=== PATIENT | female | born 1965 | race Caucasian/White ===

== ENCOUNTER → 2023-11-02 10:03 | Outpatient (REF) | payer MEDICARE, OTHER, SELFPAY ==
[2023-11-02 12:04] LABS: Urine Albumin Negative (Neg - Trace); Urine Bilirubin Negative (Negative); Urine Character Clear (Clear); Urine Color Straw; Urine Glucose Negative (Negative); Urine Ketone Negative (Negative); Urine Leukocyte Negative (Negative); Urine Nitrite Negative (Negative); Urine Occult Blood Negative (Negative); Urine Urobilinogen Negative (Neg - 1+)
[2023-11-02 12:30] LABS: Erythrocyte Sed Rate 24 mm/hour (0-20)
[2023-11-02 12:33] LABS: ALT (SGPT) 21 U/L (0-35); AST (SGOT) 29 U/L (14-36); Albumin 4.7 g/dl (3.5-5.0); Alkaline Phosphatase 120 U/L (38-126); Blood Urea Nitrogen 11 mg/dl (7-17); Calcium 9.9 mg/dl (8.4-10.2); Carbon Dioxide 30 mmol/L (22-30); Chloride 103 mmol/L (98-107); Glucose 92 mg/dl (70-99); HDL Cholesterol 85 mg/dl; LDL Cholesterol, Calculated 114 mg/dl; Potassium 4.1 mmol/L (3.5-5.1); Sodium 139 mmol/L (135-145); Total Bilirubin 0.5 mg/dl (0.2-1.3); Total Cholesterol 220 mg/dl (50-199); Total Protein 7.9 g/dl (6.3-8.2); Triglyceride 108 mg/dl (10-149); Very Low Density Lipoprotein 21 mg/dl (0-30); eGFR > 60.00
[2023-11-02 12:53] LABS: Vitamin D, 25-OH*** 48.8 ng/mL (30-80)
[2023-11-02 13:07] LABS: TSH 1.48 uIU/ml (0.47-4.68)
[2023-11-02 19:20] LABS: Protein/creatinine Ratio 0.2; Urine Protein 10 mg/dl
[2023-11-06 13:06] LABS: Albumin 4.38 g/dL (3.75-5.01); Alpha 1 Globulin 0.34 g/dL (0.19-0.46); Alpha 2 Globulin 0.86 g/dL (0.48-1.05); SPEP IFE Reflex Not Done; Total Protein-Electrophoresis 7.6 g/dL (6.3-8.2)
[2023-11-07 22:30] LABS: Cryoglobulin NEG 72Hour (NEG 72Hour)
[2023-11-08 16:46] LABS: Rheumatoid Agglutinin Less Than 10 IU (<10 IU)
== END ==
LOC: REG 10:03
PROVIDERS: ATTENDING PHYSICIAN Internal Medicine Rheumatology; FAMILY PHYSICIAN Family Medicine
DX: E78.5 Hyperlipidemia, unspecified (principal); R73.03 Prediabetes; M35.00 Sjogren syndrome, unspecified; M85.80 Other specified disorders of bone density and structure, unspecified site
CPT/HCPCS: 36415; 80053; 80061; 81003; 82306; 82570; 82595; 84155; 84156; 84165; 84443; 85652; 86140; 86160; 86430

== ENCOUNTER 2023-11-22 19:24 | Emergency (ER) | payer MEDICARE, OTHER, SELFPAY ==
[2023-11-22 19:30] VITALS: BP 160/95
--- NOTE | 2023-11-22 22:28 | ED.GENMED ---
Addendum entered and electronically signed by Jimmy Escobar PA-C 11/25/23 07:52:
UCx positive for lactobacillus. Likely contaminant particularly as clinical presentation c/w MSK etiology
Original Note:
History of Present Illness
<LEANDRO Suh - Last Filed: 11/22/23 23:06>
General
Chief Complaint: Abdominal Symptoms
Source: patient
Exam Limitations: none
Time Seen by Provider: 11/22/23 22:27
Nursing documentation reviewed up to this point in time: agreed with
Travel History
Have you had any contact with someone who has COVID-19?: No
Do you have any symptoms of coronavirus? Fever > 100 degrees, chills, cough, shortness of breath, sore throat, loss of taste or smell, muscle aches, or headache?: No
History of Present Illness
History of Present Illness:
57 y/o F with history of interstitial cystitis, gastroparesis, and diverticulitis presents to ED c/o abdominal pain. Patient reports she had a 'forceful sneeze' about 1 week ago and has been feeling sore since. She reports that she thinks the sneeze
'ripped everything inside me and caused an explosion'. She states the soreness has been constant and is worse with movement. She states it has been limiting her activity and she has been laying/resting all day. Patient reports the pain is
generalized throughout her abdomen. Patient took motrin 2 days ago without relief. Patient denies nausea, vomiting, diarrhea, dysuria, incontinence, fever or chills.
Past History
<LEANDRO Suh - Last Filed: 11/22/23 23:06>
Past History
ED Past Medical History: Asthma, Hypercholesterolemia, Other (Seasonal allergies, PNA, Gastroparesis, Endometrious, IBS, Sjogrens, Palpitations, Sleep apnea, Buldging disc, Arthritis, Chronic fatigue, Migraines, Sleep apnea, Diverticulitis) and
Other (Interstitial cystitis, Rosacea, )
ED Past Surgical History: Appendectomy, Gynecological (Hysterectomy) and Other (Adhesions)
Social History
Tobacco: Non-smoker
Alcohol: None
Drug: None
Personal:
Living: with family
Employment: Employed
Family History
Family History: Other (Noncontributory)
Review of Systems
<LEANDRO Suh - Last Filed: 11/22/23 23:06>
Review of Systems
Allergies reviewed?: Yes
All Other Systems: ROS reviewed and negative except as documented in HPI and ROS
Constitutional: Reports no symptoms
EENT: Reports no symptoms
Respiratory: Reports no symptoms
Cardiac: Reports no symptoms
ABD/GI: Reports abdominal pain
: Reports no symptoms
Musculoskeletal: Reports no symptoms
Skin: Reports no symptoms
Neurological: Reports no symptoms
Endocrine: Reports no symptoms
Hematologic/Lymphatic: Reports no symptoms
Psychiatric: Reports no symptoms
Phy Exam
<LEANDRO Suh - Last Filed: 11/22/23 23:06>
General Physical Exam
General Presentation: well appearing and mild distress
General age: appears stated age
General Skin: warm and dry
General Habitus: normal
General Mental: alert
General Hydration: appears well hydrated
Cardiovascular Exam
Cardiovascular Exam: regular rate/rhythm, no edema, no gallop, no murmur and normal peripheral pulses
Pulmonary Exam
Pulmonary Exam: lungs clear, no respiratory distress, no rales, no crackles and no rhonchi
Neurological Exam
Neurological Exam: alert and oriented x3
Musculoskeletal Exam
Musculoskeletal Exam: full ROM
Skin Exam
Skin Exam: normal color, warm/dry and no rash
Psychiatric Exam
Psychiatric Exam: normal mood/affect
Course
<LEANDRO Suh - Last Filed: 11/22/23 23:06>
Orders/Labs/Results
Orders:
Orders
11/22/23 23:04
Ketorolac [Toradol] 30 mg IM NOW STA
11/22/23 23:20
Complete Blood Count/With Diff Urgent
Comprehensive Metabolic Panel Urgent
Lipase Urgent
Urinalysis Reflex To Culture Urgent
Date Specimen was Collected: 11/22/23
Time Specimen was Collected: 23:10
Urine Microscopic Reflex Cult Urgent
11/22/23 23:34
Ibuprofen [Motrin] 600 mg .ROUTE .STK-MED ONE
11/23/23 00:06
Ibuprofen [Motrin] 600 mg PO NOW STA
11/23/23 00:21
Ketorolac [Toradol] 10 mg PO NOW STA
11/23/23 00:43
Ketorolac [Toradol] 10 mg PO NOW STA
Abnormal Lab Results
11/22/23
23:20
Plt Count 415 H 10^3/uL
(130-400)
BUN 18 H mg/dl
(7-17)
Leukocyte Esterase Rfl Trace A
(Negative)
11/22/23 23:20
11/22/23 23:20
Vital Signs
Initial and Last Documented VS:
Initial Vital Signs
Temp Pulse Resp BP Pulse Ox
98.3 F 95 20 160/95 98
11/22/23 19:30 11/22/23 19:30 11/22/23 19:30 11/22/23 19:30 11/22/23 19:30
Last Documented Vital Signs
Temp Pulse Resp BP Pulse Ox
98.3 F 69 16 141/87 99
11/22/23 19:30 11/22/23 23:27 11/22/23 23:27 11/22/23 23:27 11/22/23 23:27
<Silvana Mckay, - Last Filed: 11/23/23 00:55>
Orders/Labs/Results
Orders:
Orders
11/22/23 23:04
Ketorolac [Toradol] 30 mg IM NOW STA
11/22/23 23:20
Complete Blood Count/With Diff Urgent
Comprehensive Metabolic Panel Urgent
Lipase Urgent
Urinalysis Reflex To Culture Urgent
Date Specimen was Collected: 11/22/23
Time Specimen was Collected: 23:10
Urine Microscopic Reflex Cult Urgent
11/22/23 23:34
Ibuprofen [Motrin] 600 mg .ROUTE .STK-MED ONE
11/23/23 00:06
Ibuprofen [Motrin] 600 mg PO NOW STA
11/23/23 00:21
Ketorolac [Toradol] 10 mg PO NOW STA
11/23/23 00:43
Ketorolac [Toradol] 10 mg PO NOW STA
Abnormal Lab Results
11/22/23
23:20
Plt Count 415 H 10^3/uL
(130-400)
BUN 18 H mg/dl
(7-17)
Leukocyte Esterase Rfl Trace A
(Negative)
11/22/23 23:20
11/22/23 23:20
Vital Signs
Initial and Last Documented VS:
Initial Vital Signs
Temp Pulse Resp BP Pulse Ox
98.3 F 95 20 160/95 98
11/22/23 19:30 11/22/23 19:30 11/22/23 19:30 11/22/23 19:30 11/22/23 19:30
Last Documented Vital Signs
Temp Pulse Resp BP Pulse Ox
98.3 F 69 16 141/87 99
11/22/23 19:30 11/22/23 23:27 11/22/23 23:27 11/22/23 23:27 11/22/23 23:27
<LEANDRO Suh - Last Filed: 11/22/23 23:06>
MDM/Problems Addressed
Differential Diagnosis Includes:
Muscle strain
Viral GI
Diverticulitis
<Silvana Mckay DO - Last Filed: 11/23/23 00:55>
*Pulse Oximetry
Patient hypoxic: no
*Critical Care Note
Total Time (30-74mins, 75-104mins- exclusive of procedures): Not Applicable
ED Attending Note
<LEANDRO Suh - Last Filed: 11/22/23 23:06>
-
Portions of this chart may have been created with voice recognition software.� Occasional wrong word or��sound alike� substitutions may have occurred due to the inherent limitations of voice recognition software.
<Silvana Mckay DO - Last Filed: 11/23/23 00:55>
ED Attending Note
Patient seen and examined by attending physician: Yes
I performed the substantive portion of visit, reviewed & personally made and approve the management plan that is documented in note by myself or SAMANTHA.: Yes
I performed a history and physical exam of patient and discussed management with resident, I reviewed resident's note and agree with documented findings and plan of care.: Yes
ED Attending Note:
This is a 57-year-old woman who has history of interstitial cystitis, gastroparesis, irritable bowel syndrome, diverticulosis/diverticulitis who complains of generalized upper abdominal pain that began promptly after a forceful sneeze approximately
1 week ago. Patient felt like she tore something in her abdomen and she has had persistent primarily mid to upper abdominal pain that is worse with movement, worse with palpation. She has not felt any lumps or abdominal wall defects. She does
admit to intermittent nausea but has had no vomiting. No diarrhea or constipation, no fever nor chills. She denies dysuria nor urgency nor hematuria but does note intermittent mild vulvar irritation/itchiness that has been ongoing. Overall the
symptoms are not consistent with prior UTIs. She denies back pain or flank pain. No chest pain or coughing or shortness of breath. She has had no dizziness nor lightheadedness. She did take ibuprofen once, 1 day ago.
GENERAL: 57-year-old woman appears somewhat older than stated age, awake and alert, easily communicative and appears in no acute distress. Mildly elevated blood pressure initially, has improved to 140/80 upon recheck. Afebrile. Without
tachycardia.
EYE: anicteric. Conjunctiva are dark pink.
NECK: Supple, nontender, no meningismus, no significant adenopathy.
ENT: oral mucosa is moist. No rhinorrhea.
CARDIAC: Regular rate and rhythm. no murmur.
LUNGS: Clear breath sounds bilaterally, no acute respiratory distress, no wheezes/rales/rhonchi
ABDOMEN: Rotund, soft, nondistended, mild generalized mid to upper abdominal discomfort with deep palpation only, no rebound no guarding, no palpable masses nor abdominal wall defect. no r/g, no cvat. normoactive BS.
NEUROLOGICAL: Alert and oriented x3, no focal neuro deficits. Gait is steady.
SKIN: Warm and dry, normal color, skin intact. No rash.
MUSCULOSKELETAL: No C/C/E. peripheral pulses are full and equal b/l. No palpable tenderness.
PSYCH: Mildly anxious. Easily communicative.
History and exam most consistent with acute abdominal wall muscle strain. History concerning for possible abdominal wall hernia formation but no hernia defect appreciated on exam.
Patient history of abdominal pain after a forceful sneeze is not consistent with acute internal organ injury especially as incident occurred over 1 week ago and overall is nontoxic in appearance, vital signs within normal limits, appears euvolemic
and exam is overall benign.
Other consideration is upper abdominal pain not related to sneeze such as gastritis, pancreatitis, cholecystitis. Less likely UTI. Nothing in history nor exam to suspect small bowel obstruction.
Recommend we check laboratory studies, urinalysis and will trial a dose of ibuprofen.
Will consider imaging depending on lab results. If laboratory studies within normal limits, history and exam most consistent with abdominal wall muscle strain and therefore no indication for radiologic studies.
11/23/2023 0052 AM
Patient initially agreeable to IM Toradol but then declined requesting oral liquid medication.
She was then agreeable to the liquid Motrin but then declined and requested oral Toradol tablet.
Oral Toradol 10 mg provided; she now elects to take this at home.
Overall continues to appear comfortable, has been drinking water, eating crackers without exacerbation of pain. Up and about, gait is steady.
Labs are reassuring, within normal limits. Preliminary urinalysis is unremarkable.
As above, history and exam most consistent with abdominal wall muscle strain. There is no evidence of abdominal wall hernia formation.
Recommend supportive measures, continuing NSAIDs versus Tylenol as needed for pain. She can apply local heat such as a heating pad or local heat patches versus local lidocaine patches.
Avoid heavy lifting, bending.
Follow-up with PCP for recheck.
Discharge Plan
Departure
Patient Disposition: Home (Routine Discharge)
Date of Disposition: 11/23/23
Time of Disposition: 00:51
Patient with high blood pressure during this ER visit?: No
Condition: Good
Discharge Problem:
Strain of abdominal muscle
Instructions: Abdominal Muscle Strain (DC)
Prescriptions:
No Action
polyethylene glycol 3350 17 GRAMS powder in packet
17 grams PO DAILY
estradiol 1 APPLIC cream
1 applic S TU
Patient Comments:
03/04/23-Patient takes at bedtime Tues and Fri
Rx Instructions:
only estrace, brand name
levalbuterol tartrate 1 PUFF HFA aerosol inhaler
1 puff inhalation R Q4HPRN PRN (Reason: sob)
acetaminophen [Children's Acetaminophen] 160 MG/5 ML suspension
640 mg PO Q6HPRN PRN (Reason: pain, fever) Qty: 1 0RF
ipratropium bromide 21 mcg (0.03 %) [place],Non-Aerosol
2 spray INTRANASAL BID
cholecalciferol (vitamin D3) 12.5 mcg/5 mL (500 unit/5 mL) Liquid
12.5 mcg PO TH
ketotifen fumarate [Zaditor] 0.025 % (0.035 %) Drops
1 drp BOTH EYES BID
desloratadine [Clarinex] 5 mg Tablet,Disintegrating
5 mg PO DAILY
prednisone 20 mg tablet
20 mg PO DAILY 4 Days Qty: 4 0RF
azithromycin [Zithromax] 250 mg tablet
250 mg PO DAILY Qty: 4 0RF
levofloxacin 250 mg/10 mL solution
750 mg PO DAILY 10 Days Qty: 300 0RF
Rx Instructions:
Please substitute for 250 mg tablets if needed
Referrals:
NONE,* [Family Provider] - Call in 1-3 days for appt
Interventions
Interventions:
*Risk Screen - Suicide Last Done: 11/22/23 19:30
*General Assessment Last Done: 11/22/23 19:30
*Neglect/Abuse Screening Last Done: 11/22/23 23:03
ED- Fall Risk Assessment Last Done: 11/22/23 23:03
*ED COVID-19 Vaccine History Last Done: 11/22/23 23:03
GD-Cdhmsl-Goqzeeinyu Assessment Last Done: 11/22/23 23:03
[2023-11-22 23:08] VITALS: BMI 26.2
[2023-11-22 23:27] VITALS: BP 141/87
[2023-11-22 23:37] LABS: % Eosinophils 2.3 % (0-6); % Immature Granulocytes 0.3 % (0-0.5); % Lymphocytes 37.6 % (20.5-51.1); % Monocytes 8.7 % (1.7-9.3); % Neutrophils 50.1 % (42.2-75.2); Absolute Basophils 0.1 10^3/uL (0-0.2); Absolute Eosinophils 0.2 10^3/uL (0-0.7); Absolute Lymphocytes 2.7 10^3/uL (1.2-3.4); Absolute Monocytes 0.6 10^3/uL (0.1-0.6); Absolute Neutrophils 3.6 10^3/uL (1.4-6.5); Hematocrit 38.9 % (37.0-47.0); Hemoglobin 13.4 g/dL (12.0-16.0); Mean Corp Hgb Conc. 34.4 g/dL (33.0-37.0); Mean Corpuscular Volume 87.2 fL (81.0-99.0); Mean Platelet Volume 9.4 fL (7.4-10.4); Nucleated Red Blood Cells % 0 %; Platelet Count 415 10^3/uL (130-400); Red Blood Cell Count 4.46 10^6/uL (4.20-5.40); White Blood Cell Count 7.3 10^3/uL (4.8-10.8)
[2023-11-22 23:51] LABS: ALT (SGPT) 20 U/L (0-35); AST (SGOT) 28 U/L (14-36); Albumin 4.5 g/dl (3.5-5.0); Alkaline Phosphatase 119 U/L (38-126); Blood Urea Nitrogen 18 mg/dl (7-17); Calcium 9.5 mg/dl (8.4-10.2); Carbon Dioxide 29 mmol/L (22-30); Chloride 101 mmol/L (98-107); Estimated Creatinine Clearance 92 ml/min; Glucose 94 mg/dl (70-99); Lipase 168 U/L (23-300); Potassium 3.9 mmol/L (3.5-5.1); Sodium 137 mmol/L (135-145); Total Bilirubin 0.4 mg/dl (0.2-1.3); Total Protein 7.8 g/dl (6.3-8.2); eGFR > 60.00
[2023-11-23 00:44] LABS: Urine Albumin Negative (Neg - Trace); Urine Bilirubin Negative (Negative); Urine Character Clear (Clear); Urine Color Yellow; Urine Glucose Negative (Negative); Urine Ketone Negative (Negative); Urine Leukocyte Trace (Negative); Urine Nitrite Negative (Negative); Urine Occult Blood Negative (Negative); Urine Specific Gravity 1.015 (<1.030); Urine Urobilinogen Negative (Neg - 1+)
[2023-11-23] MEDS: TORADOL 10 MG PO (00:50)
[2023-11-23 01:05] LABS: Urine Bacteria Few (Negative); Urine Red Blood Cell 0-2 /HPF (0-2); Urine Squamous Cell >30 /LPF (Few)
== END 2023-11-23 00:55 | disposition home or self-care (01) ==
LOC: EMR 19:24
PROVIDERS: EMERGENCY PHYSICIAN Emergency Medicine
DX: S39.011A Strain of muscle, fascia and tendon of abdomen, initial encounter (principal); X58.XXXA Exposure to other specified factors, initial encounter; R03.0 Elevated blood-pressure reading, without diagnosis of hypertension
CPT/HCPCS: 99283; 80053; 81003; 81015; 83690; 85025; 87086

== ENCOUNTER 2023-11-30 12:12 | Emergency (ER) | payer MEDICARE, OTHER, SELFPAY ==
[2023-11-30 12:16] VITALS: BP 148/93
--- NOTE | 2023-11-30 12:45 | ED.GENMED ---
History of Present Illness
General
Chief Complaint: Abdominal Pain
Source: patient
Exam Limitations: none
Time Seen by Provider: 11/30/23 12:41
Nursing documentation reviewed up to this point in time: agreed with
Travel History
Have you had any contact with someone who has COVID-19?: No
Do you have any symptoms of coronavirus? Fever > 100 degrees, chills, cough, shortness of breath, sore throat, loss of taste or smell, muscle aches, or headache?: No
Past History
Past History
ED Past Medical History: Asthma, Hypercholesterolemia, Other (Seasonal allergies, PNA, Gastroparesis, Endometrious, IBS, Sjogrens, Palpitations, Sleep apnea, Buldging disc, Arthritis, Chronic fatigue, Migraines, Sleep apnea, Diverticulitis) and
Other (Interstitial cystitis, Rosacea, )
ED Past Surgical History: Appendectomy, Gynecological (Hysterectomy) and Other (Adhesions)
Social History
Tobacco: Non-smoker
Alcohol: None
Drug: None
Personal:
Living: with family
Employment: Employed
Family History
Family History: Other (Noncontributory)
Course
Orders/Labs/Results
Orders:
Orders
11/30/23 13:43
Complete Blood Count/With Diff Urgent
Comprehensive Metabolic Panel Urgent
Lipase Urgent
11/30/23 13:54
CT Abd/pel (oral only)-[facility] Only Urgent
Comment:
Reason For Exam: abd pain, pt refuses iv contrast
Iohexol [Omnipaque] See Protocol PO NOW STA
Vital Signs
Initial and Last Documented VS:
Initial Vital Signs
Temp Pulse Resp BP Pulse Ox
97.6 F 66 22 148/93 96
11/30/23 12:16 11/30/23 12:16 11/30/23 12:16 11/30/23 12:16 11/30/23 12:16
Last Documented Vital Signs
Temp Pulse Resp BP Pulse Ox
97.6 F 66 22 148/93 96
11/30/23 12:16 11/30/23 12:16 11/30/23 12:16 11/30/23 12:16 11/30/23 12:16
ED Attending Note
-
Portions of this chart may have been created with voice recognition software.� Occasional wrong word or��sound alike� substitutions may have occurred due to the inherent limitations of voice recognition software.
Discharge Plan
Departure
Prescriptions:
No Action
polyethylene glycol 3350 17 GRAMS powder in packet
17 grams PO DAILY
estradiol 1 APPLIC cream
1 applic S TUFR
Patient Comments:
03/04/23-Patient takes at bedtime Tues and Fri
Rx Instructions:
only estrace, brand name
levalbuterol tartrate 1 PUFF HFA aerosol inhaler
1 puff inhalation R Q4HPRN PRN (Reason: sob)
acetaminophen [Children's Acetaminophen] 160 MG/5 ML suspension
640 mg PO Q6HPRN PRN (Reason: pain, fever) Qty: 1 0RF
ipratropium bromide 21 mcg (0.03 %) [place],Non-Aerosol
2 spray INTRANASAL BID
cholecalciferol (vitamin D3) 12.5 mcg/5 mL (500 unit/5 mL) Liquid
12.5 mcg PO TH
ketotifen fumarate [Zaditor] 0.025 % (0.035 %) Drops
1 drp BOTH EYES BID
desloratadine [Clarinex] 5 mg Tablet,Disintegrating
5 mg PO DAILY
prednisone 20 mg tablet
20 mg PO DAILY 4 Days Qty: 4 0RF
azithromycin [Zithromax] 250 mg tablet
250 mg PO DAILY Qty: 4 0RF
levofloxacin 250 mg/10 mL solution
750 mg PO DAILY 10 Days Qty: 300 0RF
Rx Instructions:
Please substitute for 250 mg tablets if needed
Referrals:
NONE,* [Family Provider] -
Interventions
Interventions:
*Risk Screen - Suicide Last Done: 11/30/23 12:50
*General Assessment Last Done: 11/30/23 12:50
*Neglect/Abuse Screening Last Done: 11/30/23 12:50
ED- Fall Risk Assessment Last Done: 11/30/23 12:50
EN-Ltgiau-Uyurrrspei Assessment Last Done: 11/30/23 12:50
[2023-11-30 12:50] VITALS: BMI 27.3
[2023-11-30] MEDS: OMNIPAQUE 50 ML PO (14:01)
--- NOTE | 2023-11-30 14:29 | ED.GENMED ---
History of Present Illness
<Giovanni Varghese DO - Last Filed: 11/30/23 14:35>
General
Chief Complaint: Abdominal Pain
Source: patient
Time Seen by Provider: 11/30/23 12:41
Travel History
Have you had any contact with someone who has COVID-19?: No
Do you have any symptoms of coronavirus? Fever > 100 degrees, chills, cough, shortness of breath, sore throat, loss of taste or smell, muscle aches, or headache?: No
History of Present Illness
History of Present Illness:
57-year-old female presents to the emergency room complaining of diffuse abdominal pain. Patient began having pain 2 weeks ago after a energetic sneeze. Since that time she has been concerned that she 'tore something in my abdomen'. She was
evaluated here in the emergency room on November 22 at which point she was diagnosed with a abdominal wall strain. Patient states she is continue to have discomfort at is convinced that there is something seriously wrong. In addition the patient
states she spoke to her 'specialist' who told her to come back to the emergency room for imaging. Patient has decreased appetite but is not vomiting.
Past History
<DO Margoth Hargrove Filed: 11/30/23 14:35>
Past History
ED Past Medical History: Asthma, Hypercholesterolemia, Other (Seasonal allergies, PNA, Gastroparesis, Endometrious, IBS, Sjogrens, Palpitations, Sleep apnea, Buldging disc, Arthritis, Chronic fatigue, Migraines, Sleep apnea, Diverticulitis) and
Other (Interstitial cystitis, Rosacea, )
ED Past Surgical History: Appendectomy, Gynecological (Hysterectomy) and Other (Adhesions)
Social History
Tobacco: Non-smoker
Alcohol: None
Drug: None
Personal:
Living: with family
Employment: Employed
Family History
Family History: Other (Noncontributory)
Phy Exam
<Giovanni Varghese DO - Last Filed: 11/30/23 14:35>
Physical Exam
Physical Exam:
General: Awake, Alert, Oriented X3. No acute distress.
Vitals: unremarkable
Head: Atraumatic
Eyes: Pupils equal, EOMI
Throat: Airway intact, no exudates
Neck: Trachea midline
Lungs: Clear and equal b/l
Heart: Regular rate, no murmurs
Abd: Soft, no abdominal wall defects or masses palpated, patient indicates she has pain with palpation diffusely but there is no rebound or guarding, No pulsatile mass
Neuro: Nonfocal
Skin: Warm, dry, no rash
Extremities: pulses equal b/l, no edema
Course
<Giovanni Varghese, DO - Last Filed: 11/30/23 14:35>
Orders/Labs/Results
Orders:
Orders
11/30/23 13:54
CT Abd/pel (oral only)-[facility] Only Urgent
Comment:
Reason For Exam: abd pain, pt refuses iv contrast
Iohexol [Omnipaque] See Protocol PO NOW STA
11/30/23 13:43
11/30/23 13:43
Vital Signs
Initial and Last Documented VS:
Initial Vital Signs
Temp Pulse Resp BP Pulse Ox
97.6 F 66 22 148/93 96
11/30/23 12:16 11/30/23 12:16 11/30/23 12:16 11/30/23 12:16 11/30/23 12:16
Last Documented Vital Signs
Temp Pulse Resp BP Pulse Ox
97.6 F 72 18 137/85 97
11/30/23 12:16 11/30/23 17:13 11/30/23 17:13 11/30/23 17:13 11/30/23 17:13
<Himanshu Russell, DO - Last Filed: 11/30/23 18:02>
Orders/Labs/Results
Orders:
Orders
11/30/23 13:54
CT Abd/pel (oral only)-[facility] Only Urgent
Comment:
Reason For Exam: abd pain, pt refuses iv contrast
Iohexol [Omnipaque] See Protocol PO NOW STA
11/30/23 13:43
11/30/23 13:43
Vital Signs
Initial and Last Documented VS:
Initial Vital Signs
Temp Pulse Resp BP Pulse Ox
97.6 F 66 22 148/93 96
11/30/23 12:16 11/30/23 12:16 11/30/23 12:16 11/30/23 12:16 11/30/23 12:16
Last Documented Vital Signs
Temp Pulse Resp BP Pulse Ox
97.6 F 72 18 137/85 97
11/30/23 12:16 11/30/23 17:13 11/30/23 17:13 11/30/23 17:13 11/30/23 17:13
<Giovanni Varghese DO - Last Filed: 11/30/23 14:35>
MDM/Problems Addressed
MDM/Problems Addressed:
Patient presents with this diffuse abdominal pain. Initially labs and a CT with IV and p.o. contrast ordered. Patient refusing blood work. Patient refusing IV contrast. She states that she had an adverse reaction. When asked she describes the
adverse reaction as flushing throughout her body which I explained is a very common experience for patients receiving IV contrast. She did not ever have tongue swelling. However the patient is not comfortable receiving IV contrast so we will
obtain the CT with simply oral contrast. I explained to the patient that this could limit the diagnostic accuracy of the CT
<Himanshu Russell DO - Last Filed: 11/30/23 18:02>
MDM/Problems Addressed
Chronic conditions affecting care: Other (Sjogren's)
<Himanshu Russell DO - Last Filed: 11/30/23 18:02>
*Radiology
Radiology exam reviewed: radiology read reviewed (ct a/p nad)
*Pulse Oximetry
Patient hypoxic: no
*EKG
Interpreted by ED Provider?: NA
*Disaster Recovery Specialist Interpretation
Rate: Disaster Recovery Specialist- N/A
*Critical Care Note
Total Time (30-74mins, 75-104mins- exclusive of procedures): Not Applicable
<Himanshu Russell, DO - Last Filed: 11/30/23 18:02>
Patient Management
Social determinants of health affecting care: Living situation and Strong social support
Escalation/DeEscalation of care consider admission/obs:
admit not indicated
<Himanshu Russell, DO - Last Filed: 11/30/23 18:02>
Update Note
Update Note:
Discussed results of CT with patient, she will take Colace and magnesium citrate as needed. Patient does not appear in any distress, ambulates without difficulty. Stable for discharge.
ED Attending Note
<Giovanni Varghese, DO - Last Filed: 11/30/23 14:35>
-
Portions of this chart may have been created with voice recognition software.� Occasional wrong word or��sound alike� substitutions may have occurred due to the inherent limitations of voice recognition software.
Discharge Plan
Departure
Patient Disposition: Home (Routine Discharge)
Date of Disposition: 11/30/23
Time of Disposition: 17:52
Patient with high blood pressure during this ER visit?: Yes
Condition: Good
Discharge Problem:
Abdominal pain, Constipation
Instructions: Constipation, Adult (DC), Abdominal Pain, BLOOD PRESSURE
Prescriptions:
New
docusate sodium 50 mg/5 mL liquid
100 mg PO DAILY Qty: 200 0RF
magnesium citrate Solution
90 ml PO ONCE PRN (Reason: Constipation) Qty: 296 0RF
No Action
polyethylene glycol 3350 17 GRAMS powder in packet
17 grams PO DAILY
estradiol 1 APPLIC cream
1 applic S TUFR
Patient Comments:
03/04/23-Patient takes at bedtime Tues and Fri
Rx Instructions:
only estrace, brand name
levalbuterol tartrate 1 PUFF HFA aerosol inhaler
1 puff inhalation R Q4HPRN PRN (Reason: sob)
acetaminophen [Children's Acetaminophen] 160 MG/5 ML suspension
640 mg PO Q6HPRN PRN (Reason: pain, fever) Qty: 1 0RF
ipratropium bromide 21 mcg (0.03 %) [place],Non-Aerosol
2 spray INTRANASAL BID
cholecalciferol (vitamin D3) 12.5 mcg/5 mL (500 unit/5 mL) Liquid
12.5 mcg PO TH
ketotifen fumarate [Zaditor] 0.025 % (0.035 %) Drops
1 drp BOTH EYES BID
desloratadine [Clarinex] 5 mg Tablet,Disintegrating
5 mg PO DAILY
prednisone 20 mg tablet
20 mg PO DAILY 4 Days Qty: 4 0RF
azithromycin [Zithromax] 250 mg tablet
250 mg PO DAILY Qty: 4 0RF
levofloxacin 250 mg/10 mL solution
750 mg PO DAILY 10 Days Qty: 300 0RF
Rx Instructions:
Please substitute for 250 mg tablets if needed
Referrals:
NONE,* [Family Provider] -
Activity Restrictions/Additional Instructions:
Follow up with primary care. Return for any concerns.
Interventions
Interventions:
*Risk Screen - Suicide Last Done: 11/30/23 12:50
*General Assessment Last Done: 11/30/23 12:50
*Neglect/Abuse Screening Last Done: 11/30/23 12:50
ED- Fall Risk Assessment Last Done: 11/30/23 12:50
*ED COVID-19 Vaccine History Last Done: 11/30/23 17:33
HD-Hrhgeq-Exxeiyykac Assessment Last Done: 11/30/23 12:50
[2023-11-30 17:13] VITALS: BP 137/85
== END 2023-11-30 18:11 | disposition home or self-care (01) ==
LOC: EMR 12:12
PROVIDERS: EMERGENCY PHYSICIAN Emergency Medicine
DX: R10.84 Generalized abdominal pain (principal); K59.00 Constipation, unspecified; J45.909 Unspecified asthma, uncomplicated; E78.00 Pure hypercholesterolemia, unspecified; K31.84 Gastroparesis; G47.30 Sleep apnea, unspecified; K58.9 Irritable bowel syndrome, unspecified; M19.90 Unspecified osteoarthritis, unspecified site; M35.00 Sjogren syndrome, unspecified; Z90.49 Acquired absence of other specified parts of digestive tract; Z90.710 Acquired absence of both cervix and uterus
CPT/HCPCS: 99284; 74176

== ENCOUNTER → 2023-12-11 10:19 | Outpatient (REF) | payer MEDICARE, OTHER, SELFPAY ==
[2023-12-11 11:27] LABS: Urine Albumin Negative (Neg - Trace); Urine Bilirubin Negative (Negative); Urine Character Clear (Clear); Urine Color Yellow; Urine Glucose Negative (Negative); Urine Ketone Negative (Negative); Urine Leukocyte Negative (Negative); Urine Nitrite Negative (Negative); Urine Occult Blood Negative (Negative); Urine Specific Gravity 1.005 (<1.030); Urine Urobilinogen Negative (Neg - 1+)
== END ==
LOC: REG 10:19
PROVIDERS: ATTENDING PHYSICIAN Family Medicine
DX: R35.0 Frequency of micturition (principal)
CPT/HCPCS: 81003

== ENCOUNTER → 2024-01-13 12:33 | Outpatient (REF) | payer MEDICARE, OTHER, SELFPAY ==
[2024-01-13 15:00] LABS: Urine Albumin Negative (Neg - Trace); Urine Bilirubin Negative (Negative); Urine Character Clear (Clear); Urine Color Straw; Urine Glucose Negative (Negative); Urine Ketone Negative (Negative); Urine Leukocyte Negative (Negative); Urine Nitrite Negative (Negative); Urine Occult Blood Negative (Negative); Urine Specific Gravity 1.005 (<1.030); Urine Urobilinogen Negative (Neg - 1+)
[2024-01-13 15:33] LABS: Protein/creatinine Ratio 1.1; Urine Protein 12 mg/dl
[2024-01-14 09:30] LABS: Glycohemoglobin (HgbA1c) 5.8 % (4.0-5.6)
== END ==
LOC: REG 12:33
PROVIDERS: FAMILY PHYSICIAN Family Medicine
DX: R53.83 Other fatigue (principal); R73.03 Prediabetes; R80.9 Proteinuria, unspecified; M35.00 Sjogren syndrome, unspecified
CPT/HCPCS: 36415; 81003; 82570; 83036; 84156

== ENCOUNTER → 2024-01-25 14:28 | Outpatient (REF) | payer MEDICARE, OTHER, SELFPAY | LOC: RAD 14:28 | PROVIDERS: ATTENDING PHYSICIAN Family Medicine | DX: E04.1 Nontoxic single thyroid nodule (principal) | CPT/HCPCS: 76536 ==

== ENCOUNTER → 2024-02-08 09:48 | Outpatient (REF) | payer MEDICARE, OTHER, SELFPAY | LOC: RST 09:48 | PROVIDERS: ATTENDING PHYSICIAN Family Medicine | DX: R13.10 Dysphagia, unspecified (principal) | CPT/HCPCS: 74230; 92611 ==

== ENCOUNTER → 2024-02-26 11:14 | Outpatient (REF) | payer MEDICARE, OTHER, SELFPAY ==
[2024-02-26 12:24] LABS: % Basophils 0.8 % (0-2); % Eosinophils 1.7 % (0-6); % Immature Granulocytes 0.3 % (0-0.5); % Lymphocytes 19.5 % (20.5-51.1); % Monocytes 9.6 % (1.7-9.3); % Neutrophils 68.1 % (42.2-75.2); Absolute Basophils 0.1 10^3/uL (0-0.2); Absolute Eosinophils 0.1 10^3/uL (0-0.7); Absolute Lymphocytes 1.3 10^3/uL (1.2-3.4); Absolute Monocytes 0.6 10^3/uL (0.1-0.6); Absolute Neutrophils 4.5 10^3/uL (1.4-6.5); Hematocrit 37.8 % (37.0-47.0); Hemoglobin 12.5 g/dL (12.0-16.0); Mean Corp Hgb Conc. 33.1 g/dL (33.0-37.0); Mean Corpuscular Hgb 29.6 pg (27.0-31.0); Mean Corpuscular Volume 89.6 fL (81.0-99.0); Mean Platelet Volume 9.7 fL (7.4-10.4); Nucleated Red Blood Cells % 0 %; Platelet Count 340 10^3/uL (130-400); Red Blood Cell Count 4.22 10^6/uL (4.20-5.40); White Blood Cell Count 6.7 10^3/uL (4.8-10.8)
[2024-02-26 12:29] LABS: ALT (SGPT) 16 U/L (0-35); AST (SGOT) 22 U/L (14-36); Albumin 4.4 g/dl (3.5-5.0); Alkaline Phosphatase 90 U/L (38-126); Blood Urea Nitrogen 14 mg/dl (7-17); Carbon Dioxide 30 mmol/L (22-30); Chloride 103 mmol/L (98-107); Direct Bilirubin 0.2 mg/dl (0.0-0.4); Glucose 90 mg/dl (70-99); Potassium 4.3 mmol/L (3.5-5.1); Sodium 140 mmol/L (135-145); Total Bilirubin 0.3 mg/dl (0.2-1.3); Total Protein 7.1 g/dl (6.3-8.2); eGFR > 60.00
== END ==
LOC: REG 11:14
PROVIDERS: FAMILY PHYSICIAN Family Medicine; OTHER PHYSICIAN Internal Medicine Gastroenterology
DX: K76.0 Fatty (change of) liver, not elsewhere classified (principal); R80.9 Proteinuria, unspecified; M35.00 Sjogren syndrome, unspecified; R73.03 Prediabetes
CPT/HCPCS: 36415; 80053; 82248; 85025

== ENCOUNTER → 2024-03-15 14:08 | Outpatient (REF) | payer MEDICARE, OTHER, SELFPAY | LOC: HWRAD 14:08 | PROVIDERS: ATTENDING PHYSICIAN Family Medicine | DX: R10.9 Unspecified abdominal pain (principal) | CPT/HCPCS: 74176 ==

== ENCOUNTER → 2024-03-21 15:58 | Outpatient (REF) | payer MEDICARE, OTHER, SELFPAY | LOC: WDC 15:58 | PROVIDERS: ATTENDING PHYSICIAN Obstetrics & Gynecology; FAMILY PHYSICIAN Family Medicine | DX: Z12.31 Encounter for screening mammogram for malignant neoplasm of breast (principal) | CPT/HCPCS: 77063; 77067 ==

== ENCOUNTER 2024-03-24 15:15 | Observation (INO) | payer MEDICARE, OTHER, SELFPAY ==
[2024-03-24 11:56] VITALS: BP 131/90; BMI 27.7
--- NOTE | 2024-03-24 12:14 | EDRN ---
pt refused labs
[2024-03-24 13:28] VITALS: BP 134/65
[2024-03-24] MEDS: NSS 1000 IV (13:34)
[2024-03-24] MEDS: UNASYN IV ×2 (13:46→20:36)
[2024-03-24 13:48] LABS: Urine Albumin Negative (Neg - Trace); Urine Bilirubin Negative (Negative); Urine Character Clear (Clear); Urine Color Yellow; Urine Glucose Negative (Negative); Urine Ketone Negative (Negative); Urine Leukocyte Negative (Negative); Urine Nitrite Negative (Negative); Urine Occult Blood Negative (Negative); Urine Urobilinogen Negative (Neg - 1+)
[2024-03-24 13:49] LABS: % Basophils 0.6 % (0-2); % Eosinophils 1.4 % (0-6); % Immature Granulocytes 0.3 % (0-0.5); % Lymphocytes 25.7 % (20.5-51.1); % Monocytes 8.2 % (1.7-9.3); % Neutrophils 63.8 % (42.2-75.2); Absolute Eosinophils 0.1 10^3/uL (0-0.7); Absolute Lymphocytes 1.7 10^3/uL (1.2-3.4); Absolute Monocytes 0.5 10^3/uL (0.1-0.6); Absolute Neutrophils 4.1 10^3/uL (1.4-6.5); Hematocrit 37.7 % (37.0-47.0); Hemoglobin 13.3 g/dL (12.0-16.0); Mean Corp Hgb Conc. 35.3 g/dL (33.0-37.0); Mean Corpuscular Hgb 29.6 pg (27.0-31.0); Mean Platelet Volume 9.4 fL (7.4-10.4); Nucleated Red Blood Cells % 0 %; Platelet Count 350 10^3/uL (130-400); Red Blood Cell Count 4.49 10^6/uL (4.20-5.40); Red Cell Dist. Width 12.8 % (11.5-14.5); White Blood Cell Count 6.5 10^3/uL (4.8-10.8)
[2024-03-24 14:00] VITALS: BP 116/82
[2024-03-24 14:06] LABS: Blood Urea Nitrogen 12 mg/dl (7-17); Calcium 9.9 mg/dl (8.4-10.2); Carbon Dioxide 25 mmol/L (22-30); Chloride 104 mmol/L (98-107); Estimated Creatinine Clearance 99 ml/min; Glucose 88 mg/dl (70-99); Lipase 118 U/L (23-300); Sodium 138 mmol/L (135-145); eGFR > 60.00
--- NOTE | 2024-03-24 14:08 | ED.GENMED ---
History of Present Illness
General
Chief Complaint: Abdominal Pain
Source: patient and family
Time Seen by Provider: 03/24/24 12:36
History of Present Illness
History of Present Illness:
58-year-old female with history of gastritis, gastroparesis, diverticulosis who presents with persistent abdominal pain. She was diagnosed with diverticulitis about 9 days ago. Patient took 4 to 5 days of Augmentin but could not tolerate it. She
had difficulty swallowing it and difficulty with upper abdominal pain. Patient then took a day off and took a day of Levaquin. She states she has been unable to hold down and take the pills. She spoke with her doctor and was seen by her PCP. She
was sent by her GI doctor and PCP for IV antibiotics. Patient also states she has a history of gastroparesis and has been constipated. No melena or hematochezia. No fevers. She has had loss of appetite.
Past History
Past History
ED Past Medical History: Asthma, Hypercholesterolemia, Other (Seasonal allergies, PNA, Gastroparesis, Endometrious, IBS, Sjogrens, Palpitations, Sleep apnea, Buldging disc, Arthritis, Chronic fatigue, Migraines, Sleep apnea, Diverticulitis) and
Other (Interstitial cystitis, Rosacea, )
ED Past Surgical History: Appendectomy, Gynecological (Hysterectomy) and Other (Adhesions)
Social History
Tobacco: Non-smoker
Alcohol: None
Drug: None
Personal:
Living: with family
Employment: Employed
Family History
Family History: Other (Noncontributory)
Phy Exam
Physical Exam
Physical Exam:
CONSTITUTIONAL Patient alert and oriented to person, place and time. Well-appearing. Vital signs reviewed.
HEAD atraumatic, normocephalic.
EYES eyelids normal to inspection, Pupils equally round and reactive to light, Extraocular muscles intact, Conjunctiva normal, Sclera normal.
NECK normal range of motion, Trachea midline, no jugular venous distention.
RESPIRATORY CHEST No respiratory distress noted, Chest expansion equal, Bilateral breath sounds clear.
CARDIOVASCULAR regular rate and rhythm, Heart sounds normal.
ABDOMEN no distention, bowel sounds normal, moderate left lower quadrant tenderness, mild suprapubic tenderness, mild mid abdominal tenderness
BACK normal inspection, no obvious deformities
UPPER EXTREMITY range of motion normal, Motor strength normal, no cyanosis, no edema.
LOWER EXTREMITY range of motion normal, Motor strength normal, no cyanosis, no edema.
NEURO Speech normal, No focal motor deficits, Soraya coma scale 15, Memory normal, Cranial Nerves intact to screening exam.
SKIN skin warm, dry, and normal in color.
PSYCHIATRIC patient oriented to person place and time, Normal affect.
Course
Orders/Labs/Results
Orders:
Orders
03/24/24 13:16
0.9% Sodium Chloride 1000 ml [Nss] 1,000 ml IV BOLUS
03/24/24 13:30
Ampicillin/Sulbactam 3 G [Unasyn] 3 gm 0.9% Sodium Chloride 100 ml [Nss] 100 ml IV NOW
03/24/24 13:33
Basic Metabolic Panel Urgent
Complete Blood Count/With Diff Urgent
Lipase Urgent
Urinalysis Reflex To Culture Urgent
Date Specimen was Collected: 03/24/24
Time Specimen was Collected: 13:18
03/24/24 13:33
03/24/24 13:33
Vital Signs
Initial and Last Documented VS:
Initial Vital Signs
Temp Pulse Resp BP Pulse Ox
98.4 F 74 16 131/90 100
03/24/24 11:56 03/24/24 11:56 03/24/24 11:56 03/24/24 11:56 03/24/24 11:56
Last Documented Vital Signs
Temp Pulse Resp BP Pulse Ox
98.4 F 81 18 134/65 99
03/24/24 11:56 03/24/24 13:30 03/24/24 13:30 03/24/24 13:28 03/24/24 13:30
MDM/Problems Addressed
MDM/Problems Addressed:
Sjogren's disease, chronic gastritis, constipation, acute diverticulitis
*Pulse Oximetry
Patient hypoxic: no
*Critical Care Note
Total Time (30-74mins, 75-104mins- exclusive of procedures): Not Applicable
Data Reviewed
Review of Other/Old Records Reveals: Radiology Studies (CT report from March 15 reviewed)
Source: patient and family
Prescriptions/Medications Considered But Not Given:
Consider Levaquin but I do feel that Unasyn IV is reasonable.
Further Testing Considered But Not Given:
Consider repeat CT but at this point she does appear stable. Will defer repeat imaging to GI or inpatient physician
Patient Management
Discussion with other providers: Hospitalist
Escalation/DeEscalation of care consider admission/obs:
58-year-old female who states that her symptoms have been persistent and progressive and unable to finish full course of oral antibiotics. Sent for admission. IV Unasyn. Admit
ED Attending Note
-
Portions of this chart may have been created with voice recognition software.� Occasional wrong word or��sound alike� substitutions may have occurred due to the inherent limitations of voice recognition software.
Discharge Plan
Departure
Patient Disposition: Admit
Date of Disposition: 03/24/24
Time of Disposition: 14:08
Admit to: Med/Surg
Presentation/result/management discussed w/ accepting MD/DO: Hospitalist
Discharge Problem:
Diverticulitis, outpatient antibiotic failure
Prescriptions:
No Action
estradiol 1 APPLIC cream
1 applic vaginal TUTH@1900
Rx Instructions:
brand name only
ipratropium bromide 21 mcg (0.03 %) Webb,Non-Aerosol
2 spray INTRANASAL DAILY
ketotifen fumarate [Zaditor] 0.025 % (0.035 %) Drops
1 drp BOTH EYES BID
polyethylene glycol 3350 [Miralax] 17 gram Powder In Packet
17 g PO DAILYPRN PRN (Reason: CONSTIPATION)
famotidine [Pepcid] 20 mg Tablet
20 mg PO BID
levofloxacin 750 mg Tablet
750 mg PO DAILY
ondansetron 4 mg tablet,disintegrating
4 mg PO TIDPRN PRN (Reason: NAUSEA)
ergocalciferol (vitamin D2) 200 mcg/mL (8,000 unit/mL) Drops
200 mcg PO TH
ezetimibe [Zetia] 10 mg Tablet
5 mg PO Q48H
Refresh Optive 0.5-0.9 % Drops
1 drp BOTH EYES BID
cetirizine [Zyrtec] 1 mg/mL Solution
5 mg PO HS
Dulera 100-5 mcg/actuation Hfa Aerosol Inhaler
2 puff INHALATION R BID
Referrals:
Erinn Serrano DO [Family Provider] -
Interventions
Interventions:
*Risk Screen - Suicide Last Done: 03/24/24 11:56
*Neglect/Abuse Screening Last Done: 03/24/24 11:56
JW-Cwcyze-Ynnotayyxq Assessment Last Done: 03/24/24 13:45
Discharge Date and Time
Print Language: FINNISH
--- NOTE | 2024-03-24 14:16 | HPS.HSE ---
Family Physician
-
Family Physician: Erinn Serrano DO
Chief Complaint
-
Abdominal cramping associate with nausea
History of Present Illness
58-year-old with past medical history for asthma, hyperlipidemia, gastroparesis, endometriosis, IBS, estrogen, sleep apnea, arthritis, migraines, diverticulitis, interstitial cystitis presented to us with abdominal cramps associate with nausea, poor
appetite for past few weeks. She was diagnosed with acute diverticulitis on the of this month. she was started on amoxicillin and Levaquin. Patient was not able to tolerate oral antibiotics. She took amoxicillin for 4 days and Levaquin only
1 day. Patient stated, the antibiotics caused burning in her stomach. Patient complaining of constipation. She had a small tiny BM yesterday. Her abdomen is distended than usual. Patient denied any fever, chills, chest pain, short of breath.
She complained of headache from poor oral intake patient denied any. Dysuria and hematuria.
Patient received Unasyn in ER. Admitting for further management.
Medical History
Past Medical History
Past Medical History: Reports Other
Additional Past Medical History:
Asthma
Gastroparesis
thyroid nodule
Hiatal hernia
Fibromyalgia
Fatty liver disease
Venous insufficiency
Obstructive sleep apnea
Hyperlipidemia
Sigmoid diverticulitis
Chronic pain syndrome
Chronic fatigue syndrome
IBS with constipation
Osteopenia
Past Surgical History: Reports Other
Additional Past Surgical History:
Total abdominal hysterectomy
Appendectomy
Social History
Tobacco: Non-smoker
Alcohol: None
Drug: None
Family History
Family History: Not pertinent
Allergies / Home Medications
Allergies reflects when Allergies were last updated in [facility].
Home Medications with original date entered in [facility]
Allergy/Medication List:
Allergies
Allergy/AdvReac Type Severity Reaction Status Date / Time
cefadroxil [From Duricef] Allergy Hives Verified 03/24/24 12:00
cefuroxime [From Ceftin] Allergy Hives Verified 03/24/24 12:00
epinephrine Allergy heart races Verified 03/24/24 12:00
hydromorphone HCl Allergy Unknown Verified 03/24/24 12:00
[From Dilaudid]
Iodinated Contrast Media Allergy FLUSHING, Verified 03/24/24 12:00
PALPITATIONS
latex Allergy Hives Verified 03/24/24 12:00
Home Medications
estradiol 0.01% (0.1 mg/gram) vaginal cream 1 applic vaginal TUTH@1900 Hormonal Agent 06/19/17
ipratropium bromide 21 mcg (0.03 %) nasal spray 2 spray intranasal DAILY Congestion 06/22/22
ketotifen fumarate 0.025 % (0.035 %) eye drops (Zaditor) 1 drp BOTH EYES BID Eye Condition 03/04/23
carboxymethylcellulose 0.5 %-glycerin 0.9 % eye drops (Refresh Optive) 1 drp BOTH EYES BID 03/24/24
cetirizine 1 mg/mL oral solution 5 mg PO HS 03/24/24
ergocalciferol (vitamin D2) 200 mcg/mL (8,000 unit/mL) oral drops 200 mcg PO TH 03/24/24
ezetimibe 10 mg tablet (Zetia) 5 mg PO Q48H 03/24/24
famotidine 20 mg tablet (Pepcid) 20 mg PO BID 03/24/24
levofloxacin 750 mg tablet 750 mg PO DAILY 03/24/24
mometasone-formoterol HFA 100 mcg-5 mcg/actuation aerosol inhaler (Dulera) 2 puff inhalation R BID 03/24/24
ondansetron 4 mg disintegrating tablet 4 mg PO TIDPRN PRN NAUSEA 03/24/24
polyethylene glycol 3350 17 gram oral powder packet (Miralax) 17 g PO DAILYPRN PRN CONSTIPATION 03/24/24
Review of Systems
-
Constitutional: Reports Weight Loss
EENT: Reports No Symptoms
Respiratory: Reports No Symptoms
Cardiac: Reports No Symptoms
Abdomen/GI: Reports Abdominal Pain, Nausea, Vomiting and Constipated
: Reports No Symptoms
Musculoskeletal: Reports No Symptoms
Skin: Reports No Symptoms
Neurological: Reports Headache
Endocrine: Reports No Symptoms
Hematologic/Lymphatic: Reports No Symptoms
Psych: Reports No Symptoms
Physical Exam
Vital Signs
Vital Signs
Temp Pulse Resp BP Pulse Ox
98.4 F 81 18 134/65 99
03/24/24 11:56 03/24/24 13:30 03/24/24 13:30 03/24/24 13:28 03/24/24 13:30
Physical Exam
General: Well Developed, Well Nourished and No Apparent Distress
HEENT: NormoCephalic, Moist mucous membranes and Atraumatic
Respiratory: Clear
Cardiac: S1/S2 and Regular Rhythm; No Murmur or Rub
GI: Soft, Normal Bowel Sounds, Tender and Distended; No Organomegaly
Rectal: Deferred by Provider
Musculoskeletal: No Clubbing, No Cyanosis and No Edema
Skin: No Rash
Neuro: AO x 3 and Nonfocal/grossly intact
Psych: Calm
Laboratory Results
-
03/24/24 13:33
03/24/24 13:33
Laboratory Results
Total Bilirubin Cancelled 03/24/24 13:33
AST Cancelled 03/24/24 13:33
ALT Cancelled 03/24/24 13:33
Alkaline Phosphatase Cancelled 03/24/24 13:33
Lipase 118 U/L (23-300) 03/24/24 13:33
Data Reviewed
-
Lab Data: Labs Reviewed by me
Impression/Plan
-
# Acute diverticulitis
-Failed outpatient therapy
-IV Unasyn continued
-Tylenol as needed for pain and fever
-CT abdomen pelvis with findings suggestive of mild sigmoid diverticulitis. No extraluminal air, and no associated abscess formation.Small hiatal hernia without evidence of incarceration.
#constipation
-fleet enema now and as needed for constipation
-senna and Colace
# Hyperlipidemia
-Zetia continued
# GERD
-PPI continued
# CODE STATUS
-Full code
# DVT prophylaxis
-Lovenox subcu
[2024-03-24 15:00] VITALS: BP 129/85; BP 146/83
--- NOTE | 2024-03-24 15:10 | W.PN.UPDATE ---
Update Note
Progress Note Update
Patient seen and examined and discussed with GENERAL SUPERVISOR Genaro, and I agree with her note.
Gen-AAOx3, NAD
HEENT-NC, AT, anicteric, clear oral mm
Neck-supple
CV-reg, no M, +S1/S2
Lungs-clear B/L
Abd-soft, nondistended, mild diffuse tenderness without guarding or rebound
Ext-no edema
Musculoskeletal-no cyanosis, clubbing
Skin-warm and dry
Neuro-grossly non-focal
Psych-calm, cooperative
Abdominal discomfort -symptoms mostly due to constipation. Unclear contribution from diverticulitis. Start bowel regimen including enema, MiraLAX, Colace, Senokot. Admit to MedSurg.
She only uses MiraLAX at home. Has underlying IBS.
Mild sigmoid diverticulitis -noted on CT scan from March 15. Patient claims she did not finish course of antibiotics due to ongoing nausea at home. No signs or symptoms of sepsis. IV antibiotics initiated. She was referred to the ER today by her
primary care doctor and outpatient wax machine operator (Dr. Medina) for IV antibiotic therapy.
Mild intermittent asthma -stable.
GERD
Hyperlipidemia
Sjogren's syndrome
Full code
[2024-03-24] MEDS: FLEET MINERAL OIL ENEMA 133 ML RECTAL (17:01)
[2024-03-24] MEDS: PEPCID 20 MG PO (20:34)
[2024-03-24] MEDS: NON-FORMULARY ITEM INH ×2 (20:34→20:50)
[2024-03-24] MEDS: REFRESH CELLUVISC GEL 1 DROPS BOTH EYES (20:35)
[2024-03-24] MEDS: ZADITOR 1 DROP BOTH EYES (20:35)
[2024-03-24] MEDS: COLACE LIQUID 100 MG TUBE (21:48)
[2024-03-24] MEDS: ZYRTEC 5 MG PO (21:49)
[2024-03-24 22:55] VITALS: BP 132/88
[2024-03-25] MEDS: UNASYN IV ×4 (02:31→20:13)
[2024-03-25 07:00] VITALS: BP 137/96
[2024-03-25 07:03] LABS: Hemoglobin 12.2 g/dL (12.0-16.0); Mean Corp Hgb Conc. 34.9 g/dL (33.0-37.0); Mean Corpuscular Volume 86.2 fL (81.0-99.0); Mean Platelet Volume 9.7 fL (7.4-10.4); Platelet Count 300 10^3/uL (130-400); Red Blood Cell Count 4.06 10^6/uL (4.20-5.40); Red Cell Dist. Width 12.9 % (11.5-14.5); White Blood Cell Count 5.1 10^3/uL (4.8-10.8)
[2024-03-25 07:17] LABS: Blood Urea Nitrogen 8 mg/dl (7-17); Calcium 9.4 mg/dl (8.4-10.2); Carbon Dioxide 30 mmol/L (22-30); Chloride 104 mmol/L (98-107); Estimated Creatinine Clearance 99 ml/min; Glucose 84 mg/dl (70-99); Sodium 141 mmol/L (135-145); eGFR > 60.00
[2024-03-25] MEDS: PEPCID 20 MG PO ×2 (07:33→20:13)
[2024-03-25] MEDS: COLACE LIQUID 100 MG TUBE (07:33)
[2024-03-25] MEDS: REFRESH CELLUVISC GEL 1 DROPS BOTH EYES ×2 (07:33→20:13)
[2024-03-25] MEDS: NON-FORMULARY ITEM 1 UNIT INH (08:18)
[2024-03-25] MEDS: ZADITOR BOTH EYES (08:59)
--- NOTE | 2024-03-25 12:04 | W.PN.HOSP.TC ---
Today's Communication/Plan
-
bowel regimen
advance diet
Assessment / Plan
Assessment / Plan
Gen-AAOx3, NAD
HEENT-NC, AT, anicteric, clear oral mm
Neck-supple
CV-reg, no M, +S1/S2
Lungs-clear B/L
Abd-soft, NT, ND
Ext-no edema
Musculoskeletal-no cyanosis, clubbing
Skin-warm and dry
Neuro-grossly non-focal
Psych-calm, cooperative
Abdominal discomfort -symptoms mostly due to constipation. Unclear contribution from diverticulitis. Continue bowel regimen including enema, MiraLAX, Colace, Senokot.
She only uses MiraLAX at home. Has underlying IBS.
Mild sigmoid diverticulitis -noted on CT scan from March 15. Patient claims she did not finish course of antibiotics due to ongoing nausea at home. No signs or symptoms of sepsis. IV antibiotics initiated. She was referred to the ER by her
primary care doctor and outpatient editor producer (Dr. Medina) for IV antibiotic therapy. Can resume oral antibiotics when her stomach settles down and discharge.
Mild intermittent asthma -stable.
GERD
Hyperlipidemia
Sjogren's syndrome
Full code
Anticipated Discharge: Within 24 hours
Subjective/Interval History
-
Date of Service: March 25, 2024
Patient seen/examined. Had BM this am. Nausea better.
Objective Data
-
Labs:
Laboratory Results
03/25/24
06:08
WBC 5.1
Hgb 12.2
Hct 35.0 L
Plt Count 300
Sodium 141
Potassium 4.0
Chloride 104
Carbon Dioxide 30
BUN 8
Creatinine 0.6
Glucose 84
Calcium 9.4
Vital Signs:
Vital Signs
Temp Pulse Resp BP Pulse Ox
98.0 F 78 16 137/96 98
03/25/24 07:00 03/25/24 08:21 03/25/24 08:21 03/25/24 07:00 03/25/24 08:21
I&O
03/24/24 03/25/24 03/26/24
06:59 06:59 06:59
Intake Total 680 / 680
Balance 680 / 680
Review of Systems
-
History Source: Patient
All other systems: Reviewed and negative
[2024-03-25] MEDS: MIRALAX 17 GRAMS PO ×2 (12:26→20:13)
[2024-03-25] MEDS: COLACE LIQUID 100 MG PO (12:26)
[2024-03-25] MEDS: FLEET MINERAL OIL ENEMA 133 ML RECTAL (14:15)
[2024-03-25 15:00] VITALS: BP 145/99
[2024-03-25] MEDS: NON-FORMULARY ITEM INH (20:13)
[2024-03-25] MEDS: COLACE LIQUID PO (20:14)
[2024-03-25] MEDS: ZYRTEC 5 MG PO (20:27)
[2024-03-25] MEDS: ZADITOR 1 DROP BOTH EYES (20:27)
--- NOTE | 2024-03-25 21:35 | VATNOTE ---
VAT paged to assess patient's left MAB area from an old IV site which appears red. Patient reports pain at old site. Site is red, warm and slightly swollen. The redness measures approximately 4cm by 2 cm. Upon entering room patient was using an ice
pack for pain relief. This VAT RN suggested she try warm to see if that provides more relief. Warm compress given to patient. Primary RN notified. Son at bedside. Will continue to monitor.
--- NOTE | 2024-03-25 23:29 | PTCARENOTE ---
patient c/o pain to left forearm from previous iv removed on daysft and to right forearm new iv. iv team notified and came up to place new iv to right AC. recommended hot or cold compress to sites as needed depending on which felt better. patient
now refusing 2300 blood pressures on b/l arms and did not like it when they bp cuff was placed on lower ext. patient states she will be refusing a.m. labs as well. PALLAVI Mayers notified and poc ongoing
--- NOTE | 2024-03-26 00:20 | PTCARENOTE ---
Vitals were not completed on patient because patient refused.
[2024-03-26] MEDS: UNASYN IV ×3 (01:39→15:11)
--- NOTE | 2024-03-26 07:44 | PTCARENOTE ---
patient refused am VS.
[2024-03-26] MEDS: NON-FORMULARY ITEM 1 UNIT INH (07:56)
[2024-03-26] MEDS: COLACE LIQUID PO (08:58)
[2024-03-26] MEDS: REFRESH CELLUVISC GEL 1 DROPS BOTH EYES (08:58)
[2024-03-26] MEDS: MIRALAX 17 GRAMS PO (08:58)
[2024-03-26] MEDS: PEPCID 20 MG PO (08:58)
[2024-03-26] MEDS: ZADITOR 1 DROP BOTH EYES (08:59)
--- NOTE | 2024-03-26 11:21 | PTCARENOTE ---
patient refused colace p.o, and senna p.o. Patient states the medicine pimentel her throat. Patient requests enema instead, and wants it done at 1500.
--- NOTE | 2024-03-26 12:09 | W.PN.HOSP.TC ---
Addendum entered and electronically signed by Rio Le DO 03/26/24 14:56:
Patient now agreeable to go home later today.
I do not believe she needs any more antibiotics on discharge. Has had adequate course of antibiotics both in the hospital and before hospitalization. Her case of diverticulitis was very mild.
If she has any concerns regarding her diverticulitis I recommend she touch base with her facing cutting machine operator tomorrow.
I believe her main issues are more related to constipation than diverticulitis. Suspect she has IBS. Follow-up as outpatient. Continue bowel regimen.
Original Note:
Today's Communication/Plan
-
continue
Assessment / Plan
Assessment / Plan
Gen-AAOx3, NAD
HEENT-NC, AT, anicteric, clear oral mm
Neck-supple
CV-reg, no M, +S1/S2
Lungs-clear B/L
Abd-soft, NT, ND
Ext-no edema
Musculoskeletal-no cyanosis, clubbing
Skin-warm and dry
Neuro-grossly non-focal
Psych-calm, cooperative
Abdominal discomfort -symptoms mostly due to constipation. Unclear contribution from diverticulitis. Continue bowel regimen including enema, MiraLAX, Colace, Senokot.
She only uses MiraLAX at home. Has underlying IBS.
Mild sigmoid diverticulitis -noted on CT scan from March 15. Patient claims she did not finish course of antibiotics due to ongoing nausea at home, burning in her chest with swallowing liquid Augmentin. No signs or symptoms of sepsis. IV
antibiotics initiated. She was referred to the ER by her primary care doctor and outpatient facing cutting machine operator (Dr. Medina) for IV antibiotic therapy. Can resume oral antibiotics and discharge today but patient refusing and wants one more day of IV.
Mild intermittent asthma -stable.
GERD
Hyperlipidemia
Sjogren's syndrome
Full code
Anticipated Discharge: Within 24 hours
Subjective/Interval History
-
Date of Service: March 26, 2024
Patient seen/examined, complaining of constipation but at the same time refusing colace, senna. Demanding nursing to give her an enema.
Objective Data
-
Vital Signs:
Vital Signs
Temp Pulse Resp BP Pulse Ox
97.5 F 91 16 145/99 99
03/25/24 23:00 03/26/24 07:58 03/26/24 07:58 03/25/24 15:00 03/26/24 07:58
I&O
03/25/24 03/26/24 03/27/24
06:59 06:59 06:59
Intake Total 680 / 680 1829
Balance 680 / 680 1829
Review of Systems
-
History Source: Patient
All other systems: Reviewed and negative
--- NOTE | 2024-03-26 14:25 | CM ---
Reviewed patient chart, met with patient and her son who was at bedside to obtain information for CM assessment. Patient requested that CM close door and not come too close due to fear of germs. Offer was made to wear mask and she replied by stating
that would make her more comfortable. Put on face mask. Reentered room. Patient stated that she did not want to participate in CM assessment. She inquired as to what CM does and full explanation was provided that the department exists to help put
plans in place for the most successful outcome at discharge, whether that would be facilitating a transfer to a different facility, implementing services in the home if indicated or setting up DME or medications. She was advised that CM works
alongside the medical staff and overseen/receive indications regarding what is needed from them.
Patient inquired as to what questions are asked. Patient was advised that CM Dept would like to know their living environment to ascertain who is there to assist with ADLs or chores, transportation, and medical care/assistance if needed. Patient
inquired as to whether she could receive a copy of the questions that are asked. Patient was advised that there is nothing tangible the questions are verbally relayed by the CM to identify any potential hurdles/challenges that they may face upon
discharge or have been facing that have brought them in.
Patient admitted to needing assistance with ADLs but confirmed that there are people in her life at home that can provide assistance for whatever is needed. As this was the case, CM advised that unless there is something indicated from the medical
staff, will ask no further questions.
Patient was provided with OBS letter. She signed letter and requested a copy. She requested CM's full name which was provided and she asked for the number to the department. Patient requested that name and dept as well as number was included with
the copy of the Observation letter.
Patient asked for the CM note that will be documented after it's written. Advised patient that the proper protocol would be to go through medical records, and provided her with the form. Advised her that she can obtain her chart through medical
records once she is discharged. She expressed understanding.
Patient requested that CM write down all the questions that are asked for CM assessment. Patient was asked if she would feel more comfortable if questions were written and she could write back. She stated no. Patient was reminded that all CM
questions were reviewed for her verbally upon her inquisition into 'what are the questions that are asked' Patient's son stated that a written list of commonly asked questions by CM not necessary.
Patient was advised that she will have a different CM tomorrow, however encouraged to call office number if she needs anything as she has access to CM services throughout her admission. Patient asked if a CM would come in tomorrow and she was
advised that unless she specifically asks, or if there are needs prior to discharge, a CM may not enter her room.
Plan: Case management will continue to follow and assist with discharge planning. If there are any needs as relayed to CM by medical staff, will revisit patient to determine if she is agreeable to collaborating with dept. Patient was advised not to
hesitate to ask if she changes her mind and exchange ended pleasantly.
--- NOTE | 2024-03-26 14:56 | W.DS.TRANS ---
DC Summary - Fitness Management Director
-
Discharge Instructions:
Discharge Diagnosis/Procedures Constipation, mild diverticulitis
Diet Other diet
Additional Diets Soft diet
Activity As tolerated
Driving Restrictions As prior to admission
Bathing Restrictions None
Instructions:
Stand-Alone Forms:
Changes to Home Medications: No
Discharge Medications:
DC Medications w/original date entered in [facility]
estradiol 0.01% (0.1 mg/gram) vaginal cream 1 g vaginal TUTH@1900 Hormonal Agent 06/19/17
ipratropium bromide 21 mcg (0.03 %) nasal spray 2 spray intranasal DAILY Congestion 06/22/22
ketotifen fumarate 0.025 % (0.035 %) eye drops (Zaditor) 1 drp BOTH EYES BID Eye Condition 03/04/23
carboxymethylcellulose 0.5 %-glycerin 0.9 % eye drops (Refresh Optive) 1 drp BOTH EYES BID DRY EYES 03/24/24
cetirizine 1 mg/mL oral solution 5 mg PO HS Allergies 03/24/24
ergocalciferol (vitamin D2) 200 mcg/mL (8,000 unit/mL) oral drops 40,000 unit PO TH Supplement 03/24/24
ezetimibe 10 mg tablet (Zetia) 5 mg PO Q48H High Cholesterol 03/24/24
famotidine 20 mg tablet (Pepcid) 20 mg PO BID Gastrointestinal Issue 03/24/24
mometasone-formoterol HFA 100 mcg-5 mcg/actuation aerosol inhaler (Dulera) 2 puff inhalation R BID Lung/Breathing Issues 03/24/24
ondansetron 4 mg disintegrating tablet 4 mg PO TIDPRN PRN NAUSEA 03/24/24
polyethylene glycol 3350 17 gram oral powder packet (Miralax) 17 g PO DAILYPRN PRN CONSTIPATION 03/24/24
bisacodyl 10 mg rectal suppository 10 mg OH [id number] PRN constipation #0 ea 03/26/24
docusate sodium 50 mg/5 mL oral liquid 100 mg (10 mL) PO BID #0 mL 03/26/24
mineral oil (Fleet Mineral Oil enema) 133 ml OH DAILYPRN PRN constipation #0 mL 03/26/24
sennosides 8.8 mg/5 mL oral syrup 8.8 mg (5 mL) PO BID #0 mL 03/26/24
Home Medication Changes
Pending Results: No
[2024-03-26 15:00] VITALS: BP 124/91
[2024-03-26] MEDS: TYLENOL ORAL SOLUTION 650 MG PO (15:11)
[2024-03-26] MEDS: FLEET MINERAL OIL ENEMA 133 ML RECTAL (17:42)
== END 2024-03-26 18:20 | disposition home or self-care (01) ==
LOC: 3 WEST ACU 15:15
PROVIDERS: Registered Nurse; Student in an Organized Health Care Education/Training Program; ADMITTING PHYSICIAN Hospitalist; EMERGENCY PHYSICIAN Emergency Medicine; FAMILY PHYSICIAN Family Medicine
DX: K59.00 Constipation, unspecified (principal); K57.32 Diverticulitis of large intestine without perforation or abscess without bleeding; R10.9 Unspecified abdominal pain; K31.84 Gastroparesis; R10.10 Upper abdominal pain, unspecified; R13.10 Dysphagia, unspecified; M35.00 Sjogren syndrome, unspecified; E78.00 Pure hypercholesterolemia, unspecified; M19.90 Unspecified osteoarthritis, unspecified site; G43.909 Migraine, unspecified, not intractable, without status migrainosus; K29.50 Unspecified chronic gastritis without bleeding; R30.0 Dysuria; E04.1 Nontoxic single thyroid nodule; G93.32 Myalgic encephalomyelitis/chronic fatigue syndrome; K44.9 Diaphragmatic hernia without obstruction or gangrene; M85.80 Other specified disorders of bone density and structure, unspecified site; G89.4 Chronic pain syndrome; J45.20 Mild intermittent asthma, uncomplicated; M79.7 Fibromyalgia; K21.9 Gastro-esophageal reflux disease without esophagitis; K76.0 Fatty (change of) liver, not elsewhere classified; G47.33 Obstructive sleep apnea (adult) (pediatric); I87.2 Venous insufficiency (chronic) (peripheral); E78.5 Hyperlipidemia, unspecified; Z87.19 Personal history of other diseases of the digestive system; Z87.01 Personal history of pneumonia (recurrent); Z88.5 Allergy status to narcotic agent; Z88.8 Allergy status to other drugs, medicaments and biological substances; Z88.1 Allergy status to other antibiotic agents; Z91.041 Radiographic dye allergy status; Z91.040 Latex allergy status; Z79.51 Long term (current) use of inhaled steroids
CPT/HCPCS: 80048; 81003; 83690; 85025; 85027; 94640; 96365; 99284; G0378

== ENCOUNTER → 2024-03-28 14:21 | Outpatient (REF) | payer MEDICARE, OTHER, SELFPAY | LOC: RAD 14:21 | PROVIDERS: ATTENDING PHYSICIAN Family Medicine | DX: M79.605 Pain in left leg (principal) | CPT/HCPCS: 93922; 93925; 93971 ==

== ENCOUNTER → 2024-04-06 15:52 | Outpatient (REF) | payer MEDICARE, OTHER, SELFPAY | LOC: HWRAD 15:52 | PROVIDERS: ATTENDING PHYSICIAN Internal Medicine Gastroenterology | DX: K57.92 Diverticulitis of intestine, part unspecified, without perforation or abscess without bleeding (principal); R10.30 Lower abdominal pain, unspecified | CPT/HCPCS: 74176 ==

== ENCOUNTER 2024-04-17 16:36 | Emergency (ER) | payer MEDICARE, OTHER, SELFPAY ==
[2024-04-17 16:38] VITALS: BP 134/95
--- NOTE | 2024-04-17 17:10 | ED.GENMED ---
History of Present Illness
<Missy Gallardo ANIMAL CARE TAKER - Last Filed: 04/18/24 14:35>
General
Chief Complaint: Abdominal Pain
Source: patient
Exam Limitations: none
Time Seen by Provider: 04/17/24 17:09
Nursing documentation reviewed up to this point in time: agreed with
History of Present Illness
History of Present Illness:
58-year-old female with history of back pain, sleep apnea with CPAP, HLD, diverticulitis, dysphagia, gastroparesis, endometriosis, interstitial cystitis, Sjogren's, hysterectomy, appendectomy, and abdominal adhesion removal, Admitted 03/24-03/26 for
Mild diverticulitis and constipation. Presents with RLQ 'stabbing' pains that started two nights ago. Denies n/v/d/c. Denies fever/chills. Denies CP, SOB
Past History
<Missy Gallardo, ANIMAL CARE TAKER - Last Filed: 04/18/24 14:35>
Past History
ED Past Medical History: Asthma, Hypercholesterolemia, Other (Seasonal allergies, PNA, Gastroparesis, Endometrious, IBS, Sjogrens, Palpitations, Sleep apnea, Buldging disc, Arthritis, Chronic fatigue, Migraines, Sleep apnea, Diverticulitis) and
Other (Interstitial cystitis, Rosacea, )
ED Past Surgical History: Appendectomy, Gynecological (Hysterectomy) and Other (Adhesions)
Social History
Tobacco: Non-smoker
Alcohol: None
Drug: None
Personal:
Living: with family
Employment: Employed
Family History
Family History: Other (Noncontributory)
Review of Systems
<Missy Gallardo ANIMAL CARE TAKER - Last Filed: 04/18/24 14:35>
Review of Systems
Allergies reviewed?: Yes
All Other Systems: ROS reviewed and negative except as documented in HPI and ROS
Constitutional: Denies fever or chills
Respiratory: Denies trouble breathing
Cardiac: Denies chest pain
ABD/GI: Reports abdominal pain; Denies nausea, vomiting, diarrhea, constipated (States she had a normal bowel movement this morning), bloody stools or black stools
: Denies dysuria or difficulty voiding
Musculoskeletal: Reports no symptoms
Skin: Reports no symptoms
Neurological: Reports no symptoms
Phy Exam
<Missy Gallardo, ANIMAL CARE TAKER - Last Filed: 04/18/24 14:35>
Physical Exam
Physical Exam:
GENERAL: No acute distress. A&Ox3.
CONSTITUTIONAL: Afebrile.
EYES: Clear, conjunctivae normal
ENMT: moist mucus membranes, Pharynx nl
RESPIRATORY: Regular respirations, nonlabored, lungs clear.
CARDIOVASCULAR: Regular rate and rhythm, no murmurs, no rubs.
GI: Soft, tender right lower quadrant, nontender, hyperactive BS. No palpable masses
MUSCULOSKELETAL: Moves with ease. Well perfused.
SKIN: Warm, dry, pink
PSYCH: Anxious mood and affect. Well kept, interactive and appropriate
NEUROLOGIC: Awake, alert and oriented. No focal neurological deficits
Course
<Missy Gallardo, ANIMAL CARE TAKER - Last Filed: 04/18/24 14:35>
Orders/Labs/Results
Orders:
Orders
04/17/24 17:21
0.9% Sodium Chloride 1000 ml [Nss] 1,000 ml IV BOLUS
Iohexol [Omnipaque] See Protocol PO NOW STA
04/17/24 17:22
CT Abd/pel (oral only)-DH Only Urgent
Comment:
Reason For Exam: RLQ abd pain
Ketorolac [Toradol] 15 mg IV NOW STA
04/17/24 17:41
Complete Blood Count/With Diff Urgent
Comprehensive Metabolic Panel Urgent
Lipase Urgent
04/17/24 19:07
Urinalysis Reflex To Culture Urgent
Date Specimen was Collected: 04/17/24
Time Specimen was Collected: 19:01
Urine Microscopic Reflex Cult Urgent
04/17/24 21:15
Morphine Sulfate 1 mg IV NOW STA
Abnormal Lab Results
04/17/24 04/17/24
17:41 19:07
Glucose 101 H mg/dl
(70-99)
Leukocyte Esterase Rfl Trace A
(Negative)
Urine Bacteria (Reflex) Few A
(Negative)
04/17/24 17:41
04/17/24 17:41
Vital Signs
Initial and Last Documented VS:
Initial Vital Signs
Temp Resp BP
98.6 F 18 134/95
04/17/24 16:38 04/17/24 16:38 04/17/24 16:38
Last Documented Vital Signs
Temp Pulse Resp BP Pulse Ox
98.6 F 64 15 149/79 98
04/17/24 16:38 04/17/24 19:45 04/17/24 19:45 04/17/24 21:21 04/17/24 21:30
<Idalmis Cummings DO - Last Filed: 04/17/24 22:07>
Orders/Labs/Results
Orders:
Orders
04/17/24 17:21
0.9% Sodium Chloride 1000 ml [Nss] 1,000 ml IV BOLUS
Iohexol [Omnipaque] See Protocol PO NOW STA
04/17/24 17:22
CT Abd/pel (oral only)-DH Only Urgent
Comment:
Reason For Exam: RLQ abd pain
Ketorolac [Toradol] 15 mg IV NOW STA
04/17/24 17:41
Complete Blood Count/With Diff Urgent
Comprehensive Metabolic Panel Urgent
Lipase Urgent
04/17/24 19:07
Urinalysis Reflex To Culture Urgent
Date Specimen was Collected: 04/17/24
Time Specimen was Collected: 19:01
Urine Microscopic Reflex Cult Urgent
04/17/24 21:15
Morphine Sulfate 1 mg IV NOW STA
Abnormal Lab Results
04/17/24 04/17/24
17:41 19:07
Glucose 101 H mg/dl
(70-99)
Leukocyte Esterase Rfl Trace A
(Negative)
Urine Bacteria (Reflex) Few A
(Negative)
04/17/24 17:41
04/17/24 17:41
Vital Signs
Initial and Last Documented VS:
Initial Vital Signs
Temp Resp BP
98.6 F 18 134/95
04/17/24 16:38 04/17/24 16:38 04/17/24 16:38
Last Documented Vital Signs
Temp Pulse Resp BP Pulse Ox
98.6 F 64 15 149/79 98
04/17/24 16:38 04/17/24 19:45 04/17/24 19:45 04/17/24 21:21 04/17/24 21:30
<Missy Gallardo NP - Last Filed: 04/18/24 14:35>
MDM/Problems Addressed
Differential Diagnosis Includes:
Constipation, diverticulitis, colitis, endometriosis
MDM/Problems Addressed:
58-year-old female with history of back pain, sleep apnea with CPAP, HLD, diverticulitis, dysphagia, gastroparesis, endometriosis, interstitial cystitis, Sjogren's, hysterectomy, appendectomy, and abdominal adhesion removal, Admitted 03/24-03/26 for
Mild diverticulitis and constipation. Presents with RLQ 'stabbing' pains that started two nights ago. Denies n/v/d/c. Denies fever/chills. Denies CP, SOB
Pt and son state 'they discharged me/her too soon' and 'they didn't give me any antibiotics at discharge.'
According to last visit: 'She was started on systemic antibiotics at the patient's request,
although clinically there was no clear indication for antibiotic
therapy. She was monitored in the hospital. Bowel regimen was
prescribed and her bowels did move. She was deemed stable for
discharge on 03/26/2024. Antibiotics were discontinued on
discharge.'
CBC normal
CMP normal
Lipase normal
UA negative
CAT scan abdomen pelvis with p.o. only contrast as patient refused IV contrast: IMPRESSION:
No CT evidence for an acute inflammatory process within the limitations of the lack of intravenous contrast.
Results discussed with patient and son at bedside
She continues to rub her right lower quadrant saying she cannot believe there is nothing wrong. Initially I offered her stronger pain medication but she refused, now she is willing to take a 'very small' dose of morphine.
She insists something is wrong, 'maybe it's my endometriosis' she states she is followed for this by someone [place]out of state because no one here knows how to deal with it.'
Morphine 1 mg IV ordered
Pt states no relief with Morphine
Case discussed with Dr. Cummings who will examine patient
9:45 p.m.
Pt ambulating to BR and back with normal gait.
Pt workup here neg for any acute finding. May be her endometriosis. No infectious signs. She is comfortable going home to follow up with GI.
<Missy Gallardo ANIMAL CARE TAKER - Last Filed: 04/18/24 14:35>
*Critical Care Note
Total Time (30-74mins, 75-104mins- exclusive of procedures): Not Applicable
ED Attending Note
<Missy Gallardo, ANIMAL CARE TAKER - Last Filed: 04/18/24 14:35>
-
Portions of this chart may have been created with voice recognition software.� Occasional wrong word or��sound alike� substitutions may have occurred due to the inherent limitations of voice recognition software.
<Idalmis Cummings DO - Last Filed: 04/17/24 22:07>
ED Attending Note
Patient seen and examined by attending physician: Yes
I performed the substantive portion of visit, reviewed & personally made and approve the management plan that is documented in note by myself or SAMANTHA.: Yes
I performed a history and physical exam of patient and discussed management with resident, I reviewed resident's note and agree with documented findings and plan of care.: Yes
ED Attending Note:
Patient seen and evaluated at bedside. 58-year-old female seen for right-sided abdominal pain for the past 3 days. Patient reports longstanding history of endometriosis and adhesions. Patient reports nausea without vomiting. She was recently
admitted to the hospital from 03/24 to 03/26 for mild diverticulitis. Patient additionally notes history of appendectomy in the past. Vital signs within normal limits.
On my examination, patient is nontoxic. Abdomen is soft and nondistended with generalized tenderness to the right side of the abdomen, without rebound or guarding. Patient seen and evaluated by SAMANTHA. Patient had laboratory analysis, unremarkable
without leukocytosis, normal electrolyte panel. Patient also had CT abdomen and pelvis with oral contrast. Patient is allergic to IV contrast. CT without acute pathology. Patient continued to express pain. Suspected secondary to possible
endometriosis. Without concern for any severe pathology at this time given unremarkable studies and hemodynamic stability. Feel stable for discharge with continued outpatient follow-up and workup. Return precautions discussed.
Discharge Plan
Departure
Patient Disposition: Home (Routine Discharge)
Date of Disposition: 04/17/24
Time of Disposition: 21:55
Patient with high blood pressure during this ER visit?: No
Condition: Fair
Discharge Problem:
Abdominal pain
Instructions: Abdominal Pain
Prescriptions:
New
acetaminophen-codeine 120-12 mg/5 mL solution
15 ml PO Q8H PRN (Reason: Pain) Qty: 473 0RF
No Action
estradiol 1 APPLIC cream
1 g vaginal TUTH@1900
Rx Instructions:
brand name only/1 gram on applicator
ipratropium bromide 21 mcg (0.03 %) [place],Non-Aerosol
2 spray INTRANASAL DAILY
ketotifen fumarate [Zaditor] 0.025 % (0.035 %) Drops
1 drp BOTH EYES BID
polyethylene glycol 3350 [Miralax] 17 gram Powder In Packet
17 g PO DAILYPRN PRN (Reason: CONSTIPATION)
famotidine [Pepcid] 20 mg Tablet
20 mg PO BID
ondansetron 4 mg tablet,disintegrating
4 mg PO TIDPRN PRN (Reason: NAUSEA)
ergocalciferol (vitamin D2) 200 mcg/mL (8,000 unit/mL) Drops
40,000 unit PO TH
ezetimibe [Zetia] 10 mg Tablet
5 mg PO Q48H
Refresh Optive 0.5-0.9 % Drops
1 drp BOTH EYES BID
cetirizine 1 mg/mL Solution
5 mg PO HS
Dulera 100-5 mcg/actuation Hfa Aerosol Inhaler
2 puff INHALATION R BID
docusate sodium 50 mg/5 mL Liquid
100 mg PO BID Qty: 0 0RF
sennosides 8.8 mg/5 mL Syrup
8.8 mg PO BID Qty: 0 0RF
mineral oil [Fleet Mineral Oil] Enema
133 ml RI DAILYPRN PRN (Reason: constipation) Qty: 0 0RF
bisacodyl 10 mg Suppository
10 mg RI [id number] PRN (Reason: constipation) Qty: 0 0RF
Referrals:
Edy Perrin MD [Active] - Next open appointment
He Funes MD [Active] - As needed
UNKNOWN - PT DOES,NOT KNOW [Family Provider] -
Stand Alone Forms: Return to Work
Activity Restrictions/Additional Instructions:
As we discussed, I see nothing worrisome in your workup here today.
Take copies of your CT and lab reports with you to your doctor's office. See your doctor in 3-4 days if the pain medication isn't helping.
You may call the GI doctor and make next available appointment
I have also provided you with the name of a General Surgeon to use if needed.
I sent a prescription to your pharmacy for Tylenol w Codeine to use as needed for pain.
Interventions
Interventions:
*Risk Screen - Suicide Last Done: 04/17/24 16:38
*General Assessment Last Done: 04/17/24 16:38
*Neglect/Abuse Screening Last Done: 04/17/24 16:38
ED- Fall Risk Assessment Last Done: 04/17/24 18:16
*ED COVID-19 Vaccine History Last Done: 04/17/24 16:38
*Nursing Disposition Last Done: 04/17/24 22:30
QT-Gsbshv-Lboakmjrzm Assessment Last Done: 04/17/24 18:16
Discharge Date and Time
Discharge Date/Time: 04/17/24 22:31
Print Language: FRISIAN
[2024-04-17] MEDS: TORADOL 15 MG IV (17:33)
[2024-04-17] MEDS: NSS 1000 IV (17:33)
[2024-04-17] MEDS: OMNIPAQUE 50 ML PO (17:33)
[2024-04-17 17:47] LABS: % Basophils 0.5 % (0-2); % Eosinophils 1.5 % (0-6); % Immature Granulocytes 0.1 % (0-0.5); % Lymphocytes 21.2 % (20.5-51.1); % Monocytes 8.3 % (1.7-9.3); % Neutrophils 68.4 % (42.2-75.2); Absolute Eosinophils 0.1 10^3/uL (0-0.7); Absolute Lymphocytes 1.6 10^3/uL (1.2-3.4); Absolute Monocytes 0.6 10^3/uL (0.1-0.6); Absolute Neutrophils 5.2 10^3/uL (1.4-6.5); Hematocrit 39.4 % (37.0-47.0); Hemoglobin 13.7 g/dL (12.0-16.0); Mean Corp Hgb Conc. 34.8 g/dL (33.0-37.0); Mean Corpuscular Hgb 30.4 pg (27.0-31.0); Mean Corpuscular Volume 87.4 fL (81.0-99.0); Mean Platelet Volume 9.7 fL (7.4-10.4); Nucleated Red Blood Cells % 0 %; Platelet Count 360 10^3/uL (130-400); Red Blood Cell Count 4.51 10^6/uL (4.20-5.40); White Blood Cell Count 7.6 10^3/uL (4.8-10.8)
[2024-04-17 18:03] LABS: ALT (SGPT) 16 U/L (0-35); AST (SGOT) 25 U/L (14-36); Albumin 4.8 g/dl (3.5-5.0); Alkaline Phosphatase 116 U/L (38-126); Blood Urea Nitrogen 16 mg/dl (7-17); Calcium 10.1 mg/dl (8.4-10.2); Carbon Dioxide 27 mmol/L (22-30); Chloride 103 mmol/L (98-107); Glucose 101 mg/dl (70-99); Lipase 169 U/L (23-300); Sodium 139 mmol/L (135-145); Total Bilirubin 0.4 mg/dl (0.2-1.3); Total Protein 7.6 g/dl (6.3-8.2); eGFR > 60.00
[2024-04-17 18:33] VITALS: BP 137/80
[2024-04-17 19:17] LABS: Urine Albumin Negative (Neg - Trace); Urine Bilirubin Negative (Negative); Urine Character Clear (Clear); Urine Color Yellow; Urine Glucose Negative (Negative); Urine Ketone Negative (Negative); Urine Leukocyte Trace (Negative); Urine Nitrite Negative (Negative); Urine Occult Blood Negative (Negative); Urine Urobilinogen Negative (Neg - 1+)
[2024-04-17 19:24] LABS: Urine Bacteria Few (Negative); Urine Red Blood Cell 0-2 /HPF (0-2); Urine White Cell 0-2 /HPF (0-5)
[2024-04-17] MEDS: MORPHINE SULFATE 1 MG IV (21:18)
[2024-04-17 21:21] VITALS: BP 149/79
== END 2024-04-17 22:31 | disposition home or self-care (01) ==
LOC: EMR 16:36
PROVIDERS: Registered Nurse; EMERGENCY PHYSICIAN Student in an Organized Health Care Education/Training Program
DX: R10.31 Right lower quadrant pain (principal); J45.909 Unspecified asthma, uncomplicated; E78.00 Pure hypercholesterolemia, unspecified; K31.84 Gastroparesis; K58.9 Irritable bowel syndrome, unspecified; M35.00 Sjogren syndrome, unspecified; G47.30 Sleep apnea, unspecified; Z90.49 Acquired absence of other specified parts of digestive tract; Z90.710 Acquired absence of both cervix and uterus
CPT/HCPCS: 99284; 96374; 96375; 96361; 74176; 80053; 81003; 81015; 83690; 85025

== ENCOUNTER → 2024-05-11 10:09 | Outpatient (REF) | payer MEDICARE, OTHER, SELFPAY | LOC: RAD 10:09 | PROVIDERS: FAMILY PHYSICIAN Family Medicine | DX: R13.14 Dysphagia, pharyngoesophageal phase (principal) | CPT/HCPCS: 74221 ==

== ENCOUNTER → 2024-05-16 16:10 | Outpatient (REF) | payer MEDICARE, OTHER, SELFPAY | LOC: RAD 16:10 | PROVIDERS: ATTENDING PHYSICIAN Physician Assistant | DX: M54.50 Low back pain, unspecified (principal) | CPT/HCPCS: 72110 ==

== ENCOUNTER 2024-05-30 11:20 | Inpatient (IN) | payer MEDICARE, OTHER, SELFPAY ==
[2024-05-28 20:52] VITALS: BMI 26.3
[2024-05-28 21:00] VITALS: BP 135/80
--- NOTE | 2024-05-28 23:01 | ED.GENMED ---
History of Present Illness
General
Chief Complaint: Abdominal Pain
Source: patient and family
Time Seen by Provider: 05/28/24 22:36
History of Present Illness
History of Present Illness:
This patient is a 58-year-old female presents emergency department with reported abdominal pain that is been gradual in onset and progressive for the last 3 weeks associated with constipation. She states she has not had a bowel movement in 3 weeks.
She spoke to her GI doctor and was advised to continue her twice daily MiraLAX but add magnesium citrate. She took a half bottle followed by water yesterday and states she is just having 'wet farts'. She had an x-ray on May 16 that showed that
she was 'backed up'. She notes nausea without vomiting and feels bloated. She denies fever, chills, chest pain, dyspnea. She did still eat today although less than usual. She describes a discomfort in her lower abdomen described as 'sore' also
described as 'crampy', that comes and goes without specific provoking or relieving factors.
Past History
Past History
ED Past Medical History: Asthma, Hypercholesterolemia, Other (Seasonal allergies, PNA, Gastroparesis, Endometrious, IBS, Sjogrens, Palpitations, Sleep apnea, Buldging disc, Arthritis, Chronic fatigue, Migraines, Sleep apnea, Diverticulitis) and
Other (Interstitial cystitis, Rosacea, )
ED Past Surgical History: Appendectomy, Gynecological (Hysterectomy) and Other (Adhesions)
Social History
Tobacco: Non-smoker
Alcohol: None
Drug: None
Personal:
Living: with family
Employment: Employed
Family History
Family History: Other (Noncontributory)
Phy Exam
Physical Exam
Physical Exam:
GENERAL: Alert , in no apparent distress
EYE: pupils equal and reactive
NECK: Supple, no significant adenopathy.
ENT: o/p clr, mmm.
CARDIAC: Regular rate and rhythm .
LUNGS: Clear breath sounds bilaterally, no acute respiratory distress, no wheezes/rales/rhonchi
ABDOMEN: Soft, nonspecific diffuse distractible tenderness, no r/g, no cvat, hyperactive bowel sounds
NEUROLOGICAL: Alert and oriented, no focal neuro deficits
SKIN: Warm and dry, skin intact.
MUSCULOSKELETAL: No edema, well perfused.
PSYCH: Normal and appropriate interaction.
RECTAL: no stool in vault
Course
Orders/Labs/Results
Orders:
Orders
05/28/24 23:00
Dicyclomine [Bentyl] 20 mg PO NOW STA
Ondansetron HCl [Zofran] 4 mg PO NOW STA
CR Obstruct Series W/pa Chest Urgent
Comment:
Reason For Exam: constipation
05/28/24 23:04
Ondansetron Injectable [Zofran] 4 mg .ROUTE .[facility]
05/28/24 23:07
Urinalysis Reflex To Culture Urgent
Date Specimen was Collected: 05/28/24
Time Specimen was Collected: 23:04
05/28/24 23:18
Ondansetron Injectable [Zofran] 4 mg IV NOW STA
05/28/24 23:20
CT Abd/pel Without Iv Or Oral Urgent
Comment:
Reason For Exam: pain, constipation, anorexia, n
05/29/24 01:10
Complete Blood Count/No Diff Urgent
Comprehensive Metabolic Panel Urgent
05/29/24 01:11
Flagyl 500 mg IVPB NOW MetroNIDAZOLE 500 MG/100 ML [Flagyl 500 mg] 100 ml IV NOW
Levaquin 500 mg IVPB NOW LevoFLOXacin 500 MG/100 ML [Levaquin] 500 mg in 100 ml IV NOW
Vital Signs
Initial and Last Documented VS:
Initial Vital Signs
Temp Pulse Resp BP Pulse Ox
98.1 F 78 18 135/80 96
05/28/24 21:00 05/28/24 21:00 05/28/24 21:00 05/28/24 21:00 05/28/24 21:00
Last Documented Vital Signs
Temp Pulse Resp BP Pulse Ox
98.1 F 75 20 128/64 96
05/28/24 21:00 05/29/24 00:00 05/29/24 00:00 05/29/24 00:00 05/29/24 00:00
*Critical Care Note
Total Time (30-74mins, 75-104mins- exclusive of procedures): Not Applicable
Update Note
Update Note:
Patient presents to the Emergency Department with constipation and abdominal
Number and Complexity of Problems Addressed at the Encounter
� Chronic conditions affecting care:
� Acute Exacerbation and/or Progression of Chronic Illness:
� Differential Diagnosis includes: But not limited to constipation, ileus, bowel obstruction, etc.
Amount and/or Complexity of Data to be Reviewed and Analyzed
� I performed an independent evaluation of and my interpretation is:
EKG:
CT: Abdominal x-ray to me appears to show slightly today dilated stomach/upper duodenum without air-fluid levels or free air. CAT scan read by vision 'uncomplicated diverticulitis involving mid sigmoid colon in the left lower
quadrant with mild. Diverticular stranding and focal colonic wall thickening no evidence of an intra-abdominal abscess or free air appendix not clearly visualized mild atherosclerosis hysterectomy
Xrays:
Laboratory Studies: Pending at time of this report, urinalysis normal
Other:
� Review of other/old records reveals: Patient was admitted for presumed diverticulitis in March
� Clinical information was obtained by an independent historian: Son and daughter at bedside
� Prescriptions/Medications Considered but not given:
� Further testing considered but not performed:
Risk of Complications and/or Morbidity or Mortality of Patient Management
� Social determinants of health affecting care:
� Discussion with other providers (PCP, Hospitalists, Consultants, etc):
� Escalation of care including admission/observation vs risk of discharge considered: While patient is concerned is constipation and that her symptoms are related to stool, her rectal vault is empty and there is not a large stool
burden noted on CAT scan. Suspect symptoms are related to diverticulitis which is noted on CT. Will treat accordingly with IV antibiotics. Pain management discussed with patient, she wants to avoid narcotics given side effects including
constipation potentially. She got some relief with Bentyl. She is not a candidate for Toradol given her history of gastritis
ED Attending Note
-
Portions of this chart may have been created with voice recognition software.� Occasional wrong word or��sound alike� substitutions may have occurred due to the inherent limitations of voice recognition software.
Discharge Plan
Departure
Patient Disposition: Admit
Date of Disposition: 05/29/24
Time of Disposition: 01:14
Admit to: Med/Surg
Presentation/result/management discussed w/ accepting MD/DO: Hospitalist
Condition: Fair
Discharge Problem:
Diverticulitis
Prescriptions:
No Action
estradiol 1 APPLIC cream
1 g vaginal TUTH@1900
Rx Instructions:
brand name only/1 gram on applicator
ipratropium bromide 21 mcg (0.03 %) [place],Non-Aerosol
2 spray INTRANASAL DAILY
ketotifen fumarate [Zaditor] 0.025 % (0.035 %) Drops
1 drp BOTH EYES BID
polyethylene glycol 3350 [Miralax] 17 gram Powder In Packet
17 g PO DAILYPRN PRN (Reason: CONSTIPATION)
famotidine [Pepcid] 20 mg Tablet
20 mg PO BID
ondansetron 4 mg tablet,disintegrating
4 mg PO TIDPRN PRN (Reason: NAUSEA)
ergocalciferol (vitamin D2) 200 mcg/mL (8,000 unit/mL) Drops
40,000 unit PO TH
ezetimibe [Zetia] 10 mg Tablet
5 mg PO Q48H
Refresh Optive 0.5-0.9 % Drops
1 drp BOTH EYES BID
cetirizine 1 mg/mL Solution
5 mg PO HS
Dulera 100-5 mcg/actuation Hfa Aerosol Inhaler
2 puff INHALATION R BID
docusate sodium 50 mg/5 mL Liquid
100 mg PO BID Qty: 0 0RF
sennosides 8.8 mg/5 mL Syrup
8.8 mg PO BID Qty: 0 0RF
mineral oil [Fleet Mineral Oil] Enema
133 ml [place] DAILYPRN PRN (Reason: constipation) Qty: 0 0RF
bisacodyl 10 mg Suppository
10 mg UT [id number] PRN (Reason: constipation) Qty: 0 0RF
acetaminophen-codeine 120-12 mg/5 mL solution
15 ml PO Q8H PRN (Reason: Pain) Qty: 473 0RF
Referrals:
Erinn Serrano DO [Family Provider] -
Interventions
Interventions:
*Risk Screen - Suicide Last Done: 05/28/24 21:00
*General Assessment Last Done: 05/28/24 21:00
*Neglect/Abuse Screening Last Done: 05/28/24 21:00
ED- Fall Risk Assessment Last Done: 05/28/24 23:13
UV-Sthbdy-Ftfqgaqajp Assessment Last Done: 05/28/24 23:13
Discharge Date and Time
Print Language: NEPALI
[2024-05-28 23:14] LABS: Urine Albumin Negative (Neg - Trace); Urine Bilirubin Negative (Negative); Urine Character Clear (Clear); Urine Color Straw; Urine Glucose Negative (Negative); Urine Ketone Negative (Negative); Urine Leukocyte Negative (Negative); Urine Nitrite Negative (Negative); Urine Occult Blood Negative (Negative); Urine Urobilinogen Negative (Neg - 1+); Urine pH 6.5 (5.0-9.0)
[2024-05-28] MEDS: BENTYL 20 MG PO (23:17)
[2024-05-28] MEDS: ZOFRAN 4 MG IV (23:19)
[2024-05-28 23:31] VITALS: BP 128/64
[2024-05-29] VITALS: BP 128/64
[2024-05-29] MEDS: FLAGYL 500 MG 100 IV ×4 (01:25→23:03)
[2024-05-29] MEDS: LEVAQUIN 100 IV (01:26)
[2024-05-29 01:44] LABS: Hematocrit 36.9 % (37.0-47.0); Hemoglobin 12.8 g/dL (12.0-16.0); Mean Corp Hgb Conc. 34.7 g/dL (33.0-37.0); Mean Corpuscular Hgb 29.6 pg (27.0-31.0); Mean Corpuscular Volume 85.2 fL (81.0-99.0); Mean Platelet Volume 9.8 fL (7.4-10.4); Platelet Count 340 10^3/uL (130-400); Red Blood Cell Count 4.33 10^6/uL (4.20-5.40); White Blood Cell Count 9.7 10^3/uL (4.8-10.8)
[2024-05-29 01:58] LABS: ALT (SGPT) 17 U/L (0-35); AST (SGOT) 29 U/L (14-36); Albumin 4.5 g/dl (3.5-5.0); Alkaline Phosphatase 99 U/L (38-126); Blood Urea Nitrogen 17 mg/dl (7-17); Calcium 9.8 mg/dl (8.4-10.2); Carbon Dioxide 29 mmol/L (22-30); Chloride 103 mmol/L (98-107); Estimated Creatinine Clearance 91 ml/min; Glucose 100 mg/dl (70-99); Potassium 4.3 mmol/L (3.5-5.1); Sodium 144 mmol/L (135-145); Total Bilirubin 0.5 mg/dl (0.2-1.3); Total Protein 7.3 g/dl (6.3-8.2); eGFR > 60.00
[2024-05-29 02:00] VITALS: BP 109/79
--- NOTE | 2024-05-29 02:24 | HPS.HSE ---
Family Physician
-
Family Physician: Erinn Serrano DO
Chief Complaint
-
Constipation and abdominal pain
History of Present Illness
This is a 58-year-old female who has a past medical history of recurrent diverticulitis, underlying irritable bowel syndrome, Sjogren's presenting to the emergent department with abdominal pain nausea and constipation.
Patient has a history of frequent constipation likely secondary to IBS. She states she is felt constipated for at least 3 weeks with very minimal bowel movements. She reports that more recently she has abdominal pain in the bilateral lower
quadrant radiating across the lower quadrant. Is associate with mild nausea. There is no radiation of the pain to the back or groin. She denies any urinary symptoms. She denies vomiting. Last p.o. intake was around 4:30 PM prior to coming to
the emergency department. She tolerated only small amount of fluid but did not vomit. Patient denies having any fevers or chills.
She reported that symptoms are consistent prior diverticulitis. She was not able to tolerate p.o. in the (Augmentin) in the past due to burning sensation in throat and chest. He generally avoids taking oral medications due to her dry mouth. She
follows with GI who instructed her to come to the emergency department when she has symptoms of a diverticulitis for IV antibiotics.
In the emergency department the patient was afebrile, blood pressure was 120/64 oxygen saturation was 98% with a pulse of 75. There was no leukocytosis and a CBC is otherwise normal. Chemistries were also unremarkable. She had a CT of the abdomen
pelvis which showed an uncomplicated diverticulitis in the mid sigmoid colon. The CT scan did not mention any significant stool burden. Abdominal x-ray also did not show any significant stool burden or abnormal gas bowel pattern.
Medical History
Past Medical History
Past Medical History: Reports Other (diverticulitis)
Additional Past Medical History:
Sjogrens
Constipation
Past Surgical History: Reports None
Social History
Tobacco: Non-smoker
Alcohol: None
Drug: None
Personal: Single
Living: With Family
Family History
Family History: Not pertinent
Allergies / Home Medications
Allergies reflects when Allergies were last updated in [facility].
Home Medications with original date entered in [facility]
Allergy/Medication List:
Allergies
Allergy/AdvReac Type Severity Reaction Status Date / Time
cefadroxil [From Duricef] Allergy Hives Verified 05/28/24 21:00
cefuroxime [From Ceftin] Allergy Hives Verified 05/28/24 21:00
epinephrine Allergy heart races Verified 05/28/24 21:00
hydromorphone HCl Allergy Unknown Verified 05/28/24 21:00
[From Dilaudid]
Iodinated Contrast Media Allergy FLUSHING, Verified 05/28/24 21:00
PALPITATIONS
latex Allergy Hives Verified 05/28/24 21:00
Home Medications
ipratropium bromide 21 mcg (0.03 %) nasal spray 2 spray intranasal DAILY Congestion 06/22/22
ketotifen fumarate 0.025 % (0.035 %) eye drops (Zaditor) 1 drp BOTH EYES BID Eye Condition 03/04/23
carboxymethylcellulose 0.5 %-glycerin 0.9 % eye drops (Refresh Optive) 1 drp BOTH EYES BID DRY EYES 03/24/24
ergocalciferol (vitamin D2) 200 mcg/mL (8,000 unit/mL) oral drops 40,000 unit PO TH Supplement 03/24/24
famotidine 20 mg tablet (Pepcid) 20 mg PO BID Gastrointestinal Issue 03/24/24
mometasone-formoterol HFA 100 mcg-5 mcg/actuation aerosol inhaler (Dulera) 2 puff inhalation R BID Lung/Breathing Issues 03/24/24
polyethylene glycol 3350 17 gram oral powder packet (Miralax) 17 g PO DAILYPRN PRN CONSTIPATION 03/24/24
mineral oil (Fleet Mineral Oil enema) 133 ml NV DAILYPRN PRN constipation #0 mL 03/26/24
Review of Systems
-
History Source: Patient
Constitutional: Reports No Symptoms
EENT: Reports No Symptoms
Respiratory: Reports No Symptoms
Cardiac: Reports No Symptoms
Abdomen/GI: Reports Abdominal Pain, Nausea and Constipated
: Reports No Symptoms
Musculoskeletal: Reports No Symptoms
Skin: Reports No Symptoms
Neurological: Reports No Symptoms
Endocrine: Reports No Symptoms
Hematologic/Lymphatic: Reports No Symptoms
Psych: Reports No Symptoms
Physical Exam
Vital Signs
Vital Signs
Temp Pulse Resp BP Pulse Ox
98.1 F 67 18 109/79 99
05/28/24 21:00 05/29/24 02:00 05/29/24 02:00 05/29/24 02:00 05/29/24 02:00
Physical Exam
General: Well Developed, Well Nourished and No Apparent Distress
HEENT: NormoCephalic, Anicteric, Moist mucous membranes and Atraumatic
Respiratory: Clear
Cardiac: S1/S2 and Regular Rhythm
Breast: Deferred by me
GI: Soft, Non Distended, Normal Bowel Sounds and Tender
Rectal: Deferred by Provider
Genito-urinary: Deferred by me
Musculoskeletal: No Clubbing, No Cyanosis and No Edema
Skin: Warm
Neuro: AO x 3
Hematologic/Lymphatic: No Lymphadenopathy
Psych: Calm
Laboratory Results
-
05/29/24 01:37
05/29/24 01:37
Laboratory Results
Total Bilirubin 0.5 mg/dl (0.2-1.3) 05/29/24 01:37
AST 29 U/L (14-36) 05/29/24 01:37
ALT 17 U/L (0-35) 05/29/24 01:37
Alkaline Phosphatase 99 U/L (38-126) 05/29/24 01:37
Data Reviewed
-
Diagnostic Radiology: Image Personally Visualized and interpreted
CT Scan: Report Reviewed by me
Lab Data: Labs Reviewed by me
Old Records: Reviewed
Impression/Plan
-
IMPRESSION:
PLAN:
1. Acute Sigmoid Diverticulitis - Patient with uncomplicated sigmoid diverticulitis. She does tolerate oral abx per her GI doctor so comes to ED when symptomatic for IV abx. CT scan c/w diverticulitis. She is non-toxic appearing.
- admit to medsurg - observation
- continue iv levaquin and metronidazole
- npo and iv fluids, advance diet as tolerated
- pain control and antiemetics
2. Constipation - Patient reports several weeks of constipation. Trial of laxatives at home without improvement. Recently tried mag citrate but did not finish due to abdominal pain. History is c/w her IBS. Unclear whether she is more symptomatic
from the constipation vs diverticulitis. No significant stool burden on imaging.
- bowel rest for now
- start bowel regimen when tolerating po
- consider lineclotide
DVT PPX - lovenox sq
Code Status - Full Code
[2024-05-29 03:46] VITALS: BP 150/90
[2024-05-29 03:47] VITALS: BMI 25.3
[2024-05-29] MEDS: LR 1000 IV ×2 (04:43→17:00)
[2024-05-29 07:00] VITALS: BP 153/88
--- NOTE | 2024-05-29 08:21 | W.PN.HOSP.TC ---
Today's Communication/Plan
-
cont Abx for now
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
Assessment / Plan
Assessment / Plan
58yo F with PMHx of CTD, presumably Sjogren, IBS, dysphagia followed by [facility] and FAMILY SERVICE COUNSELOR with recent VSE and recommendation to start excersizes for improvement of swallowing function, gastritis, recurrent diverticulitis came with 3 weeks of
constipation and 1 day of lower abdominal pain, admitted with diverticulitis for IV Abx as patient complained about inability to tolerate pills or liqud antibiotics, describing the 'bubbly' feeling in her mouth and stomach irritation even with
crushed pills.
Presence of multiple non-specific symptoms and the reported level of dysphagia that clinically is not observed on exam can potentially be 2/2 concomitant conversion d/o
A/P:
#Uncomplicated diverticulitis
Flagyl/Levaquin
Advance diet as tolerated
Due to inability to tolerate oral Abx - might need to have home infusion setup
No constipation on imaging
#Dysphagia, chronic
Normal barium swallow on 02/17/24
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
#IBS
#Sicca symptoms
#COPD/Asthma without exacerbation
#Sjogren
#Chronic gastritis
cont home meds
DVT ppx Enoxaparin
FUll code
I have spent at least 58min reviewing chart, test results and providing direct patient care
Anticipated Discharge: 24 - 48 hours
Subjective/Interval History
-
Date of Service: May 29, 2024
Objective Data
-
Labs:
Laboratory Results
05/29/24
01:37
WBC 9.7
Hgb 12.8
Hct 36.9 L
Plt Count 340
Sodium 144
Potassium 4.3
Chloride 103
Carbon Dioxide 29
BUN 17
Creatinine 0.6
Glucose 100 H
Calcium 9.8
Total Bilirubin 0.5
AST 29
ALT 17
Alkaline Phosphatase 99
Vital Signs:
Vital Signs
Temp Pulse Resp BP Pulse Ox
98.2 F 73 16 153/88 99
05/29/24 07:00 05/29/24 07:00 05/29/24 07:00 05/29/24 07:00 05/29/24 07:00
Review of Systems
-
History Source: Patient
All other systems: Reviewed and negative
Physical Exam
-
General: No Apparent Distress
HEENT: Normocephalic
Respiratory: Clear to Auscultation
Cardiac: Regular Rhythm
GI: Soft, Nontender, Nondistended and Normal Bowel Sounds
Genito-urinary: No Costovertebral Tender
Musculoskeletal: No Clubbing, No Cyanosis and No Edema
Neuro: Awake, Alert, Oriented and AO x 3
Psych: Calm
[2024-05-29] MEDS: REFRESH CELLUVISC GEL 1 DROPS BOTH EYES (08:28)
[2024-05-29] MEDS: ZADITOR 1 DROP BOTH EYES (08:28)
--- NOTE | 2024-05-29 10:24 | PTOTSP ---
ST Dysphagia Evaluation
Known Mild/WFL oral dysphagia; s/p VSE 01/2024
Pt received awake/alert sitting upright on edge of bed. Frequently distracted by IV but redirectable to task. Self reported longstanding issues with swallowing and now inability to swallow chewable solids. He had VSE and esophagram at on 01/2024
recommendations for regular solids (moist/softer selections) and thin liquids. No aspiration observed during that exam. Esophagus with trace gastroesophageal reflux but otherwise unremarkable. She reports eating mostly purees at home 'mashed
potatoes' and cereals but feels those food items cause 'sticking' d/t her dry mouth. She has tried multiple mouthwashes however she does not feel they are helpful.
Self fed trials of thin liquids by cup sip. Limited PO trials d/t current clear liquid diet. She took small/controlled sips from cup swallow appears prompt. No change in vocal quality and no overt s/sx of aspiration observed.
Recommendations
1. When cleared for solid intake by physician would start puree/thin liquids
2. Aspiration and KELLIE/reflux precautions
3. Small bites, slow rate, multiple swallows
4. Consider nutrition consult
5. PTA follow up 1-2x; monitor diet tolerance, education/strategies as indicated
[2024-05-29] MEDS: NON-FORMULARY ITEM 1 UNIT NASAL (10:25)
[2024-05-29] MEDS: NON-FORMULARY ITEM 1 UNIT PO ×2 (10:25→20:38)
[2024-05-29 10:44] VITALS: BMI 25.3
[2024-05-29] MEDS: NON-FORMULARY ITEM INH ×2 (11:17→19:24)
[2024-05-29] MEDS: ZOFRAN 4 MG IV (11:26)
[2024-05-29] MEDS: TORADOL IV (11:26)
[2024-05-29] MEDS: BENTYL 20 MG PO ×2 (11:53→20:22)
[2024-05-29 15:05] VITALS: BP 137/78
--- NOTE | 2024-05-29 16:18 | CM ---
Reviewed the chart notes and spoke with the patient at the bedside. The patient is being admitted under observational status. [facility] letter provided and explained. The patient had no questions with regards to the letter.
The patient refused to answer CM questions for initial assessment. Patient would state after each question 'no comment'. Initial assessment answered to best of know from chart review. CM continues to be available to patient/family and is
monitoring medical plan for needs at discharge.
Plan: Discharge plans will depend on the patient's progress.
[2024-05-29] MEDS: TORADOL 15 MG IV (16:59)
--- NOTE | 2024-05-29 18:02 | PTCARENOTE ---
patient complaining of various symptoms this shift. This am reported 'feelings of bubbling/burning in stomach, dry mouth, stomach irritation when pills are even crushed due to c/o dysphagia. do s/s of difficulty swallowing. medicated with PRN dose
of Zofran for c/o nausea with some relief. agreeable to trying PRN Toradol for pain, becomes very anxious easily and needs frequent explanation of plan of care. will continue to monitor.
[2024-05-29] MEDS: LOVENOX SC (19:26)
[2024-05-29] MEDS: ZADITOR BOTH EYES (20:18)
[2024-05-29] MEDS: REFRESH CELLUVISC GEL BOTH EYES (20:18)
[2024-05-29] MEDS: ZYRTEC 5 MG PO (21:43)
[2024-05-29 23:35] VITALS: BP 119/66
[2024-05-30] MEDS: LEVAQUIN 150 IV (00:14)
[2024-05-30] MEDS: TORADOL 15 MG IV ×2 (05:30→22:57)
[2024-05-30] MEDS: ZOFRAN 4 MG IV (05:31)
[2024-05-30 05:41] LABS: % Basophils 0.9 % (0-2); % Immature Granulocytes 0.2 % (0-0.5); % Lymphocytes 28.4 % (20.5-51.1); % Monocytes 12.7 % (1.7-9.3); % Neutrophils 54.8 % (42.2-75.2); Absolute Eosinophils 0.1 10^3/uL (0-0.7); Absolute Lymphocytes 1.3 10^3/uL (1.2-3.4); Absolute Monocytes 0.6 10^3/uL (0.1-0.6); Absolute Neutrophils 2.5 10^3/uL (1.4-6.5); Hematocrit 33.4 % (37.0-47.0); Hemoglobin 11.7 g/dL (12.0-16.0); Mean Corpuscular Volume 88.4 fL (81.0-99.0); Mean Platelet Volume 10.1 fL (7.4-10.4); Nucleated Red Blood Cells % 0 %; Platelet Count 250 10^3/uL (130-400); Red Blood Cell Count 3.78 10^6/uL (4.20-5.40); Red Cell Dist. Width 12.8 % (11.5-14.5); White Blood Cell Count 4.6 10^3/uL (4.8-10.8)
[2024-05-30 06:01] LABS: ALT (SGPT) 13 U/L (0-35); AST (SGOT) 21 U/L (14-36); Albumin 3.7 g/dl (3.5-5.0); Alkaline Phosphatase 79 U/L (38-126); Blood Urea Nitrogen 9 mg/dl (7-17); Calcium 9.6 mg/dl (8.4-10.2); Carbon Dioxide 28 mmol/L (22-30); Chloride 105 mmol/L (98-107); Estimated Creatinine Clearance 78 ml/min; Glucose 89 mg/dl (70-99); Potassium 4.3 mmol/L (3.5-5.1); Sodium 141 mmol/L (135-145); Total Bilirubin 0.5 mg/dl (0.2-1.3); Total Protein 6.1 g/dl (6.3-8.2); eGFR > 60.00
[2024-05-30] MEDS: ROXICODONE ORAL SOLUTION 5 MG PO (06:49)
[2024-05-30 07:30] VITALS: BP 123/74
[2024-05-30] MEDS: NON-FORMULARY ITEM INH ×2 (07:44→20:09)
[2024-05-30] MEDS: LR 1000 IV ×2 (08:55→09:00)
[2024-05-30] MEDS: FLAGYL 500 MG 100 IV ×3 (08:56→23:01)
[2024-05-30] MEDS: REFRESH CELLUVISC GEL 1 DROPS BOTH EYES ×2 (08:57→20:48)
[2024-05-30] MEDS: ZADITOR 1 DROP BOTH EYES (09:01)
[2024-05-30] MEDS: NON-FORMULARY ITEM 1 UNIT PO ×2 (09:01→20:59)
[2024-05-30] MEDS: NON-FORMULARY ITEM 1 UNIT NASAL (09:03)
--- NOTE | 2024-05-30 10:00 | PTCARENOTE ---
Patient very anxious. 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 Soaker Hides in to see patient. Patient is upset and asking to eat food. Patient states, 'I need to eat food. it has been days.'
--- NOTE | 2024-05-30 10:19 | CM ---
Reviewed patient chart, patient per medical charting is independent and has been independently ambulating around her room and in the halls.
Plan: Case management will continue to follow and assist with discharge planning. home when stable.
[2024-05-30] MEDS: OFIRMEV 100 IV (10:33)
--- NOTE | 2024-05-30 10:48 | W.PN.HOSP.TC ---
Today's Communication/Plan
-
no improvement in pain yet -cont CLD for 24h more
cont Abx
Assessment / Plan
Assessment / Plan
58yo F with PMHx of CTD, presumably Sjogren, IBS, dysphagia followed by [facility] and METAL FINISHER with recent VSE and recommendation to start excersizes for improvement of swallowing function, gastritis, recurrent diverticulitis came with 3 weeks of
constipation and 1 day of lower abdominal pain, admitted with diverticulitis for IV Abx as patient complained about inability to tolerate pills or liqud antibiotics, describing the 'bubbly' feeling in her mouth and stomach irritation even with
crushed pills.
Presence of multiple non-specific symptoms and the reported level of dysphagia that clinically is not observed on exam can potentially be 2/2 concomitant conversion d/o
A/P:
#Uncomplicated diverticulitis
Flagyl/Levaquin
Advance diet as tolerated
Due to inability to tolerate oral Abx - might need to have home infusion setup
No constipation on imaging
#Dysphagia, chronic
Normal barium swallow on 02/17/24
METAL FINISHER
#IBS
#Sicca symptoms
#COPD/Asthma without exacerbation
#Sjogren
#Chronic gastritis
cont home meds
DVT ppx Enoxaparin
FUll code
I have spent at least 38min reviewing chart, test results and providing direct patient care
Anticipated Discharge: > 48 hours
Subjective/Interval History
-
Date of Service: May 30, 2024
Objective Data
-
Labs:
Laboratory Results
05/30/24
05:14
WBC 4.6 L
Hgb 11.7 L
Hct 33.4 L
Plt Count 250 D
Sodium 141
Potassium 4.3
Chloride 105
Carbon Dioxide 28
BUN 9
Creatinine 0.7
Glucose 89
Calcium 9.6
Total Bilirubin 0.5
AST 21
ALT 13
Alkaline Phosphatase 79
Vital Signs:
Vital Signs
Temp Pulse Resp BP Pulse Ox
97.9 F 57 16 123/74 98
05/30/24 07:30 05/30/24 07:30 05/30/24 07:30 05/30/24 07:30 05/30/24 07:30
I&O
05/29/24 05/30/24 05/31/24
06:59 06:59 06:59
Intake Total 2730 / 2730
Balance 2730 / 2730
Review of Systems
-
History Source: Patient
All other systems: Reviewed and negative
Physical Exam
-
General: No Apparent Distress
Respiratory: Clear to Auscultation
Cardiac: Regular Rhythm
GI: Soft, Nondistended and Tender
Psych: Anxious
--- NOTE | 2024-05-30 12:00 | PTCARENOTE ---
Patient c/o diffuse abdominal pain. Patient is unable to give it a rating. When asked patient on a 1-10 level, patient gives a detailed description of where and what the pain feels lie, but cannot rate it. Ofirmev given for abdominal pain with some
relief.
--- NOTE | 2024-05-30 14:08 | PTCARENOTE ---
Patient states, 'I am scared, I have not had anything to eat.' RN asked patient is she ordered a clear meal tray. Patient did not, because she is afraid if she eats it w make her nauseous. RN encourage patient to order a tray.
[2024-05-30] MEDS: LOVENOX SC (15:59)
[2024-05-30 16:05] VITALS: BP 126/83
--- NOTE | 2024-05-30 16:13 | PTCARENOTE ---
Patient c/o nausea and is refusing Zofran because it does not work for her. Patient is requesting IVF, because she does not think she is drinking enough. Patient also c/o of abdominal bloating stating, 'My stomach is so swollen. It is so much worse
than this morning.' RN assessed abdomen and no change noted from this am.
--- NOTE | 2024-05-30 16:24 | PTCARENOTE ---
Physician made aware of nausea and decreased PO intake. Orders obtained for IVF and Reglan. Patient made aware of plan.
[2024-05-30] MEDS: REGLAN 10 MG IV (16:30)
[2024-05-30] MEDS: BENTYL 20 MG PO (20:58)
[2024-05-30] MEDS: ZADITOR BOTH EYES (21:26)
[2024-05-30 23:09] VITALS: BP 131/72
[2024-05-31] MEDS: LEVAQUIN 150 IV (00:13)
[2024-05-31] MEDS: REGLAN 10 MG IV ×2 (02:09→09:08)
[2024-05-31] MEDS: FLUSH (NSS) 2 FLUSH IV (02:10)
[2024-05-31] MEDS: LR 1000 IV ×2 (05:53→20:46)
[2024-05-31 06:49] LABS: % Basophils 0.7 % (0-2); % Eosinophils 2.3 % (0-6); % Immature Granulocytes 0.5 % (0-0.5); % Lymphocytes 22.9 % (20.5-51.1); % Monocytes 9.9 % (1.7-9.3); % Neutrophils 63.7 % (42.2-75.2); Absolute Eosinophils 0.1 10^3/uL (0-0.7); Absolute Monocytes 0.4 10^3/uL (0.1-0.6); Absolute Neutrophils 2.8 10^3/uL (1.4-6.5); Hematocrit 33.6 % (37.0-47.0); Hemoglobin 11.5 g/dL (12.0-16.0); Mean Corp Hgb Conc. 34.2 g/dL (33.0-37.0); Mean Corpuscular Hgb 29.6 pg (27.0-31.0); Mean Corpuscular Volume 86.4 fL (81.0-99.0); Mean Platelet Volume 10.4 fL (7.4-10.4); Nucleated Red Blood Cells % 0 %; Platelet Count 273 10^3/uL (130-400); Red Blood Cell Count 3.89 10^6/uL (4.20-5.40); Red Cell Dist. Width 12.7 % (11.5-14.5); White Blood Cell Count 4.4 10^3/uL (4.8-10.8)
[2024-05-31 07:00] VITALS: BP 133/89
[2024-05-31 07:17] LABS: ALT (SGPT) 14 U/L (0-35); AST (SGOT) 25 U/L (14-36); Albumin 3.9 g/dl (3.5-5.0); Alkaline Phosphatase 78 U/L (38-126); Blood Urea Nitrogen 9 mg/dl (7-17); Calcium 9.5 mg/dl (8.4-10.2); Carbon Dioxide 25 mmol/L (22-30); Chloride 108 mmol/L (98-107); Estimated Creatinine Clearance 78 ml/min; Glucose 85 mg/dl (70-99); Potassium 4.1 mmol/L (3.5-5.1); Sodium 142 mmol/L (135-145); Total Bilirubin 0.5 mg/dl (0.2-1.3); Total Protein 6.3 g/dl (6.3-8.2); eGFR > 60.00
[2024-05-31] MEDS: FLAGYL 500 MG 100 IV ×3 (08:36→23:03)
[2024-05-31] MEDS: REFRESH CELLUVISC GEL 1 DROPS BOTH EYES (08:36)
[2024-05-31] MEDS: NON-FORMULARY ITEM 1 UNIT NASAL (08:38)
[2024-05-31] MEDS: NON-FORMULARY ITEM 1 UNIT PO ×2 (08:40→20:46)
[2024-05-31] MEDS: ZADITOR 1 DROP BOTH EYES (08:41)
[2024-05-31] MEDS: NON-FORMULARY ITEM 1 UNIT INH (08:43)
[2024-05-31] MEDS: BENTYL 20 MG PO (09:07)
--- NOTE | 2024-05-31 11:23 | W.PN.HOSP.TC ---
Today's Communication/Plan
-
cont Abx
CT abd/pelvis
GI consult
switch to Morphine
cont CLD
Assessment / Plan
Assessment / Plan
58yo F with PMHx of CTD, presumably Sjogren, IBS, dysphagia followed by [facility] and CASTING CHIPPER with recent VSE and recommendation to start excersizes for improvement of swallowing function, gastritis, recurrent diverticulitis came with 3 weeks of
constipation and 1 day of lower abdominal pain, admitted with diverticulitis for IV Abx as patient complained about inability to tolerate pills or liqud antibiotics, describing the 'bubbly' feeling in her mouth and stomach irritation even with
crushed pills.
Presence of multiple non-specific symptoms and the reported level of dysphagia that clinically is not observed on exam can potentially be 2/2 concomitant conversion d/o
A/P:
#Uncomplicated diverticulitis
Flagyl/Levaquin
Advance diet as tolerated
Due to inability to tolerate oral Abx - might need to have home infusion setup
No constipation on imaging.
DUe to no improvement with pain - repeating CT with IV and oral contrast after steroids prep on 05/31/24
GI consult
Reglan
#Dysphagia, chronic
Normal barium swallow on 02/17/24
CASTING CHIPPER
#IBS
#Sicca symptoms
#COPD/Asthma without exacerbation
#Sjogren
#Chronic gastritis
cont home meds
DVT ppx Enoxaparin
FUll code
I have spent at least 58min reviewing chart, test results and providing direct patient care
Anticipated Discharge: > 48 hours
Subjective/Interval History
-
Date of Service: May 31, 2024
Objective Data
-
Labs:
Laboratory Results
05/31/24
06:09
WBC 4.4 L
Hgb 11.5 L
Hct 33.6 L
Plt Count 273
Sodium 142
Potassium 4.1
Chloride 108 H
Carbon Dioxide 25
BUN 9
Creatinine 0.7
Glucose 85
Calcium 9.5
Total Bilirubin 0.5
AST 25
ALT 14
Alkaline Phosphatase 78
Vital Signs:
Vital Signs
Temp Pulse Resp BP Pulse Ox
97.9 F 58 18 133/89 98
05/31/24 07:00 05/31/24 08:44 05/31/24 08:44 05/31/24 07:00 05/31/24 08:44
I&O
05/30/24 05/31/24 06/01/24
06:59 06:59 06:59
Intake Total 2730 / 2730 2210 / 2210
Balance 2730 / 2730 2210 / 2210
Review of Systems
-
History Source: Patient
All other systems: Reviewed and negative
Abdomen/GI: Reports Abdominal Pain and Nausea
Physical Exam
-
General: Appears in Distress
Respiratory: Clear to Auscultation
Cardiac: Regular Rhythm
GI: Soft, Nondistended and Tender
Musculoskeletal: No Clubbing, No Cyanosis and No Edema
Neuro: Awake, Alert, Oriented and AO x 3
Psych: Anxious
--- NOTE | 2024-05-31 11:38 | CON.GI ---
Addendum entered and electronically signed by Gurdeep Muhammad DO 05/31/24 18:05:
I saw and examined the patient.
The SENIOR PRINCIPAL SOFTWARE ENGINEER's note was reviewed and I agree with the note.
Comment: This is a 58 y.o female with an extensive past medical history as detailed below including IBS-C, Sjogren's and recurrent diverticulitis who presented to the ED with worsening bilateral lower abdominal pain, nausea and constipation. She
reports her symptoms stated about three weeks ago with worsening constipation and abdominal cramping. Admits long standing constipation along with IBS despite multiple regimens (including Linzess, Motgerity, Amitiza, senna, dulcolax, etc). Reports
passing flatus with small loose stools without any appreciable formed bowel movement. Her pain continued to progress particularly in the LLQ and throughout her abdomen. Her primary GI physician (Dr. Medina) recommended starting Miralax BiD along with
Mag Citrate. She was also started on antibiotics as well given concern for possible recurrent diverticulitis where she was prescribed Levaquin and Flagyl but without any relief. No fevers, chills, or other constitutional symptoms. However, does note
an approximate 30 lb unintentional weight loss as well over the past 6 months. Given her worsening abdominal pain and overall symptoms, she was advised to come to the ED for further evaluation by her primary Seed Packer. Of note, her last
colonoscopy was back on 12/2022 and only revealed scattered diverticulosis and reported tortuosity in her sigmoid colon (per patient report - unable to view OSH records) and an EGD 05/2023 which was notable for gastritis. She has also had prior
episodes of diverticulitis in the past which she notes a total of 5 since this year and 3 to 4 last year. She also was previously evaluated by [facility] here at with Dr. Wilson for her recurrent diverticulitis but opted to decline surgery at that time.
In the ED, patient was afebrile and HD-stable when she was admitted on 05/28. Labs without any leukocytosis and otherwise normal. CT Abd/pelvis revealed acute, uncomplicated sigmoid diverticulitis without any intramural collection or abscess. She was
continued on IV antibiotics but given her unresolving pain GI has been consulted. Etiology of patient's pain is likely multifactorial due to her severe constipation and which she clearly describes constipation with overflow diarrhea, acute
diverticulitis, and suspect some underlying visceral hypersensitivity given her history of IBS. She may have a diverticular stricture versus severe narrowing in her sigmoid colon which may also be contributing due to her recurrent diverticulitis.
Her exam was reassuring this afternoon and repeat CT Abd/pelvis order by the primary team further demonstrated interval improvement related to her sigmoid diverticulitis. She does have evidence of moderate amount of stool burden upon my read and
suspect this is largely contributing rather than the acute diverticulitis. However, still reasonable to discuss with surgery as she seems interested in pursuing surgical options given her recurrent diverticulitis.
Recommendations:
- Okay for CLD, defer advancing for now until stool cleared out
- Start Miralax BiD, will add Mag Citrate to start tomorrow for mini bowel purge as patient preferred to wait for repeat CT scan
- Recommend starting enemas from below to help clean out from below. Will start this evening
- Agree with continuing IV antibiotics, defer from broadening to IV Zosyn at this time
- Will attempt to obtain records from her prior colonoscopy by Dr. Medina which will helpful and important to document her most recent luminal evaluation
- Recommend CRS surgical consult given her recurrent diverticulitis
- Will ultimately need outpatient follow-up with her primary GI to consider a repeat colonoscopy if indicated
- Rest as outlined below
GI team will continue to follow while inpatient. Please call with any questions or concerns.
Addendum entered and electronically signed by CONCETTA Graham 05/31/24 13:56:
Pt also for repeat CT per Dr. Gonzalez
Addendum entered and electronically signed by CONCETTA Graham 05/31/24 13:51:
requested records from Dr. Medina of last EGD/colon in 2022
Original Note:
Consultation
-
Date/Time Consultation Requested: 05/31/24 1030
Date/Time Consultation Performed: 05/31/24 1130
Requesting Provider: Rajiv Gonzalez MD
Performing Provider: CONCETTA Hernandez
Reason for Consultation: diverticultis with continued abdominal pain
Medical History
Chief Complaint / HPI
Chief Complaint: abdominal pain
History of Present Illness:
Pt is a 58yo with hx multiple med problems Sjogren, asthma, hypercholesterolemia, seasonal allergies, PNA, gastroparesis, Endometriosis with multiple prior laproscopies in past, IBS, Palpitations, Sleep apnea, DDD, Arthritis, Chronic fatigue,
Migraines, Sleep apnea, Diverticulitis, constipation cystis, rosacea, prior appe and hysterectomy with onset of abdominal pain. On admission noted with stable CBC and chemistry but CT with acute sigmoid diverticulitis with small amount of fluid.
Pt has been on Levaquin and Flagyl since admission but not improving and asked to evaluate. In reviewing with patient she has multiple GI complaints and admits to 3-4 bouts of diverticulitis per year. She follows prior to admission with Dr. Medina
from GI and also had evaluation with Dr. Wilson in 2022 for recurrent diverticulitis and declined surgical intervention. She had hx dysphagia due to Sjogrens and hx yonny over the summer with several course of nystatin and Mycelex touches. She has
limitation of diet consistent with add ketchup to make foods moist. She had recent esophagram with trace GERD otherwise normal in April and recall prior manometry with low pressure years ago. She is currently following with Dr. Villagomez through
[facility]. She has chronic GERD on Famotidine and nausea/vomiting with hx gastroparesis. Currently no chronic gastroparesis meds and can try to manage with diet and ensure supplement use. She also complaints of lower abdominal pain with noted
diverticulitis on admission. She has been on antibiotics with no improvement. She also admits to constipation for about 3 weeks with no improvement with Miralax BID and mag citrate use prior to admission. She admits to some loose stools but no
formed stool and passing no stools since admission. She is concerned for 20 +lb wt loss in last 3 months. No blood or black in stools.
She reports hx EGD may 2023 with gastritis and colonoscopy 12/2022 with diverticulosis. She also had recent cipro course for UTI.
Past Medical History
Past Medical History: Asthma, Hypercholesterolemia and Other (Seasonal allergies, PNA, Gastroparesis, Endometrious, IBS, Sjogrens, Palpitations, Sleep apnea, Buldging disc, Arthritis, Chronic fatigue, Migraines, Sleep apnea, Diverticulitis,
cystitis, rosacea, )
Past Surgical History: Appendectomy, Gynecological (hysterectomy) and Other (multiple lap for endometriosis, lap for MIRNA 2009)
Social History
Tobacco: Non-Smoker
Alcohol: None
Drug: None
Personal: Single
Living: With Family
Family History
Family History: Reviewed & Not Pertinent
Allergies / Home Medications
Allergy/AdvReac Type Severity Reaction Status Date / Time
cefadroxil [From Duricef] Allergy Hives Verified 05/28/24 21:00
cefuroxime [From Ceftin] Allergy Hives Verified 05/28/24 21:00
epinephrine Allergy heart races Verified 05/28/24 21:00
Iodinated Contrast Media Allergy FLUSHING, Verified 05/28/24 21:00
PALPITATIONS
latex Allergy Hives Verified 05/28/24 21:00
�Medication �Instructions �Recorded
ipratropium bromide 21 mcg (0.03 2 spray intranasal DAILY Congestion 06/22/22
%) nasal spray
ketotifen fumarate 0.025 % (0.035 1 drp BOTH EYES BID Eye Condition 03/04/23
%) eye drops (Zaditor)
carboxymethylcellulose 0.5 1 drp BOTH EYES BID DRY EYES 03/24/24
%-glycerin 0.9 % eye drops
(Refresh Optive)
ergocalciferol (vitamin D2) 200 40,000 unit PO TH Supplement 03/24/24
mcg/mL (8,000 unit/mL) oral drops
famotidine 20 mg tablet (Pepcid) 20 mg PO BID Gastrointestinal Issue 03/24/24
mometasone-formoterol HFA 100 2 puff inhalation R BID 03/24/24
mcg-5 mcg/actuation aerosol Lung/Breathing Issues
inhaler (Dulera)
polyethylene glycol 3350 17 gram 17 g PO DAILYPRN PRN CONSTIPATION 03/24/24
oral powder packet (Miralax)
mineral oil (Fleet Mineral Oil 133 ml DE DAILYPRN PRN 03/26/24
enema) constipation #0 mL
fluticasone propionate 50 1 spray intranasal DAILY Allergies 05/31/24
mcg/actuation nasal
spray,suspension
Review of Systems
-
History Source: Patient
Constitutional: Reports Weight Loss (20 lbs last 3 months )
EENT: Reports Other (dry mouth, dysphagia with difficulty swallowing with chronic dysphagia )
Respiratory: Reports No Symptoms
Cardiac: Reports No Symptoms
Abdomen/GI: Reports Abdominal Pain, Nausea, Constipated and Anorexia
: Reports Other (recent UTI with cipro course )
Musculoskeletal: Reports No Symptoms
Skin: Reports No Symptoms
Neurological: Reports Dizzy and Weakness
Endocrine: Reports No Symptoms
Hematologic/Lymphatic: Reports No Symptoms
Vital Signs
Temp Pulse Resp BP Pulse Ox
97.9 F 58 18 133/89 98
05/31/24 07:00 05/31/24 08:44 05/31/24 08:44 05/31/24 07:00 05/31/24 08:44
Physical Exam
Exam
General: Well Developed, Well Nourished and No Apparent Distress
HEENT: Normocephalic and Anicteric
Respiratory: Clear
Cardiac: Regular Rhythm
GI: Soft, Non Distended and Tender (diffuse lower abdomen with some worsening pain LLQ )
Musculoskeletal: No Clubbing and No Cyanosis
Skin: Warm and Dry
Neuro: Awake, Alert and AO x 3
Psych: Calm
Results
WBC 4.4 10^3/uL (4.8-10.8) L 05/31/24 06:09
Hgb 11.5 g/dL (12.0-16.0) L 05/31/24 06:09
Hct 33.6 % (37.0-47.0) L 05/31/24 06:09
MCV 86.4 fL (81.0-99.0) 05/31/24 06:09
Plt Count 273 10^3/uL (130-400) 05/31/24 06:09
Absolute Neuts (auto) 2.8 10^3/uL (1.4-6.5) 05/31/24 06:09
Sodium 142 mmol/L (135-145) 05/31/24 06:09
Potassium 4.1 mmol/L (3.5-5.1) 05/31/24 06:09
Chloride 108 mmol/L (98-107) H 05/31/24 06:09
Carbon Dioxide 25 mmol/L (22-30) 05/31/24 06:09
BUN 9 mg/dl (7-17) 05/31/24 06:09
Creatinine 0.7 mg/dL (0.6-1.0) 05/31/24 06:09
Calcium 9.5 mg/dl (8.4-10.2) 05/31/24 06:09
Total Bilirubin 0.5 mg/dl (0.2-1.3) 05/31/24 06:09
AST 25 U/L (14-36) 05/31/24 06:09
ALT 14 U/L (0-35) 05/31/24 06:09
Alkaline Phosphatase 78 U/L (38-126) 05/31/24 06:09
Diagnostic Image Results:
05/11/24 RF Esophagus-Double Contrast
Markedly limited exam. Trace gastroesophageal reflux. Otherwise unremarkable exam.
05/28/24 CT Abd/pel Without Iv Or Oral
1. Findings consistent with acute sigmoid diverticulitis.
2. Small amount of adjacent pelvic free fluid, without drainable abscess appreciated.
05/28/24 obstruction series
1. No radiographic evidence for bowel obstruction or pneumoperitoneum.
2. Mild hepatomegaly.
04/07/24 CT A/p without IV contrast
1. Moderate colonic diverticulosis. Inflammatory change seen on prior CT has resolved.
2. No evidence of intestinal obstruction, bowel inflammatory process, nephrolithiasis, hydronephrosis, cholecystitis, or abscess formation.
04/17/24 CT Abd/pel (oral only)-DH Only
No CT evidence for an acute inflammatory process within the limitations of the lack of intravenous contrast.
02/2024 CT without IV contrast
1. Findings suggestive of mild sigmoid diverticulitis. No extraluminal air, and no associated abscess formation.
2. Small hiatal hernia without evidence of incarceration.
11/2023 CT a/p oral only
1. Large colonic stool burden, which can be seen with constipation.
2. Colonic diverticulosis.
3. No acute inflammatory process in the abdomen or pelvis within the limitations of the lack of intravenous contrast.
Prior GI Procedures:
last per patient EGD may [address] medina and colonoscopy december 2022 with diverticulosis
EGD: 2017 EGD [facility] - Small hiatal hernia.
- Z-line irregular, 38 cm from the incisors. Biopsied.
- A few gastric polyps. Biopsied.
- Normal mucosa was found in the entire stomach.
- Normal mucosa was found in the entire examined
duodenum. Biopsied.
bx neg
EGD:2013 [facility] - Hiatus hernia.
- A few gastric polyps. Biopsied.
- Normal examined duodenum. Biopsied.
- Oral Thrush
Colonoscopy: 2017- [facility]- internal hemorrhoids, diverticulosis in sigmoid and ascending colon, no specimen collected
colonoscopy 2013- [facility] - One 3 mm polyp in the cecum. Resected and retrieved.
- One 5 mm polyp in the descending colon. Resected and
retrieved.
- Diverticulosis in the descending colon.
- Internal hemorrhoids.
bx HP and adenomatous polyps
Assessment / Plan
-
Pt is a 58yo with hx multiple med problems including Sjogren, asthma, hypercholesterolemia, gastroparesis, Endometriosis with multiple prior laparoscopies in past, IBS, Palpitations, Sleep apnea, DDD, Arthritis, Chronic fatigue, Migraines, Sleep
apnea, Diverticulitis, constipation cystis, rosacea, prior appe and hysterectomy with onset of abdominal pain. On admission noted with stable CBC and chemistry but CT with acute sigmoid diverticulitis with small amount of fluid. She continued with
pain despite abx therapy after admission with with multiple bouts of diverticulitis in past. She had recent thrush and UTI with treatment, wt loss of 20 + lbs in 3 months and multiple other underlying GI issues with dysphagia with hx Sjogrens
follows at [facility], gastroparesis managed with diet, GERD,constipation with ongoing symptoms. follow with Dr. Medina and prior surgical eval with Dr. Wilson for recurrent diverticulitis.
-recurrent diverticulitis
-wt loss
-constipation
-dysphagia -follow at [place]
-gastroparesis
-chronic GERD
-recent UTI with abx
-recent thrush
-endometriosis with multiple ex lap, hysterectomy and MIRNA and prior appe
-IBS
other med problems:
-Sjogren
-asthma
-hypercholesterolemia
-palpitations
-sleep apnea
-DDD
-chronic fatigue
-fibromyalgia
-hx cystitis
PLAN:
etiology of ongoing pain related to diverticulitis vs underlying diverticular narrowing with multiple bouts of diverticulitis with ongoing constipation vs other
will review imaging with
will consult colorectal for reassessment as pt was considering surgery with multiple bouts of diverticulitis and now with recurrence and wt loss over last few months
can also consider eventual repeat CT with ? rectal contrast vs ID eval for change of antibiotics if not improving
cont clear diet
will add Miralax BID with continued constipation
cont famotidine with hx chronic GERD
pt will need follow up with Dr. Medina from GI to consider repeat colonoscopy and Dr. Barajas for ongoing dysphagia issues after discharge
-
-
Thank you for consultation and allowing me to participate in the patient's care. Please call the plastic injection mold maker GI physician during the after hours with any questions or concerns.
[2024-05-31] MEDS: MORPHINE SULFATE 1 MG IV ×2 (11:40→20:37)
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
[2024-05-31] MEDS: OMNIPAQUE 50 ML PO (13:32)
[2024-05-31] MEDS: REGLAN 5 MG IV (14:58)
[2024-05-31] MEDS: SOLU-CORTEF 200 MG IV (14:59)
[2024-05-31 15:00] VITALS: BP 114/80
[2024-05-31] MEDS: LOVENOX SC (18:25)
[2024-05-31] MEDS: NON-FORMULARY ITEM INH (19:22)
[2024-05-31] MEDS: REFRESH CELLUVISC GEL BOTH EYES (20:43)
[2024-05-31] MEDS: ZADITOR BOTH EYES (20:43)
[2024-05-31] MEDS: MIRALAX PO (20:43)
[2024-05-31 23:00] VITALS: BP 128/76
[2024-06-01] MEDS: LEVAQUIN 150 IV (00:19)
[2024-06-01] MEDS: TYLENOL ORAL SOLUTION 650 MG PO (05:50)
[2024-06-01 07:15] VITALS: BP 144/82
[2024-06-01] MEDS: NON-FORMULARY ITEM 1 UNIT INH (08:49)
--- NOTE | 2024-06-01 09:13 | W.PN.HOSP.TC ---
Today's Communication/Plan
-
Stop IVF
upgrade diet as full liquid is tolerated
cont Abx
ID consult
Assessment / Plan
Assessment / Plan
58yo F with PMHx of CTD, presumably Sjogren, IBS, dysphagia followed by [facility] and [facility] with recent VSE and recommendation to start excersizes for improvement of swallowing function, gastritis, recurrent diverticulitis came with 3 weeks of
constipation and 1 day of lower abdominal pain, admitted with diverticulitis for IV Abx as patient complained about inability to tolerate pills or liqud antibiotics, describing the 'bubbly' feeling in her mouth and stomach irritation even with
crushed pills.
Presence of multiple non-specific symptoms and the reported level of dysphagia that clinically is not observed on exam can potentially be 2/2 concomitant conversion d/o
A/P:
#Uncomplicated diverticulitis
Flagyl/Levaquin
Advance diet as tolerated
Due to inability to tolerate oral Abx - might need to have home infusion setup
No constipation on imaging.
DUe to no improvement with pain - repeating CT with IV and oral contrast after steroids prep on 05/31/24 - showed improvement of non-complicated diverticulitis
ID consult for Abx duration and selection. Patient declining ability for home infusion
GI consult: laxatives
Reglan
#Dysphagia, chronic
Normal barium swallow on 02/17/24
[facility]
#IBS
#Sicca symptoms
#COPD/Asthma without exacerbation
#Sjogren
#Chronic gastritis
cont home meds
DVT ppx Enoxaparin
FUll code
I have spent at least 58min reviewing chart, test results and providing direct patient care
Anticipated Discharge: > 48 hours
Subjective/Interval History
-
Date of Service: June 01, 2024
Objective Data
-
Vital Signs:
Vital Signs
Temp Pulse Resp BP Pulse Ox
97.9 F 60 18 144/82 98
06/01/24 07:15 06/01/24 08:51 06/01/24 08:51 06/01/24 07:15 06/01/24 08:51
I&O
05/31/24 06/01/24 06/02/24
06:59 06:59 06:59
Intake Total 2210 / 2210 1140 / 1140 120 / 120
Balance 2210 / 2210 1140 / 1140 120 / 120
Review of Systems
-
History Source: Patient
All other systems: Reviewed and negative
Physical Exam
-
General: No Apparent Distress
HEENT: Normocephalic and Atraumatic
GI: Soft, Nontender and Nondistended
[2024-06-01] MEDS: FLAGYL 500 MG 100 IV ×2 (09:22→16:22)
[2024-06-01] MEDS: NON-FORMULARY ITEM 1 UNIT NASAL (09:22)
--- NOTE | 2024-06-01 09:22 | W.PN.GI.CBS2 ---
Today's Communication / Plan
-
Repeat CT Abd/pelvis improving sigmoid diverticulitis, starting aggressive bowel regimen for her IBS-C with overflow diarrhea. Rest as outlined below.
Assessment / Plan
-
#Acute, Uncomplicated Diverticulitis- IMPROVING
#Recurrent Diverticulitis
#IBS-C w/ #Severe Constipation w/ Overflow Diarrhea
#Hx of Sjogrens
#Hx of Gastroparesis #Hx of Esophageal Dysphagia
#Hx of Multiple Abdominal Surgeries
Ms Cannon is a 58yo female with hx multiple med problems including Sjogren, asthma, hypercholesterolemia, gastroparesis, Endometriosis with multiple prior laparoscopies in past, IBS, Palpitations, Sleep apnea, DDD, Arthritis, Chronic fatigue,
Migraines, Sleep apnea, Diverticulitis, constipation cystis, rosacea, prior appe and hysterectomy with onset of abdominal pain. On admission noted with stable CBC and chemistry but CT with acute sigmoid diverticulitis with small amount of fluid.
She continued with pain despite abx therapy after admission with with multiple bouts of diverticulitis in past. She had recent thrush and UTI with treatment, wt loss of 20 + lbs in 3 months and multiple other underlying GI issues with dysphagia
with hx Sjogrens follows at [place], gastroparesis managed with diet, GERD,constipation with ongoing symptoms. follow with Dr. Medina and prior surgical eval with Dr. Wilson for recurrent diverticulitis.
Impression: Etiology of patient's pain is likely multifactorial due to her severe constipation and which she clearly describes constipation with overflow diarrhea, acute diverticulitis, and suspect some underlying visceral hypersensitivity given her
history of IBS. She may have a diverticular stricture versus severe narrowing in her sigmoid colon which may also be contributing due to her recurrent diverticulitis, although she states her recent colonoscopy on 2022 was normal except for some
tortuosity. Repeat CT Abd/pelvis on 05/31 demonstrated interval improvement related to her sigmoid diverticulitis. She does have evidence of moderate amount of stool burden upon my read and suspect this is largely contributing rather than the acute
diverticulitis. However, still reasonable to discuss with surgery as she seems interested in pursuing surgical options given her recurrent diverticulitis.
Repeat CT Abd/pelvis w IV contrast 05/31: Marked interval improvement in inflammatory wall thickening and soft tissue stranding related to sigmoid diverticulitis. Mild residual thickening, minor soft tissue stranding, and trace free pelvic fluid. No
evidence perforation. No free air. No focal collection or abscess
Recommendations:
- Continue CLD as patient was anxious about advancing diet. Prefer to continue CLD until stool cleared out
- Miralax BiD and anika add-on Mag Citrate for mini bowel purge
- Start mineral enemas to help clean out stool distally. Refused duclolax suppositories. Start enemas once in AM and in evening
- Agree with IV antibiotics, ID has been consulted for further assistance and management
- Requested OSH colonoscopy records (Dr. Medina) to document her most recent luminal evaluation back in 2022
- May use simethicone PRN for gas/bloating
- Continue aggressive IV anti-emetics PRN but suspect upper GI symptoms are largely being driven by her constipation
- Avoidance of all opioids as this will only worsen her GI dysmotility
- CRS surgery has further been consulted given her recurrent diverticulitis
- Rest of care per primary team
Discussed with primary team this AM. GI team will continue to follow while inpatient. Please reach out with any concerns or questions.
Total Time Spent with Patient (in minutes): 20
Subjective
Subjective
Date of Service: June 01, 2024
- Repeat CT Abd/pelvis w IV contrast 05/31: Marked interval improvement in inflammatory wall thickening and soft tissue stranding related to sigmoid diverticulitis. Mild residual thickening, minor soft tissue stranding, and trace free pelvic fluid. No
evidence perforation. No free air. No focal collection or abscess
- Otherwise, no acute events overnight
Feeling better, although still hasn't had a bowel movement since her admission. Passing flatus, but slightly more nauseous without vomiting. No fevers, chills or other constitutional symptoms.
Objective
Data Reviewed
Laboratory Data:
Laboratory Results
05/31/24 06:09
05/31/24 06:09
Laboratory Results
Total Bilirubin 0.5 mg/dl (0.2-1.3) 05/31/24 06:09
AST 25 U/L (14-36) 05/31/24 06:09
ALT 14 U/L (0-35) 05/31/24 06:09
Alkaline Phosphatase 78 U/L (38-126) 05/31/24 06:09
Vital Signs and I&O:
Vital Signs
Temp Pulse Resp BP Pulse Ox
97.9 F 60 18 144/82 98
06/01/24 07:15 06/01/24 08:51 06/01/24 08:51 06/01/24 07:15 06/01/24 08:51
I&O
05/31/24 06/01/24 06/02/24
06:59 06:59 06:59
Intake Total 2210 / 2210 1140 / 1140 120 / 120
Balance 2210 / 2210 1140 / 1140 120 / 120
Physical Exam
Physical Exam
HEENT: Anicteric and Moist mucous membranes
Cardiology: Normal Sinus Rhythm
Pulmonary: Other (Normal work of breathing on room air)
GI: Soft, Distended and Non Tender
Extremities: No Edema
Neuro: Non Focal
[2024-06-01] MEDS: MIRALAX PO ×2 (09:23→19:15)
[2024-06-01] MEDS: REFRESH CELLUVISC GEL 1 DROPS BOTH EYES ×2 (09:23→20:58)
[2024-06-01] MEDS: NON-FORMULARY ITEM 1 UNIT PO (09:24)
[2024-06-01] MEDS: ZADITOR 1 DROP BOTH EYES (09:25)
[2024-06-01] MEDS: CITROMA 300 ML PO (09:31)
--- NOTE | 2024-06-01 10:14 | CON.CRS ---
Consultation
-
Date/Time Consultation Requested: 05/31/2024, 13:50
Date/Time Consultation Performed: 06/01/2024, 08:45
Requesting Provider: Colleen Sebastian
Performing Provider: Giovanni Downs MD
Reason for Consultation: diverticulitis
Medical History
-
Chief Complaint: abomdinal pain
History of Present Illness:
58-year-old female presents to the [facility] emergency [place] on 05/28/2024 complaining of abdominal pain and nausea. The patient has a significant history of diverticulitis, more specifically she has had 3 attacks in 2021 and 4 or 5 attacks this past
year. She saw Dr. Wilson in 2021 for management of her diverticulitis and she was offered a robotic sigmoidectomy but had declined. Prior to this admission she was in the ER on 04/18/2024 and diagnosed with diverticulitis and given Augmentin at
home. She was unable to swallow the pills and has been spearing seeing chronic nausea and intermittent pain. She states the nausea has been so bad she has not eaten in the past 5 days and she has not had any bowel's. She was put on full liquid
diet yesterday which made her more nauseous. She states she has lost over 20 pounds over the past 3 months. She states she takes 'all kinds of stuff' at home for nausea but nothing to help.
Currently she is still nauseous and has lower abdominal pain. She has been on IV antibiotics. Her WBC is 4.[address] of the abdomen and pelvis on 05/28/2024 showed acute sigmoid diverticulitis with a small amount of adjacent pelvic free fluid
without drainable abscess appreciated. She does not want a repeat CT yesterday which showed marked interval movement inflammatory wall thickening and soft tissue stranding related to sigmoid diverticulitis. No free air no collection or abscesses.
We have been consulted for further surgical opinion.
Past Medical History
Past Medical History: Other (Sjogrens, constipation, chronic nausea, endometriosis)
Past Surgical History: Gynecological (hysterectomy)
Social History
Tobacco: Non-Smoker
Alcohol: None
Family History
Family History: Reviewed & Not Pertinent
Allergies / Home Medications
Allergy/AdvReac Type Severity Reaction Status Date / Time
cefadroxil [From Duricef] Allergy Hives Verified 05/28/24 21:00
cefuroxime [From Ceftin] Allergy Hives Verified 05/28/24 21:00
epinephrine Allergy heart races Verified 05/28/24 21:00
Iodinated Contrast Media Allergy FLUSHING, Verified 05/28/24 21:00
PALPITATIONS
latex Allergy Hives Verified 05/28/24 21:00
�Medication �Instructions �Recorded �Confirmed �Type
ipratropium bromide 21 mcg (0.03 2 spray intranasal DAILY Congestion 06/22/22 05/29/24 History
%) nasal spray
ketotifen fumarate 0.025 % (0.035 1 drp BOTH EYES BID Eye Condition 03/04/23 05/29/24 History
%) eye drops (Zaditor)
carboxymethylcellulose 0.5 1 drp BOTH EYES BID DRY EYES 03/24/24 05/29/24 History
%-glycerin 0.9 % eye drops
(Refresh Optive)
ergocalciferol (vitamin D2) 200 40,000 unit PO TH Supplement 03/24/24 05/29/24 History
mcg/mL (8,000 unit/mL) oral drops
famotidine 20 mg tablet (Pepcid) 20 mg PO BID Gastrointestinal Issue 03/24/24 05/29/24 History
mometasone-formoterol HFA 100 2 puff inhalation R BID 03/24/24 05/29/24 History
mcg-5 mcg/actuation aerosol Lung/Breathing Issues
inhaler (Dulera)
polyethylene glycol 3350 17 gram 17 g PO DAILYPRN PRN CONSTIPATION 03/24/24 05/29/24 History
oral powder packet (Miralax)
mineral oil (Fleet Mineral Oil 133 ml IA DAILYPRN PRN 03/26/24 05/29/24 Rx
enema) constipation #0 mL
fluticasone propionate 50 1 spray intranasal DAILY Allergies 05/31/24 05/31/24 History
mcg/actuation nasal
spray,suspension
Review of Systems
-
History Source: Patient
All other systems: Negative unless noted
Abdomen/GI: Abdominal Pain, Nausea and Constipated
A 10 point review of systems was completed, and was negative except as per HPI.
Physical Exam
Vital Signs
Temp 97.9 F 06/01/24 07:15
Pulse 60 06/01/24 08:51
Resp Rate 18 06/01/24 08:51
Blood pressure 144/82 06/01/24 07:15
SaO2 98 06/01/24 08:51
Body Mass Index (BMI) 25.3
Lab Results / Allergies
05/31/24 06:09
05/31/24 06:09
WBC 4.4 10^3/uL (4.8-10.8) L 05/31/24 06:09
Hgb 11.5 g/dL (12.0-16.0) L 05/31/24 06:09
Hct 33.6 % (37.0-47.0) L 05/31/24 06:09
Plt Count 273 10^3/uL (130-400) 05/31/24 06:09
Abs Immat Gran (auto) 0.0 10^3/uL (0-0.05) 05/31/24 06:09
Neutrophils % 63.7 % (42.2-75.2) 05/31/24 06:09
Allergy/AdvReac Type Severity Reaction Status Date / Time
cefadroxil [From Duricef] Allergy Hives Verified 05/28/24 21:00
cefuroxime [From Ceftin] Allergy Hives Verified 05/28/24 21:00
epinephrine Allergy heart races Verified 05/28/24 21:00
Iodinated Contrast Media Allergy FLUSHING, Verified 05/28/24 21:00
PALPITATIONS
latex Allergy Hives Verified 05/28/24 21:00
Physical Exam
General: Well Developed, Well Nourished and No Apparent Distress
GI: Soft and Tender (lower quadrants, mild)
Skin: Warm and Dry
Neuro: AO x 3
Psych: Calm
Data Reviewed
-
CT Scan: Image Personally Visualized and interpreted, Report Reviewed by me and Discussed with Patient
Labs: Labs Reviewed by me, Discussed with Physician and Discussed with Patient
Old Records: Reviewed
Assessment / Plan
-
Assessment: 58-year-old female with a past medical history of multiple attacks of diverticulitis presents to the [place] ER on 9 complaining of abdominal pain and nausea, found to have acute sigmoid diverticulitis with no abscess on CT.
Plan:
Discussed in length with patient regarding getting her through this admission with IV antibiotics and avoiding OR. Discussed possibility of undergoing elective surgery as an outpatient. Patient states she is adamant about not having a robotic
surgery, as she believes it will interfere with her endometriosis diagnosis. She would prefer to have it done 'traditional' way. There is no role for surgery right now and further discussions can be had with Dr. Wilson as an outpatient in the
office regarding her surgical options. For now agree with IV antibiotics. Continue diet advancement as patient tolerates. GI currently following.
[2024-06-01] MEDS: FLEET MINERAL OIL ENEMA 133 ML RECTAL ×2 (10:51→21:01)
--- NOTE | 2024-06-01 11:40 | W.PN.UPDATE ---
Update Note
Progress Note Update
patient seen chart reviewed. discussed with dr knight. the patient was admittedly feeling somewhat better today. she reiterated her concerns re constipation, dysphagia etc but seemed calmer. .she also was worried that the hospital is a milieu
where she could get infected w respiratory illness (this as a patient across the [place]ie was coughing loudly). she worries about possible surgery for diverticuli....she needs a lot of support but again she seemed better able to focus and consider
options today.
--- NOTE | 2024-06-01 12:21 | PTCARENOTE ---
" Patient reports nausea is worse today, weakness and migraine. She is refusing both analgesia and Reglan and reports nothing helps her. She hasn't had any BM's yet. She is still drinking magnesium citrate. She refused Miralax this am and Dr. Ureña"Jb was made aware while on floor. She says maybe if she eats she will feel better. Requested that patient is possibly tried on full liquids if she can't have solids to Dr. Muhammad, will continue to monitor."
[2024-06-01] MEDS: LR IV (14:35)
--- NOTE | 2024-06-01 14:42 | PTOTSP ---
Dysphagia Therapy
Barriers to dysphagia therapy follow up at this time included patient refusal due to food preferences and limitation of her medical diet restrictions (full liquid diet). Will sign off at this time. Please reconsult if/when patient cleared for
advanced solids. Continue outpatient follow up (pt reported scheduled at [place] for dysphagia tx) as appropriate. Continue established plan of care.
'Recommendations
1. When cleared for solid intake by physician would start puree/thin liquids
2. Aspiration and KELLIE/reflux precautions
3. Small bites, slow rate, multiple swallows'
--- NOTE | 2024-06-01 15:12 | CON.ID ---
Consultation
-
Date/Time Consultation Requested: 06/01/2024 0911
Date/Time Consultation Performed: 06/01/2020 form 1448
Requesting Provider: Dr. Gonzalez
Performing Provider: Dr. Sullivan
Reason for Consultation: Diverticulitis
Chief Complaint / Past History
History of Present Illness
Saida Storey is a 58-year-old female being evaluated at the request of Dr. Gonzalez regarding diverticulitis. History is obtained from chart review, along with patient interview.
The patient has an underlying history of diverticulitis and had 3-4 episodes last year, and this year thus far has had 4-5 bouts of diverticulitis. She additionally suffers from chronic constipation and presented to the emergency room on 05/28
secondary to increasing abdominal pain. Here she was found to have acute sigmoid diverticulitis (uncomplicated) on CT imaging, and she was placed on intravenous Levaquin and metronidazole.
Since admission, she has had improvement in her diverticulitis, and Infectious Diseases is asked to comment upon possible oral regimens upon discharge.
At this point in time she notes that she has difficulty with pill antibiotics. She was on Augmentin prior, but found the pill to be too large. She also has been dealing with ongoing nausea, and intermittent vomiting. She currently has a fevers or
chills. She does note that she is always cold, though. She denies any chest pain. She notes ongoing nausea, and reports only taking small sips of liquid. She has continued abdominal discomfort, mostly in the left lower quadrant with radiation
across her lower abdomen. She also admits to some lower extremity edema.
Past History
Additional Past Medical History:
Diverticulitis
Sjogren syndrome
Chronic constipation
Chronic nausea
Endometriosis
Gastroparesis
IBS
Chronic fatigue
Interstitial cystitis
Rosacea
Additional Past Surgical History:
Hysterectomy
Allergy History:
cefadroxil [From Duricef] Allergy (Verified 05/28/24 21:00)
Hives
cefuroxime [From Ceftin] Allergy (Verified 05/28/24 21:00)
Hives
Iodinated Contrast Media Allergy (Verified 05/28/24 21:00)
FLUSHING, PALPITATIONS
latex Allergy (Verified 05/28/24 21:00)
Hives
Medications Reviewed: Yes
Current Antibiotics:
Levaquin
Metronidazole
Social History
Tobacco: Non-Smoker
Alcohol: None
Drug: None
Personal:
Living: With Family
Employment: Employed
Family History
Family History: Not Pertinent
Review of Systems
Vital Signs
Temp Pulse Resp BP Pulse Ox
97.9 F 60 18 144/82 98
06/01/24 07:15 06/01/24 08:51 06/01/24 08:51 06/01/24 07:15 06/01/24 08:51
Physical Exam
Physical Exam
Constitutional: No Acute Distress, Comfortable and Non-toxic
Eyes: No Conjunctival Hemorrhage and Sclera Anicteric
Oral: No Thrush and No Ulcers
Cardiovascular: S1/S2; Negative S3/S4
Pulmonary: Clear; Negative Wheezes, Rales or Rhonchi
Gastrointestinal: Soft, Tender (mild), Distended (mild), Normal Bowel Sounds, No Rebound and No Guarding
Extremities: Edema; Negative Cyanosis or Erythema
Neurological: Awake and Alert
Lab / Diagnostic Study Results
05/31/24 06:09
05/31/24 06:09
Abs Immat Gran (auto) 0.0 10^3/uL (0-0.05) 05/31/24 06:09
Absolute Neuts (auto) 2.8 10^3/uL (1.4-6.5) 05/31/24 06:09
Absolute Lymphs (auto) 1.0 10^3/uL (1.2-3.4) L 05/31/24 06:09
Absolute Monos (auto) 0.4 10^3/uL (0.1-0.6) 05/31/24 06:09
Absolute Basos (auto) 0.0 10^3/uL (0-0.2) 05/31/24 06:09
Immature Gran % 0.5 % (0-0.5) 05/31/24 06:09
Neutrophils % 63.7 % (42.2-75.2) 05/31/24 06:09
Lymphocytes % 22.9 % (20.5-51.1) 05/31/24 06:09
Monocytes % 9.9 % (1.7-9.3) H 05/31/24 06:09
Eosinophils % 2.3 % (0-6) 05/31/24 06:09
Basophils % 0.7 % (0-2) 05/31/24 06:09
Microbiology Results
Imaging:
05/31/2024 CT abdomen/pelvis with contrast: Marked interval improvement in inflammatory wall thickening and soft tissue stranding related to sigmoid diverticulitis. There is mild residual thickening, minor soft tissue stranding and trace free pelvic
fluid. No evidence of perforation. No free air. No focal collections or abscess. Please see full dictation for additional detail.
Assessment / Plan
Diverticulitis
Chronic nausea
- patient reports difficulty with recent abx
Gastroparesis
Chronic constipation
Sjogren syndrome
Endometriosis
IBS
Chronic fatigue
Interstitial cystitis
Rosacea
Recommendations:
At present, patient is tolerating levofloxacin and metronidazole, although metronidazole may have some contribution to her overall nausea.
Moving forward, limited options are available. Patient reports that she would not want to be sent home on oral antibiotics secondary to her underlying gastroparesis and chronic nausea.
Alternatively, at the time of discharge, she could be transition to once daily IV ertapenem, and receive antibiotics in the Outpatient Infusion Department, but she has significant reservations about having a PICC line in place.
She also reports that she does not want to be in the hospital very long.
Overall, she should continue with a 10 to 14-day course of antibiotics. Will attempt further discussions regarding antibiotic therapy after she has thought about the options.
[2024-06-01 15:18] VITALS: BP 151/88
--- NOTE | 2024-06-01 15:24 | PTCARENOTE ---
patient only drank small amount of magnesium citrate, refusing to attempt to drink more. Will make Dr. Muhammad aware, will continue to monitor.
[2024-06-01] MEDS: LOVENOX SC (17:19)
[2024-06-01] MEDS: ZADITOR BOTH EYES (20:23)
[2024-06-01] MEDS: NON-FORMULARY ITEM PO (20:29)
[2024-06-01 22:56] VITALS: BP 148/94
[2024-06-01] MEDS: MORPHINE SULFATE 1 MG IV (23:08)
[2024-06-02] MEDS: FLAGYL 500 MG 100 IV ×3 (00:38→15:57)
[2024-06-02] MEDS: LEVAQUIN 150 IV (01:41)
[2024-06-02 03:59] VITALS: BP 144/63
--- NOTE | 2024-06-02 04:39 | PTCARENOTE ---
Pt is AAOX3. She has been c/o about everything with her tx in the hospital. She is anxious and easily agitated about her condition, and that nothing is done properly. Pt was informed about the tx plan, but has been refusing miralax and other meds.
Pt was convinced by RN in taking the enema which resulted to a small BM. She cant tolerate being in full liquid diet. At times she feels nauseous and c/o abd pain. Pt want to be tested for COVID as she is afraid of getting sick. She has been c/o
soar and dry throat and was offered lozenge, but refused. RN has been providing her w/ assistance, but nothing satisfies her. Will continue w/ tx plan.
--- NOTE | 2024-06-02 07:54 | W.PN.GI.CBS2 ---
Today's Communication / Plan
-
Declines bowel purge despite counseling, recommend continuing home Miralax TiD with meals and nightly. Nausea multifactorial but largely due to severe constipation/increased stool buren. May advance diet to gastroparetic, low-fiber, low-residue
diet. Needs close follow-up with her primary Playground Equipment Erector, Dr. Medina. Inpatient GI team signing off. Please see additional recommendations as detailed below.
Assessment / Plan
-
#Acute, Uncomplicated Diverticulitis- IMPROVING
#Recurrent Diverticulitis
#IBS-C w/ #Severe Constipation w/ Overflow Diarrhea
#Hx of Sjogrens
#Hx of Gastroparesis #Hx of Esophageal Dysphagia
#Hx of Multiple Abdominal Surgeries
Ms Cannon is a 58yo female with hx multiple med problems including Sjogren, asthma, hypercholesterolemia, gastroparesis, Endometriosis with multiple prior laparoscopies in past, IBS, Palpitations, Sleep apnea, DDD, Arthritis, Chronic fatigue,
Migraines, Sleep apnea, Diverticulitis, constipation cystis, rosacea, prior appe and hysterectomy with onset of abdominal pain. On admission noted with stable CBC and chemistry but CT with acute sigmoid diverticulitis with small amount of fluid.
She continued with pain despite abx therapy after admission with with multiple bouts of diverticulitis in past. She had recent thrush and UTI with treatment, wt loss of 20 + lbs in 3 months and multiple other underlying GI issues with dysphagia
with hx Sjogrens follows at [facility], gastroparesis managed with diet, GERD,constipation with ongoing symptoms. follow with Dr. Medina and prior surgical eval with Dr. Wilson for recurrent diverticulitis.
Impression: Etiology of patient's pain is likely multifactorial due to her severe constipation and which she clearly describes constipation with overflow diarrhea, acute diverticulitis, and suspect some underlying visceral hypersensitivity given her
history of IBS and underlying anxiety. She may have a diverticular stricture versus severe narrowing in her sigmoid colon which may also be contributing due to her recurrent diverticulitis, although she states her recent colonoscopy on 2022 was
normal except for some tortuosity. Repeat CT Abd/pelvis on 05/31 demonstrated interval improvement related to her sigmoid diverticulitis. She does have evidence of moderate amount of stool burden upon my read and suspect this is largely contributing
rather than the acute diverticulitis. However, still reasonable to discuss with surgery as she seems interested in pursuing surgical options given her recurrent diverticulitis.
Repeat CT Abd/pelvis w IV contrast 05/31: Marked interval improvement in inflammatory wall thickening and soft tissue stranding related to sigmoid diverticulitis. Mild residual thickening, minor soft tissue stranding, and trace free pelvic fluid. No
evidence perforation. No free air. No focal collection or abscess
Recommendations:
- May advance diet as tolerated per patient preference, recommend small, frequent bite-sized meals along with a low-fiber, low-residue diet
- Refused Mag Citrate, declines bowel purge (repeat Mag Citrate, Miralax, or Golyltely) despite counseling
- Continue home Miralax at least TiD (one capful) with meals and nightly
- Declines further suppositories and enemas
- Agree with IV antibiotics, defer to ID for management. Suspect Metronidazole is contributing to her nausea as well
- Requested OSH colonoscopy records (Dr. Medina) to document her most recent luminal evaluation back in 2022
- May use simethicone PRN for gas/bloating
- Continue aggressive IV anti-emetics PRN but suspect upper GI symptoms are largely being driven by her severe constipation and increased stool burden
- Avoidance of all opioids as this will only worsen her GI dysmotility
- Encourage frequent ambulation, OOB, working with PT/OT to promote bowel function
- Psych following, appreciate recommendations
- CRS surgery has further been consulted given her recurrent diverticulitis. Recommend outpatient f/u
- Defer timing of repeat Colonoscopy to her primary Playground Equipment Erector, Dr. Medina
- Rest of care per primary team
Discussed with primary internal medicine team and nursing staff this AM. GI team will sign-off. Please call back with any other questions or concerns.
Subjective
Subjective
Date of Service: June 02, 2024
- No acute events overnight
Very anxious this morning, concerned that nothing is helping. Refused magnesium citrate yesterday afternoon. Not interested in pursuing bowel purge despite extensive discussion this AM. Family brought in her own Miralax.Passing hard pieces of small
stool, no significant BM. Passing flatus, still mild distension but no abdominal pain. No fevers or chills.
Objective
Data Reviewed
Laboratory Data:
Laboratory Results
05/31/24 06:09
05/31/24 06:09
Laboratory Results
Total Bilirubin 0.5 mg/dl (0.2-1.3) 05/31/24 06:09
AST 25 U/L (14-36) 05/31/24 06:09
ALT 14 U/L (0-35) 05/31/24 06:09
Alkaline Phosphatase 78 U/L (38-126) 05/31/24 06:09
Vital Signs and I&O:
Vital Signs
Temp Pulse Resp BP Pulse Ox
97.6 F 86 18 144/63 95
06/01/24 22:56 06/01/24 22:56 06/01/24 22:56 06/02/24 03:59 06/01/24 22:56
I&O
06/01/24 06/02/24 06/03/24
06:59 06:59 06:59
Intake Total 1140 / 1140 1889
Balance 1140 / 1140 1889
Physical Exam
Physical Exam
HEENT: Moist mucous membranes
Cardiology: Normal Sinus Rhythm
Pulmonary: Clear
GI: Soft, Distended (Mild distension) and Non Tender
Extremities: Edema
Neuro: Non Focal
[2024-06-02] MEDS: MIRALAX 17 GRAMS PO ×2 (08:08→15:56)
[2024-06-02] MEDS: FLEET MINERAL OIL ENEMA 133 ML RECTAL (08:08)
[2024-06-02] MEDS: NON-FORMULARY ITEM 1 UNIT NASAL (08:10)
[2024-06-02] MEDS: NON-FORMULARY ITEM 1 UNIT PO (08:10)
[2024-06-02] MEDS: REFRESH CELLUVISC GEL 1 DROPS BOTH EYES (08:11)
[2024-06-02] MEDS: REGLAN 5 MG IV ×2 (08:12→21:50)
[2024-06-02] MEDS: NON-FORMULARY ITEM 1 UNIT INH (08:23)
[2024-06-02] MEDS: ZADITOR 1 DROP BOTH EYES (08:27)
--- NOTE | 2024-06-02 11:38 | VATNOTE ---
Patient states IV is painful and states she is afraid of phlebitis. No s/s of phlebitis or infiltrate. Discussed with patient about placing midline due to posibility of tank terminal gauger IV Antibiotics, to which patient stated, 'I don't want no PICC or
MidLine.' Information relayed to CECILIA Barber.
--- NOTE | 2024-06-02 13:49 | W.PN.HOSP.TC ---
Today's Communication/Plan
-
US LE
Midline
cont Abx
Had detailed conversation about thew need in adherence to the therapy as patient was declining Lovenox and earlier declining midline
Assessment / Plan
Assessment / Plan
58yo F with PMHx of CTD, presumably Sjogren, IBS, dysphagia followed by [facility] MANAGEMENT RECRUITER with recent VSE and recommendation to start excersizes for improvement of swallowing function, gastritis, recurrent diverticulitis came with 3 weeks of
constipation and 1 day of lower abdominal pain, admitted with diverticulitis for IV Abx as patient complained about inability to tolerate pills or liqud antibiotics, describing the 'bubbly' feeling in her mouth and stomach irritation even with
crushed pills.
Presence of multiple non-specific symptoms and the reported level of dysphagia that clinically is not observed on exam can potentially be 2/2 concomitant conversion d/o
A/P:
#Uncomplicated diverticulitis
Flagyl/Levaquin x10 days as per ID
Advance diet as tolerated
Due to inability to tolerate oral Abx - might need to have home infusion setup
No constipation on imaging.
DUe to no improvement with pain - repeating CT with IV and oral contrast after steroids prep on 05/31/24 - showed improvement of non-complicated diverticulitis
ID consult for Abx duration and selection. Patient declining ability for home infusion
GI consult: laxatives
Reglan
#Dysphagia, chronic
Normal barium swallow on 02/17/24
MANAGEMENT RECRUITER
#RLE swelling
patient was declining DVT ppx
US LE to r/o DVT
#IBS
#Sicca symptoms
#COPD/Asthma without exacerbation
#Sjogren
#Chronic gastritis
cont home meds
DVT ppx Enoxaparin
FUll code
I have spent at least 58min reviewing chart, test results and providing direct patient care
Anticipated Discharge: > 48 hours
Subjective/Interval History
-
Date of Service: June 02, 2024
Objective Data
-
Vital Signs:
Vital Signs
Temp Pulse Resp BP Pulse Ox
97.6 F 64 18 144/63 98
06/01/24 22:56 06/02/24 08:24 06/02/24 08:24 06/02/24 03:59 06/02/24 08:24
I&O
06/01/24 06/02/24 06/03/24
06:59 06:59 06:59
Intake Total 1140 / 1140 1889 / 0
Balance 1140 / 1140 1889 / 189
Review of Systems
-
History Source: Patient
All other systems: Reviewed and negative
Physical Exam
-
General: No Apparent Distress
HEENT: Normocephalic
Respiratory: Clear to Auscultation
Cardiac: Regular Rhythm
GI: Soft, Nontender and Nondistended
Musculoskeletal: No Clubbing, No Cyanosis and No Edema
Skin: Warm
Neuro: Awake, Alert, Oriented and AO x 3
Psych: Calm
--- NOTE | 2024-06-02 14:47 | CM ---
Reviewed chart, patient still functioning at baseline level physically, still requiring acute care.
Plan: Case management will continue to follow and assist with discharge planning. Home when stable.
--- NOTE | 2024-06-02 15:11 | W.PN.UPDATE ---
Update Note
Progress Note Update
patient seen chart reviewed. spoke with nursing. both children at bedside. patient is extremely anxious about everything. she is worried about her legs swelling (will be having ultrasound), her constipation (bowel prep ongoing), catching covid
from sick patients at (reassured her no covid patients in the vicinity etc etc. she was literally pacing around the room shaking up and down. i suggested xanax prn. she said she is not a 'crazy' reassured her that xanax is not an antipsychotic
and answered ? about side effects risk vs benefits. her children were urging her to try it and see if it would relieve some of her anxiety or at least take the edge off. xanax ordered. will continue to try and offer her support.
[2024-06-02 15:25] VITALS: BP 155/93
[2024-06-02] MEDS: LOVENOX 40 MG SC (18:26)
[2024-06-02 20:31] LABS: COVID-19 Antigen Negative (Negative)
[2024-06-02] MEDS: REFRESH CELLUVISC GEL BOTH EYES (21:47)
[2024-06-02] MEDS: FLEET MINERAL OIL ENEMA RECTAL (21:47)
[2024-06-02] MEDS: ZADITOR BOTH EYES (21:48)
[2024-06-02] MEDS: NON-FORMULARY ITEM PO (21:50)
[2024-06-02] MEDS: MIRALAX PO (22:02)
--- NOTE | 2024-06-02 22:35 | PTCARENOTE ---
Pt appears very anxious. Children as well. Pt asked for covid test, but wanted to walk hallways and talk about plan of care openly even after being asked to return to room until covid results received, which were negative shortly after. Pt asked to
go back to room until results came back, which were negative. Pt asked for enema, not stocked, pharmacy brought up later. Pt refused enema, stating it was too late. She was tired and didn't feel good. She 'can't eat, cant poop, is tired' tried to
encourage pt to have enema to help stomach issues. Pty still refused. Pt refused all meds and prn Xanax, except reglan. Pt states that she doesn't feel right. Asked for flu test, chest xray because she thinks she's' getting pneumonia in here', and
another throat culture for thrush because she had a positive one on 05/23 that she never completed medication for. pt states she feels 'horrible' feverish, dry cough. temp was 98.8, lungs clear pt was not actively coughing. Checked pts throat, mouth
was pink, not inflamed, no white patches could be seen. Pt asked what medication she was taking for thrush and if she would take it if I asked FLEXOGRAPHIC PRINTING PRESS OPERATOR about ordering it, and she said she would not take it. Son informed us that pt daughter left room and
went to ED to be seen for upset stomach and general malaise and that he felt mildly unwell too. All state that this started approximately 6pm this evening for all of them. INSIDE PLANT SUPERVISOR aware. Directed to monitor for sign of flu/fever, but no testing at this
time, will order thrush medication if pt changes her mind about taking medication.Pt made aware of plan, pt appeared to be resting comfortably in bed at the time, but still c/o 'feeling terrible' states she does not want medication for thrush but
still wants the culture, and flu test and xray. Made pt aware of plan to closely monitor and test when symptoms warrant testing. Will continue to monitor and follow plan of care.
[2024-06-02 23:15] VITALS: BP 149/90
[2024-06-03] MEDS: FLAGYL 500 MG 100 IV ×4 (00:22→23:25)
[2024-06-03] MEDS: LEVAQUIN 150 IV (01:29)
[2024-06-03 03:00] VITALS: BP 142/85
[2024-06-03 05:22] LABS: % Basophils 0.5 % (0-2); % Eosinophils 0.8 % (0-6); % Immature Granulocytes 0.3 % (0-0.5); % Lymphocytes 7.7 % (20.5-51.1); % Monocytes 10.6 % (1.7-9.3); % Neutrophils 80.1 % (42.2-75.2); Absolute Eosinophils 0.1 10^3/uL (0-0.7); Absolute Lymphocytes 0.5 10^3/uL (1.2-3.4); Absolute Monocytes 0.7 10^3/uL (0.1-0.6); Absolute Neutrophils 5.2 10^3/uL (1.4-6.5); Hematocrit 34.4 % (37.0-47.0); Mean Corp Hgb Conc. 34.9 g/dL (33.0-37.0); Mean Corpuscular Hgb 30.2 pg (27.0-31.0); Mean Corpuscular Volume 86.6 fL (81.0-99.0); Mean Platelet Volume 9.9 fL (7.4-10.4); Nucleated Red Blood Cells % 0 %; Platelet Count 272 10^3/uL (130-400); Red Blood Cell Count 3.97 10^6/uL (4.20-5.40); Red Cell Dist. Width 12.7 % (11.5-14.5); White Blood Cell Count 6.5 10^3/uL (4.8-10.8)
[2024-06-03 05:46] LABS: ALT (SGPT) 25 U/L (0-35); AST (SGOT) 38 U/L (14-36); Alkaline Phosphatase 80 U/L (38-126); Blood Urea Nitrogen 8 mg/dl (7-17); Calcium 9.3 mg/dl (8.4-10.2); Carbon Dioxide 26 mmol/L (22-30); Chloride 101 mmol/L (98-107); Estimated Creatinine Clearance 91 ml/min; Glucose 101 mg/dl (70-99); Potassium 3.5 mmol/L (3.5-5.1); Sodium 141 mmol/L (135-145); Total Bilirubin 0.4 mg/dl (0.2-1.3); Total Protein 6.4 g/dl (6.3-8.2); eGFR > 60.00
[2024-06-03] MEDS: NON-FORMULARY ITEM 1 UNIT INH (07:35)
[2024-06-03 07:55] VITALS: BP 132/93
[2024-06-03] MEDS: FLEET MINERAL OIL ENEMA 133 ML RECTAL ×2 (09:13→20:44)
[2024-06-03] MEDS: MIRALAX 17 GRAMS PO (09:13)
[2024-06-03] MEDS: NON-FORMULARY ITEM 1 UNIT NASAL (09:13)
[2024-06-03] MEDS: REFRESH CELLUVISC GEL 1 DROPS BOTH EYES (09:14)
[2024-06-03] MEDS: NON-FORMULARY ITEM PO ×2 (09:14→21:18)
[2024-06-03] MEDS: ZADITOR 1 DROP BOTH EYES (09:14)
[2024-06-03] MEDS: REGLAN 10 MG IV (09:16)
[2024-06-03] MEDS: VITAMIN C PO (09:17)
--- NOTE | 2024-06-03 09:39 | W.PN.HOSP.TC ---
Today's Communication/Plan
-
Robitussin, nasal saline, chest XR, check Strep throat
CM for Ertapenem in the infusion center
IVF since patient still has poor intake
Enema (last evening patient declined due to late hours as per RN)
Assessment / Plan
Assessment / Plan
58yo F with PMHx of CTD, presumably Sjogren, IBS, dysphagia followed by [facility] BUSINESS SERVICES SALES AGENT with recent VSE and recommendation to start excersizes for improvement of swallowing function, gastritis, recurrent diverticulitis came with 3 weeks of
constipation and 1 day of lower abdominal pain, admitted with diverticulitis for IV Abx as patient complained about inability to tolerate pills or liqud antibiotics, describing the 'bubbly' feeling in her mouth and stomach irritation even with
crushed pills.
Presence of multiple non-specific symptoms and the reported level of dysphagia that clinically is not observed on exam
A/P:
#Uncomplicated diverticulitis
Flagyl/Levaquin x10 days as per ID
Advance diet as tolerated
Due to inability to tolerate oral Abx - might need to have home infusion setup
No constipation on imaging.
DUe to no improvement with pain - repeating CT with IV and oral contrast after steroids prep on 05/31/24 - showed improvement of non-complicated diverticulitis
ID consult for Abx duration and selection - 10-14 days, can be Ertapenem in infusion center, CM contacted for procedure to arrange. Patient declining home infusion
GI consult: laxatives
Reglan
#Constipation
Enema and laxatives as per GI
#Acute Upper respiratory inection
COVID-19 and Influenza neg
Symptomatic mgmt
#Dysphagia, chronic
Normal barium swallow on 02/17/24
BUSINESS SERVICES SALES AGENT
#RLE swelling
patient was declining DVT ppx -emphasized import
US LE neg for DVT
#Anxiety d/o with adjustment d/o
Psych consult: Xanax
#IBS
#Sicca symptoms
#COPD/Asthma without exacerbation
#Sjogren
#Chronic gastritis
cont home meds
DVT ppx Enoxaparin
FUll code
I have spent at least 58min reviewing chart, test results and providing direct patient care
Anticipated Discharge: > 48 hours
Subjective/Interval History
-
Date of Service: June 03, 2024
Objective Data
-
Labs:
Laboratory Results
06/03/24
05:01
WBC 6.5
Hgb 12.0
Hct 34.4 L
Plt Count 272
Sodium 141
Potassium 3.5
Chloride 101
Carbon Dioxide 26
BUN 8
Creatinine 0.6
Glucose 101 H
Calcium 9.3
Total Bilirubin 0.4
AST 38 H
ALT 25
Alkaline Phosphatase 80
Vital Signs:
Vital Signs
Temp Pulse Resp BP Pulse Ox
98.5 F 103 20 132/93 97
06/03/24 07:55 06/03/24 07:55 06/03/24 07:55 06/03/24 07:55 06/03/24 07:55
I&O
06/02/24 06/03/24 06/04/24
06:59 06:59 06:59
Intake Total 1889 850 / 850
Balance 1889 850 / 850
[2024-06-03 10:33] LABS: NT-proBNP 160 pg/ml
--- NOTE | 2024-06-03 11:23 | CM ---
CM spoke with pt about consideration of daily outpatient Infusions based on her inability to swallow oral Abx.
Pt says she would have her son bring her to [place] for infusions.
DR was updated and dc will need to be set up when Infusion Center opens on Wednesday.
--- NOTE | 2024-06-03 12:02 | W.PN.UPDATE ---
Update Note
Progress Note Update
Patient is still rather anxious but is employing various relaxation techniques to stay calmer. She does not want to take any Xanax concerned about side effects .
Discussed strategies to lessen anxiety.
Will continue F/U
[2024-06-03] MEDS: NSS 500 IV (12:07)
[2024-06-03 13:58] VITALS: BP 144/95; BP 148/91; PULSE 90; O2SAT 95
[2024-06-03 14:00] VITALS: BP 148/91; PULSE 90; O2SAT 95
[2024-06-03 15:00] VITALS: BP 163/98
[2024-06-03] MEDS: MIRALAX PO ×2 (16:50→21:18)
[2024-06-03] MEDS: LOVENOX 40 MG SC (17:55)
[2024-06-03] MEDS: ROBITUSSIN DM 5 ML PO (18:25)
[2024-06-03] MEDS: TYLENOL ORAL SOLUTION 650 MG PO (21:15)
[2024-06-03] MEDS: REFRESH CELLUVISC GEL BOTH EYES (21:17)
[2024-06-03] MEDS: ZADITOR BOTH EYES (21:18)
[2024-06-03 23:45] VITALS: BP 131/77
[2024-06-04] MEDS: LEVAQUIN 150 IV (01:58)
[2024-06-04] MEDS: ROBITUSSIN DM 5 ML PO (03:00)
[2024-06-04] MEDS: NON-FORMULARY ITEM 1 UNIT INH (07:16)
[2024-06-04] MEDS: MIRALAX PO ×3 (08:03→21:56)
[2024-06-04] MEDS: VITAMIN C PO (08:04)
[2024-06-04 08:09] VITALS: BP 132/92
[2024-06-04] MEDS: FLEET MINERAL OIL ENEMA 133 ML RECTAL ×2 (08:44→22:44)
[2024-06-04] MEDS: FLAGYL 500 MG 100 IV ×3 (08:44→23:23)
[2024-06-04] MEDS: REFRESH CELLUVISC GEL 1 DROPS BOTH EYES (08:45)
[2024-06-04] MEDS: NON-FORMULARY ITEM 1 UNIT NASAL (08:46)
[2024-06-04] MEDS: NON-FORMULARY ITEM 1 UNIT PO (08:46)
[2024-06-04] MEDS: ZADITOR 1 DROP BOTH EYES (08:47)
[2024-06-04] MEDS: FLUSH (NSS) 2 FLUSH IV ×2 (08:47→16:22)
[2024-06-04 09:09] VITALS: BP 132/92
--- NOTE | 2024-06-04 11:06 | W.PN.HOSP.TC ---
Today's Communication/Plan
-
Had BM today
CM to work on outpatient Ertapenem
cont symptomatic treatment of acute upper respiratory infection
Assessment / Plan
Assessment / Plan
58yo F with PMHx of CTD, presumably Sjogren, IBS, dysphagia followed by [facility] BINDER TECHNICIAN with recent VSE and recommendation to start excersizes for improvement of swallowing function, gastritis, recurrent diverticulitis came with 3 weeks of
constipation and 1 day of lower abdominal pain, admitted with diverticulitis for IV Abx as patient complained about inability to tolerate pills or liquid oral antibiotics, describing the 'bubbly' feeling in her mouth and stomach irritation even with
crushed pills.
Plan is for outpatient Ertapenem in infusion center to be established by CM
Presence of multiple non-specific symptoms and the reported level of dysphagia that clinically is not observed on exam
A/P:
#Uncomplicated diverticulitis
Flagyl/Levaquin x10 days as per ID
Advance diet as tolerated
Due to inability to tolerate oral Abx - might need to have home infusion setup
No constipation on imaging.
DUe to no improvement with pain - repeating CT with IV and oral contrast after steroids prep on 05/31/24 - showed improvement of non-complicated diverticulitis
ID consult for Abx duration and selection - 10-14 days, can be Ertapenem in infusion center, CM contacted for procedure to arrange. Patient declining home infusion
GI consult: laxatives
Reglan
#Constipation
Enema and laxatives as per GI
#Acute Upper respiratory infection
COVID-19 and Influenza neg
Symptomatic mgmt
Chest XR clear from pneumonia
#Dysphagia, chronic
Normal barium swallow on 02/17/24
BINDER TECHNICIAN
#RLE swelling
patient was declining DVT ppx -emphasized import
US LE neg for DVT
#Anxiety d/o with adjustment d/o
Psych consult: Xanax
#IBS
#Sicca symptoms
#COPD/Asthma without exacerbation
#Sjogren
#Chronic gastritis
cont home meds
DVT ppx Enoxaparin
FUll code
I have spent at least 3 reviewing chart, test results and providing direct patient care
Anticipated Discharge: 24 - 48 hours
Subjective/Interval History
-
Date of Service: June 04, 2024
Objective Data
-
Vital Signs:
Vital Signs
Temp Pulse Resp BP Pulse Ox
98.5 F 101 18 132/92 97
06/04/24 08:09 06/04/24 08:09 06/04/24 08:09 06/04/24 08:09 06/04/24 08:09
I&O
06/03/24 06/04/24 06/05/24
06:59 06:59 06:59
Intake Total 850 / 850 730 / 730
Balance 850 / 850 730 / 730
Review of Systems
-
History Source: Patient
All other systems: Reviewed and negative
EENT: Reports Runny Nose
Respiratory: Reports Cough
Physical Exam
-
General: No Apparent Distress
HEENT: Normocephalic
Respiratory: Clear to Auscultation
Cardiac: Regular Rhythm
GI: Soft, Nontender and Nondistended
Psych: Calm
--- NOTE | 2024-06-04 11:53 | W.PN.UPDATE ---
Update Note
Progress Note Update
Went to see the patient but she did no longer feel she needed psychiatric F/U.
I told her to ask for reconsult if she felt a need for it in the future.
--- NOTE | 2024-06-04 11:55 | PTCARENOTE ---
Pt refused her ordered miralax this morning but wanted her fleet mineral oil enema, she also refused her vitamin C & E after scanning to give her. Pt later told the doctor that vitamin C & E were never offered to her.
--- NOTE | 2024-06-04 11:58 | PTCARENOTE ---
Pt had a loose bowel movement in the bathroom toilet after having the mineral oil enema.
[2024-06-04 16:18] VITALS: BP 163/89
[2024-06-04] MEDS: ANESTHETIC LOZENGE 1 LOZENGE PO (16:19)
[2024-06-04] MEDS: LOVENOX 40 MG SC (18:11)
[2024-06-04 18:49] VITALS: BP 146/95
[2024-06-04] MEDS: REFRESH CELLUVISC GEL BOTH EYES (21:55)
[2024-06-04] MEDS: ZADITOR BOTH EYES (21:55)
[2024-06-04] MEDS: NON-FORMULARY ITEM PO (21:56)
[2024-06-04 23:18] VITALS: BP 135/90
[2024-06-05] MEDS: LEVAQUIN 150 IV (01:19)
[2024-06-05] MEDS: REGLAN 10 MG IV ×2 (03:38→20:44)
[2024-06-05] MEDS: NON-FORMULARY ITEM 1 UNIT INH (07:20)
[2024-06-05 07:43] VITALS: BP 142/82
[2024-06-05] MEDS: FLEET MINERAL OIL ENEMA 133 ML RECTAL (08:59)
[2024-06-05] MEDS: MIRALAX PO ×3 (09:00→20:44)
[2024-06-05] MEDS: FLAGYL 500 MG IV ×2 (09:00→11:07)
[2024-06-05] MEDS: NON-FORMULARY ITEM PO ×2 (09:01→20:44)
[2024-06-05] MEDS: NON-FORMULARY ITEM 1 UNIT NASAL (09:01)
[2024-06-05] MEDS: ZADITOR 1 DROP BOTH EYES (09:02)
[2024-06-05] MEDS: REFRESH CELLUVISC GEL 1 DROPS BOTH EYES ×2 (09:02→20:44)
[2024-06-05] MEDS: VITAMIN C 1000 MG PO (09:02)
--- NOTE | 2024-06-05 09:06 | W.PN.HOSP.TC ---
Today's Communication/Plan
-
outpatient infusion setup of Ertapenem. d/w ID and CM
Assessment / Plan
Assessment / Plan
Assessment:
Uncomplicated acute sigmoid diverticulitis
- diet: low residue
- on bowel regimen
- ID following; currently on Leva/Flagyl. Will consolidate to Ertapenem (Flagyl perhaps contributing to nausea)
- Patient has midline and opts to go to infusion center for completion of Ertapenem, currently day 05/10. She is not agreeable to administering IV abx at home. Cannot tolerate home PO abx.
- CM aware.
Nausea, multifactorial from anxiety, acute diverticulitis, Abx, constipation
- continue bowel regimen
- DC Flagyl
- prn Reglan, assess response. If no improvement, can try Compazine next
Constipation
- Enema and laxatives as per GI
Acute Upper respiratory infection
- COVID/Flu negative. CXR clear. Strep negative. Culture pending
- continue symptomatic management
Dysphagia, chronic
- Normal barium swallow on 02/17/24
- PAINTING TECHNICIAN
RLE swelling
- patient was declining DVT ppx - emphasized importance
- US LE neg for DVT
Anxiety d/o with adjustment d/o
- Psych consult: Xanax
IBS
Sicca symptoms
COPD/Asthma without exacerbation
- on Dulera
Sjogren
Chronic gastritis - cont Pepcid
DVT ppx: Enoxaparin
Code: Full
Anticipated Discharge: 24 - 48 hours
Subjective/Interval History
-
Date of Service: June 05, 2024
reports nausea, dry heaves
also has URI, CXR clear, no SOB, no o2 needs, feels like heart if fluttering in setting of coughing
Objective Data
-
Vital Signs:
Vital Signs
Temp Pulse Resp BP Pulse Ox
97.6 F 100 17 142/82 97
06/05/24 07:43 06/05/24 07:43 06/05/24 07:43 06/05/24 07:43 06/05/24 07:43
I&O
06/04/24 06/05/24 06/06/24
06:59 06:59 06:59
Intake Total 730 / 730 2527 / 2527
Balance 730 / 730 2527 / 2527
Physical Exam
-
General: No Apparent Distress
HEENT: Normocephalic and Atraumatic
Respiratory: Negative Wheezes
Cardiac: Regular Rhythm and S1/S2
GI: Soft
Genito-urinary: No Costovertebral Tender
Musculoskeletal: No Edema
Neuro: AO x 3
Psych: Calm
Data Reviewed
-
Total Time Spent with Patient (in minutes): 41
Labs: Labs Reviewed by me
[2024-06-05 12:14] VITALS: BP 138/90
[2024-06-05] MEDS: INVANZ 60 MG IV (13:30)
--- NOTE | 2024-06-05 13:37 | CM ---
Spoke with attending and ID MD who stated that patient will need IV abx for 14 days. Her preference is to go to outpatient infusion and ER on weekends until she is finished her course.
Plan: Case management will continue to follow and assist with discharge planning. Home with f/i outpatient for ABX.
[2024-06-05 15:31] VITALS: BP 143/86
--- NOTE | 2024-06-05 16:57 | W.PN.ID1 ---
Date of Service
Date of Service: June 05, 2024
Today's Communication
Continue with ertapenem.
Assessment / Plan
Diverticulitis
Chronic nausea
- patient reports difficulty with recent abx
Gastroparesis
Chronic constipation
Sjogren syndrome
Endometriosis
IBS
Chronic fatigue
Interstitial cystitis
Rosacea
Recommendations:
Patient with ongoing nausea secondary to metronidazole.
Patient transitioned to ertapenem and overall improved.
She is now amenable to outpatient infusion to complete her course. Prescription for OID completed and given to case management. Patient to continue with antibiotics through 06/11.
Chief Complaint
-: Other (Diverticulitis)
Subjective / Review of Systems
Review of Systems: No Fever and No Chills
Vital Signs / Physical Exam
Vital Signs
Vital Signs
Temp Pulse Resp BP Pulse Ox
98.0 F 85 17 143/86 99
06/05/24 15:31 06/05/24 15:31 06/05/24 15:31 06/05/24 15:31 06/05/24 15:31
Physical Exam
Constitutional: No Acute Distress, Comfortable and Non-toxic
Cardiovascular: S1/S2; Negative S3/S4
Pulmonary: Non Labored
Gastrointestinal: Soft, Non Tender, Non Distended, No Rebound and No Guarding
Neurological: Awake and Alert
Psychological: Calm
Objective Data
Lab Data
Lab Results
06/03/24 05:01
06/03/24 05:01
Estimated Creat Clear 91 ml/min 06/03/24 05:01
Total Bilirubin 0.4 mg/dl (0.2-1.3) 06/03/24 05:01
AST 38 U/L (14-36) H 06/03/24 05:01
ALT 25 U/L (0-35) 06/03/24 05:01
Alkaline Phosphatase 80 U/L (38-126) 06/03/24 05:01
Most recent labs reviewed.
Micro Results:
06/03/24 09:03 Streptococcus Screen ([facility]) - Final
Throat/Pharynx No Beta Hemolytic Streptococci Isolated
Streptococcus Rapid Screen - Final
Rapid Strep Screen (Group A) Negative
06/03/24 09:03 Influenza Types A & B (REAL) - Final
Nasal Swab Negative for Influenza A & B, NAAT
Negative results must be combined with clinical observations
and patient history.
Nucleic Acid Amplification test (NAAT)performed on the
[employer] platform.
06/02/24 23:56 Influenza Types A & B (REAL) - Final
Nasal Swab Negative for Influenza A & B, NAAT
Negative results must be combined with clinical observations
and patient history.
Nucleic Acid Amplification test (NAAT)performed on the
[employer] platform.
Imaging:
05/31/2024 CT abdomen/pelvis with contrast: Marked interval improvement in inflammatory wall thickening and soft tissue stranding related to sigmoid diverticulitis. There is mild residual thickening, minor soft tissue stranding and trace free pelvic
fluid. No evidence of perforation. No free air. No focal collections or abscess. Please see full dictation for additional detail.
Care Review
Plan reviewed with: Physician (Hospitalist)
[2024-06-05] MEDS: LOVENOX 40 MG SC (17:01)
[2024-06-05] MEDS: FLEET MINERAL OIL ENEMA RECTAL (20:44)
[2024-06-05] MEDS: ZADITOR BOTH EYES (20:46)
[2024-06-05] MEDS: ROBITUSSIN DM 5 ML PO (20:50)
[2024-06-05 23:09] VITALS: BP 146/83
[2024-06-06 07:05] VITALS: BP 128/79
[2024-06-06] MEDS: NON-FORMULARY ITEM 1 UNIT INH (07:48)
[2024-06-06] MEDS: ZADITOR 1 DROP BOTH EYES (09:07)
[2024-06-06] MEDS: NON-FORMULARY ITEM 1 UNIT NASAL (09:07)
[2024-06-06] MEDS: VITAMIN C PO (09:08)
[2024-06-06] MEDS: FLEET MINERAL OIL ENEMA RECTAL (09:08)
[2024-06-06] MEDS: NON-FORMULARY ITEM PO (09:08)
[2024-06-06] MEDS: REFRESH CELLUVISC GEL BOTH EYES (09:08)
[2024-06-06] MEDS: MIRALAX PO ×2 (09:08→16:02)
--- NOTE | 2024-06-06 10:32 | CM ---
Addendum entered by STU Mcrae 06/06/24 15:39:
IMM on chart.
Addendum entered by STU Mcrae 06/06/24 14:56:
Received return call from [facility] (Kirstin) who stated that patient's appointment is 10:30 tomorrow. She stated that she will call patient to discuss the details. RN updated.
Will update patient and review IMM.
Addendum entered by STU Mcrae 06/06/24 12:26:
Received call from [facility] at [facility], who stated that she received referral and she will reach out to patient.
Addendum entered by STU Mcrae 06/06/24 12:05:
Spoke with attending who stated that patient is requesting PT through [facility]. Spoke with [facility] liason, Bobbi, who stated that [facility] does not go to her home address.
Met with patient who stated that she would be agreeable to [facility]. She asked for copies of doctor's orders for OID and order for [facility]. Copies made for her.
Will update RN as soon as call has been received from [facility] that patient can be discharged.
Original Note:
Placed a call to [facility] and spoke with Kirstin who stated that she needs: Order date, end date, reaction sheet, H&P, Labs. Faxed over all necessary documentation. Placed a call to [facility] [id number] and Kirstin confirmed that she has everything that she needs.
She stated that patient's benefits will be checked and meds will be priced and then she will return call regarding when patient can be discharged.
Plan: Case management will continue to follow and assist with discharge planning. Home with f/u at [facility] for ABX.
--- NOTE | 2024-06-06 10:40 | W.PN.HOSP.TC ---
Today's Communication/Plan
-
dc to home IV Abx
Assessment / Plan
Assessment / Plan
Assessment:
Uncomplicated acute sigmoid diverticulitis
- diet: low residue
- on bowel regimen
- ID following; currently on Leva/Flagyl. Will consolidate to Ertapenem (Flagyl contributing to nausea)
- Patient has midline and opts to go to infusion center for completion of Ertapenem, currently day 06/10 (end date 06/11). She is not agreeable to administering IV abx at home. Cannot tolerate home PO abx.
- CM aware and arranging outpatient
Nausea, multifactorial from anxiety, acute diverticulitis, Abx, constipation
- continue bowel regimen
- DC Flagyl
- prn Reglan, assess response. If no improvement, can try Compazine next
Constipation
- Enema and laxatives as per GI
Acute Upper respiratory infection
- COVID/Flu negative. CXR clear. Strep negative. Culture pending
- continue symptomatic management
Dysphagia, chronic
- Normal barium swallow on 02/17/24
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
RLE swelling
- patient was declining DVT ppx - emphasized importance
- US LE neg for DVT
Anxiety d/o with adjustment d/o
- Psych consult: Xanax
IBS
Sicca symptoms
COPD/Asthma without exacerbation
- on Dulera
Sjogren
Chronic gastritis - cont Pepcid
DVT ppx: Enoxaparin
Code: Full
More than 30 minutes spent in discharge including
Final examination of the patient
Summarizing hospital stay
Instructions for continuing care to all relevant caregivers
Preparation of discharge records, prescriptions, and referral forms
Total time spent (in minutes): 42
Anticipated Discharge: Today
Subjective/Interval History
-
Date of Service: June 06, 2024
nausea improving off Flagyl
Objective Data
-
Vital Signs:
Vital Signs
Temp Pulse Resp BP Pulse Ox
97.7 F 90 17 128/79 97
06/06/24 07:05 06/06/24 07:50 06/06/24 07:50 06/06/24 07:05 06/06/24 07:50
I&O
06/05/24 06/06/24 06/07/24
06:59 06:59 06:59
Intake Total 2527 / 2527 480 / 480
Balance 2527 / 2527 480 / 480
Physical Exam
-
General: No Apparent Distress
HEENT: Normocephalic and Atraumatic
Respiratory: Negative Wheezes
Cardiac: Regular Rhythm and S1/S2
GI: Soft
Genito-urinary: No Costovertebral Tender
Musculoskeletal: No Edema
Neuro: AO x 3
Psych: Calm
Data Reviewed
-
Total Time Spent with Patient (in minutes): 42
Labs: Labs Reviewed by me
--- NOTE | 2024-06-06 10:47 | W.DS.TRANS ---
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
-
Discharge Instructions:
Discharge Diagnosis/Procedures acute sigmoid diverticulitis
Diet Low Residue
Activity As tolerated
Other Services [facility]
Instructions:
Stand-Alone Forms:
Changes to Home Medications: No
Discharge Medications:
DC Medications w/original date entered in markedup
ipratropium bromide 21 mcg (0.03 %) nasal spray 2 spray intranasal DAILY Congestion 06/22/22
ketotifen fumarate 0.025 % (0.035 %) eye drops (Zaditor) 1 drp BOTH EYES BID Eye Condition 03/04/23
carboxymethylcellulose 0.5 %-glycerin 0.9 % eye drops (Refresh Optive) 1 drp BOTH EYES BID DRY EYES 03/24/24
ergocalciferol (vitamin D2) 200 mcg/mL (8,000 unit/mL) oral drops 40,000 unit PO TH Supplement 03/24/24
famotidine 20 mg tablet (Pepcid) 20 mg PO BID Gastrointestinal Issue 03/24/24
mometasone-formoterol HFA 100 mcg-5 mcg/actuation aerosol inhaler (Dulera) 2 puff inhalation R BID Lung/Breathing Issues 03/24/24
mineral oil (Fleet Mineral Oil enema) 133 ml [place] DAILYPRN PRN constipation #0 mL 03/26/24
fluticasone propionate 50 mcg/actuation nasal spray,suspension 1 spray intranasal DAILY Allergies 05/31/24
Ertapenem [Invanz] 1,000 mg 120 mls/hr IV Q24H 06/06/24
acetaminophen 325 mg tablet (Tylenol) 650 mg (2 x 325 mg) PO Q6H PRN fever or pain #30 tabs 06/06/24
dicyclomine 20 mg tablet 20 mg PO QIDPRN PRN bowel cramping #20 tabs 06/06/24
metoclopramide HCl 5 mg tablet (Reglan) 5 mg PO Q6HPRN PRN nausea and vomiting #20 tabs 06/06/24
polyethylene glycol 3350 17 gram oral powder packet (Miralax) 17 g PO BID #30 ea 06/06/24
sennosides 8.6 mg-docusate sodium 50 mg tablet 1 tab PO BIDPRN PRN constipation #60 tabs 06/06/24
Home Medication Changes
Pending Results: No
Total time spent discharging patient (in min): 41
[2024-06-06] MEDS: INVANZ 60 MG IV (13:02)
--- NOTE | 2024-06-06 13:42 | W.PN.ID1 ---
Date of Service
Date of Service: June 06, 2024
Today's Communication
Continue current course of meropenem.
Assessment / Plan
Diverticulitis
Chronic nausea
- patient reports difficulty with recent abx
Gastroparesis
Chronic constipation
Sjogren syndrome
Endometriosis
IBS
Chronic fatigue
Interstitial cystitis
Rosacea
Recommendations:
Patient with ongoing nausea secondary to metronidazole.
Patient transitioned to ertapenem and overall improved.
She is now amenable to outpatient infusion to complete her course. Prescription for OID completed and given to case management. Patient to continue with antibiotics through 06/11.
Chief Complaint
-: Other (Diverticulitis)
Subjective / Review of Systems
Tolerating antibiotics. Also tolerating diet.
Review of Systems: No Fever and No Chills
Vital Signs / Physical Exam
Vital Signs
Vital Signs
Temp Pulse Resp BP Pulse Ox
97.7 F 90 17 128/79 97
06/06/24 07:05 06/06/24 07:50 06/06/24 07:50 06/06/24 07:05 06/06/24 07:50
Physical Exam
Constitutional: No Acute Distress, Comfortable and Non-toxic
Eyes: Sclera Anicteric
Pulmonary: Non Labored
Gastrointestinal: Non Distended
Extremities: Edema; Negative Cyanosis or Erythema
Neurological: Awake, Alert and Oriented
Psychological: Calm
Lines: PICC (RUE)
Objective Data
Lab Data
Lab Results
06/03/24 05:01
06/03/24 05:01
Estimated Creat Clear 91 ml/min 06/03/24 05:01
Total Bilirubin 0.4 mg/dl (0.2-1.3) 09/07/24 05:01
AST 38 U/L (14-36) H 06/03/24 05:01
ALT 25 U/L (0-35) 06/03/24 05:01
Alkaline Phosphatase 80 U/L (38-126) 06/03/24 05:01
Most recent labs reviewed.
Micro Results:
06/03/24 09:03 Streptococcus Screen (MADYSON) - Final
Throat/Pharynx No Beta Hemolytic Streptococci Isolated
Streptococcus Rapid Screen - Final
Rapid Strep Screen (Group A) Negative
06/03/24 09:03 Influenza Types A & B (REAL) - Final
Nasal Swab Negative for Influenza A & B, NAAT
Negative results must be combined with clinical observations
and patient history.
Nucleic Acid Amplification test (NAAT)performed on the
[employer] NOW platform.
06/02/24 23:56 Influenza Types A & B (REAL) - Final
Nasal Swab Negative for Influenza A & B, NAAT
Negative results must be combined with clinical observations
and patient history.
Nucleic Acid Amplification test (NAAT)performed on the
[employer] ID NOW platform.
Imaging:
05/31/2024 CT abdomen/pelvis with contrast: Marked interval improvement in inflammatory wall thickening and soft tissue stranding related to sigmoid diverticulitis. There is mild residual thickening, minor soft tissue stranding and trace free pelvic
fluid. No evidence of perforation. No free air. No focal collections or abscess. Please see full dictation for additional detail.
== END 2024-06-06 16:07 | disposition home or self-care (01) | DRG 392 ==
LOC: 3 WEST ACU 11:20
PROVIDERS: Internal Medicine; ADMITTING PHYSICIAN Internal Medicine; ATTENDING PHYSICIAN Internal Medicine; CONSULT PHYSICIAN Internal Medicine Infectious Disease; CONSULT PHYSICIAN Surgery; EMERGENCY PHYSICIAN Emergency Medicine; FAMILY PHYSICIAN Family Medicine; OTHER PHYSICIAN Psychiatry & Neurology Psychiatry; OTHER PHYSICIAN Student in an Organized Health Care Education/Training Program
DX: K57.32 Diverticulitis of large intestine without perforation or abscess without bleeding (principal); E78.00 Pure hypercholesterolemia, unspecified; K21.9 Gastro-esophageal reflux disease without esophagitis; K31.84 Gastroparesis; F43.22 Adjustment disorder with anxiety; N30.10 Interstitial cystitis (chronic) without hematuria; M79.7 Fibromyalgia; L71.9 Rosacea, unspecified; R11.0 Nausea; T37.8X5A Adverse effect of other specified systemic anti-infectives and antiparasitics, initial encounter; J44.89 Other specified chronic obstructive pulmonary disease; K29.50 Unspecified chronic gastritis without bleeding; M35.00 Sjogren syndrome, unspecified; J06.9 Acute upper respiratory infection, unspecified; R13.19 Other dysphagia; K58.2 Mixed irritable bowel syndrome; R60.0 Localized edema; R53.82 Chronic fatigue, unspecified; N80.9 Endometriosis, unspecified; G47.30 Sleep apnea, unspecified; G43.909 Migraine, unspecified, not intractable, without status migrainosus; Z91.041 Radiographic dye allergy status; Z91.040 Latex allergy status; Z11.52 Encounter for screening for COVID-19; Z88.1 Allergy status to other antibiotic agents
CPT/HCPCS: 71046; 74022; 74176; 74177; 80053; 81003; 82306; 83880; 85025; 85027; 87070; 87502; 87811; 87880; 92526; 92610; 93005; 93970; 94640; 96365; 96367; 96375; 97110; 97116; 97162; 97166; 99285; J1335; Q9967

== ENCOUNTER 2024-06-10 09:29 | Emergency (ER) | payer MEDICARE, OTHER, SELFPAY ==
[2024-06-10 09:34] VITALS: BP 122/70
--- NOTE | 2024-06-10 10:20 | ED.GENMED ---
History of Present Illness
General
Chief Complaint: Cold/Flu/URI Symptoms
Source: patient
Exam Limitations: none
Time Seen by Provider: 06/10/24 09:39
Nursing documentation reviewed up to this point in time: agreed with
History of Present Illness
History of Present Illness:
The patient is a 58-year-old female who is currently undergoing treatment for acute uncomplicated diverticulitis. She arrives to the ED with complaints of elevated body temperature of 99.2, 4 days of cough, nasal congestion, fatigue, and concerns
for possibly having COVID. Patient was recently admitted for IV antibiotics for diverticulitis. She is concerned she could have been exposed to COVID. In addition, the patient also complains of upper and lower back pain, especially with any
movement. Patient reports that her back hurt from her ongoing coughing. She reports continuous nausea, which is common for her. She reports constipation which is also common for her. Patient reports she has 1 more day of taking her antibiotic
for the diverticulitis. She reports her abdominal pain is much improved.
Patient took a COVID test at home yesterday. She showed me the results which she had taken a screenshot of on her cell phone. There is a faint pink line
Past History
Past History
ED Past Medical History: Asthma, Hypercholesterolemia, Other (Seasonal allergies, PNA, Gastroparesis, Endometrious, IBS, Sjogrens, Palpitations, Sleep apnea, Buldging disc, Arthritis, Chronic fatigue, Migraines, Sleep apnea, Diverticulitis) and
Other (Interstitial cystitis, Rosacea, )
ED Past Surgical History: Appendectomy, Gynecological (Hysterectomy) and Other (Adhesions)
Social History
Tobacco: Non-smoker
Alcohol: None
Drug: None
Personal:
Living: with family
Employment: Employed
Family History
Family History: Other (Noncontributory)
Review of Systems
Review of Systems
Allergies reviewed?: Yes
All Other Systems: ROS reviewed and negative except as documented in HPI and ROS
Constitutional: Reports fatigue
EENT: Reports runny nose
Respiratory: Reports cough
Cardiac: Reports no symptoms
ABD/GI: Reports nausea and constipated
: Reports no symptoms
Musculoskeletal: Reports muscle stiffness and back pain
Skin: Reports no symptoms
Neurological: Reports no symptoms
Endocrine: Reports no symptoms
Hematologic/Lymphatic: Reports no symptoms
Psychiatric: Reports no symptoms
Phy Exam
Physical Exam
Physical Exam:
Physical Exam
General: Patient is conversational and nontoxic appearing. Patient does have an occasional cough and sounds nasally congested
Neck: supple. no meningeal signs. normal posterior pharynx. No pharyngeal erythema or exudate
Heart: s1/s2 regular rate and rhythm, no murmur. equal radial pulses.
Lungs: no acute respiratory distress. Clear bilaterally. Occasional cough. No tachypnea, speaks in full sentences without difficulty
Abdomen: normal bowel sounds. not tender. no CVAT. No areas of vertebral spine tenderness. Para thoracic and para lower lumbar soft tissue back tenderness, pain reproduced in those areas when patient switches positions
Neuro: alert and orientedx3. no focal neurological deficits
Skin: no rash
Psychiatric: well kept. interactive and cooperative
Extremities: Trace edema bilateral lower extremities. Negative Homans' sign.
Course
Orders/Labs/Results
Orders:
Orders
06/10/24 10:12
CR Chest - 2 Views Urgent
Comment:
Reason For Exam: CP, cough
06/10/24 10:14
Electrocardiogram (*1) Urgent
Reason for Study: Chest Pain
EKG- Treatment ONCE
06/10/24 10:15
Acetaminophen [Tylenol Suspension] 650 mg PO NOW STA
06/10/24 10:27
COVID-19 Antigen Urgent
Source: Nasal Swab
Complete Blood Count/With Diff Urgent
Comprehensive Metabolic Panel Urgent
Lipase Urgent
Troponin I Urgent
Influenza A+B Rapid Molecular Urgent
MADYSON Source: Nasal Swab
Specimen Description:
06/10/24 10:46
Rapid Strep Group A Urgent
MADYSON Source: Throat/Pharynx
Specimen Description:
Date Specimen was Collected: 06/10/24
Time Specimen was Collected: 10:43
Throat Culture, Comprehensive Stat
MADYSON Source: Throat/Pharynx
Specimen Description:
Date Specimen was Collected: 06/10/24
Time Specimen was Collected: 10:44
Abnormal Lab Results
06/10/24
10:27
RBC 3.81 L 10^6/uL
(4.20-5.40)
Hgb 11.5 L g/dL
(12.0-16.0)
Hct 33.7 L %
(37.0-47.0)
Absolute Lymphs (auto) 1.1 L 10^3/uL
(1.2-3.4)
Absolute Monos (auto) 0.8 H 10^3/uL
(0.1-0.6)
Lymphocytes % 16.9 L %
(20.5-51.1)
Monocytes % 12.4 H %
(1.7-9.3)
Carbon Dioxide 31 H mmol/L
(22-30)
06/10/24 10:27
06/10/24 10:27
Vital Signs
Initial and Last Documented VS:
Initial Vital Signs
Temp Pulse Resp BP Pulse Ox
99.2 F 82 16 122/70 98
06/10/24 09:34 06/10/24 09:34 06/10/24 09:34 06/10/24 09:34 06/10/24 09:34
Last Documented Vital Signs
Temp Pulse Resp BP Pulse Ox
99.2 F 82 16 122/70 98
06/10/24 09:34 06/10/24 09:34 06/10/24 09:34 06/10/24 09:34 06/10/24 09:34
MDM/Problems Addressed
Differential Diagnosis Includes:
Acute viral illness, gastritis, pneumonia
MDM/Problems Addressed:
Patient presents with acute cough, fatigue and elevated body temperature
*Radiology
Radiology exam reviewed: preliminary read by ED provider (Chest x-ray reviewed by me. No acute disease) and radiology read reviewed
*Pulse Oximetry
Patient hypoxic: no
*EKG
Interpreted by ED Provider?: Yes
Interpretation: normal
Comparison EKG: no changes
Rate: normal
Rhythm: sinus
[place]: normal axis
Interval: normal interval
QRS Pattern: normal QRS
Ischemia: no ischemia
*Critical Care Note
Total Time (30-74mins, 75-104mins- exclusive of procedures): Not Applicable
Data Reviewed
Review of Other/Old Records Reveals: Discharge Summary (Discharge summary reviewed from 06/06/2024 when patient was admitted for IV antibiotics for acute uncomplicated diverticulitis)
Source: patient
Patient Management
Social determinants of health affecting care: Living situation and Strong social support
Escalation/DeEscalation of care consider admission/obs:
Patient remains afebrile and is breathing comfortably. There is no hypoxia. I explained to the patient it is possible that she does have COVID given that she had a faint positive test result yesterday at home. Patient understands that it is
important to wear a mask, continue to take Tylenol for any pain and fever, rest and drink lots of fluids.
Patient encouraged to continue to take MiraLAX given she has been struggling with constipation. Overall, she reports that her abdominal pain from the diverticulitis is much better therefore, I do not think we need to do any emergent CT of her
abdomen.
ED Attending Note
-
Portions of this chart may have been created with voice recognition software.� Occasional wrong word or��sound alike� substitutions may have occurred due to the inherent limitations of voice recognition software.
Discharge Plan
Departure
Patient Disposition: Home (Routine Discharge)
Date of Disposition: 06/10/24
Time of Disposition: 12:51
Patient with high blood pressure during this ER visit?: No
Condition: Good
Covid-19: Suspected COVID-19
Discharge Problem:
Upper respiratory infection, viral
Instructions: Viral Upper Respiratory Infection, Adult (DC)
Prescriptions:
New
Fe-Roberto 30 mg iron/2 mL syringe
4 ml PO DAILY 30 Days Qty: 120 0RF
No Action
ipratropium bromide 21 mcg (0.03 %) [place],Non-Aerosol
2 spray INTRANASAL DAILY
ketotifen fumarate [Zaditor] 0.025 % (0.035 %) Drops
1 drp BOTH EYES BID
famotidine [Pepcid] 20 mg Tablet
20 mg PO BID
ergocalciferol (vitamin D2) 200 mcg/mL (8,000 unit/mL) Drops
40,000 unit PO TH
Refresh Optive 0.5-0.9 % Drops
1 drp BOTH EYES BID
Dulera 100-5 mcg/actuation Hfa Aerosol Inhaler
2 puff INHALATION R BID
mineral oil [Fleet Mineral Oil] Enema
133 ml [place] DAILYPRN PRN (Reason: constipation) Qty: 0 0RF
fluticasone propionate 50 mcg/actuation spray,suspension
1 spray intranasal DAILY
dicyclomine 20 mg Tablet
20 mg PO QIDPRN PRN (Reason: bowel cramping) Qty: 20 0RF
Ertapenem [Invanz] 1000 MG
0.9% Sodium Chloride [Nss] 50 ML
120 mls/hr IV Q24H
last dose 06/11
Ordered By: Yesenia Oscar MD
Last Taken: Unknown
acetaminophen [Tylenol] 325 mg tablet
650 mg PO Q6H PRN (Reason: fever or pain) Qty: 30 0RF
metoclopramide HCl [Reglan] 5 mg tablet
5 mg PO Q6HPRN PRN (Reason: nausea and vomiting) Qty: 20 0RF
polyethylene glycol 3350 [Miralax] 17 gram Powder In Packet
17 g PO BID Qty: 30 0RF
Referrals:
Erinn Serrano DO [Family Provider] -
Interventions
Interventions:
*Risk Screen - Suicide Last Done: 06/10/24 09:34
*General Assessment Last Done: 06/10/24 10:20
*Neglect/Abuse Screening Last Done: 06/10/24 09:34
ED- Pulmonary Assessment Last Done: 06/10/24 10:15
Discharge Date and Time
Print Language: SLOVENIAN
[2024-06-10 11:06] LABS: % Basophils 0.3 % (0-2); % Eosinophils 1.9 % (0-6); % Immature Granulocytes 0.2 % (0-0.5); % Lymphocytes 16.9 % (20.5-51.1); % Monocytes 12.4 % (1.7-9.3); % Neutrophils 68.3 % (42.2-75.2); Absolute Eosinophils 0.1 10^3/uL (0-0.7); Absolute Lymphocytes 1.1 10^3/uL (1.2-3.4); Absolute Monocytes 0.8 10^3/uL (0.1-0.6); Absolute Neutrophils 4.2 10^3/uL (1.4-6.5); Hematocrit 33.7 % (37.0-47.0); Hemoglobin 11.5 g/dL (12.0-16.0); Mean Corp Hgb Conc. 34.1 g/dL (33.0-37.0); Mean Corpuscular Hgb 30.2 pg (27.0-31.0); Mean Corpuscular Volume 88.5 fL (81.0-99.0); Mean Platelet Volume 9.9 fL (7.4-10.4); Nucleated Red Blood Cells % 0 %; Platelet Count 282 10^3/uL (130-400); Red Blood Cell Count 3.81 10^6/uL (4.20-5.40); Red Cell Dist. Width 12.8 % (11.5-14.5); White Blood Cell Count 6.2 10^3/uL (4.8-10.8)
[2024-06-10 11:08] LABS: ALT (SGPT) 15 U/L (0-35); AST (SGOT) 21 U/L (14-36); Albumin 3.7 g/dl (3.5-5.0); Alkaline Phosphatase 69 U/L (38-126); Blood Urea Nitrogen 8 mg/dl (7-17); Calcium 9.2 mg/dl (8.4-10.2); Carbon Dioxide 31 mmol/L (22-30); Chloride 102 mmol/L (98-107); Glucose 84 mg/dl (70-99); Lipase 112 U/L (23-300); Potassium 3.9 mmol/L (3.5-5.1); Sodium 141 mmol/L (135-145); Total Bilirubin 0.4 mg/dl (0.2-1.3); Total Protein 6.4 g/dl (6.3-8.2); eGFR > 60.00
[2024-06-10 11:11] LABS: COVID-19 Antigen Negative (Negative)
[2024-06-10 11:20] LABS: Troponin I < 0.012 ng/ml
[2024-06-10 13:38] LABS: HDL Cholesterol 52 mg/dl; LDL Cholesterol, Calculated 99 mg/dl; Total Cholesterol 170 mg/dl (50-199); Triglyceride 95 mg/dl (10-149); Very Low Density Lipoprotein 19 mg/dl (0-30)
== END 2024-06-10 13:26 | disposition home or self-care (01) ==
LOC: EMR 09:29
PROVIDERS: EMERGENCY PHYSICIAN Emergency Medicine; FAMILY PHYSICIAN Family Medicine
DX: J06.9 Acute upper respiratory infection, unspecified (principal); Z11.52 Encounter for screening for COVID-19
CPT/HCPCS: 99285; 71046; 80053; 80061; 83690; 84484; 85025; 87070; 87502; 87811; 87880; 93005

== ENCOUNTER 2024-06-11 07:41 | Outpatient (RCR) | payer MEDICARE, OTHER, SELFPAY ==
[2024-06-07 12:07] VITALS: BP 129/70
[2024-06-07] MEDS: INVANZ 60 MG IV (12:16)
[2024-06-08 10:22] VITALS: BP 125/76
[2024-06-08] MEDS: INVANZ 60 MG IV (10:32)
[2024-06-09] MEDS: INVANZ 60 MG IV (10:24)
[2024-06-09 10:37] VITALS: BP 118/60
[2024-06-10 08:50] VITALS: BP 122/70
[2024-06-10] MEDS: INVANZ 60 MG IV (08:50)
[2024-06-11 07:44] VITALS: BP 118/79
[2024-06-11] MEDS: INVANZ 60 MG IV (07:55)
--- NOTE | 2024-06-11 08:49 | VATNOTE ---
Right Midline removed after final dose of ABX. Occlusive sterile occlusive dressing applied.
== END 2024-06-12 10:08 | disposition home or self-care (01) ==
LOC: OID 07:41
PROVIDERS: ATTENDING PHYSICIAN Internal Medicine Infectious Disease; FAMILY PHYSICIAN Family Medicine
DX: K57.32 Diverticulitis of large intestine without perforation or abscess without bleeding (principal)
CPT/HCPCS: 96365; J1335

== ENCOUNTER → 2024-06-22 12:51 | Outpatient (REF) | payer MEDICARE, OTHER, SELFPAY | LOC: RAD 12:51 | PROVIDERS: ATTENDING PHYSICIAN Internal Medicine Rheumatology; FAMILY PHYSICIAN Family Medicine | DX: M35.00 Sjogren syndrome, unspecified (principal); R22.0 Localized swelling, mass and lump, head; R22.1 Localized swelling, mass and lump, neck | CPT/HCPCS: 76536; 76705 ==

== ENCOUNTER → 2024-07-08 11:36 | Outpatient (REF) | payer MEDICARE, OTHER, SELFPAY ==
[2024-07-08 20:51] LABS: Urine Albumin Negative (Neg - Trace); Urine Bilirubin Negative (Negative); Urine Character Clear (Clear); Urine Color Yellow; Urine Glucose Negative (Negative); Urine Ketone Negative (Negative); Urine Leukocyte Negative (Negative); Urine Nitrite Negative (Negative); Urine Occult Blood Negative (Negative); Urine Urobilinogen Negative (Neg - 1+)
== END ==
LOC: REG 11:36
PROVIDERS: ATTENDING PHYSICIAN Family Medicine
DX: Z01.89 Encounter for other specified special examinations (principal); N39.0 Urinary tract infection, site not specified
CPT/HCPCS: 36415; 81003; 87086

== ENCOUNTER → 2024-07-13 09:28 | Outpatient (REF) | payer MEDICARE, OTHER, SELFPAY | LOC: RST 09:28 | PROVIDERS: ATTENDING PHYSICIAN Otolaryngology; FAMILY PHYSICIAN Family Medicine | DX: R13.14 Dysphagia, pharyngoesophageal phase (principal) | CPT/HCPCS: 74230; 92611 ==

== ENCOUNTER → 2024-07-27 09:44 | Outpatient (REF) | payer MEDICARE, OTHER, SELFPAY ==
[2024-07-27 12:37] LABS: Urine Albumin Negative (Neg - Trace); Urine Bilirubin Negative (Negative); Urine Character Clear (Clear); Urine Color Yellow; Urine Glucose Negative (Negative); Urine Ketone Negative (Negative); Urine Leukocyte Negative (Negative); Urine Nitrite Negative (Negative); Urine Occult Blood Negative (Negative); Urine Specific Gravity 1.015 (<1.030); Urine Urobilinogen Negative (Neg - 1+)
== END ==
LOC: HWRAD 09:44
PROVIDERS: ATTENDING PHYSICIAN Family Medicine
DX: R10.9 Unspecified abdominal pain (principal); Z87.19 Personal history of other diseases of the digestive system; K58.1 Irritable bowel syndrome with constipation; K59.09 Other constipation; K31.84 Gastroparesis
CPT/HCPCS: 36415; 74176; 81003; 87086

== ENCOUNTER → 2024-08-03 14:11 | Outpatient (REF) | payer MEDICARE, OTHER, SELFPAY | LOC: RAD 14:11 | PROVIDERS: ATTENDING PHYSICIAN Family Medicine | DX: I87.2 Venous insufficiency (chronic) (peripheral) (principal) | CPT/HCPCS: 93971 ==

== ENCOUNTER → 2024-09-19 11:58 | Outpatient (REF) | payer MEDICARE, OTHER, SELFPAY ==
[2024-09-19 12:51] LABS: Blood Urea Nitrogen 14 mg/dl (7-17); Calcium 9.7 mg/dl (8.4-10.2); Carbon Dioxide 29 mmol/L (22-30); Chloride 99 mmol/L (98-107); Glucose 91 mg/dl (70-99); Potassium 4.1 mmol/L (3.5-5.1); Sodium 138 mmol/L (135-145); eGFR > 60.00
== END ==
LOC: REG 11:58
PROVIDERS: ATTENDING PHYSICIAN Student in an Organized Health Care Education/Training Program
DX: Z01.89 Encounter for other specified special examinations (principal); R10.30 Lower abdominal pain, unspecified
CPT/HCPCS: 36415; 80048

== ENCOUNTER 2024-09-20 17:01 | Inpatient (IN) | payer MEDICARE, OTHER, SELFPAY ==
[2024-09-20] VITALS (9 sets, daily range): BP systolic 110–159; BP diastolic 61–89; BMI 25.1
[2024-09-20 11:52] LABS: % Basophils 0.5 % (0-2); % Eosinophils 0.7 % (0-6); % Immature Granulocytes 0.2 % (0-0.5); % Lymphocytes 13.7 % (20.5-51.1); % Monocytes 7.9 % (1.7-9.3); Absolute Basophils 0.1 10^3/uL (0-0.2); Absolute Eosinophils 0.1 10^3/uL (0-0.7); Absolute Lymphocytes 1.4 10^3/uL (1.2-3.4); Absolute Monocytes 0.8 10^3/uL (0.1-0.6); Absolute Neutrophils 7.7 10^3/uL (1.4-6.5); Hematocrit 39.8 % (37.0-47.0); Mean Corp Hgb Conc. 35.2 g/dL (33.0-37.0); Mean Corpuscular Hgb 30.9 pg (27.0-31.0); Mean Corpuscular Volume 87.9 fL (81.0-99.0); Mean Platelet Volume 9.4 fL (7.4-10.4); Nucleated Red Blood Cells % 0 %; Platelet Count 379 10^3/uL (130-400); Red Blood Cell Count 4.53 10^6/uL (4.20-5.40); Red Cell Dist. Width 12.9 % (11.5-14.5)
[2024-09-20 12:09] LABS: ALT (SGPT) 18 U/L (0-35); AST (SGOT) 24 U/L (14-36); Albumin 4.6 g/dl (3.5-5.0); Alkaline Phosphatase 115 U/L (38-126); Blood Urea Nitrogen 14 mg/dl (7-17); Carbon Dioxide 30 mmol/L (22-30); Chloride 100 mmol/L (98-107); Estimated Creatinine Clearance 87 ml/min; Glucose 96 mg/dl (70-99); Potassium 3.9 mmol/L (3.5-5.1); Sodium 139 mmol/L (135-145); Total Bilirubin 0.5 mg/dl (0.2-1.3); Total Protein 7.6 g/dl (6.3-8.2); eGFR > 60.00
[2024-09-20] MEDS: BENADRYL 50 MG IV (12:42)
[2024-09-20] MEDS: SOLU-CORTEF 200 MG IV (12:42)
[2024-09-20] MEDS: NSS 1000 IV (12:42)
[2024-09-20] MEDS: TORADOL 15 MG IV (12:42)
[2024-09-20 13:03] LABS: Urine Albumin Negative (Neg - Trace); Urine Character Clear (Clear); Urine Color Yellow; Urine Glucose Negative (Negative); Urine Ketone Trace (Negative); Urine Leukocyte Negative (Negative); Urine Nitrite Negative (Negative); Urine Specific Gravity 1.015 (<1.030); Urine Urobilinogen Negative (Neg - 1+)
[2024-09-20 13:04] LABS: Urine Bilirubin Negative (Negative); Urine Occult Blood Negative (Negative)
--- NOTE | 2024-09-20 13:35 | ED.GENMED ---
History of Present Illness
<Andrea Pierce MD - Last Filed: 09/20/24 13:46>
General
Chief Complaint: Abdominal Pain
Source: patient
Exam Limitations: none
Time Seen by Provider: 09/20/24 11:40
Nursing documentation reviewed up to this point in time: agreed with
History of Present Illness
History of Present Illness:
58-year-old female with history as documented presents to the emergency room for evaluation of abdominal pain. Patient reports onset of symptoms 3 days ago and they have been constant and worsening since then. She reports pain across the lower
abdomen. No clear triggering relieving factors noted. Associated with nausea as well as some loose stools. No fever. She says similar to prior episodes of diverticulitis although more intense than in the past. She has a past surgical history of
hysterectomy, appendectomy.
Past History
<Andrea Pierce MD - Last Filed: 09/20/24 13:46>
Past History
ED Past Medical History: Asthma, Hypercholesterolemia, Other (Seasonal allergies, PNA, Gastroparesis, Endometrious, IBS, Sjogrens, Palpitations, Sleep apnea, Buldging disc, Arthritis, Chronic fatigue, Migraines, Sleep apnea, Diverticulitis) and
Other (Interstitial cystitis, Rosacea, )
ED Past Surgical History: Appendectomy, Gynecological (Hysterectomy) and Other (Adhesions)
Social History
Tobacco: Non-smoker
Alcohol: None
Drug: None
Personal:
Living: with family
Employment: Employed
Family History
Family History: Other (Noncontributory)
Review of Systems
<Andrea Pierce MD - Last Filed: 09/20/24 13:46>
Review of Systems
All Other Systems: ROS reviewed and negative except as documented in HPI and ROS
Constitutional: Denies fever
Respiratory: Denies trouble breathing
Cardiac: Denies chest pain
ABD/GI: Reports abdominal pain, nausea and diarrhea; Denies vomiting
: Denies dysuria or flank pain
Musculoskeletal: Denies neck pain or back pain
Neurological: Denies dizzy or headache
Phy Exam
<Andrea Pierce MD - Last Filed: 09/20/24 13:46>
Physical Exam
Physical Exam:
General: Awake, alert, oriented x3; no acute distress
Head: Normocephalic, atraumatic
Eyes: Conjunctiva normal, sclera anicteric
Throat: Airway intact, handling secretions
Neck: Trachea midline, supple without meningismus
Lungs: Clear to auscultation bilaterally, no wheezing, rales, rhonchi
Heart: Regular rate and rhythm, no murmurs, gallops, or rubs
Abd: Soft, non distended, tender to palpation diffusely but maximally in the suprapubic and left lower quadrant
Back: No CVA tenderness
Neuro: No gross deficits
Extremities: Warm and well-perfused
Scores
<Andrea Pierce MD - Last Filed: 09/20/24 13:46>
Heart Failure Risk
Heart Failure Risk Score: Not Applicable
Heart Score for Chest Pain Patients
STEMI patient?: Not applicable
Withdrawal Assessment of Alcohol
Withdrawal Assessment Completed?: Not applicable
Course
<Andrea Pierce MD - Last Filed: 09/20/24 13:46>
Orders/Labs/Results
Orders:
Orders
09/20/24 11:44
CT Abd/pelvis W Iv Cont Urgent
Comment:
Reason For Exam: lower abd pain
09/20/24 11:46
Complete Blood Count/With Diff Urgent
Comprehensive Metabolic Panel Urgent
09/20/24 11:49
Electrocardiogram (*1) Urgent
Reason for Study: Chest Pain
09/20/24 11:50
EKG- Treatment ONCE
09/20/24 12:25
Ketorolac [Toradol] 15 mg IV NOW STA
09/20/24 12:26
0.9% Sodium Chloride 1000 ml [Nss] 1,000 ml IV BOLUS
Diphenhydramine [Benadryl] 50 mg IV NOW STA
Hydrocortisone Sod Succinate [Solu-Cortef] 200 mg IV NOW STA
09/20/24 12:40
Urinalysis Reflex To Culture Urgent
Date Specimen was Collected: 09/20/24
Time Specimen was Collected: 11:45
09/20/24 15:41
LevoFLOXacin [Levaquin] 500 mg PO NOW STA
MetroNIDAZOLE [Flagyl] 500 mg PO NOW STA
09/20/24 16:00
Dicyclomine [Bentyl] 20 mg PO NOW STA
LevoFLOXacin [Levaquin] 500 mg PO NOW STA
MetroNIDAZOLE IVPB 500 mg IVPB NOW MetroNIDAZOLE 500 MG/100 ML [Flagyl 500 mg] 100 ml IV NOW
Abnormal Lab Results
09/20/24 09/20/24
11:46 12:40
Absolute Neuts (auto) 7.7 H 10^3/uL
(1.4-6.5)
Absolute Monos (auto) 0.8 H 10^3/uL
(0.1-0.6)
Neutrophils % 77.0 H %
(42.2-75.2)
Lymphocytes % 13.7 L %
(20.5-51.1)
Urine Ketones Trace A
(Negative)
09/20/24 11:46
09/20/24 11:46
Vital Signs
Initial and Last Documented VS:
Initial Vital Signs
Temp Pulse Resp BP
98.2 F 87 18 110/65
09/20/24 10:29 09/20/24 10:29 09/20/24 10:29 09/20/24 10:29
Last Documented Vital Signs
Temp Pulse Resp BP Pulse Ox
98.2 F 87 18 111/66 97
09/20/24 10:29 09/20/24 10:29 09/20/24 10:29 09/20/24 15:00 09/20/24 15:30
<Tristan Bell, DO - Last Filed: 09/20/24 16:02>
Orders/Labs/Results
Orders:
Orders
09/20/24 11:44
CT Abd/pelvis W Iv Cont Urgent
Comment:
Reason For Exam: lower abd pain
09/20/24 11:46
Complete Blood Count/With Diff Urgent
Comprehensive Metabolic Panel Urgent
09/20/24 11:49
Electrocardiogram (*1) Urgent
Reason for Study: Chest Pain
09/20/24 11:50
EKG- Treatment ONCE
09/20/24 12:25
Ketorolac [Toradol] 15 mg IV NOW STA
09/20/24 12:26
0.9% Sodium Chloride 1000 ml [Nss] 1,000 ml IV BOLUS
Diphenhydramine [Benadryl] 50 mg IV NOW STA
Hydrocortisone Sod Succinate [Solu-Cortef] 200 mg IV NOW STA
09/20/24 12:40
Urinalysis Reflex To Culture Urgent
Date Specimen was Collected: 09/20/24
Time Specimen was Collected: 11:45
09/20/24 15:41
LevoFLOXacin [Levaquin] 500 mg PO NOW STA
MetroNIDAZOLE [Flagyl] 500 mg PO NOW STA
09/20/24 16:00
Dicyclomine [Bentyl] 20 mg PO NOW STA
LevoFLOXacin [Levaquin] 500 mg PO NOW STA
MetroNIDAZOLE IVPB 500 mg IVPB NOW MetroNIDAZOLE 500 MG/100 ML [Flagyl 500 mg] 100 ml IV NOW
Abnormal Lab Results
09/20/24 09/20/24
11:46 12:40
Absolute Neuts (auto) 7.7 H 10^3/uL
(1.4-6.5)
Absolute Monos (auto) 0.8 H 10^3/uL
(0.1-0.6)
Neutrophils % 77.0 H %
(42.2-75.2)
Lymphocytes % 13.7 L %
(20.5-51.1)
Urine Ketones Trace A
(Negative)
09/20/24 11:46
09/20/24 11:46
Vital Signs
Initial and Last Documented VS:
Initial Vital Signs
Temp Pulse Resp BP
98.2 F 87 18 110/65
09/20/24 10:29 09/20/24 10:29 09/20/24 10:29 09/20/24 10:29
Last Documented Vital Signs
Temp Pulse Resp BP Pulse Ox
98.2 F 87 18 111/66 97
09/20/24 10:29 09/20/24 10:29 09/20/24 10:29 09/20/24 15:00 09/20/24 15:30
<Andrea Pierce MD - Last Filed: 09/20/24 13:46>
MDM/Problems Addressed
Differential Diagnosis Includes:
Diverticulitis, kidney stone, UTI, colitis, constipation
MDM/Problems Addressed:
58-year-old female presents for evaluation of abdominal pain across the lower abdomen worsening over the past few days similar to prior episodes of diverticulitis but much more intense. Vitals and exam as above. Will check labs including a CBC and
a CMP, urinalysis. Check CT abdomen pelvis. Patient has IV dye allergy�will need pretreatment. Reassess after the above.
Initial labs reviewed: CBC and CMP unremarkable. Urinalysis negative for infection. No blood. Awaiting results of CT.
<Andrea Pierce MD - Last Filed: 09/20/24 13:46>
*Radiology
Radiology exam reviewed: radiology read reviewed
*Pulse Oximetry
Patient hypoxic: no
*EKG
Interpreted by ED Provider?: Yes
Heart Rate: 71
Rate: normal
Rhythm: sinus
[place]: normal axis
Interval: normal interval
QRS Pattern: normal QRS
Ischemia: no ischemia
*Critical Care Note
Total Time (30-74mins, 75-104mins- exclusive of procedures): Not Applicable
Data Reviewed
Source: patient and records
<Tristan Bell DO - Last Filed: 09/20/24 16:02>
Update Note
Update Note:
Patient reassessed. CT reviewed by me and no free air. CT read by radiology reports diverticulitis. Reassessed the patient admits that she is unable to tolerate pills. We reviewed a multitude of options including liquids and different types of
antibiotics. Patient states she is unable to swallow them. I am unable to arrange outpatient fusion today. Admit/Boss for IV antibiotics and consideration for arrangement of outpatient infusion
ED Attending Note
<Andrea Pierce MD - Last Filed: 09/20/24 13:46>
-
Portions of this chart may have been created with voice recognition software.� Occasional wrong word or��sound alike� substitutions may have occurred due to the inherent limitations of voice recognition software.
Discharge Plan
Departure
Patient Disposition: Admit
Date of Disposition: 09/20/24
Time of Disposition: 16:01
Admit to: Med/Surg
Presentation/result/management discussed w/ accepting MD/DO: Hospitalist
Discharge Problem:
Acute diverticulitis
Prescriptions:
No Action
ipratropium bromide 21 mcg (0.03 %) [place],Non-Aerosol
2 spray INTRANASAL DAILY
ketotifen fumarate [Zaditor] 0.025 % (0.035 %) Drops
1 drp BOTH EYES BID
famotidine [Pepcid] 20 mg Tablet
20 mg PO BID
ergocalciferol (vitamin D2) 200 mcg/mL (8,000 unit/mL) Drops
40,000 unit PO TH
Refresh Optive 0.5-0.9 % Drops
1 drp BOTH EYES BID
Dulera 100-5 mcg/actuation Hfa Aerosol Inhaler
2 puff INHALATION R BID
mineral oil [Fleet Mineral Oil] Enema
133 ml VT DAILYPRN PRN (Reason: constipation) Qty: 0 0RF
fluticasone propionate 50 mcg/actuation spray,suspension
1 spray intranasal DAILY
dicyclomine 20 mg Tablet
20 mg PO QIDPRN PRN (Reason: bowel cramping) Qty: 20 0RF
Ertapenem [Invanz] 1000 MG
0.9% Sodium Chloride [Nss] 50 ML
120 mls/hr IV Q24H
last dose 06/11
Ordered By: Yesenia Oscar MD
Last Taken: Unknown
acetaminophen [Tylenol] 325 mg tablet
650 mg PO Q6H PRN (Reason: fever or pain) Qty: 30 0RF
metoclopramide HCl [Reglan] 5 mg tablet
5 mg PO Q6HPRN PRN (Reason: nausea and vomiting) Qty: 20 0RF
polyethylene glycol 3350 [Miralax] 17 gram Powder In Packet
17 g PO BID Qty: 30 0RF
Fe-Roberto 30 mg iron/2 mL syringe
4 ml PO DAILY 30 Days Qty: 120 0RF
Referrals:
Gustavo Palacios MD [Family Provider] -
Interventions
Interventions:
*Risk Screen - Suicide Last Done: 09/20/24 10:29
*General Assessment Last Done: 09/20/24 10:29
*Neglect/Abuse Screening Last Done: 09/20/24 11:27
ED- Fall Risk Assessment Last Done: 09/20/24 11:27
*ED COVID-19 Vaccine History Last Done: 12/25/24 11:27
YG-Vdbtbn-Ikkhufcdkc Assessment Last Done: 09/20/24 11:27
Discharge Date and Time
Print Language: LUX[place]GISH
[2024-09-20] MEDS: BENTYL 20 MG PO (16:08)
[2024-09-20] MEDS: FLAGYL 500 MG 100 IV (16:08)
--- NOTE | 2024-09-20 16:34 | HPS.HSE ---
Family Physician
-
Family Physician: Gustavo Palacios MD
Chief Complaint
-
abdominal pain
History of Present Illness
HPI
58M Complex PMHX HX recurretn diverticulitis 3-4 episodes last year, and this year thus far has had 4-5 bouts of diverticulitis seen at ER
- evaluation of abdominal pain
- onset of symptoms 3 days ago and they have been constant and worsening since then.
- pain across the lower abdomen.
- No clear triggering relieving factors noted.
- Associated with nausea as well as some loose stools.
- No fever.
- Similar to prior episodes of diverticulitis although more intense than in the past.
Medical History
Past Medical History
Past Medical History: Reports Other (diverticulitis)
Additional Past Medical History:
Sjogrens
Constipation
Past Surgical History: Reports None
Social History
Tobacco: Non-smoker
Alcohol: None
Drug: None
Personal: Single
Living: With Family
Family History
Family History: Not pertinent
Allergies / Home Medications
Allergies reflects when Allergies were last updated in [employer]
Home Medications with original date entered in [employer]
Allergy/Medication List:
Allergies
Allergy/AdvReac Type Severity Reaction Status Date / Time
cefadroxil [From Duricef] Allergy Hives Verified 05/28/24 21:00
cefuroxime [From Ceftin] Allergy Hives Verified 05/28/24 21:00
epinephrine Allergy heart races Verified 05/28/24 21:00
hydromorphone HCl Allergy Unknown Verified 05/28/24 21:00
[From Dilaudid]
Iodinated Contrast Media Allergy FLUSHING, Verified 05/28/24 21:00
PALPITATIONS
latex Allergy Hives Verified 05/28/24 21:00
Home Medications
ipratropium bromide 21 mcg (0.03 %) nasal spray 2 spray intranasal DAILY Congestion 06/22/22
ketotifen fumarate 0.025 % (0.035 %) eye drops (Zaditor) 1 drp BOTH EYES BID Eye Condition 03/04/23
carboxymethylcellulose 0.5 %-glycerin 0.9 % eye drops (Refresh Optive) 1 drp BOTH EYES BID DRY EYES 03/24/24
ergocalciferol (vitamin D2) 200 mcg/mL (8,000 unit/mL) oral drops 40,000 unit PO TH Supplement 03/24/24
famotidine 20 mg tablet (Pepcid) 20 mg PO BID Gastrointestinal Issue 03/24/24
mometasone-formoterol HFA 100 mcg-5 mcg/actuation aerosol inhaler (Dulera) 2 puff inhalation R BID Lung/Breathing Issues 03/24/24
polyethylene glycol 3350 17 gram oral powder packet (Miralax) 17 g PO DAILYPRN PRN CONSTIPATION 03/24/24
mineral oil (Fleet Mineral Oil enema) 133 ml ID DAILYPRN PRN constipation #0 mL 03/26/24
Review of Systems
-
History Source: Patient
Constitutional: Reports No Symptoms
EENT: Reports No Symptoms
Respiratory: Reports No Symptoms
Cardiac: Reports No Symptoms
Abdomen/GI: Reports See HPI
: Reports No Symptoms
Musculoskeletal: Reports No Symptoms
Skin: Reports No Symptoms
Neurological: Reports No Symptoms
Endocrine: Reports No Symptoms
Hematologic/Lymphatic: Reports No Symptoms
Psych: Reports No Symptoms
Physical Exam
Vital Signs
Vital Signs
Temp Pulse Resp BP Pulse Ox
98.2 F 87 18 111/66 97
09/20/24 10:29 09/20/24 10:29 09/20/24 10:29 09/20/24 15:00 09/20/24 15:30
Physical Exam
General: Well Developed, Well Nourished and No Apparent Distress
HEENT: NormoCephalic, Anicteric, Moist mucous membranes and Atraumatic
Respiratory: Clear
Cardiac: S1/S2 and Regular Rhythm
Breast: Deferred by me
GI: Soft, Non Distended, Normal Bowel Sounds and Tender
Rectal: Deferred by Provider
Genito-urinary: Deferred by me
Musculoskeletal: No Clubbing, No Cyanosis and No Edema
Skin: Warm
Neuro: AO x 3
Hematologic/Lymphatic: No Lymphadenopathy
Psych: Calm
Laboratory Results
-
09/20/24 11:46
09/20/24 11:46
Laboratory Results
Total Bilirubin 0.5 mg/dl (0.2-1.3) 09/20/24 11:46
AST 24 U/L (14-36) 09/20/24 11:46
ALT 18 U/L (0-35) 09/20/24 11:46
Alkaline Phosphatase 115 U/L (38-126) 09/20/24 11:46
Data Reviewed
-
CT Scan: Report Reviewed by me
Lab Data: Labs Reviewed by me
Old Records: Reviewed
Impression/Plan
-
Vital Signs
Temp Pulse Resp BP Pulse Ox
98.2 F 87 18 111/66 97
09/20/24 10:29 09/20/24 10:29 09/20/24 10:29 09/20/24 15:00 09/20/24 15:30
Data
09/20/24
11:46
WBC 10.0
Hgb 14.0
Plt Count 379
Creatinine 0.6
09/19/24 CT Abd/pelvis W Iv Cont
Acute diverticulitis of the sigmoid colon without evidence of pericolonic abscess or perforation.
Last hospitalist admission: DATE OF ADMISSION: 05/28/2024 -DATE OF DISCHARGE: 06/06/2024
DC DXs: Acute sigmoid diverticulitis
ASSESSMENT & PLAN
Uncomplicated acute sigmoid diverticulitis
HX diverticulitis 3-4 episodes last year, and this year thus far has had 4-5 bouts of diverticulitis
HX Ceftin allergy
Difficulty with swallowing Pills if further PO abx required for OP Tx
- NPO and IVF
- Narcotic analgesia PRN
- IV Ertapenem
ID consult
CRS consult
Constipation
- Hold off Enema and laxatives
Dysphagia, chronic
- Normal barium swallow on 02/17/24
- currently NPO
Anxiety d/o with adjustment d/o
- Psych consult: Xanax
IBS
Sicca symptoms
COPD/Asthma without exacerbation
- on Dulera
Sjogren
Chronic gastritis - cont Pepcid
DVT ppx: Enoxaparin
Code: Full
DVT Px: SCD
Full code
IP MS
[2024-09-20] MEDS: LEVAQUIN 100 IV (16:50)
[2024-09-20] MEDS: LR 1000 IV (20:59)
[2024-09-20] MEDS: ZOFRAN 4 MG IV (21:39)
[2024-09-20] MEDS: INVANZ 60 MG IV (21:39)
[2024-09-21] VITALS: BP 108/68
[2024-09-21 06:47] VITALS: BP 128/82
[2024-09-21 07:02] LABS: Hematocrit 34.2 % (37.0-47.0); Hemoglobin 11.7 g/dL (12.0-16.0); Mean Corp Hgb Conc. 34.2 g/dL (33.0-37.0); Mean Corpuscular Hgb 30.2 pg (27.0-31.0); Mean Corpuscular Volume 88.1 fL (81.0-99.0); Mean Platelet Volume 9.8 fL (7.4-10.4); Platelet Count 306 10^3/uL (130-400); Red Blood Cell Count 3.88 10^6/uL (4.20-5.40); Red Cell Dist. Width 12.9 % (11.5-14.5); White Blood Cell Count 8.7 10^3/uL (4.8-10.8)
[2024-09-21 07:32] LABS: Blood Urea Nitrogen 18 mg/dl (7-17); Calcium 9.2 mg/dl (8.4-10.2); Carbon Dioxide 26 mmol/L (22-30); Chloride 104 mmol/L (98-107); Estimated Creatinine Clearance 87 ml/min; Glucose 90 mg/dl (70-99); Potassium 3.9 mmol/L (3.5-5.1); Sodium 138 mmol/L (135-145); eGFR > 60.00
[2024-09-21] MEDS: LR 1000 IV ×2 (08:10→20:21)
[2024-09-21] MEDS: TORADOL 15 MG IV ×2 (08:11→22:03)
--- NOTE | 2024-09-21 09:21 | W.PN.HOSP.TC ---
Today's Communication/Plan
-
see plan
Assessment / Plan
Assessment / Plan
09/19/24 CT Abd/pelvis W Iv Cont
Acute diverticulitis of the sigmoid colon without evidence of pericolonic abscess or perforation.
Last hospitalist admission: DATE OF ADMISSION: 05/28/2024 -DATE OF DISCHARGE: 06/06/2024
DC DXs: Acute sigmoid diverticulitis
ASSESSMENT & PLAN
Uncomplicated acute sigmoid diverticulitis
HX diverticulitis 3-4 episodes last year, and this year thus far has had 4-5 bouts of diverticulitis
- advance to [facility]
- IVF
- Narcotic analgesia PRN
- IV Ertapenem
ID consult
CRS consult
Constipation
- Hold off Enema and laxatives
Dysphagia, chronic
- Normal barium swallow on 02/17/24
Anxiety d/o with adjustment d/o
- Psych consult: Xanax
IBS
Sicca symptoms
COPD/Asthma without exacerbation
- on Dulera
Sjogren
Chronic gastritis - cont Pepcid
DVT Px: SCD - patient states she refuses Lovenox
Full code
IP MS
Anticipated Discharge: 24 - 48 hours
Subjective/Interval History
-
Date of Service: September 21, 2024
less pain and abdominal spasms
wants to drink clears
Objective Data
-
Labs:
Laboratory Results
09/21/24
06:34
WBC 8.7
Hgb 11.7 L
Hct 34.2 L
Plt Count 306
Sodium 138
Potassium 3.9
Chloride 104
Carbon Dioxide 26
BUN 18 H
Creatinine 0.6
Glucose 90
Calcium 9.2
Vital Signs:
Vital Signs
Temp Pulse Resp BP Pulse Ox
98.1 F 83 16 128/82 99
09/21/24 06:47 09/21/24 06:47 09/21/24 06:47 09/21/24 06:47 09/21/24 06:47
Review of Systems
-
History Source: Patient
All other systems: Reviewed and negative
Physical Exam
-
General: No Apparent Distress
HEENT: Normocephalic and Atraumatic
Respiratory: Negative Wheezes
Cardiac: Regular Rhythm and S1/S2
GI: Soft
Genito-urinary: No Costovertebral Tender
Musculoskeletal: No Edema
Neuro: AO x 3
Psych: Calm
Data Reviewed
-
Diagnostic Radiology: Report Reviewed by me
Labs: Labs Reviewed by me
[2024-09-21] MEDS: PEPCID 20 MG PO (09:25)
--- NOTE | 2024-09-21 10:02 | CON.CRS ---
Consultation
-
Reason for Consultation: diverticulitis
Medical History
-
Chief Complaint: abdominal pain
History of Present Illness:
58-year-old female with a known history of sigmoid diverticulitis as well as prior surgeries for endometriosis here with a few days worth of lower abdominal pain. This led her to the ER. Blood work in the ER is was fairly unremarkable with a white
count of 10. Remainder of CBC and electrolytes unremarkable as well. Vitals normal. Patient did undergo a CT of the abdomen and pelvis which was performed yesterday. I did review both the images and the report. This reveals uncomplicated
sigmoid diverticulitis with inflammation of the sigmoid area. Understandably she has been placed on antibiotics. She is being admitted to the hospitalist service with us being consulted for surgical opinion. She is known to my partner Dr. Wilson
who saw her in the office last month and a few years prior as well. On reviewing his notes and discussion with the patient is seems that she has had a number of attacks of sigmoid diverticulitis over the years. In fact during her last visit to his
office, he recommended sigmoidectomy. She has been reluctant to pursue this due to anxiety related to risks. On discussion with the patient she denies nausea or vomiting. She admits to lower abdominal discomfort. She has been having bowel
function.
Past Medical History
Past Medical History: Other (GERD; endometriosis; diverticulitis; hyperlipidemia; gastroparesis; IBS; MARIE; chronic fatigue; migraines; sinusitis; lumbar spine issues; hiatal hernia; sleep apnea; asthma)
Past Surgical History: Other (Laparoscopic lysis of adhesions; hysterectomy for endometriosis; appendectomy)
Social History
Tobacco: Non-Smoker
Alcohol: Occasional
Living: With Family
Family History
Family History: Reviewed & Noncontributory
Allergies / Home Medications
Allergy/AdvReac Type Severity Reaction Status Date / Time
cefadroxil [From Duricef] Allergy Hives Verified 06/10/24 09:36
cefuroxime [From Ceftin] Allergy Hives Verified 06/10/24 09:36
epinephrine Allergy heart races Verified 06/10/24 09:36
Iodinated Contrast Media Allergy FLUSHING, Verified 06/10/24 09:36
PALPITATIONS
latex Allergy Hives Verified 06/10/24 09:36
�Medication �Instructions �Recorded �Confirmed �Type
ketotifen fumarate 0.025 % (0.035 1 drp BOTH EYES Q48H Eye Condition 03/04/23 09/20/24 History
%) eye drops (Zaditor)
ergocalciferol (vitamin D2) 200 40,000 unit PO TH Supplement 03/24/24 09/20/24 History
mcg/mL (8,000 unit/mL) oral drops
famotidine 20 mg tablet (Pepcid) 20 mg PO DAILY Gastrointestinal 03/24/24 09/20/24 History
Issue
mometasone-formoterol HFA 100 1 - 2 puff inhalation R DAILY 03/24/24 09/20/24 History
mcg-5 mcg/actuation aerosol Lung/Breathing Issues
inhaler (Dulera)
fluticasone propionate 50 1 spray intranasal DAILY Allergies 05/31/24 09/20/24 History
mcg/actuation nasal
spray,suspension
acetaminophen 160 mg/5 mL oral 480 mg PO Q6HPRN PRN mild 09/20/24 09/20/24 History
elixir pain/headache
amoxicillin 400 mg-potassium 10 ml PO Q12H 09/20/24 09/20/24 History
clavulanate 57 mg/5 mL oral
suspension
carboxymethylcellulose sodium 0.25 1 drp BOTH EYES QIDPRN PRN 09/20/24 09/20/24 History
% eye drops (TheraTears) irritated eyes
cetirizine 10 mg tablet (Zyrtec) 10 mg PO HS 09/20/24 09/20/24 History
estradiol 0.01% (0.1 mg/gram) 1 g vaginal TUFR 09/20/24 09/20/24 History
vaginal cream (Estrace)
fluoride (sodium) 1.1 % dental 1 applic dental BID 09/20/24 09/20/24 History
paste (PreviDent 5000 Booster Plus)
levalbuterol tartrate 45 2 inh inhalation R Q6HPRN PRN sob 09/20/24 09/20/24 History
mcg/actuation aerosol inhaler
(Xopenex HFA)
lubiprostone 8 mcg capsule 16 mcg PO DAILY 09/20/24 09/20/24 History
lubiprostone 8 mcg capsule 16 mcg PO HSPRN PRN ibs 09/20/24 09/20/24 History
mupirocin 2 % topical ointment 1 applic topical DAILYPRN PRN left 09/20/24 09/20/24 History
leg
polyethylene glycol 3350 17 gram 17 g PO QPM 09/20/24 09/20/24 History
oral powder packet (Miralax)
Review of Systems
-
A 10 point review of systems was completed, and was negative except as per HPI.
Physical Exam
Vital Signs
Temp 98.1 F 09/21/24 06:47
Pulse 83 09/21/24 06:47
Resp Rate 16 09/21/24 06:47
Blood pressure 128/82 09/21/24 06:47
SaO2 99 09/21/24 06:47
09/20/24 09/21/24 09/22/24
06:59 06:59 06:59
Actual Weight 66.3 kg
Body Mass Index (BMI) 25.1
Lab Results / Allergies
09/21/24 06:34
09/21/24 06:34
WBC 8.7 10^3/uL (4.8-10.8) 09/21/24 06:34
Hgb 11.7 g/dL (12.0-16.0) L 09/21/24 06:34
Hct 34.2 % (37.0-47.0) L 09/21/24 06:34
Plt Count 306 10^3/uL (130-400) 09/21/24 06:34
Abs Immat Gran (auto) 0.0 10^3/uL (0-0.05) 09/20/24 11:46
Neutrophils % 77.0 % (42.2-75.2) H 09/20/24 11:46
Allergy/AdvReac Type Severity Reaction Status Date / Time
cefadroxil [From Duricef] Allergy Hives Verified 06/10/24 09:36
cefuroxime [From Ceftin] Allergy Hives Verified 06/10/24 09:36
epinephrine Allergy heart races Verified 06/10/24 09:36
Iodinated Contrast Media Allergy FLUSHING, Verified 06/10/24 09:36
PALPITATIONS
latex Allergy Hives Verified 06/10/24 09:36
Physical Exam
General: Well Developed
Respiratory: Clear
Cardiac: S1/S2
GI: Tender (Lower abdominal left more than right without peritoneal signs or rebound)
Skin: Warm and Dry
Neuro: AO x 3
Psych: Other (Anxious)
Data Reviewed
-
CT Scan: Image Personally Visualized and interpreted and Discussed with Patient
Assessment / Plan
-
Patient with recurrent sigmoid diverticulitis which is uncomplicated. Has had a number of attacks in the past. She is familiar with my partner Dr. Wilson who previously recommended consideration for sigmoidectomy. She this was proposed an elective
fashion. She has been reluctant to pursue this due to anxiety related to risks of surgery. She currently is not an extremis with reasonable vitals and blood work. No reason for urgent surgical intervention. For now recommend medical measures.
Eventual elective interval sigmoidectomy is still an option. She is aware of this. For now continue IV antibiotics. Okay with trialing clears. IV fluids would be reasonable. Will follow along.
[2024-09-21] MEDS: NON-FORMULARY ITEM 1 UNIT NASAL (10:20)
[2024-09-21] MEDS: NON-FORMULARY ITEM 1 UNIT INH (10:20)
--- NOTE | 2024-09-21 10:30 | PTCARENOTE ---
pt aaox3. anxious about condition. 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 pt states she has trouble swallowing pills due to slow motility/strength in the esophagus. able to take small pills. eats moist small bite
food at home. home medications and pain meds reviewed with Dr. Baker. pt anxious to see ID to start process to go home.
--- NOTE | 2024-09-21 13:12 | CON.ID ---
Consultation
-
Date/Time Consultation Requested: 09/20/2024 2214
Date/Time Consultation Performed: 09/21/2024 1200
Requesting Provider: Delia Mayers
Performing Provider: Dr. Sullivan
Reason for Consultation: Diverticulitis
Chief Complaint / Past History
History of Present Illness
Saida Storey is a 58-year-old female with a significant past medical history of diverticulitis being evaluated at the request of Delia Mayers regarding the same. History is obtained from chart review, along with patient interview.
The patient is known to the Infectious Diseases service, having been seen in early May, when she also had an acute attack of diverticulitis. At the time, she was discharged to continue with a course of IV or ertapenem. She reports she was
doing well until several days ago when she developed some soreness across her entire lower abdomen. Later that day she noted spasms and reported contractions of her colon. She had reached out to her PCP and was given a prescription for Augmentin,
but developed diarrhea later that day. Ultimately, she presented to the emergency room secondary to ongoing abdominal discomfort. At home she denied any fevers or chills. She has noted some dysuria, but no hematuria.
She has noted to have not tolerated metronidazole in the past, and Infectious Diseases is asked to manage further antibiotic therapy.
Past History
Additional Past Medical History:
Diverticulitis
Sjogren syndrome
Chronic constipation
Chronic nausea
Endometriosis
Gastroparesis
IBS
Chronic fatigue
Interstitial cystitis
Rosacea
Additional Past Surgical History:
Hysterectomy
Allergy History:
cefadroxil [From Duricef] Allergy (Verified 06/10/24 09:36)
Hives
cefuroxime [From Ceftin] Allergy (Verified 06/10/24 09:36)
Hives
epinephrine Allergy (Verified 06/10/24 09:36)
heart races
Iodinated Contrast Media Allergy (Verified 06/10/24 09:36)
FLUSHING, PALPITATIONS
latex Allergy (Verified 06/10/24 09:36)
Hives
Medications Reviewed: Yes
Current Antibiotics:
Ertapenem
Social History
Tobacco: Non-Smoker
Alcohol: None
Drug: None
Personal:
Living: With Family
Employment: Employed
Family History
Family History: Not Pertinent
Review of Systems
Vital Signs
Temp Pulse Resp BP Pulse Ox
98.1 F 84 16 128/82 99
09/21/24 06:47 09/21/24 10:23 09/21/24 10:23 09/21/24 06:47 09/21/24 06:47
Physical Exam
Physical Exam
Constitutional: No Acute Distress, Comfortable and Non-toxic
Eyes: No Conjunctival Hemorrhage and Sclera Anicteric
Oral: No Thrush and No Ulcers
Cardiovascular: S1/S2; Negative S3/S4
Pulmonary: Clear; Negative Wheezes, Rales or Rhonchi
Gastrointestinal: Soft, Tender (mild; lower quadrants), Distended (mild), Normal Bowel Sounds, No Rebound and No Guarding
Extremities: Edema; Negative Cyanosis or Erythema
Neurological: Awake and Alert
Lab / Diagnostic Study Results
09/21/24 06:34
09/21/24 06:34
Abs Immat Gran (auto) 0.0 10^3/uL (0-0.05) 09/20/24 11:46
Absolute Neuts (auto) 7.7 10^3/uL (1.4-6.5) H 09/20/24 11:46
Absolute Lymphs (auto) 1.4 10^3/uL (1.2-3.4) 09/20/24 11:46
Absolute Monos (auto) 0.8 10^3/uL (0.1-0.6) H 09/20/24 11:46
Absolute Basos (auto) 0.1 10^3/uL (0-0.2) 09/20/24 11:46
Immature Gran % 0.2 % (0-0.5) 09/20/24 11:46
Neutrophils % 77.0 % (42.2-75.2) H 09/20/24 11:46
Lymphocytes % 13.7 % (20.5-51.1) L 09/20/24 11:46
Monocytes % 7.9 % (1.7-9.3) 09/20/24 11:46
Eosinophils % 0.7 % (0-6) 09/20/24 11:46
Basophils % 0.5 % (0-2) 09/20/24 11:46
Microbiology Results
Imaging:
09/20/2024 CT abdomen/pelvis with IV contrast: Acute diverticulitis of the sigmoid colon, without evidence of pericolonic abscess or perforation is noted. Trace free fluid within the pelvis. No free air. Please see full dictation for additional
detail. Film personally viewed.
Assessment / Plan
Acute diverticulitis (recurrent)
Normal white count with left shift
Diverticulitis
Sjogren syndrome
Chronic constipation
Chronic nausea
Endometriosis
Gastroparesis
IBS
Chronic fatigue
Interstitial cystitis
Rosacea
Recommendations:
Continue with ertapenem for the present. Given prior history of intolerance of Augmentin and metronidazole, patient will likely need a course of ertapenem following discharge.
Monitor white count & temperature curve.
Monitor abdominal symptomatology.
Care Review
Plan reviewed with: Nurse
--- NOTE | 2024-09-21 15:17 | PTCARENOTE ---
Received pt from ED, VSS, pt ambulated from stretcher to bed with no assistance, AAOx3, pt resting comfortably in bed with daughter and call wang at bedside.
[2024-09-21 15:22] VITALS: BP 135/89; BMI 25.0
[2024-09-21] MEDS: INVANZ 60 MG IV (21:56)
[2024-09-21] MEDS: ZYRTEC 10 MG PO (21:56)
[2024-09-21 22:16] LABS: COVID-19 Antigen Negative (Negative)
[2024-09-21 23:29] VITALS: BP 128/74
[2024-09-22 07:04] VITALS: BP 128/85
[2024-09-22] MEDS: NON-FORMULARY ITEM 1 UNIT INH (07:58)
[2024-09-22] MEDS: PEPCID 20 MG PO (07:58)
[2024-09-22] MEDS: NON-FORMULARY ITEM 1 UNIT NASAL (07:59)
--- NOTE | 2024-09-22 08:44 | W.PN.HOSP.TC ---
Today's Communication/Plan
-
follow up plan with ID
follow up later if patient wants to advance to full liquid diet
Assessment / Plan
Assessment / Plan
09/19/24 CT Abd/pelvis W Iv Cont
Acute diverticulitis of the sigmoid colon without evidence of pericolonic abscess or perforation.
Last hospitalist admission: DATE OF ADMISSION: 05/28/2024 -DATE OF DISCHARGE: 06/06/2024
DC DXs: Acute sigmoid diverticulitis
ASSESSMENT & PLAN
Uncomplicated acute sigmoid diverticulitis
HX diverticulitis 3-4 episodes last year, and this year thus far has had 4-5 bouts of diverticulitis
- CLD, patient wants to leave but not ready yet to advance to fulls
- IVF
- Narcotic analgesia PRN
- IV Ertapenem
- ID consult appreciated
- CRS consult appreciated
Constipation
- Hold off Enema and laxatives
Dysphagia, chronic
- Normal barium swallow on 02/17/24
Anxiety d/o with adjustment d/o
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
IBS
Sicca symptoms
COPD/Asthma without exacerbation
- on Dulera
Sjogren
Chronic gastritis - cont Pepcid
DVT Px: SCD - patient states she refuses Lovenox
Full code
IP MS
Anticipated Discharge: Within 24 hours
Subjective/Interval History
-
Date of Service: September 22, 2024
continues to have abdominal bloating
no nausea/vomiting
doesn't want to advance diet
had a small BM
Objective Data
-
Labs:
Laboratory Results
09/22/24
06:00
WBC Pending
Hgb Pending
Hct Pending
Plt Count Pending
Sodium Pending
Potassium Pending
Chloride Pending
Carbon Dioxide Pending
BUN Pending
Creatinine Pending
Glucose Pending
Calcium Pending
Vital Signs:
Vital Signs
Temp Pulse Resp BP Pulse Ox
98.1 F 66 17 128/85 98
09/22/24 07:04 09/22/24 07:04 09/22/24 07:04 09/22/24 07:04 09/22/24 07:04
I&O
09/21/24 09/22/24 09/23/24
06:59 06:59 06:59
Intake Total 2460 / 2460
Balance 2460 / 2460
Review of Systems
-
History Source: Patient
All other systems: Reviewed and negative
Physical Exam
-
General: No Apparent Distress
HEENT: Normocephalic and Atraumatic
Respiratory: Negative Wheezes
Cardiac: Regular Rhythm and S1/S2
GI: Soft
Genito-urinary: No Costovertebral Tender
Musculoskeletal: No Edema
Neuro: AO x 3
Psych: Calm
Data Reviewed
-
Diagnostic Radiology: Report Reviewed by me
Labs: Labs Reviewed by me
--- NOTE | 2024-09-22 09:58 | W.PN.CRS1 ---
Today's Communication / Plan
-
Continue current measures.
Assessment/Plan
-
Recurrent uncomplicated sigmoid diverticulitis.
1. Patient feels that her pain is about the same. She opts to not undergo diet advancement for now. Continue clears for now. Could consider diet advancement later in the day depending on circumstances
2. Continue antibiotics.
3. No role for urgent surgery at this point. Anticipate interval elective sigmoidectomy down the road.
Subjective Data
Subjective Data
Date of Service: September 22, 2024
Still admits to abdominal discomfort about the same as yesterday.
Anxious about her circumstance.
Many questions.
Objective Data
-
Vital Signs
Temp Pulse Resp BP Pulse Ox
98.1 F 66 17 128/85 98
09/22/24 07:04 09/22/24 07:04 09/22/24 07:04 09/22/24 07:04 09/22/24 09:55
Intake & Output
09/21/24 09/22/24 09/23/24
06:59 06:59 06:59
Intake Total 2460 / 2460
Balance 2460 / 2460
Intake:
Oral fluids 1380 / 1380
IV fluids (Total) 960 / 960
IV piggybacks 120 / 120
Other:
Number of approximated MODERATE 2
amounts of urine
Number of unmeasured liquid
stools
Rectum 1
Physical Exam
-
General: No Acute Distress
Chest: Clear
Cardiovascular: Regular Rate & Rhythm
Abdomen: Non Distended and Tender (Mild)
--- NOTE | 2024-09-22 10:47 | CM ---
Addendum entered by Bill Garcia 09/22/24 16:10:
CM spoke to [facility] RN Ish [phone] and she stated that pt is accepted for IV infusion therapy, there is no co-pay, covered 100%. Midline information requested.
Pt referred to [facility], spoke to international sales representative Verónica [phone] and she stated there is no confirmation they will accept the pt on the weekend due to staffing issues.
Awaiting for confirmation from [facility].
Addendum entered by Bill Garcia 09/22/24 14:04:
Per MD, pt will need Ertapenem 1 gm IV Q24.
CM made a referral [facility] for review, checking [place] and arrangement of home infusion. Pt's clinical with a script for IV faxed to [facility] at [phone].
Awaiting for [facility] determinations.
Original Note:
CM following re: discharge planning.
Reviewed pt's chart, met with pt.
Pt is a 58 year old female, admitted with primary dx of Recurrent uncomplicated sigmoid diverticulitis.
Pt presents sitting on the bed with depressed mood, sad affect. Pt accepted invitation to participate in the interview and pt was very short answering questions. Pt did not allow to ask many questions. Pt did say she lives with family in a house,
ambulates with a walker and pt asked to be seen by PT and OT.
PT and OT evaluations requested.
PCP: Gustavo Palacios
Pharmacy: [facility]
D/C plan: home with possible VN services if recommended by PT/OT.
CM will follow with discharge plan updates as hospitalization progresses
--- NOTE | 2024-09-22 11:34 | W.PN.ID1 ---
Date of Service
Date of Service: September 22, 2024
Today's Communication
Continue current course of ertapenem.
Assessment / Plan
Acute diverticulitis (recurrent)
Normal white count with left shift
Sjogren syndrome
Chronic constipation
Chronic nausea
Endometriosis
Gastroparesis
IBS
Chronic fatigue
Interstitial cystitis
Rosacea
Recommendations:
Continue with ertapenem for the present. Would complete a 10-14 day course.
- During last admission, patient was offered home infusion, but felt herself unable to complete it, and opted for outpatient infusion department.
- Will place infusion sheet on paper chart.
Monitor white count & temperature curve.
Monitor abdominal symptomatology.
Eventual sigmoid resection.
����������������������������������������������������������
Chief Complaint
-: Other (Diverticulitis)
Subjective / Review of Systems
Patient seen and examined. Reports ongoing lower abdominal discomfort. Denies fevers or chills.
Vital Signs / Physical Exam
Vital Signs
Vital Signs
Temp Pulse Resp BP Pulse Ox
98.1 F 66 17 128/85 98
09/22/24 07:04 09/22/24 07:04 09/22/24 07:04 09/22/24 07:04 09/22/24 09:55
Physical Exam
Constitutional: Comfortable and Non-toxic
Head: Normocephalic
Eyes: No Conjunctival Hemorrhage and Sclera Anicteric
Cardiovascular: S1/S2; Negative S3/S4
Pulmonary: Non Labored
Gastrointestinal: Soft, Tender and Normal Bowel Sounds
Extremities: Edema; Negative Cyanosis or Erythema
Neurological: Awake and Alert
Psychological: Calm
Objective Data
Lab Data
Estimated Creat Clear 87 ml/min 09/21/24 06:34
Total Bilirubin 0.5 mg/dl (0.2-1.3) 09/20/24 11:46
AST 24 U/L (14-36) 09/20/24 11:46
ALT 18 U/L (0-35) 09/20/24 11:46
Alkaline Phosphatase 115 U/L (38-126) 09/20/24 11:46
Most recent labs reviewed.
Imaging:
09/20/2024 CT abdomen/pelvis with IV contrast: Acute diverticulitis of the sigmoid colon, without evidence of pericolonic abscess or perforation is noted. Trace free fluid within the pelvis. No free air. Please see full dictation for additional
detail. Film personally viewed.
[2024-09-22 11:39] LABS: Hematocrit 34.7 % (37.0-47.0); Hemoglobin 11.7 g/dL (12.0-16.0); Mean Corp Hgb Conc. 33.7 g/dL (33.0-37.0); Mean Corpuscular Hgb 30.2 pg (27.0-31.0); Mean Corpuscular Volume 89.4 fL (81.0-99.0); Platelet Count 315 10^3/uL (130-400); Red Blood Cell Count 3.88 10^6/uL (4.20-5.40); Red Cell Dist. Width 12.8 % (11.5-14.5); White Blood Cell Count 6.9 10^3/uL (4.8-10.8)
[2024-09-22 11:47] LABS: Blood Urea Nitrogen 14 mg/dl (7-17); Calcium 9.2 mg/dl (8.4-10.2); Carbon Dioxide 29 mmol/L (22-30); Chloride 102 mmol/L (98-107); Estimated Creatinine Clearance 87 ml/min; Glucose 83 mg/dl (70-99); Potassium 3.7 mmol/L (3.5-5.1); Sodium 138 mmol/L (135-145); eGFR > 60.00
[2024-09-22] MEDS: TORADOL 15 MG IV (12:51)
[2024-09-22 14:10] VITALS: PULSE 61; PULSE 695; O2SAT 95; O2SAT 99
--- NOTE | 2024-09-22 15:33 | PTCARENOTE ---
Pt becoming increasingly agitated over the course of the shift, refusing vital signs to be taken at 1500. Pt with right midline IV placed, no limb alert wrist band due to pt being unwilling to put it on. made aware, low residue diet ordered for
pt. No new orders at this time.
[2024-09-22] MEDS: ZYRTEC 10 MG PO (21:56)
[2024-09-22] MEDS: INVANZ 60 MG IV (21:57)
[2024-09-22] MEDS: FLUSH (NSS) 2 FLUSH IV (21:57)
[2024-09-22 23:00] VITALS: BP 147/83
[2024-09-23 07:00] VITALS: BP 139/88
[2024-09-23] MEDS: NON-FORMULARY ITEM 1 UNIT INH (07:37)
--- NOTE | 2024-09-23 08:29 | W.PN.HOSP.TC ---
Today's Communication/Plan
-
dispo planning with outpatient IV abx therapy
Assessment / Plan
Assessment / Plan
09/19/24 CT Abd/pelvis W Iv Cont
Acute diverticulitis of the sigmoid colon without evidence of pericolonic abscess or perforation.
Last hospitalist admission: DATE OF ADMISSION: 05/28/2024 -DATE OF DISCHARGE: 06/06/2024
DC DXs: Acute sigmoid diverticulitis
ASSESSMENT & PLAN
Uncomplicated acute sigmoid diverticulitis
HX diverticulitis 3-4 episodes last year, and this year thus far has had 4-5 bouts of diverticulitis
- IV Ertapenem per ID - waiting to confirm infusion therapy set up
- appreciate consultants
- low residue diet
Constipation
- patient states she can only have brand name Miralax - can order once son brings in
Dysphagia, chronic
- Normal barium swallow on 02/17/24
Anxiety d/o with adjustment d/o
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
IBS
Sicca symptoms
COPD/Asthma without exacerbation
- on Dulera
Sjogren
Chronic gastritis - cont Pepcid
DVT Px: SCD - patient states she refuses Lovenox, she is ambulating
Full code
IP MS
Anticipated Discharge: 24 - 48 hours
Subjective/Interval History
-
Date of Service: September 23, 2024
feels more swollen but no significant pain
no fevers/chills
wants to eat regular food
Objective Data
-
Labs:
Laboratory Results
09/23/24
06:00
Sodium Pending
Potassium Pending
Chloride Pending
Carbon Dioxide Pending
BUN Pending
Creatinine Pending
Glucose Pending
Calcium Pending
Vital Signs:
Vital Signs
Temp Pulse Resp BP Pulse Ox
97.5 F 78 16 147/83 99
09/22/24 23:00 09/23/24 07:39 09/23/24 07:39 09/22/24 23:00 09/23/24 07:39
I&O
09/22/24 09/23/24 09/24/24
06:59 06:59 06:59
Intake Total 2460 / 2460 420 / 420 300 / 300
Balance 2460 / 2460 420 / 420 300 / 300
Review of Systems
-
History Source: Patient
All other systems: Reviewed and negative
Physical Exam
-
General: No Apparent Distress
HEENT: Normocephalic and Atraumatic
Respiratory: Negative Wheezes
Cardiac: Regular Rhythm and S1/S2
GI: Soft
Genito-urinary: No Costovertebral Tender
Musculoskeletal: No Edema
Neuro: AO x 3
Psych: Calm
Data Reviewed
-
Diagnostic Radiology: Report Reviewed by me
Labs: Labs Reviewed by me
[2024-09-23] MEDS: PEPCID 20 MG PO (10:11)
[2024-09-23] MEDS: NON-FORMULARY ITEM 1 UNIT NASAL (10:12)
--- NOTE | 2024-09-23 10:51 | W.PN.GS2 ---
Today's Communication / Plan
-
Repeat CT
Assessment / Plan
-
58 yo female with recurrent uncomplicated diverticulitis
AFVSS
Refused labs today, but yesterday's labs without leukocytosis
Reports pain is no better; poor appetite
--Continue ABX as per ID
--Recheck CT given lack of improvement in symptoms, IVP dye allergy reported: prep ordered as per protocol
--Ok for low fiber diet as tolerated
--Analgesics prn
--Medical management as per primary team
Subjective Data
-
Date of Service: September 23, 2024
Patient seen and examined at bedside with Dr. Philip. BURRELL to chair. Notes that her pain is not really better than on presentation with persistent 'swelling' to her LLQ. She does note that the spasms she had on presentation are no better. She notes
that she is eating about 'as much as a toddler' but denies n/v with diet.
Objective Data
-
Intake and Output
09/22/24 09/23/24 09/24/24
06:59 06:59 06:59
Intake Total 2460 / 2460 420 / 420 300 / 300
Balance 2460 / 2460 420 / 420 300 / 300
Intake:
Oral fluids 1380 / 1380 420 / 420 240 / 240
IV fluids (Total) 960 / 960
IV piggybacks 120 / 120 60 / 60
Other:
Number of approximated SMALL 1
amounts of urine
Number of approximated MODERATE 2 3
amounts of urine
Number of approximated LARGE 1
amounts of urine
Number of unmeasured liquid
stools
Rectum 1
Vital Signs
Temp Pulse Resp BP Pulse Ox
98.1 F 78 16 139/88 99
09/23/24 07:00 09/23/24 07:39 09/23/24 07:39 09/23/24 07:00 09/23/24 07:39
Lab Results
09/22/24 11:03
Calcium 9.2 mg/dl (8.4-10.2) 09/22/24 11:03
Total Bilirubin 0.5 mg/dl (0.2-1.3) 09/20/24 11:46
AST 24 U/L (14-36) 09/20/24 11:46
ALT 18 U/L (0-35) 09/20/24 11:46
Alkaline Phosphatase 115 U/L (38-126) 09/20/24 11:46
Total Protein 7.6 g/dl (6.3-8.2) 09/20/24 11:46
Albumin 4.6 g/dl (3.5-5.0) 09/20/24 11:46
Physical Exam
-
Anxious
ABD soft, minimal distention, tender to the LLQ
[2024-09-23] MEDS: SOLU-CORTEF 200 MG IV (11:17)
[2024-09-23] MEDS: FLUSH (NSS) 2 FLUSH IV ×2 (11:18→22:03)
[2024-09-23] MEDS: BENADRYL 50 MG IV (11:18)
[2024-09-23] MEDS: OMNIPAQUE 50 ML PO (11:57)
[2024-09-23 15:50] VITALS: BP 142/87
--- NOTE | 2024-09-23 15:55 | CM ---
Reviewed the chart notes and spoke with previous CM. Per CM, will need to reach out to [facility] and [facility] Wednesday to confirm ability to start the patient on Wednesday if discharged on Wednesday. PT recommending outpatient therapy. CM continues
to be available to patient/family and is monitoring medical plan for needs at discharge.
Plan: Discharge plans is home with [facility] for IV abx and [facility] for PICC front line leader.
--- NOTE | 2024-09-23 18:47 | PTCARENOTE ---
pt refused AM labs today, 2 spanish medical interpreter attempted but she refused. Dr Baker made aware.
[2024-09-23] MEDS: INVANZ 60 MG IV (22:03)
[2024-09-23] MEDS: ZYRTEC PO (22:05)
[2024-09-23 22:49] VITALS: BP 131/83
[2024-09-24 07:00] VITALS: BP 139/86
[2024-09-24] MEDS: NON-FORMULARY ITEM 1 UNIT INH (08:23)
--- NOTE | 2024-09-24 09:58 | W.PN.HOSP.TC ---
Today's Communication/Plan
-
awaiting home infusion therapy to be set up
Assessment / Plan
Assessment / Plan
09/19/24 CT Abd/pelvis W Iv Cont
Acute diverticulitis of the sigmoid colon without evidence of pericolonic abscess or perforation.
Last hospitalist admission: DATE OF ADMISSION: 05/28/2024 -DATE OF DISCHARGE: 06/06/2024
DC DXs: Acute sigmoid diverticulitis
ASSESSMENT & PLAN
Uncomplicated acute sigmoid diverticulitis
HX diverticulitis 3-4 episodes last year, and this year thus far has had 4-5 bouts of diverticulitis
- IV Ertapenem per ID - waiting to confirm infusion therapy set up
- appreciate consultants
- low residue diet
Constipation
- patient states she can only have brand name Miralax - this is now brought in by son - patient can take TID as she did last admission
Dysphagia, chronic
- Normal barium swallow on 02/17/24
Anxiety d/o with adjustment d/o
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
IBS
Sicca symptoms
COPD/Asthma without exacerbation
- on Dulera
Sjogren
Chronic gastritis - cont Pepcid
DVT Px: SCD - patient states she refuses Lovenox, she is ambulating
Full code
IP MS
Anticipated Discharge: 24 - 48 hours
Subjective/Interval History
-
Date of Service: September 24, 2024
patient anxious this morning states she's not getting better
Objective Data
-
Labs:
Laboratory Results
09/24/24
07:24
WBC Pending
Hgb Pending
Hct Pending
Plt Count Pending
Sodium Pending
Potassium Pending
Chloride Pending
Carbon Dioxide Pending
BUN Pending
Creatinine Pending
Glucose Pending
Calcium Pending
Vital Signs:
Vital Signs
Temp Pulse Resp BP Pulse Ox
98.3 F 82 16 139/86 99
09/24/24 07:00 09/24/24 08:25 09/24/24 08:25 09/24/24 07:00 09/24/24 08:25
I&O
09/23/24 09/24/24 09/25/24
06:59 06:59 06:59
Intake Total 420 / 420 960 / 960
Balance 420 / 420 960 / 960
Review of Systems
-
History Source: Patient
All other systems: Reviewed and negative
Physical Exam
-
General: No Apparent Distress
HEENT: Normocephalic and Atraumatic
Respiratory: Negative Wheezes
Cardiac: Regular Rhythm and S1/S2
GI: Soft and Other (tenderness LLQ)
Genito-urinary: No Costovertebral Tender
Musculoskeletal: No Edema
Neuro: AO x 3
Psych: Calm
Data Reviewed
-
Diagnostic Radiology: Report Reviewed by me
Labs: Labs Reviewed by me
[2024-09-24] MEDS: PEPCID 20 MG PO (10:23)
[2024-09-24] MEDS: NON-FORMULARY ITEM 1 UNIT NASAL (10:24)
--- NOTE | 2024-09-24 11:03 | W.PN.ID1 ---
Date of Service
Date of Service: September 24, 2024
Today's Communication
Continue antibiotics.
Assessment / Plan
Acute diverticulitis (recurrent)
Normal white count with left shift
Sjogren syndrome
Chronic constipation
Chronic nausea
Endometriosis
Gastroparesis
IBS
Chronic fatigue
Interstitial cystitis
Rosacea
Recommendations:
Patient reports ongoing left lower quadrant discomfort. CT with minimal improvement, although this may take some time.
Continue with ertapenem for the present. Would complete a 14 day course.
- During last admission, patient was offered home infusion, but felt herself unable to complete it, and opted for outpatient infusion department.
- Will place infusion sheet on paper chart.
No role for dual 'anaerobic' coverage by the addition of metronidazole. Anaerobic coverage is satisfactory with ertapenem.
Monitor white count & temperature curve.
Monitor abdominal symptomatology.
Eventual sigmoid resection.
����������������������������������������������������������
Chief Complaint
-: Other (Diverticulitis)
Subjective / Review of Systems
Patient seen and examined. Reports continued left lower quadrant discomfort. Feels that she is not improving as quickly as she should. Questions whether Flagyl should be added to her regimen of ertapenem. Also wondering whether she can receive
an enema.
Review of Systems: No Fever and No Chills
Vital Signs / Physical Exam
Vital Signs
Vital Signs
Temp Pulse Resp BP Pulse Ox
98.3 F 82 16 139/86 99
09/24/24 07:00 09/24/24 08:25 09/24/24 08:25 09/24/24 07:00 09/24/24 08:25
Physical Exam
Constitutional: No Acute Distress, Comfortable and Non-toxic
Eyes: Sclera Anicteric
Gastrointestinal: Distended (mild)
Genito-Urinary: Negative Hernandez
Extremities: Negative Cyanosis or Erythema
Skin: Warm and Dry; Negative Rash or Jaundice
Neurological: Awake and Alert
Psychological: Other (Anxious)
Objective Data
Lab Data
Estimated Creat Clear Cancelled 09/23/24 06:00
Total Bilirubin 0.5 mg/dl (0.2-1.3) 09/20/24 11:46
AST 24 U/L (14-36) 09/20/24 11:46
ALT 18 U/L (0-35) 09/20/24 11:46
Alkaline Phosphatase 115 U/L (38-126) 09/20/24 11:46
Most recent labs reviewed.
Imaging:
09/23/2024 CT abdomen/pelvis with contrast: There is no bowel obstruction noted. There is persistent wall thickening and stranding along the mid sigmoid colon, minimally improved from prior exam of 3 days prior. No ascites or free air noted.
09/20/2024 CT abdomen/pelvis with IV contrast: Acute diverticulitis of the sigmoid colon, without evidence of pericolonic abscess or perforation is noted. Trace free fluid within the pelvis. No free air. Please see full dictation for additional
detail. Film personally viewed.
Care Review
Plan reviewed with: Physician (Hospitalist)
--- NOTE | 2024-09-24 12:26 | W.PN.UPDATE ---
Update Note
Progress Note Update
Hospital summary
Principal Diagnosis : Acute Diverticulitis
Hospital Course :
Ms. Saida Cannon is a 58 yo woman with hx recurrent diverticulitis (3-4 episodes over past year, sigmoidectomy recommended as outpatient), Sjogren's syndrome, chronic dysphagia, IBS, constipation who presents to the ER with acute abdominal pain.
Triage vitals stable. Labs without leukocytosis, normal renal function. CT A/P with finding of acute diverticulitis. She was started on IV Ertapenem based on prior regimens (she is intolerant of Augmentin and Flagyl). ID was consulted,
recommended 14 days of IV Ertapenem. Midline placed and plan is for IV antibiotic administration at outpatient infusion center. Patient with continued pain, slow improvement. Repeat CT A/P 3 days after admission showed minimal improvement, no
complication.
Patient complains of constipation. 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
Patient will follow up with colorectal surgery as outpatient to discuss sigmoid resection.
Important imaging findings :
CT A/P 09/20/24
IMPRESSION:
Acute diverticulitis of the sigmoid colon without evidence of pericolonic abscess or perforation.
CT A/P 09/23/24
IMPRESSION:
Acute diverticulitis of the mid sigmoid colon which has minimally improved from prior. There is no evidence of pericolonic abscess or perforation.
--- NOTE | 2024-09-24 13:51 | W.PN.GS2 ---
Today's Communication / Plan
-
suppository
diet as tolerated
abx
Assessment / Plan
-
58 yo female with recurrent uncomplicated diverticulitis
AFVSS
Refused labs today and yesterday but agreeable to have labs done tomorrow
Reports pain is no better; poor appetite and constipation
09/[address] without abscess/perforation, sigmoid diverticulitis again noted but with some minimal improvement
--Continue ABX as per ID
--Hold off on enema given active diverticulitis. OK for suppository which she is willing to try. Continue miralax
--Ok for low fiber diet as tolerated, reports low intake: will check nutirional labs in Am
--Analgesics prn
--Medical management as per primary team
Time Spent
Total Time Spent with Patient (in minutes): 37
Subjective Data
-
Date of Service: September 24, 2024
Patient seen and examined at bedside with Dr. Bryant. Notes that her pain is slightly worse to the left side. Constipation has been an issue despite miralax use. Reports poor appetite, not eating much with meals but does deny nausea/vomiting.
Requesting enema.
Objective Data
-
Intake and Output
09/23/24 09/24/24 09/25/24
06:59 06:59 06:59
Intake Total 420 / 420 960 / 960
Balance 420 / 420 960 / 960
Intake:
Oral fluids 420 / 420 840 / 840
IV piggybacks 120 / 120
Other:
Number of approximated SMALL 1
amounts of urine
Number of approximated MODERATE 3 3
amounts of urine
Number of approximated LARGE 1
amounts of urine
Number of unmeasured liquid
stools
Rectum 1
Vital Signs
Temp Pulse Resp BP Pulse Ox
98.3 F 82 16 139/86 99
09/24/24 07:00 09/24/24 08:25 09/24/24 08:25 09/24/24 07:00 09/24/24 08:25
Lab Results
09/24/24 07:24
09/24/24 07:24
Calcium Cancelled 09/24/24 07:24
Total Bilirubin 0.5 mg/dl (0.2-1.3) 09/20/24 11:46
AST 24 U/L (14-36) 09/20/24 11:46
ALT 18 U/L (0-35) 09/20/24 11:46
Alkaline Phosphatase 115 U/L (38-126) 09/20/24 11:46
Total Protein 7.6 g/dl (6.3-8.2) 09/20/24 11:46
Albumin 4.6 g/dl (3.5-5.0) 09/20/24 11:46
Physical Exam
-
Anxious, OOB to chair and able to ambulate around room
ABD soft, mild to mod distention, tender to the LLQ but less so than prior exam
[2024-09-24] MEDS: DULCOLAX 10 MG RECTAL (14:46)
[2024-09-24 15:00] VITALS: BP 125/82
[2024-09-24] MEDS: ZYRTEC 10 MG PO (20:06)
[2024-09-24] MEDS: MIRALAX PO (20:06)
[2024-09-24] MEDS: INVANZ 60 MG IV (22:20)
[2024-09-24 23:31] VITALS: BP 146/82
[2024-09-25] MEDS: NON-FORMULARY ITEM 1 UNIT INH (06:47)
[2024-09-25 07:04] VITALS: BP 149/84
--- NOTE | 2024-09-25 07:22 | W.PN.HOSP.TC ---
Today's Communication/Plan
-
Plan for discharge on September 28, 2023 when outpatient infusion will be available
Continue antibiotics
Assessment / Plan
Assessment / Plan
Physical Exam
General: No Apparent Distress
HEENT: Normocephalic and Atraumatic
Respiratory: CTAB
Cardiac: Regular Rhythm and S1/S2
GI: Soft. Mild LLQ tenderness. Positive bowel sounds.
Musculoskeletal: No Edema
Neuro: AAO x 3
Psych: Calm

09/19/24 CT Abd/pelvis W Iv Cont
Acute diverticulitis of the sigmoid colon without evidence of pericolonic abscess or perforation.
Last hospitalist admission: DATE OF ADMISSION: 05/28/2024 -DATE OF DISCHARGE: 06/06/2024
DC DXs: Acute sigmoid diverticulitis
ASSESSMENT & PLAN
Uncomplicated acute sigmoid diverticulitis (recurrent)
History of diverticulitis 3-4 episodes last year, and this year thus far has had 4-5 bouts of diverticulitis
-IV Ertapenem per ID - 14 days of IV antibiotics through October 02, 2023
-Appreciate consultants
-No surgery needed at this time
-Low residue diet
-Follow-up in the office as an outpatient with Dr. Wilson
Constipation
-Patient states she can only have brand name Miralax - this is now brought in by son - patient can take TID as she did last admission
-Suppositories PRN
Dysphagia, chronic
- Normal barium swallow on 02/17/24
Anxiety d/o with adjustment disorder
-INCLUSION PARAEDUCATOR Xanax
IBS
Sicca symptoms
COPD/Asthma without exacerbation
- on Dulera
Sjogren
Chronic gastritis - cont Pepcid
DVT Prophylaxis: SCDs - patient states she refuses Lovenox, she is ambulating
Full code
Disposition: Per case management outpatient infusion can be started on 09/28/23
Anticipated Discharge: > 48 hours
Subjective/Interval History
-
Date of Service: September 25, 2024
Patient was seen and examined. She had a bowel movement within the past 24 hours, she denied any new symptoms or complaints.
Objective Data
-
Labs:
Laboratory Results
09/25/24
06:00
WBC Pending
Hgb Pending
Hct Pending
Plt Count Pending
Sodium Pending
Potassium Pending
Chloride Pending
Carbon Dioxide Pending
BUN Pending
Creatinine Pending
Glucose Pending
Calcium Pending
Total Bilirubin Pending
AST Pending
ALT Pending
Alkaline Phosphatase Pending
Vital Signs:
Vital Signs
Temp Pulse Resp BP Pulse Ox
97.9 F 66 17 149/84 96
09/25/24 07:04 09/25/24 07:04 09/25/24 07:04 09/25/24 07:04 09/25/24 07:04
I&O
09/24/24 09/25/24 09/26/24
06:59 06:59 06:59
Intake Total 960 / 960 240 / 240
Balance 960 / 960 240 / 240
[2024-09-25] MEDS: PEPCID 20 MG PO (09:27)
[2024-09-25] MEDS: MIRALAX 17 GRAMS PO ×2 (09:28→20:15)
[2024-09-25] MEDS: NON-FORMULARY ITEM 2 UNIT NASAL (09:31)
--- NOTE | 2024-09-25 10:56 | W.PN.CRS1 ---
Today's Communication / Plan
-
no plans for surgery
overall improving
follow up in the office as an outpatient with Dr. Wilson
Assessment/Plan
-
58 yo female with recurrent uncomplicated diverticulitis
AFVSS
Labs are still pending
Reports pain is improving, denies nausea or vomiting
Had a BM this morning after the suppository
09/[address] without abscess/perforation, sigmoid diverticulitis again noted but with some minimal improvement
--Continue ABX as per ID
--Suppositories PRN. Continue miralax
--Ok for low fiber diet as tolerated.
--Analgesics prn
--Medical management as per primary team
--No indication for surgery at this time. Will sign off. Please contact us if further issues arise. Follow up in the office in a few weeks for a surgical discussion with Dr. Wilson.
Subjective Data
Subjective Data
Date of Service: September 25, 2024
Patient states she has no nausea or vomiting. She is still 'sore' but overall better. She is tolerating a diet.
Objective Data
-
Vital Signs
Temp Pulse Resp BP Pulse Ox
97.9 F 66 17 149/84 96
09/25/24 07:04 09/25/24 07:04 09/25/24 07:04 09/25/24 07:04 09/25/24 07:04
Intake & Output
09/24/24 09/25/24 09/26/24
06:59 06:59 06:59
Intake Total 960 / 960 240 / 240
Balance 960 / 960 240 / 240
Intake:
Oral fluids 840 / 840 240 / 240
IV piggybacks 120 / 120
Other:
Number of approximated SMALL 1
amounts of urine
Number of approximated MODERATE 3 2
amounts of urine
Number of approximated LARGE 1
amounts of urine
Physical Exam
-
General: No Acute Distress and AOx3
Abdomen: Soft, Non Distended and Tender (mild LLQ )
Skin: Warm and Dry
[2024-09-25 11:59] LABS: Hematocrit 36.8 % (37.0-47.0); Hemoglobin 12.3 g/dL (12.0-16.0); Mean Corp Hgb Conc. 33.4 g/dL (33.0-37.0); Mean Corpuscular Volume 89.8 fL (81.0-99.0); Mean Platelet Volume 9.6 fL (7.4-10.4); Platelet Count 398 10^3/uL (130-400); Red Cell Dist. Width 12.6 % (11.5-14.5); White Blood Cell Count 5.5 10^3/uL (4.8-10.8)
[2024-09-25 12:07] LABS: ALT (SGPT) 21 U/L (0-35); AST (SGOT) 31 U/L (14-36); Albumin 4.3 g/dl (3.5-5.0); Alkaline Phosphatase 71 U/L (38-126); Blood Urea Nitrogen 13 mg/dl (7-17); Calcium 9.5 mg/dl (8.4-10.2); Carbon Dioxide 30 mmol/L (22-30); Chloride 99 mmol/L (98-107); Direct Bilirubin 0.1 mg/dl (0.0-0.4); Estimated Creatinine Clearance 87 ml/min; Glucose 107 mg/dl (70-99); Magnesium 2.1 mg/dl (1.6-2.3); Phosphorus 3.7 mg/dl (2.5-4.5); Sodium 141 mmol/L (135-145); Total Bilirubin 0.2 mg/dl (0.2-1.3); Total Protein 7.1 g/dl (6.3-8.2); Triglycerides 97 mg/dl (10-149); eGFR > 60.00
[2024-09-25 12:17] LABS: Prealbumin (Transthyretin) 14.5 mg/dl (17.6-36.0)
--- NOTE | 2024-09-25 13:07 | CM ---
Addendum entered by Carisa Henderson 09/25/24 16:32:
Jenni from outpatient infusion center called [facility] & stated they have the order for Ertapenem IV 1gm Q24 as well as the reaction form. tt to Dr. Sullivan to clarify that end date is 10/02/24.
Patient for discharge on 09/27 after dose here at hospital & start with Outpatient Infusion on 09/28 - Jenni from outpatient infusion will call patient tomorrow with time.
Discussed plan with nurse Debi & Colleen supervisor solder making
PLAN: home, Outpatient infusion to start 09/28
Original Note:
Patient wants to go to outpatient infusion center for IV Eertapenem 1 gm q24 - Patient states she has done this previously.
Notified Cheyenne from [facility] who states they will see for home PT.
Called infusion center & left message for Vida.
Await call from outpatient infusion
[2024-09-25 15:12] VITALS: BP 139/94
[2024-09-25] MEDS: DULCOLAX 10 MG RECTAL (15:18)
--- NOTE | 2024-09-25 15:46 | W.PN.ID1 ---
Date of Service
Date of Service: September 25, 2024
Today's Communication
Continue antibiotics.
Assessment / Plan
Acute diverticulitis (recurrent)
Normal white count with left shift
Sjogren syndrome
Chronic constipation
Chronic nausea
Endometriosis
Gastroparesis
IBS
Chronic fatigue
Interstitial cystitis
Rosacea
Recommendations:
Continue with ertapenem for the present. Would complete a 14 day course.
- During last admission, patient was offered home infusion, but felt herself unable to complete it, and opted for outpatient infusion department.
- Infusion papers for [facility] have been completed
Monitor white count & temperature curve.
Monitor abdominal symptomatology.
Eventual sigmoid resection.
����������������������������������������������������������
Chief Complaint
-: Other (Diverticulitis)
Subjective / Review of Systems
Review of Systems: No Fever, No Chills and Abdominal Pain (Improved)
Vital Signs / Physical Exam
Vital Signs
Vital Signs
Temp Pulse Resp BP Pulse Ox
98.0 F 81 17 139/94 99
09/25/24 15:12 09/25/24 15:12 09/25/24 15:12 09/25/24 15:12 09/25/24 15:12
Physical Exam
Eyes: Pupils Equal and Sclera Anicteric
Cardiovascular: S1/S2; Negative S3/S4
Pulmonary: Non Labored
Gastrointestinal: Tender (mild), Distended, Normal Bowel Sounds, No Rebound and No Guarding
Extremities: Negative Cyanosis or Erythema
Neurological: Awake and Alert
Psychological: Calm
Objective Data
Lab Data
Lab Results
09/25/24 10:50
09/25/24 10:50
Estimated Creat Clear 87 ml/min 09/25/24 10:50
Total Bilirubin 0.2 mg/dl (0.2-1.3) 09/25/24 10:50
AST 31 U/L (14-36) 09/25/24 10:50
ALT 21 U/L (0-35) 09/25/24 10:50
Alkaline Phosphatase 71 U/L (38-126) 09/25/24 10:50
Most recent labs reviewed.
Imaging:
09/23/2024 CT abdomen/pelvis with contrast: There is no bowel obstruction noted. There is persistent wall thickening and stranding along the mid sigmoid colon, minimally improved from prior exam of 3 days prior. No ascites or free air noted.
09/20/2024 CT abdomen/pelvis with IV contrast: Acute diverticulitis of the sigmoid colon, without evidence of pericolonic abscess or perforation is noted. Trace free fluid within the pelvis. No free air. Please see full dictation for additional
detail. Film personally viewed.
[2024-09-25] MEDS: INVANZ 60 MG IV (18:29)
[2024-09-25] MEDS: ZYRTEC 10 MG PO (20:15)
[2024-09-25 23:52] VITALS: BP 134/88
[2024-09-26] MEDS: MIRALAX 17 GRAMS PO (08:25)
[2024-09-26] MEDS: ZOFRAN 4 MG IV (08:25)
[2024-09-26] MEDS: PEPCID 20 MG PO (08:25)
--- NOTE | 2024-09-26 08:25 | W.PN.HOSP.TC ---
Today's Communication/Plan
-
Stable, discharge tomorrow after IV antibiotics, continue infusion of antibiotics outpatient after that
Assessment / Plan
Assessment / Plan
Physical Exam
General: No Apparent Distress
HEENT: Normocephalic and Atraumatic
Respiratory: CTAB
Cardiac: Regular Rhythm and S1/S2
GI: Soft. Mild LLQ tenderness. Positive bowel sounds.
Musculoskeletal: No Edema
Neuro: AAO x 3
Psych: Calm

09/19/24 CT Abd/pelvis W Iv Cont
Acute diverticulitis of the sigmoid colon without evidence of pericolonic abscess or perforation.
Last hospitalist admission: DATE OF ADMISSION: 05/28/2024 -DATE OF DISCHARGE: 06/06/2024
DC DXs: Acute sigmoid diverticulitis
ASSESSMENT & PLAN
Uncomplicated acute sigmoid diverticulitis (recurrent)
History of diverticulitis 3-4 episodes last year, and this year thus far has had 4-5 bouts of diverticulitis
-IV Ertapenem per ID - 14 days of IV antibiotics through October 02, 2023
-Appreciate consultants
-No surgery needed at this time
-Low residue diet
-Follow-up in the office as an outpatient with Dr. Wilson
Constipation
-Patient states she can only have brand name Miralax - this is now brought in by son - patient can take TID as she did last admission
-Suppositories PRN
Dysphagia, chronic
- Normal barium swallow on 02/17/24
Anxiety d/o with adjustment disorder
-WALL ATTENDANT Xanax
IBS
Sicca symptoms
COPD/Asthma without exacerbation
- on Dulera
Sjogren
Chronic gastritis - cont Pepcid
DVT Prophylaxis: SCDs - patient states she refuses Lovenox, she is ambulating
Full code
Disposition: Per case management outpatient infusion can be started on 09/28/23
Anticipated Discharge: Within 24 hours
Subjective/Interval History
-
Date of Service: September 26, 2024
Patient was seen and examined. She had a bowel movement earlier this morning. She reported some migraine headache this morning, and requested pain med e.g. Tylenol.
Objective Data
-
Vital Signs:
Vital Signs
Temp Pulse Resp BP Pulse Ox
97.6 F 68 17 134/88 97
09/25/24 23:52 09/25/24 23:52 09/25/24 23:52 09/25/24 23:52 09/26/24 01:07
I&O
09/25/24 09/26/24 09/27/24
06:59 06:59 06:59
Intake Total 240 / 240 660 / 660
Balance 240 / 240 660 / 660
[2024-09-26 08:30] VITALS: BP 143/105
[2024-09-26] MEDS: TYLENOL ORAL SOLUTION 650 MG PO (08:36)
[2024-09-26] MEDS: NON-FORMULARY ITEM 1 UNIT INH (09:26)
[2024-09-26] MEDS: NON-FORMULARY ITEM 1 UNIT NASAL (10:24)
--- NOTE | 2024-09-26 11:45 | CM ---
Addendum entered by Shirlene Black 09/26/24 16:01:
IMM completed, family will transport.
Patient spoke with [facility], has date and time of infusion.
Original Note:
Patient seen bedside.
Verified plan with patient:
Patient for tentative discharge on 09/27 after dose here at hospital & start with Outpatient Infusion on 09/28 - Jenni from outpatient infusion will call patient today with time.
Plan: home with outpatient infusions and [facility]
fax [phone]
--- NOTE | 2024-09-26 12:52 | W.PN.ID1 ---
Date of Service
Date of Service: September 26, 2024
Today's Communication
Continue antibiotics.
Assessment / Plan
Acute diverticulitis (recurrent)
Sjogren syndrome
Chronic constipation
Chronic nausea
Endometriosis
Gastroparesis
IBS
Chronic fatigue
Interstitial cystitis
Rosacea
Recommendations:
Continue with ertapenem to complete a 14 day course. Following discharge, patient will complete course with the [facility].
Monitor abdominal symptomatology.
CRS follow-up following D/C, for eventual Sx.
����������������������������������������������������������
Chief Complaint
-: Other (Diverticulitis)
Subjective / Review of Systems
Review of Systems: No Fever, No Chills, Abdominal Pain (minimal), Nausea and No Vomiting
Vital Signs / Physical Exam
Vital Signs
Vital Signs
Temp Pulse Resp BP Pulse Ox
97.9 F 80 16 143/105 95
09/26/24 08:30 09/26/24 09:01 09/26/24 09:01 09/26/24 08:30 09/26/24 08:30
Physical Exam
Eyes: Pupils Equal and Sclera Anicteric
Pulmonary: Non Labored
Gastrointestinal: Tender (mild), Distended, No Rebound and No Guarding
Extremities: Negative Cyanosis or Erythema
Neurological: Awake and Alert
Psychological: Calm
Objective Data
Lab Data
Lab Results
09/25/24 10:50
09/25/24 10:50
Estimated Creat Clear 87 ml/min 09/25/24 10:50
Total Bilirubin 0.2 mg/dl (0.2-1.3) 09/25/24 10:50
AST 31 U/L (14-36) 09/25/24 10:50
ALT 21 U/L (0-35) 09/25/24 10:50
Alkaline Phosphatase 71 U/L (38-126) 09/25/24 10:50
Most recent labs reviewed.
Imaging:
09/23/2024 CT abdomen/pelvis with contrast: There is no bowel obstruction noted. There is persistent wall thickening and stranding along the mid sigmoid colon, minimally improved from prior exam of 3 days prior. No ascites or free air noted.
09/20/2024 CT abdomen/pelvis with IV contrast: Acute diverticulitis of the sigmoid colon, without evidence of pericolonic abscess or perforation is noted. Trace free fluid within the pelvis. No free air. Please see full dictation for additional
detail. Film personally viewed.
[2024-09-26 15:53] VITALS: BP 134/84
[2024-09-26] MEDS: INVANZ 60 MG IV (16:33)
[2024-09-26] MEDS: ZYRTEC 10 MG PO (20:02)
[2024-09-26] MEDS: MIRALAX PO (20:04)
[2024-09-26 23:16] VITALS: BP 138/84
[2024-09-27 07:00] VITALS: BP 136/95
[2024-09-27] MEDS: NON-FORMULARY ITEM 1 UNIT INH (08:17)
[2024-09-27] MEDS: PEPCID 20 MG PO (09:28)
[2024-09-27] MEDS: NON-FORMULARY ITEM 1 UNIT NASAL (09:31)
[2024-09-27] MEDS: MIRALAX PO (09:32)
[2024-09-27] MEDS: DULCOLAX 10 MG RECTAL (09:39)
--- NOTE | 2024-09-27 10:46 | W.PN.HOSP.TC ---
Today's Communication/Plan
-
Discharge today
Assessment / Plan
Assessment / Plan
Physical Exam
General: No Apparent Distress
HEENT: Normocephalic and Atraumatic
Respiratory: CTAB
Cardiac: Regular Rhythm and S1/S2
GI: Soft. Mild LLQ tenderness. Positive bowel sounds.
Musculoskeletal: No Edema
Neuro: AAO x 3
Psych: Calm

09/19/24 CT Abd/pelvis W Iv Cont
Acute diverticulitis of the sigmoid colon without evidence of pericolonic abscess or perforation.
Last hospitalist admission: DATE OF ADMISSION: 05/28/2024 -DATE OF DISCHARGE: 06/06/2024
DC DXs: Acute sigmoid diverticulitis
ASSESSMENT & PLAN
Uncomplicated acute sigmoid diverticulitis (recurrent)
History of diverticulitis 3-4 episodes last year, and this year thus far has had 4-5 bouts of diverticulitis
-IV Ertapenem per ID - 14 days of IV antibiotics through October 02, 2023
-Appreciate consultants
-No surgery needed at this time
-Low residue diet
-Follow-up in the office as an outpatient with Dr. Wilson
Constipation
-Patient states she can only have brand name Miralax - this is now brought in by son - patient can take TID as she did last admission
-Suppositories PRN
Dysphagia, chronic
- Normal barium swallow on 02/17/24
Anxiety d/o with adjustment disorder
-PLANNER/SCHEDULER Xanax
IBS
Sicca symptoms
COPD/Asthma without exacerbation
- on Dulera
Sjogren Syndrome
Chronic gastritis - cont Pepcid
Chronic nausea
Endometriosis
Gastroparesis
IBS
Chronic fatigue
Interstitial cystitis
Rosacea
DVT Prophylaxis: SCDs - patient states she refuses Lovenox, she is ambulating
Full code
More than 30 minutes spent in discharge including
Final examination of the patient
Summarizing hospital stay
Instructions for continuing care to all relevant caregivers
Preparation of discharge records, prescriptions, and referral forms
Total time spent (in minutes): 39
Anticipated Discharge: Today
Subjective/Interval History
-
Date of Service: September 27, 2024
Patient was seen and examined. She denied any chest pain, shortness of breath, fever, or significant abdominal pain. She was eating breakfast.
Objective Data
-
Vital Signs:
Vital Signs
Temp Pulse Resp BP Pulse Ox
97.9 F 80 16 136/95 99
09/27/24 07:00 09/27/24 08:19 09/27/24 08:19 09/27/24 07:00 09/27/24 07:00
I&O
09/26/24 09/27/24 09/28/24
06:59 06:59 06:59
Intake Total 660 / 660 960 / 960
Balance 660 / 660 960 / 960
[2024-09-27 11:05] VITALS: BP 143/92
[2024-09-27] MEDS: INVANZ 60 MG IV (12:28)
[2024-09-27 15:00] VITALS: BP 139/94
== END 2024-09-27 17:37 | disposition home health service (06) | DRG 392 ==
LOC: 2 NORTH 17:01
PROVIDERS: Nurse Practitioner Family; Registered Nurse; Student in an Organized Health Care Education/Training Program; ADMITTING PHYSICIAN Internal Medicine; ATTENDING PHYSICIAN Hospitalist; CONSULT PHYSICIAN Internal Medicine Infectious Disease; EMERGENCY PHYSICIAN Emergency Medicine; FAMILY PHYSICIAN Student in an Organized Health Care Education/Training Program; OTHER PHYSICIAN Surgery
DX: K57.32 Diverticulitis of large intestine without perforation or abscess without bleeding (principal); E78.00 Pure hypercholesterolemia, unspecified; G47.30 Sleep apnea, unspecified; K31.84 Gastroparesis; M19.90 Unspecified osteoarthritis, unspecified site; J44.9 Chronic obstructive pulmonary disease, unspecified; R13.10 Dysphagia, unspecified; K29.50 Unspecified chronic gastritis without bleeding; N80.9 Endometriosis, unspecified; G43.909 Migraine, unspecified, not intractable, without status migrainosus; K21.9 Gastro-esophageal reflux disease without esophagitis; K44.9 Diaphragmatic hernia without obstruction or gangrene; F43.22 Adjustment disorder with anxiety; R53.82 Chronic fatigue, unspecified; K58.1 Irritable bowel syndrome with constipation; M35.00 Sjogren syndrome, unspecified; L71.9 Rosacea, unspecified; Z87.01 Personal history of pneumonia (recurrent); Z87.19 Personal history of other diseases of the digestive system; Z88.5 Allergy status to narcotic agent; Z88.8 Allergy status to other drugs, medicaments and biological substances; Z91.041 Radiographic dye allergy status; Z91.040 Latex allergy status; Z88.1 Allergy status to other antibiotic agents
CPT/HCPCS: 36415; 74177; 80048; 80053; 81003; 82248; 83735; 84100; 84134; 84478; 85025; 85027; 87811; 93005; 94640; 96361; 96365; 96375; 97110; 97161; 97165; 99285; J1335; Q9967

== ENCOUNTER 2024-10-03 10:15 | Outpatient (RCR) | payer MEDICARE, OTHER, SELFPAY ==
[2024-09-28 10:15] VITALS: BP 134/88
[2024-09-28] MEDS: INVANZ 60 MG IV (10:24)
[2024-09-29] MEDS: INVANZ 60 MG IV (09:59)
[2024-09-29 10:11] VITALS: BP 123/73
[2024-09-30] MEDS: INVANZ 60 MG IV (07:45)
[2024-09-30 09:11] VITALS: BP 113/84
[2024-10-01] MEDS: INVANZ 60 MG IV (07:50)
[2024-10-01 08:09] VITALS: BP 122/77
[2024-10-02 10:40] VITALS: BP 128/79
[2024-10-02] MEDS: INVANZ 60 MG IV (10:57)
[2024-10-02 10:59] LABS: % Basophils 0.9 % (0-2); % Eosinophils 1.6 % (0-6); % Lymphocytes 20.3 % (20.5-51.1); % Monocytes 8.2 % (1.7-9.3); Absolute Basophils 0.1 10^3/uL (0-0.2); Absolute Eosinophils 0.1 10^3/uL (0-0.7); Absolute Lymphocytes 1.2 10^3/uL (1.2-3.4); Absolute Monocytes 0.5 10^3/uL (0.1-0.6); Absolute Neutrophils 3.9 10^3/uL (1.4-6.5); Hematocrit 38.6 % (37.0-47.0); Mean Corp Hgb Conc. 33.7 g/dL (33.0-37.0); Mean Corpuscular Hgb 30.2 pg (27.0-31.0); Mean Corpuscular Volume 89.6 fL (81.0-99.0); Mean Platelet Volume 9.2 fL (7.4-10.4); Platelet Count 387 10^3/uL (130-400); Red Blood Cell Count 4.31 10^6/uL (4.20-5.40); Red Cell Dist. Width 12.5 % (11.5-14.5); White Blood Cell Count 5.7 10^3/uL (4.8-10.8)
[2024-10-02 12:07] LABS: Blood Urea Nitrogen 14 mg/dl (7-17); Calcium 9.3 mg/dl (8.4-10.2); Carbon Dioxide 31 mmol/L (22-30); Chloride 99 mmol/L (98-107); Glucose 76 mg/dl (70-99); Potassium 4.3 mmol/L (3.5-5.1); Sodium 141 mmol/L (135-145); eGFR > 60.00
[2024-10-03] MEDS: INVANZ 60 MG IV (10:25)
[2024-10-03 10:38] VITALS: BP 127/79
--- NOTE | 2024-10-03 11:37 | PTCARENOTE ---
pt completed final day of therapy, midline removed per order. Pt tolerated removal, TCL 13cm. Pt educated to keep dressing on for 24hours, pt verbalized understanding.
== END 2024-10-04 09:20 | disposition home or self-care (01) ==
LOC: OID 10:15
PROVIDERS: ATTENDING PHYSICIAN Internal Medicine Infectious Disease; FAMILY PHYSICIAN Student in an Organized Health Care Education/Training Program
DX: K57.92 Diverticulitis of intestine, part unspecified, without perforation or abscess without bleeding (principal); K57.32 Diverticulitis of large intestine without perforation or abscess without bleeding (principal); K57.30 Diverticulosis of large intestine without perforation or abscess without bleeding; N30.10 Interstitial cystitis (chronic) without hematuria
CPT/HCPCS: 80048; 85025; 96365; J1335

== ENCOUNTER → 2024-10-14 10:22 | Outpatient (REF) | payer MEDICARE, OTHER, SELFPAY ==
[2024-10-14 14:05] LABS: HDL Cholesterol 81 mg/dl; LDL Cholesterol, Calculated 143 mg/dl; Total Cholesterol 244 mg/dl (50-199); Triglyceride 102 mg/dl (10-149); Very Low Density Lipoprotein 20 mg/dl (0-30)
== END ==
LOC: REG 10:22
PROVIDERS: ATTENDING PHYSICIAN Student in an Organized Health Care Education/Training Program; FAMILY PHYSICIAN Internal Medicine
DX: E78.00 Pure hypercholesterolemia, unspecified (principal); Z09 Encounter for follow-up examination after completed treatment for conditions other than malignant neoplasm
CPT/HCPCS: 36415; 80061; 83735

== ENCOUNTER 2024-10-26 05:37 | Inpatient (IN) | payer MEDICARE, OTHER, SELFPAY ==
[2024-10-25 18:44] VITALS: BP 144/88
[2024-10-25 19:12] LABS: % Basophils 0.4 % (0-2); % Immature Granulocytes 0.4 % (0-0.5); % Lymphocytes 16.3 % (20.5-51.1); % Monocytes 8.2 % (1.7-9.3); % Neutrophils 73.7 % (42.2-75.2); Absolute Eosinophils 0.1 10^3/uL (0-0.7); Absolute Lymphocytes 1.4 10^3/uL (1.2-3.4); Absolute Monocytes 0.7 10^3/uL (0.1-0.6); Absolute Neutrophils 6.2 10^3/uL (1.4-6.5); Hematocrit 37.8 % (37.0-47.0); Hemoglobin 12.9 g/dL (12.0-16.0); Mean Corp Hgb Conc. 34.1 g/dL (33.0-37.0); Mean Corpuscular Hgb 29.5 pg (27.0-31.0); Mean Corpuscular Volume 86.5 fL (81.0-99.0); Mean Platelet Volume 9.2 fL (7.4-10.4); Nucleated Red Blood Cells % 0 %; Platelet Count 341 10^3/uL (130-400); Red Blood Cell Count 4.37 10^6/uL (4.20-5.40); Red Cell Dist. Width 12.7 % (11.5-14.5); White Blood Cell Count 8.4 10^3/uL (4.8-10.8)
[2024-10-25 19:54] LABS: ALT (SGPT) 18 U/L (0-35); AST (SGOT) 26 U/L (14-36); Albumin 4.3 g/dl (3.5-5.0); Alkaline Phosphatase 109 U/L (38-126); Blood Urea Nitrogen 11 mg/dl (7-17); Calcium 9.2 mg/dl (8.4-10.2); Carbon Dioxide 27 mmol/L (22-30); Chloride 99 mmol/L (98-107); Glucose 87 mg/dl (70-99); Potassium 3.8 mmol/L (3.5-5.1); Sodium 138 mmol/L (135-145); Total Bilirubin 0.4 mg/dl (0.2-1.3); Total Protein 7.2 g/dl (6.3-8.2); eGFR > 60.00
[2024-10-25 21:41] VITALS: BP 119/83
[2024-10-26] VITALS (9 sets, daily range): BP systolic 98–143; BP diastolic 53–85; O2SAT 100
--- NOTE | 2024-10-26 00:26 | ED.GENMED ---
History of Present Illness
General
Chief Complaint: Abdominal Pain
Source: patient and previous hospital records (Previous hospitalization for sigmoid diverticulitis May 2024 and most recently September 20 to September 27)
Exam Limitations: none
Time Seen by Provider: 10/25/24 23:54
Nursing documentation reviewed up to this point in time: agreed with
History of Present Illness
History of Present Illness:
This is a 58-year-old woman who has history of recurrent sigmoid diverticulitis with recurrent hospitalizations over the past several months most recently September 20 to September 27. Required IV ertapenem and was discharged to home with PICC line for
14-day course of ertapenem which completed 3 weeks ago.
PICC line has since been discontinued.
She has been following with colorectal surgery and is scheduled for sigmoidectomy November 08.
She complains of recurrent left lower quadrant pain that began approximately 3 to 4 days ago, similar pain to previous episodes of diverticulitis. Pain has been worsening over the past 3 to 4 days and now radiates to her left anterior thigh, worse
with sitting up, worse with lifting her left leg.
She has been in touch with her colorectal surgeon earlier today and was recommended clear liquids as well as follow-up with ID.
With progression of pain, onset of nausea without vomiting patient presented to the ED.
She denies fever but has had intermittent chills.
She took a Zofran at 5 PM. Nausea has improved but has not completely resolved.
She denies diarrhea nor constipation, denies hematochezia. She denies flank pain nor back pain, denies dysuria nor urgency and or hematuria but does admit to decreased urine output today with decreased oral intake today.
Past History
Past History
ED Past Medical History: Asthma, Hypercholesterolemia, Other (Seasonal allergies, PNA, Gastroparesis, Endometrious, IBS, Sjogrens, Palpitations, Sleep apnea, Buldging disc, Arthritis, Chronic fatigue, Migraines, Sleep apnea, Diverticulitis) and
Other (Interstitial cystitis, Rosacea, recurrent sigmoid diverticulitis)
ED Past Surgical History: Appendectomy, Gynecological (Hysterectomy) and Other (Adhesions)
Social History
Tobacco: Non-smoker
Alcohol: None
Drug: None
Personal:
Living: with family
Employment: Disabled
Family History
Family History: Other (Noncontributory)
Phy Exam
Physical Exam
Physical Exam:
GENERAL: 58-year-old woman appears her stated age, awake and alert, appears in moderate distress related to pain. Son is accompanying.
EYE: anicteric
NECK: Supple, nontender, no meningismus, no significant adenopathy.
ENT: Facemask in place.
CARDIAC: Regular rate and rhythm. no murmur.
LUNGS: Clear breath sounds bilaterally, no acute respiratory distress, no wheezes/rales/rhonchi
ABDOMEN: Soft, nondistended, exquisite tenderness left lower quadrant with local rebound, local guarding without rigidity. No palpable mass. There is no inguinal tenderness nor palpable mass nor inguinal adenopathy. No cvat. normoactive BS.
NEUROLOGICAL: Alert and oriented x3, no focal neuro deficits.
SKIN: Warm and dry, normal color, skin intact. No rash.
MUSCULOSKELETAL: No C/C/E. peripheral pulses are full and equal b/l. No palpable tenderness.
PSYCH: Normal and appropriate interaction.
Course
Orders/Labs/Results
Orders:
Orders
10/25/24 19:06
Complete Blood Count/With Diff Urgent
Comprehensive Metabolic Panel Urgent
Lactic Acid Q4H
Comment: CANCEL 2nd LACTIC ACID IF 1st LACTIC ACID IS LESS THAN 2
10/25/24 21:45
CR Obstruct Series W/pa Chest Urgent
Comment:
Reason For Exam: worsening abd pain, hx adhesions
10/26/24 00:25
CT Abd/pelvis W Iv Cont Urgent
Comment:
Reason For Exam: severe, recurrent LLQ pain x 3-4 days-hx divertic
0.9% Sodium Chloride 1000 ml [Nss] 1,000 ml IV BOLUS
Diphenhydramine [Benadryl] 50 mg IV NOW STA
Hydrocortisone Sod Succinate [Solu-Cortef] 200 mg IV NOW STA
Oxycodone/Acetaminophen [Percocet 5/325] 1 tablet PO NOW STA
10/26/24 04:46
Oxycodone [Roxicodone Oral Solution] 5 mg PO NOW STA
10/26/24 05:14
Admit/Transfer Patient As Directed
Co-Sign Provider:
Level of Care: Inpatient admission
Assign to:: Telemetry
Physician / Group: Dwayne
Diagnosis: Sigmoid Diverticulitis
Reason for Telemetry: Arrhythmia
Date to Stop Telemetry: 10/29/24
Time to Stop Telemetry: 11:00
Reason for Hospitalization: Sigmoid Diverticulitis
Expected length of stay greater than two midnights?: Yes
ELOS- Estimated Length of Stay in days: 3
I certify the patient meets the requirements for IP care: Yes
PRN Pain Medication Management As Directed
May give lesser potent ordered pain med per pt: Yes
preference::
Protocol:: Medication orders for pain may be administered in a
manner that supports deferring to patient preference
when the pt is:
- Requesting an ordered lesser potent pain medication.
Least to most potent pain medications are defined
as: acetaminophen < NSAID < tramadol < opioids
(morphine, oxycodone, hydromorphone).
- Requesting a lesser dose of the same medication IF
ORDERED.
- Requesting a less intrusive route of administration
if both routes are prescribed by the provider (PO <
IV).
10/26/24 05:21
Code Status As Directed
Resuscitation Status: Full Code
10/26/24 05:26
Ertapenem [Invanz] 1,000 mg 0.9% Sodium Chloride [Nss] 50 ml IV NOW
10/26/24 06:00
Flush (0.9% Sodium Chloride) [Flush (Nss)] See Dose Instructions IV PER PROTOCOL
10/29/24 11:00
DC Protocol for Telemetry ONCE
Abnormal Lab Results
10/25/24
19:06
Absolute Monos (auto) 0.7 H 10^3/uL
(0.1-0.6)
Lymphocytes % 16.3 L %
(20.5-51.1)
10/25/24 19:06
10/25/24 19:06
Vital Signs
Initial and Last Documented VS:
Initial Vital Signs
Temp Pulse Resp BP Pulse Ox
98.5 F 95 18 144/88 100
10/25/24 18:44 10/25/24 18:44 10/25/24 18:44 10/25/24 18:44 10/25/24 18:44
Last Documented Vital Signs
Temp Pulse Resp BP Pulse Ox
98.5 F 84 20 103/79 97
10/25/24 18:44 10/26/24 04:00 10/26/24 04:00 10/26/24 04:00 10/26/24 04:00
MDM/Problems Addressed
Differential Diagnosis Includes:
Concern for recurrent sigmoid diverticulitis, concern for abscess formation, other consideration is colitis, other consideration is bowel obstruction.
According to colorectal surgery patient does have history of intra-abdominal adhesions.
Labs are unremarkable, similar to previous.
Obstruction series is unremarkable, no evidence of obstruction or free air.
Will medicate for pain, initiate IV fluids and will plan for CT abdomen pelvis with IV contrast.
History of IV contrast allergy, does well with precontrast prep with hydrocortisone and Benadryl.
Due to severe pain, history of recurrent somewhat smoldering diverticulitis, I suspect we will find similar findings on CAT scan and patient will likely require acute hospitalization with resumption of IV antibiotics.
Chronic conditions affecting care: Other ( Recurrent sigmoid diverticulitis)
*Radiology
Radiology exam reviewed: preliminary read by ED provider (Obstruction series shows nonspecific bowel gas and stool. No evidence of obstruction nor free air. Clear lung duran.) and radiology read reviewed (CAT scan shows recurrent descending colon
diverticulitis. No evidence of abscess nor free air)
*Pulse Oximetry
Patient hypoxic: no
*Critical Care Note
Total Time (30-74mins, 75-104mins- exclusive of procedures): Not Applicable
Update Note
Update Note:
CAT scan shows acute diverticulitis of descending colon. No evidence of abscess nor free air.
Will initiate ertapenem and plan to admit to hospitalist service.
We discussed pain medication options. Patient declines Dilaudid, morphine but is agreeable to liquid oxycodone.
Will continue IV fluids and otherwise maintain n.p.o. at least for this morning.
ED Attending Note
-
Portions of this chart may have been created with voice recognition software.� Occasional wrong word or��sound alike� substitutions may have occurred due to the inherent limitations of voice recognition software.
Discharge Plan
Departure
Patient Disposition: Admit
Date of Disposition: 10/26/24
Time of Disposition: 04:27
Admit to: Med/Surg
Admit to doctor: Dwayne
Presentation/result/management discussed w/ accepting MD/DO: Hospitalist
Patient with high blood pressure during this ER visit?: No
Discharge Problem:
recurrent diverticulitis
Interventions
Interventions:
*Risk Screen - Suicide Last Done: 10/25/24 18:44
*General Assessment Last Done: 10/25/24 22:00
*Neglect/Abuse Screening Last Done: 10/25/24 22:00
ED- Fall Risk Assessment Last Done: 10/25/24 22:00
*ED COVID-19 Vaccine History Last Done: 10/25/24 22:00
FR-Efvaks-Zpnvjqhhlg Assessment Last Done: 10/25/24 22:00
[2024-10-26] MEDS: PERCOCET 5/325 1 TABLET PO (01:33)
[2024-10-26] MEDS: SOLU-CORTEF 200 MG IV (01:36)
[2024-10-26] MEDS: BENADRYL 50 MG IV (01:36)
[2024-10-26] MEDS: NSS 1000 IV (01:40)
--- NOTE | 2024-10-26 05:28 | HPS.HSE ---
Family Physician
-
Family Physician: NOT KNOW UNKNOWN - PT DOES
Chief Complaint
-
Abd Pain
History of Present Illness
Patient is a 58y F with PMH significant for Sjogren's syndrome, chronic constipation and recent / recurrent episodes of sigmoid diverticulitis who presents to ED complaining of L flank / LLQ pain for the past two days. Patient has had recurrent
episodes of diverticulitis over the past several months (February, May, August). She was last admitted 09/20 - 09/27 and was discharged to home on ertapenem (last dose was 10/03/24). Patient has been tentatively scheduled for sigmoid resection on
11/08/24.
Patient states that she developed recurrent L sided abdominal / flank pain over the past 2 days. No fevers / chills. No N/V. No BM the past 24 hours.
Medical History
Past Medical History
Past Medical History: Reports Other
Additional Past Medical History:
Asthma
Gastroparesis
Thyroid nodule
Hiatal hernia
Fibromyalgia
Fatty liver disease
Venous insufficiency
Obstructive sleep apnea
Hyperlipidemia
Sigmoid diverticulitis
Chronic pain syndrome
Chronic fatigue syndrome
IBS with constipation
Osteopenia
Past Surgical History: Reports Other
Additional Past Surgical History:
Total abdominal hysterectomy
Appendectomy
Social History
Tobacco: Non-smoker
Alcohol: None
Drug: None
Family History
Family History: Not pertinent
Allergies / Home Medications
Allergies reflects when Allergies were last updated in [employer].
Home Medications with original date entered in [employer]
Allergy/Medication List:
Allergies
Allergy/AdvReac Type Severity Reaction Status Date / Time
cefadroxil [From Duricef] Allergy Hives Verified 10/25/24 18:44
cefuroxime [From Ceftin] Allergy Hives Verified 10/25/24 18:44
epinephrine Allergy heart races Verified 10/25/24 18:44
Iodinated Contrast Media Allergy FLUSHING, Verified 10/25/24 18:44
PALPITATIONS
latex Allergy Hives Verified 10/25/24 18:44
Home Medications
ketotifen fumarate 0.025 % (0.035 %) eye drops (Zaditor) 1 drp BOTH EYES Q48H Eye Condition 03/04/23
ergocalciferol (vitamin D2) 200 mcg/mL (8,000 unit/mL) oral drops 40,000 unit PO .WEEKLY Supplement 03/24/24
famotidine 20 mg tablet (Pepcid) 20 mg PO BID Gastrointestinal Issue 03/24/24
mometasone-formoterol HFA 100 mcg-5 mcg/actuation aerosol inhaler (Dulera) 1 - 2 puff inhalation BID Lung/Breathing Issues 03/24/24
fluticasone propionate 50 mcg/actuation nasal spray,suspension 1 spray intranasal BID Allergies 05/31/24
carboxymethylcellulose sodium 0.25 % eye drops (TheraTears) 1 drp BOTH EYES QIDPRN PRN irritated eyes 09/20/24
cetirizine 10 mg tablet (Zyrtec) 10 mg PO HS Allergies 09/20/24
estradiol 0.01% (0.1 mg/gram) vaginal cream (Estrace) 1 g vaginal .2XWEEK Hormonal Agent 09/20/24
fluoride (sodium) 1.1 % dental paste (PreviDent 5000 Booster Plus) 1 applic dental BID DENTAL 09/20/24
levalbuterol tartrate 45 mcg/actuation aerosol inhaler (Xopenex HFA) 2 inh inhalation R Q6HPRN PRN sob 09/20/24
polyethylene glycol 3350 17 gram oral powder packet (Miralax) 17 g PO QPM Constipation 09/20/24
acetaminophen 160 mg/5 mL oral elixir 480 mg (15 mL) PO Q6HPRN PRN mild pain/headache #118 mL 09/27/24
ondansetron 4 mg disintegrating tablet 4 mg PO Q6H nausea 10/26/24
Review of Systems
-
History Source: Patient
A 12 point ROS was completed and negative except as noted: Yes
Constitutional: Reports Fatigue; Denies Fever or Chills
Respiratory: Denies Cough or Trouble Breathing
Cardiac: Denies Chest Pain or Palpitations
Abdomen/GI: Reports Abdominal Pain and Constipated; Denies Nausea or Vomiting
Musculoskeletal: Denies Joint Pain or Edema
Neurological: Denies Dizzy or Headache
Physical Exam
Vital Signs
Vital Signs
Temp Pulse Resp BP Pulse Ox
98.5 F 91 22 119/83 98
10/25/24 18:44 10/25/24 21:41 10/25/24 21:41 10/25/24 21:41 10/25/24 21:41
Physical Exam
General: Other (58y F in mild distress due to pain.)
HEENT: Moist mucous membranes and PERRLA
Respiratory: Clear; No Wheezes, Rales or Rhonchi
Cardiac: S1/S2 and Regular Rhythm; No Murmur
GI: Soft, Non Distended, Normal Bowel Sounds and Other (Pos tenderness L lateal abdomen / LLQ without rebound or guarding.)
Musculoskeletal: No Clubbing, No Cyanosis and Other (Trace edema b/l LEs.)
Neuro: AO x 3
Laboratory Results
-
10/25/24 19:06
10/25/24 19:06
Laboratory Results
Lactic Acid Cancelled 10/25/24 23:00
Total Bilirubin 0.4 mg/dl (0.2-1.3) 10/25/24 19:06
AST 26 U/L (14-36) 10/25/24 19:06
ALT 18 U/L (0-35) 10/25/24 19:06
Alkaline Phosphatase 109 U/L (38-126) 10/25/24 19:06
Impression/Plan
-
A/P: Patient is a 58y F with PMH significant for diverticulitis, Sjogren's syndrome and COPD / asthma who presents to ED complaining of recurrent LLQ abdominal pain.
Recurrent Sigmoid Diverticulitis
- Admit for further evaluation and treatment.
- Patient with recurrent pain and CT shows acute inflammation / sigmoid diverticulitis.
- Afebrile, no leukocytosis, etc.
- Resume ertapenem for now. ID eval for additional recommendations.
- CRS consulted. Sched for resection 11/08/24 at present.
- NPO, IVFs, supportive care / pain control.
- Follow for clinical improvement.
Asthma / COPD without Acute Exacerbation
- Stable. Continue current inhaled medications.
- Follow for any changes.
Sjogren's Syndrome
Sicca Syndrome
- Stable. Continue supportive care, eye drops, etc.
DVT Prophylaxis: SCDs
Code Status: Full
[2024-10-26] MEDS: ROXICODONE ORAL SOLUTION 5 MG PO ×2 (05:32→21:25)
--- NOTE | 2024-10-26 06:10 | EDRN ---
Patient hypervigilant about all treatments, medications, activities, plan of care. Patient has specific requests that need to be fulfilled to establish certain goals. Oral medications need to be liquid or cut to as small size such as quarters with
room temperature water. Stats she has a swallowing disorder and pills get stuck. Cold liquids cause spasms in her throat. Patient sipped 5ml liquid oxycodone in 3 small sips and followed each with large amount of water. No complications taking the
liquid. The Percocet cut in quarters needed 16 oz room temperature water. Hospitalist made aware.
[2024-10-26] MEDS: INVANZ 60 MG IV (07:02)
[2024-10-26] MEDS: LR 1000 IV (10:00)
[2024-10-26] MEDS: NON-FORMULARY ITEM 1 UNIT PO (10:12)
[2024-10-26] MEDS: NON-FORMULARY ITEM INH ×2 (11:01→21:13)
--- NOTE | 2024-10-26 12:03 | CON.CRS ---
Consultation
-
Date/Time Consultation Requested: 10/26/2024, 01:37
Date/Time Consultation Performed: 10/26/2024, 08:50
Requesting Provider: Arcadio Rice Do
Performing Provider: Dillon Wilson MD
Reason for Consultation: diverticulitis
Medical History
-
Chief Complaint: abdominal pain
History of Present Illness:
58yo female with a significant past medical history of multiple attacks of diverticulitis, presents to [place] ER after calling our clinic due to several days of left sided pain. The patient states the pain is unmanageable and she is unable to
eat anything at home. She denies any fevers or chills. She was a little nauseous yesterday which resolved. Her last bowel movement was about 24 hours ago. She was recently hospitalized from 09/20/24 - 09/27/24 for an attack of uncomplicated sigmoid
diverticulitis. Due to recurrent attacks, she was discharged home with IV Invanz under the direction of Infectious Disease. She had been doing well until a few days ago. She is currently scheduled for a robotic sigmoidectomy with Dr. Wilson on
11/08/24.
In the ER her WBC is 8.4. Her vitals have remained normal. CT A/P shows an approximately 6 cm in length segment of acute diverticulitis in the distal descending colon. Given these findings, we have been consulted for further surgical opinion.
Past Medical History
Past Medical History: Other (GERD; endometriosis; diverticulitis; hyperlipidemia; gastroparesis; IBS; MARIE; chronic fatigue; migraines; sinusitis; lumbar spine issues; hiatal hernia; sleep apnea; asthma)
Past Surgical History: Other (Laparoscopic lysis of adhesions; hysterectomy for endometriosis; appendectomy)
Social History
Tobacco: Non-Smoker
Alcohol: Occasional
Living: With Family
Family History
Family History: Reviewed & Not Pertinent
Allergies / Home Medications
Allergy/AdvReac Type Severity Reaction Status Date / Time
cefadroxil [From Duricef] Allergy Hives Verified 10/25/24 18:44
cefuroxime [From Ceftin] Allergy Hives Verified 10/25/24 18:44
epinephrine Allergy heart races Verified 10/25/24 18:44
Iodinated Contrast Media Allergy FLUSHING, Verified 10/25/24 18:44
PALPITATIONS
latex Allergy Hives Verified 10/25/24 18:44
�Medication �Instructions �Recorded �Confirmed �Type
ketotifen fumarate 0.025 % (0.035 1 drp BOTH EYES Q48H Eye Condition 03/04/23 10/26/24 History
%) eye drops (Zaditor)
ergocalciferol (vitamin D2) 200 40,000 unit PO .WEEKLY Supplement 03/24/24 10/26/24 History
mcg/mL (8,000 unit/mL) oral drops
famotidine 20 mg tablet (Pepcid) 20 mg PO BID Gastrointestinal Issue 03/24/24 10/26/24 History
mometasone-formoterol HFA 100 1 - 2 puff inhalation BID 03/24/24 10/26/24 History
mcg-5 mcg/actuation aerosol Lung/Breathing Issues
inhaler (Dulera)
fluticasone propionate 50 1 spray intranasal BID Allergies 05/31/24 10/26/24 History
mcg/actuation nasal
spray,suspension
carboxymethylcellulose sodium 0.25 1 drp BOTH EYES QIDPRN PRN 09/20/24 10/26/24 History
% eye drops (TheraTears) irritated eyes
cetirizine 10 mg tablet (Zyrtec) 10 mg PO HS Allergies 09/20/24 10/26/24 History
estradiol 0.01% (0.1 mg/gram) 1 g vaginal .2XWEEK Hormonal Agent 09/20/24 10/26/24 History
vaginal cream (Estrace)
fluoride (sodium) 1.1 % dental 1 applic dental BID DENTAL 09/20/24 10/26/24 History
paste (PreviDent 5000 Booster Plus)
levalbuterol tartrate 45 2 inh inhalation R Q6HPRN PRN sob 09/20/24 10/26/24 History
mcg/actuation aerosol inhaler
(Xopenex HFA)
polyethylene glycol 3350 17 gram 17 g PO QPM Constipation 09/20/24 10/26/24 History
oral powder packet (Miralax)
acetaminophen 160 mg/5 mL oral 480 mg (15 mL) PO Q6HPRN PRN mild 09/27/24 10/26/24 Rx
elixir pain/headache #118 mL
ondansetron 4 mg disintegrating 4 mg PO Q6H nausea 10/26/24 10/26/24 History
tablet
Review of Systems
-
History Source: Patient
Abdomen/GI: Abdominal Pain and Anorexia
A 10 point review of systems was completed, and was negative except as per HPI.
Physical Exam
Vital Signs
Temp 98.5 F 10/25/24 18:44
Pulse 60 10/26/24 10:06
Resp Rate 20 10/26/24 04:00
Blood pressure 98/64 10/26/24 10:06
SaO2 99 10/26/24 10:06
10/25/24 10/26/24 10/27/24
06:59 06:59 06:59
Actual Weight 69.264 kg 69.264 kg
Lab Results / Allergies
10/25/24 19:06
10/25/24 19:06
WBC 8.4 10^3/uL (4.8-10.8) 10/25/24 19:06
Hgb 12.9 g/dL (12.0-16.0) 10/25/24 19:06
Hct 37.8 % (37.0-47.0) 10/25/24 19:06
Plt Count 341 10^3/uL (130-400) 10/25/24 19:06
Abs Immat Gran (auto) 0.0 10^3/uL (0-0.05) 10/25/24 19:06
Neutrophils % 73.7 % (42.2-75.2) 10/25/24 19:06
Allergy/AdvReac Type Severity Reaction Status Date / Time
cefadroxil [From Duricef] Allergy Hives Verified 10/25/24 18:44
cefuroxime [From Ceftin] Allergy Hives Verified 10/25/24 18:44
epinephrine Allergy heart races Verified 10/25/24 18:44
Iodinated Contrast Media Allergy FLUSHING, Verified 10/25/24 18:44
PALPITATIONS
latex Allergy Hives Verified 10/25/24 18:44
Physical Exam
General: Well Developed, Well Nourished and No Apparent Distress
GI: Soft and Tender (LLQ- mild/moderate)
Neuro: AO x 3
Psych: Calm
Data Reviewed
-
CT Scan: Image Personally Visualized and interpreted, Report Reviewed by me and Discussed with Physician
Labs: Labs Reviewed by me, Discussed with Physician and Discussed with Patient
Old Records: Reviewed
Assessment / Plan
-
Assessment: 58 yo female with a PMH of multiple attacks of sigmoid diverticulitis, recently hospitalized a month ago for uncomplicated sigmoid diverticulitis discharged on IV Invanz and scheduled for surgery 11/08, presents to the ER complaining of
left sided pain and found to have recurrent uncomplicated sigmoid diverticulitis
Plan:
-Okay for clears with ensure
-Continue IVFs
-No plans for surgery during this admission unless she were to worsen. Her scheduled surgery date is November [address] Wilson and plan is to keep that date.
-OOB as tolerated
-ID consult for antibiotics
-Discussed with patient
--- NOTE | 2024-10-26 13:07 | W.PN.HOSP.TC ---
Today's Communication/Plan
-
see outlined plan
Assessment / Plan
Assessment / Plan
Assessment:
Recurrent Sigmoid Diverticulitis
- Patient with recurrent pain and CT shows acute inflammation / sigmoid diverticulitis.
- Continue ertapenem, day 2. ID eval for additional recommendations.
- diet: clears
- pain control, anti-emetics
- Scheduled for resection 11/08/24 at present and date will be kept per colorectal service.
Asthma/COPD without Acute Exacerbation
- Stable. Continue current inhaled medications.
- Follow for any changes.
Sjogren's Syndrome
Sicca Syndrome
- Stable. Continue supportive care, eye drops, etc.
Anxiety d/o with adjustment disorder
Chronic gastritis - cont Pepcid
DVT Prophylaxis: SCDs
Code Status: Full
Anticipated Discharge: 24 - 48 hours
Subjective/Interval History
-
Date of Service: October 26, 2024
reports some left sided pain and nausea
asking for clears
Objective Data
-
Vital Signs:
Vital Signs
Temp Pulse Resp BP Pulse Ox
98.5 F 60 20 98/64 99
10/25/24 18:44 10/26/24 10:06 10/26/24 04:00 10/26/24 10:06 10/26/24 10:06
Physical Exam
-
General: No Apparent Distress
HEENT: Normocephalic and Atraumatic
Respiratory: Negative Wheezes
Cardiac: Regular Rhythm and S1/S2
GI: Tender (LLQ- mild/moderate)
Genito-urinary: No Costovertebral Tender
Neuro: AO x 3
Hematologic / Lymphatic: No Lymphadenopathy
Psych: Calm
Data Reviewed
-
Total Time Spent with Patient (in minutes): 45
Labs: Labs Reviewed by me
[2024-10-26] MEDS: NON-FORMULARY ITEM 1 UNIT NASAL (13:18)
--- NOTE | 2024-10-26 14:58 | CON.ID ---
Consultation
-
Date/Time Consultation Requested: 10/26/2024 0724
Date/Time Consultation Performed: 10/26/2024 1440
Requesting Provider: Dr. Rice
Performing Provider: Dr. Sullivan
Reason for Consultation: Recurrent diverticulitis
Chief Complaint / Past History
History of Present Illness
Saida Cannon is a 58-year-old female being evaluated at the request of Dr. Mireles in regards to diverticulitis. History is obtained from chart review, along with patient interview, and review of old records contained in the hospital EMR system.
The patient is well-known to the infectious disease service, having been seen in late August 2020 for for recurrent diverticulitis. At that point in time she was discharged to home to complete a 14-day course of antibiotics, receiving ertapenem
in the OID.
She reports she did well at the end of her therapy, but over the past several days has had increasing left sided abdominal pain, with intermittent discomfort across her abdomen. She reports chills, but no fevers. She denies any diarrhea. Because
of the worsening pain she came to the emergency room for further evaluation, and imaging revealed recurrent acute diverticulitis of the descending colon. She has been restarted on ertapenem at this time.
Past History
Additional Past Medical History:
Diverticulitis
Sjogren syndrome
Chronic constipation
Chronic nausea
Endometriosis
Gastroparesis
IBS
Chronic fatigue
Interstitial cystitis
Rosacea
Additional Past Surgical History:
Hysterectomy
Allergy History:
cefadroxil [From Duricef] Allergy (Verified 10/25/24 18:44)
Hives
cefuroxime [From Ceftin] Allergy (Verified 10/25/24 18:44)
Hives
epinephrine Allergy (Verified 10/25/24 18:44)
heart races
Iodinated Contrast Media Allergy (Verified 10/25/24 18:44)
FLUSHING, PALPITATIONS
latex Allergy (Verified 10/25/24 18:44)
Hives
Medications Reviewed: Yes
Current Antibiotics:
Ertapenem
Social History
Tobacco: Non-Smoker
Alcohol: None
Drug: None
Personal:
Living: With Family
Employment: Employed
Family History
Family History: Not Pertinent
Review of Systems
Vital Signs
Temp Pulse Resp BP Pulse Ox
98.5 F 60 20 98/64 99
10/25/24 18:44 10/26/24 10:06 10/26/24 04:00 10/26/24 10:06 10/26/24 10:06
Physical Exam
Physical Exam
Constitutional: No Acute Distress, Comfortable and Non-toxic
Eyes: Pupils Equal, Pupils Round, No Conjunctival Hemorrhage and Sclera Anicteric
Oral: No Thrush and No Ulcers
Cardiovascular: Regular Rate and S1/S2; Negative S3/S4
Pulmonary: Clear; Negative Wheezes, Rales or Rhonchi
Gastrointestinal: Soft, Tender (mild; lower quadrants; L>R), Distended (mild), Normal Bowel Sounds, No Rebound and No Guarding
Extremities: Edema; Negative Cyanosis or Erythema
Neurological: Awake and Alert
Lab / Diagnostic Study Results
10/25/24 19:06
10/25/24 19:06
Abs Immat Gran (auto) 0.0 10^3/uL (0-0.05) 10/25/24 19:06
Absolute Neuts (auto) 6.2 10^3/uL (1.4-6.5) 10/25/24 19:06
Absolute Lymphs (auto) 1.4 10^3/uL (1.2-3.4) 10/25/24 19:06
Absolute Monos (auto) 0.7 10^3/uL (0.1-0.6) H 10/25/24 19:06
Absolute Basos (auto) 0.0 10^3/uL (0-0.2) 10/25/24 19:06
Immature Gran % 0.4 % (0-0.5) 10/25/24 19:06
Neutrophils % 73.7 % (42.2-75.2) 10/25/24 19:06
Lymphocytes % 16.3 % (20.5-51.1) L 10/25/24 19:06
Monocytes % 8.2 % (1.7-9.3) 10/25/24 19:06
Eosinophils % 1.0 % (0-6) 10/25/24 19:06
Basophils % 0.4 % (0-2) 10/25/24 19:06
Lactic Acid Cancelled 10/25/24 23:00
Microbiology Results
Imaging:
10/26/2024 CT abdomen/pelvis: There is an approximately 6 cm in length segment of acute diverticulitis in the distal descending colon
Assessment / Plan
Recurrent Diverticulitis
Nausea
Sjogren syndrome
Chronic constipation
Chronic nausea
Endometriosis
Gastroparesis
IBS
Chronic fatigue
Interstitial cystitis
Recommendations:
Continue with current course of ertapenem. Patient reports that she has tentative surgery for November 04. Would continue through that time..
Monitor white count and temperature curve.
Can set patient up for outpatient infusion as time of discharge nears.
Monitor white count and temperature curve.
Monitor p.o. intake.
--- NOTE | 2024-10-26 19:18 | EDRN ---
iv in place. pt aox3. ambulatory independently. pt is anxious. Pt was reassured and informed about her transfer upstairs. Pt was insistent on being placed in a private room her 'doctor gave her orders due to her immune system and upcoming surgery'.
clear tray provided . belongings collected and placed on stretcher for transfer.
[2024-10-26] MEDS: NON-FORMULARY ITEM 20 UNIT PO (21:28)
[2024-10-26] MEDS: NON-FORMULARY ITEM NASAL (21:30)
[2024-10-26] MEDS: LR IV (22:54)
[2024-10-27] MEDS: LR 1000 IV (01:00)
[2024-10-27 02:31] VITALS: BP 122/68
[2024-10-27 05:27] LABS: Hematocrit 31.6 % (37.0-47.0); Hemoglobin 10.9 g/dL (12.0-16.0); Mean Corp Hgb Conc. 34.5 g/dL (33.0-37.0); Mean Corpuscular Hgb 30.4 pg (27.0-31.0); Mean Corpuscular Volume 88.3 fL (81.0-99.0); Mean Platelet Volume 9.7 fL (7.4-10.4); Platelet Count 260 10^3/uL (130-400); Red Blood Cell Count 3.58 10^6/uL (4.20-5.40); Red Cell Dist. Width 12.5 % (11.5-14.5); White Blood Cell Count 5.6 10^3/uL (4.8-10.8)
[2024-10-27 05:44] LABS: Blood Urea Nitrogen 13 mg/dl (7-17); Calcium 9.2 mg/dl (8.4-10.2); Carbon Dioxide 26 mmol/L (22-30); Chloride 104 mmol/L (98-107); Estimated Creatinine Clearance 87 ml/min; Glucose 92 mg/dl (70-99); Potassium 3.8 mmol/L (3.5-5.1); Sodium 139 mmol/L (135-145); eGFR > 60.00
[2024-10-27] MEDS: INVANZ 60 MG IV (06:06)
--- NOTE | 2024-10-27 07:21 | W.PN.CRS1 ---
Today's Communication / Plan
-
Diet advanced to low residue
Abx (as per ID) until surgery 09/07.
Dispo as per primary team.
Assessment/Plan
-
58 yo female with recurrent uncomplicated diverticulitis
AFVSS
WBC normal
Nausea most likely medication related (she has many intolerances)
09/[address] without abscess/perforation, sigmoid diverticulitis again noted but with some minimal improvement
--Continue ABX as per ID (surgery scheduled for 09/07/25)
--Suppositories PRN. Continue miralax
--diet advanced to low residue.
--Analgesics prn (she hasn't taken any)
--Medical management as per primary team
--No indication for surgery at this time. Will sign off. Please contact us if further issues arise.
Subjective Data
Subjective Data
Date of Service: October 27, 2024
She seems very agitated this morning complaining of nausea, her room, no food, clear liquids taste terrible, and no attention from the nursing staff. She wants to go home. She states her pain is about the same. No bm.
Objective Data
-
Vital Signs
Temp Pulse Resp BP Pulse Ox
98.7 F 56 14 122/68 100
10/26/24 19:11 10/27/24 02:31 10/27/24 02:31 10/27/24 02:31 10/27/24 02:31
Intake & Output
10/26/24 10/27/24 10/28/24
06:59 06:59 06:59
Intake Total 850 / 850
Balance 850 / 850
Intake:
IV fluids (Total) 800 / 800
LR 800 / 800
IV piggybacks 50 / 50
LR 50 / 50
Other:
Number of unmeasured voidings 2
Lab Results
10/27/24 05:07
10/27/24 05:07
Physical Exam
-
General: No Acute Distress
Abdomen: Soft, Non Distended and Non Tender
[2024-10-27 08:02] LABS: Erythrocyte Sed Rate 34 mm/hour (0-20)
[2024-10-27] MEDS: NON-FORMULARY ITEM 1 UNIT INH (08:05)
[2024-10-27] MEDS: NON-FORMULARY ITEM 1 UNIT NASAL (08:05)
[2024-10-27] MEDS: NON-FORMULARY ITEM PO (08:06)
[2024-10-27 08:15] VITALS: BP 124/88
--- NOTE | 2024-10-27 08:53 | CM ---
Addendum entered by Beryl Jo RN 10/27/24 12:37:
Patient will come to the emergency room on 10/28 for her first antibiotic dose. Plan for patient to continue with OID at [facility]. OID has script as per ID outpatient office.
CM referred patient to [facility] for continued VN.
PLAN: Outpatient OID, and [facility].
Addendum entered by Beryl Jo RN 10/27/24 09:51:
ADDIE updated Lakisha Monroy with discharge planning barriers.
Addendum entered by Beryl Jo RN 10/27/24 09:25:
ADDIE spoke with Judi tire care manager to update on patient's discharge planning options.
Original Note:
ADDIE spoke with OID. THey are unable to start patient tomorrow as it's the weekend. ADDIE requested exception so patient can start tomorrow in the emergency room. ADDIE is awaiting call back from OID to confirm.
[2024-10-27] MEDS: ZADITOR 1 DROP BOTH EYES (09:34)
[2024-10-27 11:25] VITALS: BP 129/84
[2024-10-27] MEDS: ROXICODONE 5 MG PO (11:29)
--- NOTE | 2024-10-27 12:18 | W.PN.HOSP.TC ---
Today's Communication/Plan
-
dc home with midline and outpatient abx leading up to colorectal sigmoid resection 11/08
Assessment / Plan
Assessment / Plan
Assessment:
Recurrent Sigmoid Diverticulitis
- Patient with recurrent pain and CT shows acute inflammation/sigmoid diverticulitis.
- Continue ertapenem, day 3 per ID via midline. OID for ongoing treatments leading up to 11/08 resection with CRS.
- diet: LRD
- pain control with oxycodone, Zofran prn
Asthma/COPD without Acute Exacerbation
- Stable. Continue current inhaled medications.
- Follow for any changes.
Sjogren's Syndrome
Sicca Syndrome
- Stable. Continue supportive care, eye drops, etc.
Anxiety d/o with adjustment disorder
Chronic gastritis - cont Pepcid
DVT Prophylaxis: SCDs
Code Status: Full
More than 30 minutes spent in discharge including
Final examination of the patient
Summarizing hospital stay
Instructions for continuing care to all relevant caregivers
Preparation of discharge records, prescriptions, and referral forms
Total time spent (in minutes):41
Anticipated Discharge: Today
Subjective/Interval History
-
Date of Service: October 27, 2024
no new complaints
tolerating LRD
Objective Data
-
Labs:
Laboratory Results
10/27/24
05:07
WBC 5.6
Hgb 10.9 L
Hct 31.6 L
Plt Count 260 D
Sodium 139
Potassium 3.8
Chloride 104
Carbon Dioxide 26
BUN 13
Creatinine 0.6
Glucose 92
Calcium 9.2
Vital Signs:
Vital Signs
Temp Pulse Resp BP Pulse Ox
98.4 F 70 16 129/84 96
10/27/24 11:25 10/27/24 11:25 10/27/24 11:25 10/27/24 11:25 10/27/24 11:25
I&O
10/26/24 10/27/24 10/28/24
06:59 06:59 06:59
Intake Total 850 / 850
Balance 850 / 850
Physical Exam
-
General: No Apparent Distress
HEENT: Normocephalic and Atraumatic
Respiratory: Negative Wheezes
Cardiac: Regular Rhythm and S1/S2
GI: Soft and Nontender
Genito-urinary: No Costovertebral Tender
Neuro: AO x 3
Hematologic / Lymphatic: No Lymphadenopathy
Psych: Calm
Data Reviewed
-
Total Time Spent with Patient (in minutes): 42
Labs: Labs Reviewed by me
--- NOTE | 2024-10-27 12:25 | W.DS.TRANS ---
DC Summary - Health Information Manager
-
Discharge Instructions:
Discharge Diagnosis/Procedures recurrent diverticulitis
Diet Low Residue
Activity As tolerated
Instructions:
Stand-Alone Forms:
Changes to Home Medications: No
Discharge Medications:
DC Medications w/original date entered in [facility]
ketotifen fumarate 0.025 % (0.035 %) eye drops (Zaditor) 1 drp BOTH EYES Q48H Eye Condition 03/04/23
ergocalciferol (vitamin D2) 200 mcg/mL (8,000 unit/mL) oral drops 40,000 unit PO FR Supplement 03/24/24
famotidine 20 mg tablet (Pepcid) 20 mg PO BID Gastrointestinal Issue 03/24/24
mometasone-formoterol HFA 100 mcg-5 mcg/actuation aerosol inhaler (Dulera) 1 - 2 puff inhalation BID Lung/Breathing Issues 03/24/24
fluticasone propionate 50 mcg/actuation nasal spray,suspension 1 spray intranasal BID Allergies 05/31/24
carboxymethylcellulose sodium 0.25 % eye drops (TheraTears) 1 drp BOTH EYES QIDPRN PRN irritated eyes 09/20/24
cetirizine 10 mg tablet (Zyrtec) 10 mg PO HS Allergies 09/20/24
estradiol 0.01% (0.1 mg/gram) vaginal cream (Estrace) 1 applic vaginal WESA Hormonal Agent 09/20/24
fluoride (sodium) 1.1 % dental paste (PreviDent 5000 Booster Plus) 1 applic dental BID DENTAL 09/20/24
levalbuterol tartrate 45 mcg/actuation aerosol inhaler (Xopenex HFA) 2 inh inhalation R Q6HPRN PRN sob 09/20/24
polyethylene glycol 3350 17 gram oral powder packet (Miralax) 17 g PO BID Constipation 09/20/24
acetaminophen 160 mg/5 mL oral elixir 480 mg (15 mL) PO Q6HPRN PRN mild pain/headache #118 mL 09/27/24
Ertapenem [Invanz] 1,000 mg 120 mls/hr IV Q24H 10/27/24
ondansetron 4 mg disintegrating tablet 4 mg PO Q6HPRN PRN nausea #20 tabs 10/27/24
oxycodone 5 mg tablet 5 mg PO Q4HPRN PRN severe pain #20 tabs 10/27/24
Home Medication Changes
Pending Results: No
Total time spent discharging patient (in min): 41
--- NOTE | 2024-10-27 12:48 | VATNOTE ---
10/27 Midline ordered for abx treatment. RT SL 4FR MIDLINE placed under sterile technique and pressure dressing applied. TCL 16cm ECL0 UAC 29cm. Patient educated on midline maintenance. Dressing to be changed tomorrow.
[2024-10-27] MEDS: LR IV (13:25)
[2024-10-27 15:29] VITALS: BP 98/61
== END 2024-10-27 16:37 | disposition home health service (06) | DRG 392 ==
LOC: ED 05:37
PROVIDERS: Physician Assistant Medical; ADMITTING PHYSICIAN Hospitalist; ATTENDING PHYSICIAN Internal Medicine; CONSULT PHYSICIAN Internal Medicine Infectious Disease; CONSULT PHYSICIAN Surgery; EMERGENCY PHYSICIAN Emergency Medicine
DX: K57.32 Diverticulitis of large intestine without perforation or abscess without bleeding (principal); E78.00 Pure hypercholesterolemia, unspecified; G43.909 Migraine, unspecified, not intractable, without status migrainosus; G47.33 Obstructive sleep apnea (adult) (pediatric); K31.84 Gastroparesis; M19.90 Unspecified osteoarthritis, unspecified site; K58.1 Irritable bowel syndrome with constipation; M35.00 Sjogren syndrome, unspecified; K59.09 Other constipation; E04.1 Nontoxic single thyroid nodule; K44.9 Diaphragmatic hernia without obstruction or gangrene; M79.7 Fibromyalgia; K76.0 Fatty (change of) liver, not elsewhere classified; J44.9 Chronic obstructive pulmonary disease, unspecified; I87.2 Venous insufficiency (chronic) (peripheral); G89.4 Chronic pain syndrome; G93.32 Myalgic encephalomyelitis/chronic fatigue syndrome; K21.9 Gastro-esophageal reflux disease without esophagitis; N80.9 Endometriosis, unspecified; F43.22 Adjustment disorder with anxiety; K29.50 Unspecified chronic gastritis without bleeding; M85.80 Other specified disorders of bone density and structure, unspecified site; Z87.01 Personal history of pneumonia (recurrent); Z87.440 Personal history of urinary (tract) infections; Z87.19 Personal history of other diseases of the digestive system; Z90.710 Acquired absence of both cervix and uterus; Z90.49 Acquired absence of other specified parts of digestive tract; Z88.8 Allergy status to other drugs, medicaments and biological substances; Z88.1 Allergy status to other antibiotic agents; Z91.041 Radiographic dye allergy status; Z91.040 Latex allergy status
CPT/HCPCS: 74022; 74177; 80048; 80053; 83605; 85025; 85027; 85652; 96361; 96365; 96375; 99285; J1335; Q9967

== ENCOUNTER 2024-11-07 10:19 | Outpatient (RCR) | payer MEDICARE, OTHER, SELFPAY ==
[2024-10-28 07:50] VITALS: BP 130/74
[2024-10-28] MEDS: INVANZ 60 MG IV (08:20)
[2024-10-29 07:37] VITALS: BP 132/82
[2024-10-29] MEDS: INVANZ 60 MG IV (07:38)
[2024-10-30 10:38] VITALS: BP 142/91
[2024-10-30] MEDS: INVANZ 60 MG IV (10:45)
[2024-10-30 10:47] VITALS: BP 137/81
[2024-10-30 12:22] LABS: % Basophils 0.9 % (0-2); % Eosinophils 2.1 % (0-6); % Immature Granulocytes 0.2 % (0-0.5); % Lymphocytes 29.3 % (20.5-51.1); % Monocytes 11.3 % (1.7-9.3); % Neutrophils 56.2 % (42.2-75.2); Absolute Eosinophils 0.1 10^3/uL (0-0.7); Absolute Lymphocytes 1.4 10^3/uL (1.2-3.4); Absolute Monocytes 0.5 10^3/uL (0.1-0.6); Absolute Neutrophils 2.6 10^3/uL (1.4-6.5); Hematocrit 36.3 % (37.0-47.0); Hemoglobin 12.1 g/dL (12.0-16.0); Mean Corp Hgb Conc. 33.3 g/dL (33.0-37.0); Mean Corpuscular Hgb 29.3 pg (27.0-31.0); Mean Corpuscular Volume 87.9 fL (81.0-99.0); Mean Platelet Volume 9.3 fL (7.4-10.4); Platelet Count 388 10^3/uL (130-400); Red Blood Cell Count 4.13 10^6/uL (4.20-5.40); Red Cell Dist. Width 12.3 % (11.5-14.5); White Blood Cell Count 4.7 10^3/uL (4.8-10.8)
[2024-10-30 13:01] LABS: Blood Urea Nitrogen 13 mg/dl (7-17); Calcium 9.3 mg/dl (8.4-10.2); Carbon Dioxide 28 mmol/L (22-30); Chloride 102 mmol/L (98-107); Glucose 75 mg/dl (70-99); Sodium 141 mmol/L (135-145); eGFR > 60.00
[2024-10-31 10:30] VITALS: BP 123/66
[2024-10-31] MEDS: INVANZ 60 MG IV (10:37)
[2024-10-31 11:20] VITALS: BP 129/80
[2024-11-01] MEDS: INVANZ 60 MG IV (10:25)
[2024-11-01 10:36] VITALS: BP 136/76
[2024-11-02] MEDS: INVANZ 60 MG IV (11:27)
[2024-11-02 11:36] VITALS: BP 122/56
[2024-11-03 10:56] VITALS: BP 113/66
[2024-11-03] MEDS: INVANZ 60 MG IV (10:57)
[2024-11-04] MEDS: INVANZ 60 MG IV (08:17)
[2024-11-04 08:22] VITALS: BP 139/68
[2024-11-05] MEDS: INVANZ 60 MG IV (10:37)
[2024-11-05 10:54] VITALS: BP 115/74
[2024-11-06 10:32] VITALS: BP 124/82
[2024-11-06] MEDS: INVANZ 60 MG IV (10:57)
[2024-11-06 12:00] LABS: % Basophils 0.8 % (0-2); % Eosinophils 1.5 % (0-6); % Lymphocytes 25.7 % (20.5-51.1); % Monocytes 10.5 % (1.7-9.3); % Neutrophils 61.5 % (42.2-75.2); Absolute Eosinophils 0.1 10^3/uL (0-0.7); Absolute Lymphocytes 1.3 10^3/uL (1.2-3.4); Absolute Monocytes 0.6 10^3/uL (0.1-0.6); Absolute Neutrophils 3.2 10^3/uL (1.4-6.5); Hematocrit 37.9 % (37.0-47.0); Hemoglobin 12.7 g/dL (12.0-16.0); Mean Corp Hgb Conc. 33.5 g/dL (33.0-37.0); Mean Corpuscular Hgb 29.6 pg (27.0-31.0); Mean Corpuscular Volume 88.3 fL (81.0-99.0); Platelet Count 376 10^3/uL (130-400); Red Blood Cell Count 4.29 10^6/uL (4.20-5.40); Red Cell Dist. Width 12.7 % (11.5-14.5); White Blood Cell Count 5.2 10^3/uL (4.8-10.8)
[2024-11-06 12:25] LABS: INR 0.99; PT 13.4 Sec (11.4-14.6)
[2024-11-06 12:26] LABS: APTT 30.9 Sec (23.4-35.0)
[2024-11-06 12:31] LABS: ALT (SGPT) 25 U/L (0-35); AST (SGOT) 28 U/L (14-36); Albumin 4.5 g/dl (3.5-5.0); Alkaline Phosphatase 105 U/L (38-126); Blood Urea Nitrogen 17 mg/dl (7-17); Calcium 9.5 mg/dl (8.4-10.2); Carbon Dioxide 29 mmol/L (22-30); Chloride 100 mmol/L (98-107); Glucose 75 mg/dl (70-99); Potassium 4.2 mmol/L (3.5-5.1); Sodium 138 mmol/L (135-145); Total Bilirubin 0.4 mg/dl (0.2-1.3); Total Protein 7.1 g/dl (6.3-8.2); eGFR > 60.00
[2024-11-06 13:47] LABS: Glycohemoglobin (HgbA1c) 5.6 % (4.0-5.6)
[2024-11-07 10:41] VITALS: BP 123/79
[2024-11-07] MEDS: INVANZ 60 MG IV (10:50)
== END 2024-11-08 11:40 | disposition home or self-care (01) ==
LOC: OID 10:19
PROVIDERS: ATTENDING PHYSICIAN Internal Medicine Infectious Disease; OTHER PHYSICIAN Surgery
DX: K57.32 Diverticulitis of large intestine without perforation or abscess without bleeding (principal)
CPT/HCPCS: 36415; 80048; 80053; 83036; 85025; 85610; 85730; 96365; J1335

== ENCOUNTER 2024-11-08 12:42 | Inpatient (IN) | payer MEDICARE, OTHER, SELFPAY ==
[2024-11-08] VITALS (11 sets, daily range): BP systolic 94–132; BP diastolic 51–86; BMI 23.3
[2024-11-08] MEDS: NORMOSOL-R/PLASMALYTE-A 1000 IV ×2 (12:05→23:58)
--- NOTE | 2024-11-08 13:04 | PTCARENOTE ---
Pt signed conditions of admission and requested a copy be made and given to her son pre-op- this was done. IV team RN assessed pt's right arm Midline IV prior to it being flushed with NSS and Normosol IV started pre-op via site per order.
--- NOTE | 2024-11-08 19:26 | W.IMMPOSTOP ---
Surgical Immed Post Op Note
-
Primary Surgeon: Dillon Wilson MD
C4 Planner: PRINCE Garay
Pre-op Diagnosis: Recurrent sigmoid/distal descending diverticulitis
Post-op Diagnosis: Same
Procedure Performed: Robotic sigmoid and distal descending colon resection with takedown of splenic flexure, intracorporeal anastmosis
Anesthesia Type: GET
Specimen / Cultures: Sigmoid colon and distal descending colon (suture is proximal)
Estimated Blood Loss: 15cc
Complications: None
Operative Findings: Mild inflammation of the distal descending colon and multiple sigmoid diverticula
28mm EEA
Normal leak test
Patient's son and daughter updated.
[2024-11-08] MEDS: SUBLIMAZE 50 MCG IV ×2 (19:51→20:10)
[2024-11-08] MEDS: ZOFRAN 4 MG IV (19:51)
[2024-11-08] MEDS: TORADOL 15 MG IV (19:54)
[2024-11-08] MEDS: DILAUDID 0.5 MG IV (21:01)
[2024-11-08] MEDS: COMPAZINE 5 MG IV (21:24)
[2024-11-08] MEDS: NSS (PRESERVATIVE FREE) 8 ML IV (21:26)
[2024-11-08] MEDS: PEPCID 20 MG IV (21:27)
[2024-11-08] MEDS: PEPCID PO (21:35)
[2024-11-08] MEDS: ROXICODONE 5 MG PO (23:11)
[2024-11-08] MEDS: ZADITOR 1 DROP BOTH EYES (23:16)
[2024-11-09] MEDS: DILAUDID 0.5 MG IV ×4 (00:58→15:25)
[2024-11-09] MEDS: TORADOL 15 MG IV ×4 (01:01→20:00)
[2024-11-09 03:40] VITALS: BP 117/63
[2024-11-09] MEDS: ZOFRAN 4 MG IV ×2 (05:17→12:27)
[2024-11-09 05:53] VITALS: BMI 23.9
[2024-11-09 06:57] LABS: % Basophils 0.1 % (0-2); % Immature Granulocytes 0.5 % (0-0.5); % Lymphocytes 1.9 % (20.5-51.1); % Monocytes 3.9 % (1.7-9.3); % Neutrophils 93.6 % (42.2-75.2); Absolute Immature Granulocytes 0.1 10^3/uL (0-0.05); Absolute Lymphocytes 0.3 10^3/uL (1.2-3.4); Absolute Monocytes 0.7 10^3/uL (0.1-0.6); Hematocrit 33.5 % (37.0-47.0); Hemoglobin 11.5 g/dL (12.0-16.0); Mean Corp Hgb Conc. 34.3 g/dL (33.0-37.0); Mean Corpuscular Hgb 30.3 pg (27.0-31.0); Mean Corpuscular Volume 88.2 fL (81.0-99.0); Mean Platelet Volume 9.9 fL (7.4-10.4); Nucleated Red Blood Cells % 0 %; Platelet Count 297 10^3/uL (130-400); White Blood Cell Count 17.1 10^3/uL (4.8-10.8)
[2024-11-09 07:21] LABS: Blood Urea Nitrogen 12 mg/dl (7-17); Calcium 8.8 mg/dl (8.4-10.2); Carbon Dioxide 25 mmol/L (22-30); Chloride 101 mmol/L (98-107); Estimated Creatinine Clearance 87 ml/min; Glucose 136 mg/dl (70-99); Potassium 4.1 mmol/L (3.5-5.1); Sodium 136 mmol/L (135-145); eGFR > 60.00
[2024-11-09 07:50] VITALS: BP 107/57
--- NOTE | 2024-11-09 08:29 | W.PN.CRS1 ---
Today's Communication / Plan
-
� As below
Assessment/Plan
-
POD 1 robotic sigmoidectomy with takedown of splenic flexure for history of recurrent diverticulitis
PMH: Sjogren's, fibromyalgia, IBS, gastroparesis, HLD, spinal arthritis, KEARA, asthma
AFVSS
WBC 17.1, Hb 11.5 from 12.7, CR 0.6, UOP 530 for 12 hours
� Continue clears; if tolerates for lunch, okay for full liquids for dinner; continue IVF until tolerating fulls
� Pain control with Tylenol, Toradol, oxycodone, Dilaudid as needed; continue Entereg until DC
� Okay for Lovenox for DVT PPx
� DC Hernandez, monitor for void
� Ambulate twice daily; encourage IS
Subjective Data
Subjective Data
Date of Service: November 09, 2024
Overnight, patient had some issues with pain, but better controlled this morning. Having nausea, but does have nausea chronically. Does not feel hungry.
Denies flatus or BMs
+ Hernandez
Objective Data
-
Vital Signs
Temp Pulse Resp BP Pulse Ox
97.6 F 68 18 107/57 97
11/09/24 07:50 11/09/24 07:50 11/09/24 07:50 11/09/24 07:50 11/09/24 07:50
Intake & Output
11/08/24 11/09/24 11/10/24
06:59 06:59 06:59
Intake Total 1360 / 1360
Output Total 530 / 530
Balance 830 / 830
Intake:
Oral fluids 60 / 60
IV fluids (Total) 1300 / 1300
Normosol 200 / 200
Output:
Urine, Hernandez 530 / 530
Lab Results
11/09/24 06:23
11/09/24 06:23
Physical Exam
-
General: No Acute Distress and AOx3
HEENT: Grossly Normal
Abdomen: Soft, Distended (Mildly distended), Tender (Appropriately tender near incisions), No Guarding and No Rebound
Skin: Warm and Dry
Wound: Other (Incisions well-approximated without erythema or drainage, covered in Dermabond)
[2024-11-09] MEDS: ENTEREG 12 MG PO (08:42)
[2024-11-09] MEDS: PEPCID 20 MG PO (08:42)
[2024-11-09] MEDS: NORMOSOL-R/PLASMALYTE-A 1000 IV ×2 (08:43→23:52)
--- NOTE | 2024-11-09 11:25 | PTCARENOTE ---
Addendum entered by Shelley Escamilla RN 11/09/24 12:01:
RN back into room to relay that per Veronique Lopez PA-c and Dr Downs pt is encouraged to take PRN antiemetics as ordered. No new antiemetics ordered at this time. Per Veronique Lopez if pt continuing with worsening nausea the next steps would be an abdominal
xray and potentially an NGT. Pt agreeable to trying PRN zofran and asking for xray to be ordered. Veroniqeu Lopez aware and awaiting ordering xray pending effects of zofran. Home dulera to be ordered by Veronique Lopez. Pt pulled home dulera from bag stating' i
need to take this and here are my mouth creams, these should've been done this am, this all too much to deal with'. Pt not asking for mouth creams to be ordered at this time. RN asked pt do you have other home medications in your bag Pt stated '
yes'. RN informed pt that it is against our policy to leave pts personal medications in the pts room and that pt needs to either have meds sent to pharmacy or sent home with a family member. RN also informed pt that [facility] staff will provide any
medications needed as ordered, and explained possible interactions and need for pharmacy to review and verify all meds. Pt verbalized understanding and stated ' my family can take them home later'. Veronique Lopez and Hemant Richey NS on site manager made aware of
home medications. Home dulera sent to Ella in pharmacy for profiling. Care remains ongoing at this time.
Original Note:
Pt c/o increased nausea. RN offered PRN zofran, pt stated 'that doesn't do anything for me', pt then with a flight of ideas, listing several complaints including abdominal pain, shoulder pain, drowsiness, feeling weak, needing to take home dulera,
RN attempting to address complaints and offer solutions, pt continuing to talk in circles, reiterating complaints, pt at this time not receptive to RNs suggestions and continuing to perseverate on grievances. RN redirected pt back to initial
complaint of nausea. Pt at this time stating that compazine and reglan also do nothing for her. Pt c/o constant pain, RN offered PRN oxycodone, pt asking for oxycodone to be switched to iv, RN reviewed current pain regimen and options at this time.
Ciara Lopez PA-c notifed. Awaiting response. Care remains ongoing.
[2024-11-09 12:26] VITALS: BP 109/51
[2024-11-09] MEDS: NON-FORMULARY ITEM 2 PUFF INH (12:38)
--- NOTE | 2024-11-09 12:58 | PTCARENOTE ---
Respiratory therapist and RN into room to provide care for pt. RT noted active phone call on pts cell phone screen and asked pt ' are we on the phone right now?' Pt stated ' No its just my son' (not on speaker) RT ' but are we actively on the phone'
Pt' no', RN ' it looks like we are actively on a phone call', Pt ' yes its my son' RT and RN clarified with pt, ok to review care and medical information while on the phone as to not break hippa. Pt verbalized ok for care and medical information to
be reviewed while pt on the phone with her son.
--- NOTE | 2024-11-09 13:02 | PTCARENOTE ---
Veronique Lopez notified that PRN zofran was not effective for pt. PRN compazine ordered, awaiting verification with pharmacy. Care remains ongoing.
[2024-11-09] MEDS: NON-FORMULARY ITEM 1 SPRAY NASAL (13:12)
[2024-11-09] MEDS: COMPAZINE 10 MG IV (13:19)
--- NOTE | 2024-11-09 13:30 | PTCARENOTE ---
Pt with concerns as she went to [facility] and had a small loose bloody BM. Therapeutic communication utilized. Pt reassured that this is an expected finding after sx. Veronique cruz made aware. Care ongoing.
--- NOTE | 2024-11-09 14:30 | PTCARENOTE ---
RN into room to answer call wang, pt informed RN that she called Dr Wilson's office and needs to speak with him regarding her ongoing nausea, and loose bloody BMs. Pt also feels weak and concerned about her post op progression. Pt stated that the
office told her to let her RN know and that RN (development writer) could facilitate contact. RN explained to pt that Dr Wilson is not manager mission today and that I would contact the colorectal team with her concerns, however it might not be Dr Wilson but instead on
of his associates that contacts her. Pt in agreement with listed plan. Pt at this time asking RN to stay in the room to sit with her. Therapeutic communication utilized, but RN explained RN unable to contact Colorectal team from the room as the
contact is via tiger text and the computer is outside the room at this time. Pt in understanding, RN exited room and call placed to pastoral care to come sit with pt. RN at this time typing message to Veronique Lopez to relay pt's concerns when pt began
screaming ' Help me, Help, Nurse' repeatedly. This RN and another RN along with 2 PCT's ran into pt's room and found pt standing over chair with a small amount of bloody stool on the chair, Pt upset stating ' it happened again', Pt then passed a
large amount of gas followed by more bloody liquid stool. RNs prompting pt to sit to avoid a fall, pt refusing, pt redirected after several attempts to sit in effort to avoid a fall. Perineal care and hygiene provided. Emotional support and
reassurance provided by [facility] staff. Veronique Lopez and Dr Downs notified, stat cbc, abdominal xray, and iv ativan ordered. Pt placed NPO, hospitalist consult ordered. Pt refused PRN ativan stating ' i dont need that, this isnt mental its physical' RN
explained advantages of ativan and its purpose at this time, pt continuing to refuse. Phebletomist in to draw labs, pt initially questioning reasoning, RN reiterated sequence of past events and plan of care pr Veronique Lopez, Pt then agreeable to lab
draw. Pt assisted to stretcher and transported to xray. Care remains ongoing.
[2024-11-09 14:40] LABS: Hematocrit 36.2 % (37.0-47.0); Hemoglobin 12.2 g/dL (12.0-16.0); Mean Corp Hgb Conc. 33.7 g/dL (33.0-37.0); Mean Corpuscular Hgb 30.4 pg (27.0-31.0); Mean Corpuscular Volume 90.3 fL (81.0-99.0); Mean Platelet Volume 9.6 fL (7.4-10.4); Platelet Count 346 10^3/uL (130-400); Red Blood Cell Count 4.01 10^6/uL (4.20-5.40); White Blood Cell Count 14.5 10^3/uL (4.8-10.8)
--- NOTE | 2024-11-09 15:17 | CON.HOSP ---
Family Physician
-
Family Physician: Gustavo Palacios MD
Chief Complaint
-
Severe anxiety
History of Present Illness
58-year-old female with a past medical history of Sjogren's syndrome, asthma, sleep apnea, migraines, chronic fatigue, IBS, gastroparesis, and recurrent diverticulitis who was admitted by the colorectal surgery team for robotic sigmoidectomy on
11/08/2024. Patient is exhibiting severe anxiety. Patient has a history of anxiety, and she is currently very worried regarding how she is doing postoperatively. She reports diffuse abdominal pain and tightness, making it hard for her to breathe.
She was ordered IV Ativan by the colorectal surgery team, but refused. She has been seen by psychiatry in the past, who recommended Xanax. She refused Xanax at that time as well. She has been able to void. Has chronic nausea, denies vomiting.
No fever. Medicine has been consulted to aid in her anxiety symptoms.
Medical History
Past Medical History
Past Medical History: Reports Other
Additional Past Medical History:
Sjogren's syndrome
Asthma
Gastroparesis
Thyroid nodule
Hiatal hernia
Fibromyalgia
Fatty liver disease
Venous insufficiency
Obstructive sleep apnea
Hyperlipidemia
Sigmoid diverticulitis
Chronic pain syndrome
Chronic fatigue syndrome
IBS with constipation
Osteopenia
Additional Past Surgical History:
Robotic sigmoidectomy; laparoscopic lysis of adhesions; hysterectomy for endometriosis; appendectomy
Social History
Tobacco: Non-smoker
Alcohol: Occasional
Living: With Family
Family History
Family History: Reviewed & Not Pertinent
Allergies / Home Medications
Allergies reflects when Allergies were last updated in [facility].
Home Medications with original date entered in [facility]
Allergy/Medication List:
Allergies
Allergy/AdvReac Type Severity Reaction Status Date / Time
adhesive tape Allergy hives, Verified 11/08/24 11:29
itching
cefadroxil [From Duricef] Allergy Hives Verified 11/08/24 11:29
cefuroxime [From Ceftin] Allergy Hives Verified 11/08/24 11:29
epinephrine Allergy heart races Verified 11/08/24 11:29
hydromorphone [From Dilaudid] Allergy made the Verified 11/08/24 11:29
room spin
Iodinated Contrast Media Allergy FLUSHING, Verified 11/08/24 11:29
PALPITATIONS
latex Allergy Hives Verified 11/08/24 11:29
lidocaine Allergy Hives Verified 11/08/24 11:29
Sulfa (Sulfonamide Allergy Unknown Verified 11/08/24 11:29
Antibiotics)
Home Medications Table - record
�Medication �Instructions �Recorded �Confirmed
ketotifen fumarate 0.025 % (0.035 1 drp BOTH EYES Q48H Eye Condition 03/04/23 11/08/24
%) eye drops (Zaditor)
ergocalciferol (vitamin D2) 200 40,000 unit PO FR Supplement 03/24/24 11/08/24
mcg/mL (8,000 unit/mL) oral drops
famotidine 20 mg tablet (Pepcid) 20 mg PO BID Gastrointestinal Issue 03/24/24 11/08/24
mometasone-formoterol HFA 100 1 - 2 puff inhalation BID 03/24/24 11/08/24
mcg-5 mcg/actuation aerosol Lung/Breathing Issues
inhaler (Dulera)
fluticasone propionate 50 1 spray intranasal BID Allergies 05/31/24 11/08/24
mcg/actuation nasal
spray,suspension
carboxymethylcellulose sodium 0.25 1 drp BOTH EYES QIDPRN PRN 09/20/24 11/08/24
% eye drops (TheraTears) irritated eyes
cetirizine 10 mg tablet (Zyrtec) 10 mg PO HS Allergies 09/20/24 11/08/24
estradiol 0.01% (0.1 mg/gram) 1 applic vaginal WESA Hormonal 09/20/24 11/08/24
vaginal cream (Estrace) Agent
fluoride (sodium) 1.1 % dental 1 applic dental BID DENTAL 09/20/24 11/08/24
paste (PreviDent 5000 Booster Plus)
levalbuterol tartrate 45 2 inh inhalation R Q6HPRN PRN sob 09/20/24 11/08/24
mcg/actuation aerosol inhaler
(Xopenex HFA)
polyethylene glycol 3350 17 gram 17 g PO BID Constipation 09/20/24 11/08/24
oral powder packet (Miralax)
Ertapenem [Invanz] 1,000 mg 120 mls/hr IV Q24H 10/27/24 11/08/24
ondansetron 4 mg disintegrating 4 mg PO Q6HPRN PRN nausea #20 tabs 10/27/24 11/08/24
tablet
Systane Lid Wipes 1 dose topical PRN PRN eye wipe 11/01/24 11/08/24
ferrous sulfate 325 mg (65 mg 325 mg PO DAILY 11/01/24 11/08/24
iron) tablet (Iron (ferrous
sulfate))
levalbuterol HCl 1.25 mg/0.5 mL 1.25 mg inhalation PRN PRN 11/01/24 11/08/24
solution for nebulization shortness of breath
sod picosulf 10 mg-magnes 3.5 175 ml PO DIRECTED 11/01/24 11/08/24
gram-citric 12 gram/175 mL oral
solution (Clenpiq)
hydrocortisone 0.25 % topical cream 1 applic topical BID 11/06/24 11/08/24
mupirocin 2 % topical ointment 1 applic topical BID 11/06/24 11/08/24
nystatin 100,000 unit/gram topical 1 applic topical BID 11/06/24 11/08/24
ointment
Physical Exam
Vital Signs
Vital Signs
Temp Pulse Resp BP Pulse Ox
97.0 F 63 18 109/51 100
11/09/24 12:26 11/09/24 12:26 11/09/24 12:26 11/09/24 12:26 11/09/24 12:26
Physical Exam
General: No Apparent Distress
HEENT: Normocephalic, Anicteric and Moist Mucous Membranes
Respiratory: Clear and Wheezes
Cardiac: S1/S2
GI: Soft, Tender, Distended and Other (Incisions clean/dry/intact)
Musculoskeletal: No Clubbing, No Cyanosis and Edema
Neuro: Awake, Alert and Oriented
Psych: Anxious
Laboratory Results
-
Laboratory Results
11/09/24 14:32
11/09/24 06:23
Impression / Plan
-
HPI: 58-year-old female with a past medical history of Sjogren's syndrome, asthma, sleep apnea, migraines, chronic fatigue, IBS, gastroparesis, and recurrent diverticulitis who was admitted by the colorectal surgery team for robotic sigmoidectomy on
11/08/2024. Patient is exhibiting severe anxiety. Patient has a history of anxiety, and she is currently very worried regarding how she is doing postoperatively. She reports diffuse abdominal pain and tightness, making it hard for her to breathe.
She was ordered IV Ativan by the colorectal surgery team, but refused. She has been seen by psychiatry in the past, who recommended Xanax. She refused Xanax at that time as well. She has been able to void. Has chronic nausea, denies vomiting.
No fever. Medicine has been consulted to aid in her anxiety symptoms.
#Status post robotic sigmoidoscopy on 11/08/2024
#Postop ileus
N.p.o., IV fluids, antiemetics as needed, plan of care as per primary
Started on entereg 11/09
#Anxiety with adjustment disorder
IV Ativan as needed while n.p.o.
#Leukocytosis
Patient is afebrile, likely reactive, monitor
#History of asthma/COPD
Stable
Bronchodilators as needed
#Chronic nausea
Antiemetics as needed
#Sjogren's syndrome
#Karthik syndrome
Continue supportive care, eyedrops
#Chronic gastritis
Continue Pepcid
DVT prophylaxis�subcu Lovenox
Full code
Thank you for the consult. We will follow the patient along with you.
Total time spent to see the patient on the floor, examine the patient, review data and lab results, discuss treatment plan with patient, nursing staff around 77 minutes.
[2024-11-09 15:30] VITALS: BP 113/64
--- NOTE | 2024-11-09 16:26 | PTCARENOTE ---
Per Dr Barnes Pt ok to use her home lip creams as needed. Care remains ongoing.
[2024-11-09] MEDS: LOVENOX 40 MG SC (17:25)
--- NOTE | 2024-11-09 17:37 | PTCARENOTE ---
Pt sitting on the toilet verbally upset about repeated loose bloody BMs and per pt stool coming out with each urge to pass flatus. Pt also upset stating several times ' i got the tubing ( IV tubing) in the crack of my butt'. Emotional support and
calm demeanor utilized. Dirty tubing removed and thrown out. New tubing primed and reapplied. Hand hygiene completed and gloves changed in between disposing of contaminate tubing and attaching new tubing. Care remains ongoing.
[2024-11-09 19:52] VITALS: BP 111/63
[2024-11-09] MEDS: PEPCID PO ×2 (20:00→20:29)
[2024-11-09] MEDS: ENTEREG PO ×2 (20:00→20:28)
[2024-11-09] MEDS: HYDROPHOR 1 APPLIC TOPICAL (20:00)
[2024-11-09 23:15] VITALS: BP 128/68
[2024-11-09] MEDS: DILAUDID 1 MG IV (23:54)
--- NOTE | 2024-11-10 | PTCARENOTE ---
Pt anxious throughout the night refusing IV Ativan did take IV Dilaudid
[2024-11-10] MEDS: TORADOL 15 MG IV ×4 (01:28→20:32)
[2024-11-10 06:00] VITALS: BMI 23.8
[2024-11-10] MEDS: DILAUDID 1 MG IV ×3 (06:35→21:39)
[2024-11-10 06:55] VITALS: BP 112/73
[2024-11-10] MEDS: HYDROPHOR 1 APPLIC TOPICAL ×2 (07:49→20:32)
[2024-11-10] MEDS: NON-FORMULARY ITEM 2 PUFF INH (07:49)
[2024-11-10] MEDS: NON-FORMULARY ITEM 1 SPRAY NASAL (07:50)
[2024-11-10] MEDS: PEPCID PO ×2 (07:51→20:28)
[2024-11-10] MEDS: ENTEREG PO (07:51)
--- NOTE | 2024-11-10 08:44 | W.PN.HOSP.TC ---
Today's Communication/Plan
-
see bold
Assessment / Plan
Assessment / Plan
HPI: 58-year-old female with a past medical history of Sjogren's syndrome, asthma, sleep apnea, migraines, chronic fatigue, IBS, gastroparesis, and recurrent diverticulitis who was admitted by the colorectal surgery team for robotic sigmoidectomy on
11/08/2024. Patient is exhibiting severe anxiety. Patient has a history of anxiety, and she is currently very worried regarding how she is doing postoperatively. She reports diffuse abdominal pain and tightness, making it hard for her to breathe.
She was ordered IV Ativan by the colorectal surgery team, but refused. She has been seen by psychiatry in the past, who recommended Xanax. She refused Xanax at that time as well. She has been able to void. Has chronic nausea, denies vomiting.
No fever. Medicine has been consulted to aid in her anxiety symptoms.
#Status post robotic sigmoidoscopy on 11/08/2024
#Postop ileus
Started on entereg 11/09
Started on a clear liquid diet today, PT/OT
#Chronic nausea
#History of gastroparesis
GI consulted
#Anxiety with adjustment disorder
Ativan as needed, however she has been refusing
#Leukocytosis
Patient is afebrile, likely reactive
Resolved, continue monitoring off of antibiotics
#Right axillary pain
No warmth, erythema, or edema appreciated on exam
She does have a PICC line on that arm
Check right upper extremity Dopplers for completeness sake
Reassurance provided
#History of asthma/COPD
Stable
Bronchodilators as needed
#Chronic nausea
Antiemetics as needed
#Sjogren's syndrome
#Karthik syndrome
Continue supportive care, eyedrops
#Chronic gastritis
Continue Pepcid
DVT prophylaxis�subcu Lovenox
Full code
Total time spent to see the patient on the floor, examine the patient, review data and lab results, discuss treatment plan with patient, nursing staff around 50 minutes.
Physical Exam
General: No acute distress
HEENT: Normocephalic, Atraumatic, EOMI, MMM
Respiratory: Clear to Auscultation bilaterally
Cardiac: Normal S1/S2, Regular Rate and Rhythm
GI: Soft, mildly distended, appropriately tender, ecchymosis noted, incisions clean/dry/intact
Extremities: No Clubbing, Cyanosis, or Edema
Neuro: Nonfocal/Grossly Intact
Psych: Anxious appearing
Anticipated Discharge: 24 - 48 hours
Subjective/Interval History
-
Date of Service: November 10, 2024
Patient reports passing gas. She has chronic nausea. Complains of right axillary pain. No fever, no vomiting, no bowel movement.
Objective Data
-
Labs:
Laboratory Results
11/10/24
08:25
WBC Pending
Hgb Pending
Hct Pending
Plt Count Pending
Sodium Pending
Potassium Pending
Chloride Pending
Carbon Dioxide Pending
BUN Pending
Creatinine Pending
Glucose Pending
Calcium Pending
Vital Signs:
Vital Signs
Temp Pulse Resp BP Pulse Ox
97.8 F 76 16 112/73 98
11/10/24 06:55 11/10/24 07:56 11/10/24 07:56 11/10/24 06:55 11/10/24 06:55
I&O
11/09/24 11/10/24 11/11/24
06:59 06:59 06:59
Intake Total 1360 / 1360 1660 / 1660
Output Total 530 / 530 850 / 850
Balance 830 / 830 810 / 810
[2024-11-10 08:57] LABS: % Basophils 0.4 % (0-2); % Eosinophils 0.3 % (0-6); % Immature Granulocytes 0.2 % (0-0.5); % Lymphocytes 13.6 % (20.5-51.1); % Monocytes 5.6 % (1.7-9.3); % Neutrophils 79.9 % (42.2-75.2); Absolute Lymphocytes 1.2 10^3/uL (1.2-3.4); Absolute Monocytes 0.5 10^3/uL (0.1-0.6); Absolute Neutrophils 7.3 10^3/uL (1.4-6.5); Hemoglobin 10.7 g/dL (12.0-16.0); Mean Corp Hgb Conc. 33.4 g/dL (33.0-37.0); Mean Corpuscular Hgb 30.5 pg (27.0-31.0); Mean Corpuscular Volume 91.2 fL (81.0-99.0); Mean Platelet Volume 9.9 fL (7.4-10.4); Nucleated Red Blood Cells % 0 %; Platelet Count 262 10^3/uL (130-400); Red Blood Cell Count 3.51 10^6/uL (4.20-5.40); Red Cell Dist. Width 13.3 % (11.5-14.5); White Blood Cell Count 9.2 10^3/uL (4.8-10.8)
[2024-11-10 09:28] LABS: Blood Urea Nitrogen 16 mg/dl (7-17); Carbon Dioxide 30 mmol/L (22-30); Chloride 99 mmol/L (98-107); Estimated Creatinine Clearance 75 ml/min; Glucose 89 mg/dl (70-99); Potassium 3.5 mmol/L (3.5-5.1); Sodium 138 mmol/L (135-145); eGFR > 60.00
--- NOTE | 2024-11-10 09:37 | W.PN.CRS1 ---
Today's Communication / Plan
-
Gastroenterology
Advance diet
Assessment/Plan
-
POD 1 robotic sigmoidectomy with takedown of splenic flexure for history of recurrent diverticulitis
PMH: Sjogren's, fibromyalgia, IBS, gastroparesis, HLD, spinal arthritis, KEARA, asthma
AFVSS
WBC 9.2, Hb 10.7 from 11.5
�Restart clears; if tolerates for lunch, okay for full liquids for dinner; continue IVF until tolerating fulls
�Pain control with Tylenol, Toradol, oxycodone, Dilaudid as needed; continue Entereg until DC
�Okay for Lovenox for DVT PPx
�Physical therapy
�Ambulate twice daily; encourage IS
-Gastroenterology consult due to nausea
-Lozenges ordered for sore throat
-Discussed surgery, plan of care, and all of patient's concerns at bedside to patient and son
-Appreciate hospitalist
Subjective Data
Procedure
11/08/2024- Robotic sigmoid and distal descending colon resection with takedown of splenic flexure, intracorporeal anastmosis
Subjective Data
Date of Service: November 10, 2024
Patient states she feels 'sore'. She has no appetite. She has nausea but that is her baseline. She is having flatus. She seems much better today. She does complain of a sore throat.
Objective Data
-
Vital Signs
Temp Pulse Resp BP Pulse Ox
97.8 F 76 16 112/73 98
11/10/24 06:55 11/10/24 07:56 11/10/24 07:56 11/10/24 06:55 11/10/24 06:55
Intake & Output
11/09/24 11/10/24 11/11/24
06:59 06:59 06:59
Intake Total 1360 / 1360 1660 / 1660
Output Total 530 / 530 850 / 850
Balance 830 / 830 810 / 810
Intake:
Oral fluids 60 / 60 360 / 360
IV fluids (Total) 1300 / 1300 1300 / 1300
Normosol 200 / 200
IV piggybacks 0 / 0
Output:
Urine, Hernandez 530 / 530 150 / 150
Urine, Voided 700 / 700
Other:
Number of approximated MODERATE 2
amounts of urine
Number of unmeasured liquid
stools
Rectum 3
Lab Results
11/10/24 08:25
11/10/24 08:25
Physical Exam
-
General: No Acute Distress and AOx3
Abdomen: Soft, Non Distended and Tender (Mild around incisions)
Skin: Warm and Dry
Incision: Clear, Dry, Intact
[2024-11-10] MEDS: ZOFRAN 4 MG IV (09:59)
[2024-11-10] MEDS: ANESTHETIC LOZENGE 1 LOZENGE PO (10:00)
--- NOTE | 2024-11-10 10:27 | CON.GI ---
Addendum entered and electronically signed by Meche Velázquez DO 11/10/24 15:37:
The patient was seen and examined by me independently in collaboration with the nurse practitioner.
Past medical history/social history/medications/allergies/family history reviewed.
Lab data and imaging data reviewed.
Saida Cannon is a 58 y.o. female with pmhx Sjogren's, asthma, hyperlipidemia, gastroparesis, fatty liver and recurrent diverticulitis admitted following elective robotic sigmoid and distal descending colon resection for treatment of her recurrent
diverticulitis. GI is consulted for management of chronic and expected postoperative symptoms of bloating, nausea and abdominal pain. She is currently receiving IV Zofran 4 mg every 6 hours as needed, states this is not adequate in controlling her
symptoms. She also has Ativan ordered but refuses to take it, stating she doesn't have anxiety. I told her this could help with some of her nausea, however, she declined. She did tolerate some ensure this morning, currently ordered for full
liquids, plans to order dinner soon. She is passing flatus, feels best in upright position walking around, very eager to speed up her recovery.
Provided reassurance that her symptoms are normal post-operative symptoms and she will continue to improve each day.
Recommend either standing zofran or increase to 8mg. T/c scopolamine patch? Reports no prior response to reglan or compazine. Will defer to primary team.
No acute GI needs at this time. She can follow-up as outpatient with her primary lace and textiles restorer, Dr. Medina.
GI will sign off, please call with questions.
Original Note:
Consultation
-
Date/Time Consultation Requested: 11/10/24 0930
Date/Time Consultation Performed: 11/10/24 1030
Requesting Provider: Ciara Lopez PA-C
Performing Provider: CONCETTA Hernandez, Shelia Robles MD
Reason for Consultation: nausea
Medical History
Chief Complaint / HPI
Chief Complaint: abdominal pain
History of Present Illness:
Pt is a 58yo with hx multiple med problems Sjogren, asthma, hypercholesterolemia, seasonal allergies, PNA, gastroparesis, fatty liver, Endometriosis with multiple prior laparoscopies in past, IBS, Palpitations,fibromyalgia, Sleep apnea, DDD,
Arthritis, Chronic fatigue, Migraines, Sleep apnea, Diverticulitis, constipation, chronic pain, cystis, rosacea, thyroid nodule, prior appe and hysterectomy with hx recurrent episodes of diverticulitis over last year with need for IV abx on
discharge until surgery on last admission. She now presents 11/08 for elective robotic sigmoid and distal descending colon resection. Asked to see for nausea with hx gastroparesis and noted gaseous distention of stomach.
In review with patient she admits to chronic dysphagia and has seen by Dr. Shah in past at [facility] with hx Sjogrens. She had one visit but admits to limited follow up with recurrent diverticulitis. She does take mostly soft foods and
recently has been on low residue diet. She is noted with sore throat post surgery. She has chronic GERD on Famotidine and some chronic nausea with hx gastroparesis but starting clear liquid diet today. She does use Zofran as needed. Currently
no chronic gastroparesis meds . She has been on low residue diet prior to admission with supplement. She has had about 30 lbs wt loss with ongoing diverticulitis over last year. She also admits to abdominal pain 10 post-op and some bloating.
Pain was noted 01/04 prior to admission. She was having formed stools prior to admission and then note some blood post -op that has now stopped. No stools since admission.
She reports hx EGD may 2023 with gastritis and colonoscopy 12/2022 with diverticulosis.
Past Medical History
Past Medical History: Asthma, Fibromyalgia, Hypercholesterolemia and Other (Seasonal allergies, PNA, Gastroparesis, Endometrious, IBS, Sjogrens, Palpitations, Sleep apnea, Bulging disc, Arthritis, Chronic fatigue, chronic pain, osteopenia,
Migraines, Sleep apnea, fatty liver, Diverticulitis, cystitis, rosacea, thryoid nodule)
Past Surgical History: Appendectomy, Gynecological (hysterectomy) and Other (multiple lap for endometriosis, lap for MIRNA 2009)
Social History
Tobacco: Non-Smoker
Alcohol: None
Drug: None
Personal: Single
Living: With Family
Family History
Family History: Other (uncle with colon CA)
Allergies / Home Medications
Allergy/AdvReac Type Severity Reaction Status Date / Time
adhesive tape Allergy hives, Verified 11/08/24 11:29
itching
cefadroxil [From Duricef] Allergy Hives Verified 11/08/24 11:29
cefuroxime [From Ceftin] Allergy Hives Verified 11/08/24 11:29
epinephrine Allergy heart races Verified 11/08/24 11:29
hydromorphone [From Dilaudid] Allergy made the Verified 11/08/24 11:29
room spin
Iodinated Contrast Media Allergy FLUSHING, Verified 11/08/24 11:29
PALPITATIONS
latex Allergy Hives Verified 11/08/24 11:29
lidocaine Allergy Hives Verified 11/08/24 11:29
Sulfa (Sulfonamide Allergy Unknown Verified 11/08/24 11:29
Antibiotics)
�Medication �Instructions �Recorded
ketotifen fumarate 0.025 % (0.035 1 drp BOTH EYES Q48H Eye Condition 03/04/23
%) eye drops (Zaditor)
ergocalciferol (vitamin D2) 200 40,000 unit PO FR Supplement 03/24/24
mcg/mL (8,000 unit/mL) oral drops
famotidine 20 mg tablet (Pepcid) 20 mg PO BID Gastrointestinal Issue 03/24/24
mometasone-formoterol HFA 100 1 - 2 puff inhalation BID 03/24/24
mcg-5 mcg/actuation aerosol Lung/Breathing Issues
inhaler (Dulera)
fluticasone propionate 50 1 spray intranasal BID Allergies 05/31/24
mcg/actuation nasal
spray,suspension
carboxymethylcellulose sodium 0.25 1 drp BOTH EYES QIDPRN PRN 09/20/24
% eye drops (TheraTears) irritated eyes
cetirizine 10 mg tablet (Zyrtec) 10 mg PO HS Allergies 09/20/24
estradiol 0.01% (0.1 mg/gram) 1 applic vaginal WESA Hormonal 09/20/24
vaginal cream (Estrace) Agent
fluoride (sodium) 1.1 % dental 1 applic dental BID DENTAL 09/20/24
paste (PreviDent 5000 Booster Plus)
levalbuterol tartrate 45 2 inh inhalation R Q6HPRN PRN sob 09/20/24
mcg/actuation aerosol inhaler
(Xopenex HFA)
polyethylene glycol 3350 17 gram 17 g PO BID Constipation 09/20/24
oral powder packet (Miralax)
Ertapenem [Invanz] 1,000 mg 120 mls/hr IV Q24H 10/27/24
ondansetron 4 mg disintegrating 4 mg PO Q6HPRN PRN nausea #20 tabs 10/27/24
tablet
Systane Lid Wipes 1 dose topical PRN PRN eye wipe 11/01/24
ferrous sulfate 325 mg (65 mg 325 mg PO DAILY 11/01/24
iron) tablet (Iron (ferrous
sulfate))
levalbuterol HCl 1.25 mg/0.5 mL 1.25 mg inhalation PRN PRN 11/01/24
solution for nebulization shortness of breath
sod picosulf 10 mg-magnes 3.5 175 ml PO DIRECTED 11/01/24
gram-citric 12 gram/175 mL oral
solution (Clenpiq)
hydrocortisone 0.25 % topical cream 1 applic topical BID 11/06/24
mupirocin 2 % topical ointment 1 applic topical BID 11/06/24
nystatin 100,000 unit/gram topical 1 applic topical BID 11/06/24
ointment
Review of Systems
-
History Source: Patient and Family
Constitutional: Reports Weight Loss ( 30 lbs over last year ) and Chills
EENT: Reports Sore Throat
Respiratory: Reports No Symptoms
Cardiac: Reports No Symptoms
Abdomen/GI: Reports Abdominal Pain, Nausea and Bloody Stools (small amount of blood noted post -op no current flatus or stools since surgery )
: Reports Other (no urine this am but did go yesterday )
Musculoskeletal: Reports No Symptoms
Skin: Reports No Symptoms
Neurological: Reports Weakness
Endocrine: Reports No Symptoms
Hematologic/Lymphatic: Reports No Symptoms
Vital Signs
Temp Pulse Resp BP Pulse Ox
97.8 F 76 16 112/73 98
11/10/24 06:55 11/10/24 07:56 11/10/24 07:56 11/10/24 06:55 11/10/24 06:55
Physical Exam
Exam
General: Well Developed, Well Nourished, No Apparent Distress and Other (pt comfortable sipping of liquids )
HEENT: Normocephalic and Anicteric
Respiratory: Clear
Cardiac: Regular Rhythm
GI: Soft, Tender (diffuse ) and Distended (mild distention, abdomen with robotic incision intact lower incision with small amount of blood but no active bleeding)
Musculoskeletal: No Clubbing and No Cyanosis
Skin: Warm and Dry
Neuro: Awake, Alert and AO x 3
Psych: Calm
Results
WBC 9.2 10^3/uL (4.8-10.8) 11/10/24 08:25
Hgb 10.7 g/dL (12.0-16.0) L 11/10/24 08:25
Hct 32.0 % (37.0-47.0) L 11/10/24 08:25
MCV 91.2 fL (81.0-99.0) 11/10/24 08:25
Plt Count 262 10^3/uL (130-400) D 11/10/24 08:25
Absolute Neuts (auto) 7.3 10^3/uL (1.4-6.5) H 11/10/24 08:25
Sodium 138 mmol/L (135-145) 11/10/24 08:25
Potassium 3.5 mmol/L (3.5-5.1) 11/10/24 08:25
Chloride 99 mmol/L (98-107) 11/10/24 08:25
Carbon Dioxide 30 mmol/L (22-30) 11/10/24 08:25
BUN 16 mg/dl (7-17) 11/10/24 08:25
Creatinine 0.7 mg/dL (0.6-1.0) 11/10/24 08:25
Calcium 9.0 mg/dl (8.4-10.2) 11/10/24 08:25
Diagnostic Image Results:
11/09/24 Abd X ray
Moderate volume free air in the abdomen, presumably the sequela of surgery of preceding day.
The intestinal bowel gas pattern is nonobstructive. There is some gaseous distention of the stomach.
The included osseous structures appear intact.
10/26/24 abd cT
There is an approximately 6 cm in length segment of acute diverticulitis in the distal descending colon
05/11/24 RF Esophagus-Double Contrast
Markedly limited exam. Trace gastroesophageal reflux. Otherwise unremarkable exam.
Prior GI Procedures:
last per patient EGD may [address] medina and colonoscopy december 2022 with diverticulosis
EGD: 2017 EGD [facility] - Small hiatal hernia.
- Z-line irregular, 38 cm from the incisors. Biopsied.
- A few gastric polyps. Biopsied.
- Normal mucosa was found in the entire stomach.
- Normal mucosa was found in the entire examined
duodenum. Biopsied.
bx neg
EGD:2013 [facility] - Hiatus hernia.
- A few gastric polyps. Biopsied.
- Normal examined duodenum. Biopsied.
- Oral Thrush
Colonoscopy: 2017- [facility]- internal hemorrhoids, diverticulosis in sigmoid and ascending colon, no specimen collected
colonoscopy 2013- [facility] - One 3 mm polyp in the cecum. Resected and retrieved.
- One 5 mm polyp in the descending colon. Resected and
retrieved.
- Diverticulosis in the descending colon.
- Internal hemorrhoids.
bx HP and adenomatous polyps
Assessment / Plan
-
Pt is a 58yo with hx multiple med problems Sjogren, asthma, hypercholesterolemia, seasonal allergies, PNA, gastroparesis, fatty liver, Endometriosis with multiple prior laparoscopies in past, IBS, Palpitations,fibromyalgia, Sleep apnea, DDD,
Arthritis, Chronic fatigue, Migraines, Sleep apnea, Diverticulitis, constipation, chronic pain, cystis, rosacea, thyroid nodule, prior appe and hysterectomy with hx recurrent episodes of diverticulitis over last year with need for IV abx on
discharge until surgery on last admission. She now presents 11/08 for elective robotic sigmoid and distal descending colon resection. Asked to see for nausea with hx gastroparesis and noted gaseous distention of stomach.
-recurrent diverticulitis s/p 11/08 elective robotic sigmoid and distal descending colon resection
-gastric distention on Abd X ray
-chronic nausea
-hx gastroparesis
-sore throat
-dysphagia -follow at [facility]
-chronic GERD
-endometriosis with multiple ex lap, hysterectomy and MIRNA and prior appe
-IBS
other med problems:
-Sjogren
-asthma
-hypercholesterolemia
-palpitations
-sleep apnea
-DDD
-chronic fatigue
-fibromyalgia
-hx cystitis
PLAN:
reviewed with patient multiple issue with nausea, bloating, sore throat common post-op
cont clear diet and advance per surgery
advised with hx gastroparesis and Sjogrens take diet slowly. If increased nausea stop for 1-2 hours and reattempt eating
limit narcotics, encouraged ambulation
when diet advance consider 6 meals instead of 3, low residue, avoid fizzy sodas
monitor urine output- reviewed with nursing as pt states no urine since yesterday
hold laxative for now til bowel function returns then add as needed
cont famotidine with hx chronic GERD
pt will need follow up with Dr. Medina from GI as follows for chronic issues and Dr. Barajas for ongoing dysphagia issues
support and reassurance given as pt anxious about surgery and recovery
-
-
Thank you for consultation and allowing me to participate in the patient's care. Please call the abalone processor GI physician during the after hours with any questions or concerns.
[2024-11-10 10:43] VITALS: BP 127/75; BP 140/79; PULSE 75; O2SAT 100
[2024-11-10 11:04] VITALS: BP 114/76
[2024-11-10] MEDS: TYLENOL SUSPENSION 625 MG PO (12:53)
[2024-11-10 16:09] VITALS: BP 126/71
--- NOTE | 2024-11-10 16:10 | PTCARENOTE ---
Pt didn't tolerate clear liquid diet because she was very unhappy with the choices, requested to try full liquids. Pt informed this RN that she is unable to swallow pills and takes liquid tylenol at home. Pt refused liquid tylenol as ordered
because she didn't like the flavor, will continue to monitor.
--- NOTE | 2024-11-10 17:05 | CM ---
Alert awake oriented patient who lives alone in a 2 story home with 0 steps to enter and 0 steps to bed/bathroom. She is independent in activates of daily living.She does drive .She used a walker and cane. Hx of [facility] [place] [facility] [place].
HX of [facility] in past . No SNF hx
Pharmacy [facility]
PCP DR Palacios
PLAN Home with Ella [facility]
[2024-11-10] MEDS: LOVENOX 40 MG SC (17:53)
[2024-11-10] MEDS: ROXICODONE 5 MG PO (18:13)
[2024-11-10] MEDS: ZADITOR 1 DROP BOTH EYES (20:29)
[2024-11-10] MEDS: ENTEREG 12 MG PO (20:32)
[2024-11-10] MEDS: MYLICON 80 MG PO (22:14)
[2024-11-10 23:00] VITALS: BP 123/69
[2024-11-11] MEDS: TORADOL 15 MG IV ×4 (02:34→19:39)
[2024-11-11] MEDS: DILAUDID 0.5 MG IV (05:47)
[2024-11-11 05:53] VITALS: BMI 24.3
[2024-11-11 06:57] VITALS: BP 138/83
[2024-11-11] MEDS: NON-FORMULARY ITEM 2 PUFF INH (07:48)
--- NOTE | 2024-11-11 07:48 | W.PN.HOSP.TC ---
Today's Communication/Plan
-
see bold
Assessment / Plan
Assessment / Plan
HPI: 58-year-old female with a past medical history of Sjogren's syndrome, asthma, sleep apnea, migraines, chronic fatigue, IBS, gastroparesis, and recurrent diverticulitis who was admitted by the colorectal surgery team for robotic sigmoidectomy on
11/08/2024. Patient is exhibiting severe anxiety. Patient has a history of anxiety, and she is currently very worried regarding how she is doing postoperatively. She reports diffuse abdominal pain and tightness, making it hard for her to breathe.
She was ordered IV Ativan by the colorectal surgery team, but refused. She has been seen by psychiatry in the past, who recommended Xanax. She refused Xanax at that time as well. She has been able to void. Has chronic nausea, denies vomiting.
No fever. Medicine has been consulted to aid in her anxiety symptoms.
#Status post robotic sigmoidoscopy on 11/08/2024
#Postop ileus
Started on entereg 11/09
Tolerating her full liquid diet, PT/OT
Continue plan of care as per primary
#Chronic nausea
#History of gastroparesis
GI following, continue antiemetics as needed
#Anxiety with adjustment disorder
Ativan as needed, however she has been refusing
Continue supportive care, reassurance
#Leukocytosis
Patient is afebrile, likely reactive
Resolved, continue monitoring off of antibiotics
#Nonocclusive right basilic vein superficial thrombus
#Right axillary pain
No warmth, erythema, or edema appreciated on exam
Midline removed 11/10 due to pain
Reassurance provided
#History of asthma/COPD
Stable
Bronchodilators as needed
#Sjogren's syndrome
#Karthik syndrome
Continue supportive care, eyedrops
#Chronic gastritis
Continue Pepcid
DVT prophylaxis�subcu Lovenox
Full code
Total time spent to see the patient on the floor, examine the patient, review data and lab results, discuss treatment plan with patient, nursing staff around 40 minutes.
Physical Exam
General: No acute distress
HEENT: Normocephalic, Atraumatic, EOMI, MMM
Respiratory: Clear to Auscultation bilaterally
Cardiac: Normal S1/S2, Regular Rate and Rhythm
GI: Soft, mildly distended, appropriately tender, ecchymosis noted, incisions clean/dry/intact
Extremities: No Clubbing, Cyanosis, or Edema
Neuro: Nonfocal/Grossly Intact
Psych: Anxious appearing
Anticipated Discharge: 24 - 48 hours
Subjective/Interval History
-
Date of Service: November 11, 2024
Patient complains of severe abdominal pain. She continues to have soreness in her right axillary region. She is passing gas, no bowel movement. She has chronic nausea, but is tolerating her full liquid diet. No fever, no vomiting.
Objective Data
-
Labs:
Laboratory Results
11/11/24
06:00
WBC Pending
Hgb Pending
Hct Pending
Plt Count Pending
Sodium Pending
Potassium Pending
Chloride Pending
Carbon Dioxide Pending
BUN Pending
Creatinine Pending
Glucose Pending
Calcium Pending
Vital Signs:
Vital Signs
Temp Pulse Resp BP Pulse Ox
98.2 F 66 16 138/83 98
11/11/24 06:57 11/11/24 06:57 11/11/24 06:57 11/11/24 06:57 11/11/24 06:57
I&O
11/10/24 11/11/24 11/12/24
06:59 06:59 06:59
Intake Total 1660 / 1660 240 / 240
Output Total 850 / 850 300 / 300
Balance 810 / 810 -60 / -60
--- NOTE | 2024-11-11 08:54 | W.PN.CRS1 ---
Addendum entered and electronically signed by Balbir Bryant MD 11/11/24 09:15:
I saw and examined the patient independently.
The Tableau Developer's note was reviewed and I agree with the note, assessment and plan except where noted below.
Comment: This is a 58-year-old female status post robotic sigmoidectomy for diverticulitis. Doing well, expected postoperative course.
Will keep on fulls.
Midline removed due to expected nonocclusive clot
Original Note:
Today's Communication / Plan
-
maintain full liquids today
Assessment/Plan
-
POD 3 robotic sigmoidectomy with takedown of splenic flexure for history of recurrent diverticulitis
PMH: Sjogren's, fibromyalgia, IBS, gastroparesis, HLD, spinal arthritis, KEARA, asthma
AFVSS
Labs pending
�Stay on fulls today given some bloating
�Pain control with Tylenol, Toradol, oxycodone, Dilaudid as needed; continue Entereg until DC
�Lovenox for DVT PPx, TEDS/SCDS in place
�Physical therapy
�Ambulate twice daily; encourage IS
-Appreciate GI consult
-Lozenges ordered for sore throat
-Discussed surgery, plan of care, and all of patient's concerns at bedside to patient and son
-Appreciate hospitalist
Subjective Data
Procedure
11/08/2024- Robotic sigmoid and distal descending colon resection with takedown of splenic flexure, intracorporeal anastmosis
Subjective Data
Date of Service: November 11, 2024
Patient states she is in some pain that comes and goes. She describes it as a 'tightness'. She has nausea (baseline). She has no appetite. She has flatus. Denies burping.
Objective Data
-
Vital Signs
Temp Pulse Resp BP Pulse Ox
98.2 F 77 18 138/83 97
11/11/24 06:57 11/11/24 07:58 11/11/24 07:58 11/11/24 06:57 11/11/24 07:58
Intake & Output
11/10/24 11/11/24 11/12/24
06:59 06:59 06:59
Intake Total 1660 / 1660 240 / 240
Output Total 850 / 850 300 / 300
Balance 810 / 810 -60 / -60
Intake:
Oral fluids 360 / 360 240 / 240
IV fluids (Total) 1300 / 1300
IV piggybacks 0 / 0
Output:
Urine, Hernandez 150 / 150
Urine, Voided 700 / 700 300 / 300
Other:
Number of approximated SMALL 1
amounts of urine
Number of approximated MODERATE 2
amounts of urine
Number of unmeasured liquid
stools
Rectum 3
Physical Exam
-
General: No Acute Distress and AOx3
Abdomen: Soft, Distended (mild) and Tender (mild around incisions)
Skin: Warm and Dry
Incision: Clear, Dry, Intact
[2024-11-11] MEDS: PEPCID PO ×2 (09:06→20:36)
[2024-11-11] MEDS: HYDROPHOR 1 APPLIC TOPICAL ×2 (09:07→19:33)
[2024-11-11] MEDS: ENTEREG 12 MG PO (09:09)
[2024-11-11] MEDS: NON-FORMULARY ITEM 2 SPRAY NASAL (09:10)
[2024-11-11] MEDS: FLUSH (NSS) 1 FLUSH IV (09:14)
[2024-11-11] MEDS: ZOFRAN 4 MG IV ×2 (09:20→21:02)
[2024-11-11] MEDS: ROXICODONE 10 MG PO ×2 (13:15→19:33)
--- NOTE | 2024-11-11 13:47 | CM ---
Confirmed in [facility] that [facility] has accepted for home care resumption at discharge.
[2024-11-11] MEDS: FLUSH (NSS) 2 FLUSH IV (14:49)
[2024-11-11 15:05] VITALS: BP 128/68
--- NOTE | 2024-11-11 18:35 | PTCARENOTE ---
pt continues with multiple complaints. frequent flight of ideas during conversations. tolerating small amounts of full liquid diet-mostly milk and cream of rice. quickly c/o feeling full. out of bed and ambulating w/family members and RW.
passing some flatus. c/o 10 out of 10 abdominal discomfort and requesting a repeat abdominal scan. Ciara Lopez made aware of pt's concerns. care ongoing.
[2024-11-11] MEDS: LOVENOX 40 MG SC (19:32)
[2024-11-11] MEDS: ZADITOR 1 DROP BOTH EYES (19:34)
[2024-11-11] MEDS: ENTEREG PO (20:35)
[2024-11-11 23:46] VITALS: BP 127/76
[2024-11-12] MEDS: TORADOL IV ×2 (02:00→07:50)
[2024-11-12] MEDS: DILAUDID 0.5 MG IV (05:25)
[2024-11-12 06:00] VITALS: BMI 24.2
[2024-11-12] MEDS: ENTEREG PO (07:10)
[2024-11-12] MEDS: PEPCID PO ×2 (07:10→20:29)
[2024-11-12 07:33] VITALS: BP 124/70
[2024-11-12] MEDS: NON-FORMULARY ITEM 2 PUFF INH (07:42)
[2024-11-12] MEDS: NON-FORMULARY ITEM 2 SPRAY NASAL (07:47)
[2024-11-12] MEDS: HYDROPHOR 1 APPLIC TOPICAL ×2 (07:48→20:29)
[2024-11-12] MEDS: ZOFRAN 4 MG IV (07:52)
--- NOTE | 2024-11-12 08:00 | W.PN.GS2 ---
Today's Communication / Plan
-
Low residue diet
Assessment / Plan
-
This is a 58-year-old female POD 4 robotic sigmoidectomy with takedown of splenic flexure for history of recurrent diverticulitis
PMH: Sjogren's, fibromyalgia, IBS, gastroparesis, HLD, spinal arthritis, KEARA, asthma
� Advance to a low residue diet
�Pain control with Tylenol, Toradol, oxycodone, Dilaudid as needed; continue Entereg until DC
�Lovenox for DVT PPx, TEDS/SCDS in place
�Physical therapy
� Out of bed and ambulate
-Lozenges ordered for sore throat
-Discussed surgery, plan of care, and all of patient's concerns at bedside to patient and son
-Appreciate hospitalist
Time Spent
Total Time Spent with Patient (in minutes): 20
Subjective Data
-
Date of Service: November 12, 2024
Interval Events:
No acute events overnight. Feels somewhat nauseous and increased pain 'I feel like I need to get some food in me'. +bowel function. Tolerating diet, but did not eat a lot as she felt the food was not to her liking.
Objective Data
-
Intake and Output
11/11/24 11/12/24 11/13/24
06:59 06:59 06:59
Intake Total 240 / 240 1740 / 1740
Output Total 300 / 300 800 / 800
Balance -60 / -60 940 / 940
Intake:
Oral fluids 240 / 240 1740 / 1740
Output:
Urine, Voided 300 / 300 800 / 800
Other:
Number of approximated SMALL 1
amounts of urine
Number of approximated MODERATE 2
amounts of urine
Vital Signs
Temp Pulse Resp BP Pulse Ox
98.1 F 83 18 124/70 96
11/12/24 07:33 11/12/24 07:46 11/12/24 07:46 11/12/24 07:33 11/12/24 07:46
Lab Results
11/11/24 06:00
11/11/24 06:00
Calcium Cancelled 11/11/24 06:00
Physical Exam
-
GENERAL/NEURO: Awake, Alert, no distress
CHEST: Unlabored breathing on RA
ABDOMEN: Soft, Non-Tender, Non-Distended, incisions clean dry and intact
Patient has a higgins catheter: No
Patient has a central line: No
--- NOTE | 2024-11-12 08:39 | W.PN.HOSP.TC ---
Today's Communication/Plan
-
see bold
Assessment / Plan
Assessment / Plan
HPI: 58-year-old female with a past medical history of Sjogren's syndrome, asthma, sleep apnea, migraines, chronic fatigue, IBS, gastroparesis, and recurrent diverticulitis who was admitted by the colorectal surgery team for robotic sigmoidectomy on
11/08/2024. Patient is exhibiting severe anxiety. Patient has a history of anxiety, and she is currently very worried regarding how she is doing postoperatively. She reports diffuse abdominal pain and tightness, making it hard for her to breathe.
She was ordered IV Ativan by the colorectal surgery team, but refused. She has been seen by psychiatry in the past, who recommended Xanax. She refused Xanax at that time as well. She has been able to void. Has chronic nausea, denies vomiting.
No fever. Medicine has been consulted to aid in her anxiety symptoms.
#Status post robotic sigmoidoscopy on 11/08/2024
#Postop ileus
Started on entereg 11/09
Adv to low residue today, PT/OT
Continue plan of care as per primary
#Chronic nausea
#History of gastroparesis
GI following, continue antiemetics as needed
#Anxiety with adjustment disorder
Ativan as needed, however she has been refusing
Continue supportive care, reassurance
#Leukocytosis
Patient is afebrile, likely reactive
Resolved, continue monitoring off of antibiotics
#Nonocclusive right basilic vein superficial thrombus
#Right axillary pain
No warmth, erythema, or edema appreciated on exam
Midline removed 11/10 due to pain
Reassurance provided
#History of asthma/COPD
Stable
Bronchodilators as needed
#Sjogren's syndrome
#Karthik syndrome
Continue supportive care, eyedrops
#Chronic gastritis
Continue Pepcid
DVT prophylaxis�subcu Lovenox
Full code
Total time spent to see the patient on the floor, examine the patient, review data and lab results, discuss treatment plan with patient, nursing staff around 38 minutes.
Physical Exam
General: No acute distress
HEENT: Normocephalic, Atraumatic, EOMI, MMM
Respiratory: Clear to Auscultation bilaterally
Cardiac: Normal S1/S2, Regular Rate and Rhythm
GI: Soft, mildly distended, appropriately tender, ecchymosis noted, incisions clean/dry/intact
Extremities: No Clubbing, Cyanosis, or Edema
Neuro: Nonfocal/Grossly Intact
Psych: Anxious appearing
Anticipated Discharge: Within 24 hours
Subjective/Interval History
-
Date of Service: November 12, 2024
Patient ambulating around the hallways. She complains of abdominal pain, chronic nausea. She is tolerating her diet. She is passing gas, no stool. No fever, no vomiting.
Objective Data
-
Vital Signs:
Vital Signs
Temp Pulse Resp BP Pulse Ox
98.1 F 83 18 124/70 96
11/12/24 07:33 11/12/24 07:46 11/12/24 07:46 11/12/24 07:33 11/12/24 07:46
I&O
11/11/24 11/12/24 11/13/24
06:59 06:59 06:59
Intake Total 240 / 240 1740 / 1740
Output Total 300 / 300 800 / 800
Balance -60 / -60 940 / 940
[2024-11-12] MEDS: ROXICODONE 10 MG PO ×2 (12:11→18:44)
--- NOTE | 2024-11-12 12:22 | PTCARENOTE ---
pt's diet advanced to Low residue this am. pt given written diet information. pt tolerated 2 pieces of toast and few spoons of scrambled eggs and
1/2 skim milk. pt requesting Oxycodone/pain medication for pain level of 9.5 out of 10. care ongoing.
[2024-11-12 15:34] VITALS: BP 123/78
[2024-11-12] MEDS: ZOFRAN ODT (ORALLY DISINTEGRATING) 4 MG PO (18:45)
[2024-11-12] MEDS: LOVENOX 40 MG SC (18:46)
[2024-11-12] MEDS: ENTEREG 12 MG PO (20:30)
[2024-11-12 23:00] VITALS: BP 121/71
--- NOTE | 2024-11-13 03:54 | PTCARENOTE ---
Pt continues to refuse Famotidine despite education. Pt also refuses to take liquid tylenol. Pt had family bring in childrens motrin in grape flavor - order was placed and med was verified by pharmacy. Pt ambulated in hallway w RW and standby assist
without incident. Assessment ongoing.
[2024-11-13 06:00] VITALS: BMI 24.0
[2024-11-13] MEDS: ROXICODONE 10 MG PO ×2 (06:38→12:15)
[2024-11-13] MEDS: ZOFRAN ODT (ORALLY DISINTEGRATING) 4 MG PO (06:38)
[2024-11-13 06:57] VITALS: BP 134/75
[2024-11-13] MEDS: NON-FORMULARY ITEM 2 PUFF INH (07:53)
[2024-11-13] MEDS: ENTEREG 12 MG PO (08:43)
[2024-11-13] MEDS: HYDROPHOR 1 APPLIC TOPICAL ×2 (08:45→20:24)
[2024-11-13] MEDS: NON-FORMULARY ITEM 1 SPRAY NASAL (08:45)
--- NOTE | 2024-11-13 08:45 | W.PN.CRS1 ---
Today's Communication / Plan
-
GI reconsult
?discharge later today
Assessment/Plan
-
POD 5 robotic sigmoidectomy with takedown of splenic flexure for history of recurrent diverticulitis
PMH: Sjogren's, fibromyalgia, IBS, gastroparesis, HLD, spinal arthritis, KEARA, asthma
AFVSS
No labs today
�Continue on low residue
�Pain control with Tylenol, Toradol, oxycodone, Dilaudid as needed; continue Entereg until DC
�Lovenox for DVT PPx, TEDS/SCDS in place
�Physical therapy
�Ambulate twice daily; encourage IS
-Appreciate GI consult - reconsulting due to persistent nausea
-Appreciate hospitalist
-Patient is surgically cleared to go home, but she still complains of persistent nausea. Will check back later today after GI re-evaluation.
Subjective Data
Procedure
11/08/2024- Robotic sigmoid and distal descending colon resection with takedown of splenic flexure, intracorporeal anastmosis
Subjective Data
Date of Service: November 13, 2024
Patient states she is 'very' nauseous. She is mildly tender, more so in her lower incision. She is eating solid foods but 'not a lot'. She has been taking walks in the hallway. She denies vomiting. She has flatus.
Objective Data
-
Vital Signs
Temp Pulse Resp BP Pulse Ox
98.2 F 75 16 134/75 99
11/13/24 06:57 11/13/24 07:57 11/13/24 07:57 11/13/24 06:57 11/13/24 07:57
Intake & Output
11/12/24 11/13/24 11/14/24
06:59 06:59 06:59
Intake Total 1740 / 1740 1560 / 1560
Output Total 800 / 800
Balance 940 / 940 1560 / 1560
Intake:
Oral fluids 1740 / 1740 1320 / 1320
IV fluids (Total) 240 / 240
Output:
Urine, Voided 800 / 800
Other:
Number of approximated MODERATE 2 2
amounts of urine
Lab Results
11/11/24 06:00
11/11/24 06:00
Physical Exam
-
General: No Acute Distress and AOx3
Abdomen: Soft, Non Distended and Tender (around lower midline incision)
Skin: Warm and Dry
Incision: Clear, Dry, Intact
[2024-11-13] MEDS: PEPCID PO (09:18)
--- NOTE | 2024-11-13 09:26 | PTCARENOTE ---
Addendum entered by Kianna Hong RN 11/13/24 13:02:
Patient wanted to let RN know that she did not eat all of what was off her tray for breakfast, as she said she was spitting much of it out. Patient stated she did not even consume half of what was there.
Original Note:
Patient stated that she is not eating well due to nausea and pain, but her breakfast tray was in front of her and she had eaten all of the cereal, most of the toast minus the crust, 50% of the eggs, and a whole skim milk. Patient was not allowed any
zofran or oxy at the time as she had just received both at 0638. Ciara Lopez, PAC made aware.
[2024-11-13 09:50] VITALS: BP 104/65; BP 114/68; PULSE 73; O2SAT 100
--- NOTE | 2024-11-13 11:29 | PTOTSP ---
PATIENT ABLE TO MOBILIZE INDEPENDENTLY ON LEVEL SURFACES WITH ROLLING WALKER AND ON ELEVATIONS WELL. REVIEWED CAR TRANSFER TECHNIQUE WITH PATIENT. PATIENT HAS ROLLING WALKER AT HOME AND STATES THAT 'THERE'S ALWAYS SOMEONE' AT HOME. WOULD BENEFIT
FROM HOME P.T. TO ANSWER ANY ADDITIONAL QUESTIONS SHE AND DAUGHTER MAY HAVE. PATIENT IS AMBULATING IN HALLS WITH FAMILY, IS INDEPENDENT WITH ALL OTHER MOBILITY AND ALL QUESTIONS FROM PATIENT AND DAUGHTER WERE ANSWERED, WILL DISCHARGE FROM
ACUTE CARE SKILLED P.T. AT THIS TIME. RN, PATIENT AND DAUGHTER AWARE.
[2024-11-13] MEDS: ZOFRAN ODT (ORALLY DISINTEGRATING) 8 MG PO (12:13)
--- NOTE | 2024-11-13 12:17 | W.PN.GI.CBS2 ---
Addendum entered and electronically signed by Allen Robles MD 11/13/24 14:35:
I saw and examined the patient.
The INSULATION APPLICATOR or PA's note was reviewed and I agree with the note.
Comment: 58 yo F med issues as below including history of gastroparesis s/p L colon rsxn for diverticulitis with ongoing nausea, loss of appetite.
Suspect gastroparesis flare in setting of recent hospitalization.
She is tolerating diet.
Zofran increase, famotidine switched to liquid.
I will also add remeron on bedtime 7.5 mg.
Stressed follow up with Dr. Medina.
Original Note:
Today's Communication / Plan
-
still with c/o nausea - per chart eating 70-75% but pt admits to eating less.
reviewed adding Reglan with risk of Tardive dyskinesia, E Mycin, vs increased Zofran or Scopolamine patch as suggested by Dr. Velázquez last week
pt agreeable to try increased Zofran dose
Pt has not been taking Famotidine due to pill size will change to liquid formulation
pt declined to add supplement as we do not carry favor that she likes
reviewed again about 6 small meal daily instead of 3, avoid fizzy soda, cont low residue diet
limit narcotics, cont ambulation
pt will need follow up with Dr. Medina from GI as follows for chronic issues and Dr. Barajas for ongoing dysphagia issues
support and reassurance given
family updated at bedside
Assessment / Plan
-
Pt is a 58yo with hx multiple med problems Sjogren, asthma, hypercholesterolemia, seasonal allergies, PNA, gastroparesis, fatty liver, Endometriosis with multiple prior laparoscopies in past, IBS, Palpitations,fibromyalgia, Sleep apnea, DDD,
Arthritis, Chronic fatigue, Migraines, Sleep apnea, Diverticulitis, constipation, chronic pain, cystis, rosacea, thyroid nodule, prior appe and hysterectomy with hx recurrent episodes of diverticulitis over last year with need for IV abx on
discharge until surgery on last admission. She now presents 11/08 for elective robotic sigmoid and distal descending colon resection. Asked to see for nausea with hx gastroparesis and noted gaseous distention of stomach.
-recurrent diverticulitis s/p 11/08 elective robotic sigmoid and distal descending colon resection
-gastric distention on Abd X ray
-chronic nausea
-hx gastroparesis
-sore throat
-dysphagia -follow at [place]
-chronic GERD
-endometriosis with multiple ex lap, hysterectomy and MIRNA and prior appe
-IBS
other med problems:
-Sjogren
-asthma
-hypercholesterolemia
-palpitations
-sleep apnea
-DDD
-chronic fatigue
-fibromyalgia
-hx cystitis
PLAN:
still with c/o nausea - per chart eating 70-75% but pt admits to eating less.
reviewed adding Reglan with risk of Tardive dyskinesia, E Mycin, vs increased Zofran or Scopolamine patch as suggested by Dr. Velázquez last week
pt agreeable to try increased Zofran dose
Pt has not been taking Famotidine due to pill size will change to liquid formulation
pt declined to add supplement as we do not carry favor that she likes
reviewed again about 6 small meal daily instead of 3, avoid fizzy soda, cont low residue diet
limit narcotics, cont ambulation
pt will need follow up with Dr. Medina from GI as follows for chronic issues and Dr. Barajas for ongoing dysphagia issues
support and reassurance given
family updated at bedside
Subjective
Subjective
Date of Service: November 13, 2024
per chart taking 70-75% diet but patient denies and states she is eating less still with some abdominal pain
Objective
Data Reviewed
Laboratory Data:
Laboratory Results
11/11/24 06:00
11/11/24 06:00
Vital Signs and I&O:
Vital Signs
Temp Pulse Resp BP Pulse Ox
98.2 F 75 16 134/75 99
11/13/24 06:57 11/13/24 07:57 11/13/24 07:57 11/13/24 06:57 11/13/24 07:57
I&O
11/12/24 11/13/24 11/14/24
06:59 06:59 06:59
Intake Total 1740 / 1740 1560 / 1560
Output Total 800 / 800
Balance 940 / 940 1560 / 1560
Physical Exam
Physical Exam
HEENT: Anicteric and Moist mucous membranes
Cardiology: Normal Sinus Rhythm
Pulmonary: Clear
GI: Soft, Non Distended, Tender (diffuse ) and Other (surgical incision intact and healing minimal bruising lower incision )
Extremities: No Edema
Neuro: Non Focal
--- NOTE | 2024-11-13 12:35 | CM ---
Chart reviewed. Met with pt at bedside
Pt reports she continues to have nausea - meds changed per RN
Ella to follow at d/c
Given IMM
Plan - anticipate home with Ella when medically ready
f - [phone]
--- NOTE | 2024-11-13 12:41 | W.PN.HOSP.TC ---
Today's Communication/Plan
-
Antiemetic considerations: Reglan, aprepitant (if on formulary), Decadron (if no contraindication with wound healing postop), scopolamine
Monitor QTc on antiemetic regimen
Management of postoperative ileus per primary
Assessment / Plan
Assessment / Plan
#Status post robotic sigmoidectomy
#Postop ileus
-Status post robotic sigmoidectomy on 11/08/2024 for frequent diverticulitis
-Started on entereg 11/09, has since began to pass flatus but no bowel movement today
-Has been advanced to low residue diet by surgical team
-Continue to monitor serial abdomen exams
-Continue to monitor bowel status
-Remainder of care per primary team
#Chronic nausea
#Chronic gastritis
#History of gastroparesis
-Unclear etiology, no history of diabetes or intrinsic neuropathy
-Does have chronic gastritis for which she takes daily PPI
-Started on multimodal antiemetic regimen with minimal improvement
-Per colorectal surgery, contraindication to suppositories for now
-GI following, continue antiemetics as needed
-Consider Reglan, aprepitant, Decadron (if no contraindication with wound healing), scopolamine
-Monitor QTc while on multimodal antiemetic regimen
#Anxiety with adjustment disorder
-Ativan as needed, however she has been refusing
-Continue supportive care, reassurance
#Leukocytosis
-Patient is afebrile, likely reactive
-Resolved, continue monitoring off of antibiotics
#Nonocclusive right basilic vein superficial thrombus
#Right axillary pain
-No warmth, erythema, or edema appreciated on exam
-Midline removed 11/10 due to pain
-Reassurance provided
#History of asthma/COPD
-Stable
-Bronchodilators as needed
#Sjogren's syndrome
#Karthik syndrome
-Previous serological workup, no access to records
-Does not currently take a standing immunosuppressive regimen
-Continue supportive care, eyedrops
DVT prophylaxis: subcu Lovenox
Diet: Low residue
CODE STATUS: Full code
Total time spent to see the patient on the floor, examine the patient, review data and lab results, discuss treatment plan with patient, nursing staff around 35minutes.
Anticipated Discharge: Within 24 hours
Subjective/Interval History
-
Date of Service: November 13, 2024
Seen and examined at the bedside. No acute events reported overnight. AFVSS this morning
She complains of nausea that is fairly persistent, makes it tough for her to eat.
She denies any other complaints. States she is passing flatus, no stool as of yet
Objective Data
-
Vital Signs:
Vital Signs
Temp Pulse Resp BP Pulse Ox
98.2 F 75 16 134/75 99
11/13/24 06:57 11/13/24 07:57 11/13/24 07:57 11/13/24 06:57 11/13/24 07:57
I&O
11/12/24 11/13/24 11/14/24
06:59 06:59 06:59
Intake Total 1740 / 1740 1560 / 1560
Output Total 800 / 800
Balance 940 / 940 1560 / 1560
Review of Systems
-
History Source: Patient
All other systems: Reviewed and negative
Physical Exam
-
General: Well Developed, Well Nourished and No Apparent Distress
HEENT: Normocephalic, Atraumatic and Moist Mucous Membranes
Respiratory: Clear to Auscultation and Non Labored Respirations
Cardiac: Regular Rhythm and S1/S2; Negative Murmur, Rub or Gallop
GI: Soft, Nontender, Nondistended and Normal Bowel Sounds
Musculoskeletal: No Clubbing, No Cyanosis and No Edema
Skin: Warm, Dry, Normal Turgor and Other (Subumbilical, central surgical scar without purulence or erythema); Negative Rash or Jaundice
Neuro: AO x 3 and Nonfocal/Grossly Intact
Psych: Calm
Data Reviewed
-
Labs: Labs Reviewed by me and Discussed with Patient
[2024-11-13] MEDS: PEPCID neonatal/peds 20 MG PO ×2 (14:37→20:24)
[2024-11-13 15:00] VITALS: BP 95/69
[2024-11-13] MEDS: LOVENOX 40 MG SC (18:27)
[2024-11-13 18:50] VITALS: BP 121/80
[2024-11-13] MEDS: ZOFRAN ODT (ORALLY DISINTEGRATING) PO ×2 (20:24→20:40)
[2024-11-13] MEDS: ENTEREG PO ×2 (20:24→20:39)
[2024-11-13] MEDS: REMERON 7.5 MG PO (21:29)
[2024-11-13 23:00] VITALS: BP 126/69
[2024-11-13] MEDS: ROXICODONE 5 MG PO (23:35)
[2024-11-14] MEDS: ZOFRAN ODT (ORALLY DISINTEGRATING) PO (05:00)
[2024-11-14 07:00] VITALS: BP 129/77
[2024-11-14] MEDS: NON-FORMULARY ITEM 2 PUFF INH (07:50)
[2024-11-14] MEDS: HYDROPHOR 1 APPLIC TOPICAL (09:12)
[2024-11-14] MEDS: PEPCID neonatal/peds 20 MG PO (09:12)
[2024-11-14] MEDS: NON-FORMULARY ITEM 1 SPRAY NASAL (09:16)
[2024-11-14] MEDS: ENTEREG 12 MG PO (09:18)
[2024-11-14] MEDS: ROXICODONE 5 MG PO ×2 (09:21→15:36)
--- NOTE | 2024-11-14 09:28 | W.PN.CRS1 ---
Today's Communication / Plan
-
possible d/c later today
final GI recs
Assessment/Plan
-
POD 6 robotic sigmoidectomy with takedown of splenic flexure for history of recurrent diverticulitis
PMH: Sjogren's, fibromyalgia, IBS, gastroparesis, HLD, spinal arthritis, KEARA, asthma
AFVSS
No labs today
�Continue on low residue
�Pain control with Tylenol, Toradol, oxycodone, Dilaudid as needed; continue Entereg until DC
�Lovenox for DVT PPx, TEDS/SCDS in place
�Physical therapy
�Ambulate twice daily; encourage IS
-Appreciate GI consult - added Pepcid 20 BID, Zofran 8mg q8
-Appreciate hospitalist
-Possible discharge later today, discussed with patient who seems agreeable
Subjective Data
Procedure
11/08/2024- Robotic sigmoid and distal descending colon resection with takedown of splenic flexure, intracorporeal anastmosis
Subjective Data
Date of Service: November 14, 2024
Patient states she still feels nauseous. She denies vomiting. She has flatus. She has not had a bowel movement. She is urinating without difficulty. She is walking the halls.
Objective Data
-
Vital Signs
Temp Pulse Resp BP Pulse Ox
98.4 F 68 14 129/77 96
11/14/24 07:00 11/14/24 07:00 11/14/24 07:00 11/14/24 07:00 11/14/24 07:00
Intake & Output
11/13/24 11/14/24 11/15/24
06:59 06:59 06:59
Intake Total 1560 / 1560 1976
Balance 1560 / 1560 1976
Intake:
Oral fluids 1320 / 1320 1976
IV fluids (Total) 240 / 240
Other:
Number of approximated MODERATE 2 1
amounts of urine
Lab Results
11/11/24 06:00
11/11/24 06:00
Physical Exam
-
General: No Acute Distress and AOx3
Abdomen: Soft, Non Distended and Non Tender
Skin: Warm and Dry
Incision: Clear, Dry, Intact
--- NOTE | 2024-11-14 11:39 | W.PN.GI.CBS2 ---
Addendum entered and electronically signed by Kellie Bates Do, MD 11/14/24 13:31:
I saw and examined the patient.
The HIM TECH's note was reviewed and I agree with the note.
Comment: She is tolerating diet. Denies nausea/vomiting. Still with abd pain 8 out of 10. She is ambulating around room and floor. Exam VSS standing with walker, abd diffusely tender to palpation. Labs reviewed.
She is tolerating diet. Ok from GI perspective for hosp d/c today. We gave her papercopy of her scripts (as below pepcid, remeron and zofran). She declined to tell me the name of her PMD. She has FU with Dr Medina who is her GI doctor. All
questions answered. Care coordinated with colorectal surgery. GI will sign off please call for ?
Original Note:
Today's Communication / Plan
-
slow improvement and eating more for breakfast today with assist of Remeron
on discharge -- printed scripts for the following are on pt chart
Zofran 4mg q 8 hours PRN disp #60 no refills
remeron 7.5mg QHS disp #31 no refills
Pepcid 20mg liquid BID disp # 155ml doses no refills
31 day supply given
I discussed side effects and pt is tolerating current regiment during inpatient stay
cont low residue diet, small frequent meals, avoid fizzy sodas
limit narcotics, cont ambulation
pt will need follow up with Dr. Medina from GI as follows for chronic issues and Dr. Villagomez for ongoing dysphagia issues
Assessment / Plan
-
Pt is a 58yo with hx multiple med problems Sjogren, asthma, hypercholesterolemia, seasonal allergies, PNA, gastroparesis, fatty liver, Endometriosis with multiple prior laparoscopies in past, IBS, Palpitations,fibromyalgia, Sleep apnea, DDD,
Arthritis, Chronic fatigue, Migraines, Sleep apnea, Diverticulitis, constipation, chronic pain, cystis, rosacea, thyroid nodule, prior appe and hysterectomy with hx recurrent episodes of diverticulitis over last year with need for IV abx on
discharge until surgery on last admission. She now presents 11/08 for elective robotic sigmoid and distal descending colon resection. Asked to see for nausea with hx gastroparesis and noted gaseous distention of stomach.
-recurrent diverticulitis s/p 11/08 elective robotic sigmoid and distal descending colon resection
-gastric distention on Abd X ray
-chronic nausea
-hx gastroparesis
-sore throat
-dysphagia -follow at [place]
-chronic GERD
-endometriosis with multiple ex lap, hysterectomy and MIRNA and prior appe
-IBS
other med problems:
-Sjogren
-asthma
-hypercholesterolemia
-palpitations
-sleep apnea
-DDD
-chronic fatigue
-fibromyalgia
-hx cystitis
PLAN:
slow improvement and eating more for breakfast today with assist of Remeron
on discharge -- printed scripts for the following are on pt chart
Zofran 4mg q 8 hours PRN disp #60 no refills
remeron 7.5mg QHS disp #31 no refills
Pepcid 20mg liquid BID disp # 155ml doses no refills
31 day supply given
I discussed side effects and pt is tolerating current regiment during inpatient stay
cont low residue diet, small frequent meals, avoid fizzy sodas
limit narcotics, cont ambulation
pt will need follow up with Dr. Medina from GI as follows for chronic issues and Dr. Villagomez for ongoing dysphagia issues
Subjective
Subjective
Date of Service: November 14, 2024
no stool but + flatus, on low residue diet
Objective
Data Reviewed
Laboratory Data:
Laboratory Results
11/11/24 06:00
11/11/24 06:00
Vital Signs and I&O:
Vital Signs
Temp Pulse Resp BP Pulse Ox
98.4 F 68 14 129/77 94
11/14/24 07:00 11/14/24 07:00 11/14/24 07:00 11/14/24 07:00 11/14/24 09:10
I&O
11/13/24 11/14/24 11/15/24
06:59 06:59 06:59
Intake Total 0 / 1560 1976
Balance 1559 / 1559
Physical Exam
Physical Exam
HEENT: Anicteric and Moist mucous membranes
Cardiology: Normal Sinus Rhythm
Pulmonary: Clear
GI: Soft, Distended (mild ) and Tender (diffuse )
Extremities: No Edema
Neuro: Non Focal
--- NOTE | 2024-11-14 11:42 | W.PN.HOSP.TC ---
Today's Communication/Plan
-
Continue antiemetics
Ativan for anxiety if amenable
Assessment / Plan
Assessment / Plan
#Status post robotic sigmoidectomy
#Postop ileus
-Status post robotic sigmoidectomy on 11/08/2024 for frequent diverticulitis
-Started on entereg 11/09, has since began to pass flatus but no bowel movement today
-Has been advanced to low residue diet by surgical team
-Continue to monitor serial abdomen exams
-Continue to monitor bowel status
-Remainder of care per primary team
#Chronic nausea
#Chronic gastritis
#History of gastroparesis
-Unclear etiology, no history of diabetes or intrinsic neuropathy
-Does have chronic gastritis for which she takes daily PPI
-Started on multimodal antiemetic regimen with minimal improvement
-Per colorectal surgery, contraindication to suppositories for now
-GI following, started remeron HS
#Anxiety with adjustment disorder
-Ativan as needed, however she has been refusing
-Continue supportive care, reassurance
#Leukocytosis
-Patient is afebrile, likely reactive
-Resolved, continue monitoring off of antibiotics
#Nonocclusive right basilic vein superficial thrombus
#Right axillary pain
-No warmth, erythema, or edema appreciated on exam
-Midline removed 11/10 due to pain
-Reassurance provided
#History of asthma/COPD
-Stable
-Bronchodilators as needed
#Sjogren's syndrome
#Karthik syndrome
-Previous serological workup, no access to records
-Does not currently take a standing immunosuppressive regimen
-Continue supportive care, eyedrops
DVT prophylaxis: subcu Lovenox
Diet: Low residue
CODE STATUS: Full code
Total time spent to see the patient on the floor, examine the patient, review data and lab results, discuss treatment plan with patient, nursing staff around 35minutes.
Anticipated Discharge: Within 24 hours
Subjective/Interval History
-
Date of Service: November 14, 2024
Seen and examined while up and pacing the room. No acute events overnight. AFVSS this morning
She still has some abdomen pain in her incision site. States she is passing flatus but no stool yet. Continues to have nausea at that interferes with her oral intake
She denies any new complaints as of this morning. Daughter at bedside and provided updates
Objective Data
-
Vital Signs:
Vital Signs
Temp Pulse Resp BP Pulse Ox
98.4 F 68 14 129/77 94
11/14/24 07:00 11/14/24 07:00 11/14/24 07:00 11/14/24 07:00 11/14/24 09:10
I&O
11/13/24 11/14/24 11/15/24
06:59 06:59 06:59
Intake Total 1560 / 1560 1976
Balance 1560 / 1560 1976
Review of Systems
-
History Source: Patient
All other systems: Reviewed and negative
Physical Exam
-
General: Well Developed, No Apparent Distress and Comfortable
HEENT: Normocephalic, Atraumatic, Moist Mucous Membranes and Anicteric
Respiratory: Clear to Auscultation and Non Labored Respirations
Cardiac: Regular Rhythm and S1/S2; Negative Murmur, Rub or Gallop
GI: Soft, Nontender, Normal Bowel Sounds and Distended (Mildly; no tympany)
Musculoskeletal: No Clubbing, No Cyanosis and No Edema
Skin: Warm, Dry and Other (Surgical incision midline lower abdomen, no erythema or purulence)
Neuro: AO x 3 and Nonfocal/Grossly Intact
Psych: Calm
Data Reviewed
-
Labs: Labs Reviewed by me
[2024-11-14] MEDS: ZOFRAN ODT (ORALLY DISINTEGRATING) 8 MG PO (12:51)
--- NOTE | 2024-11-14 13:14 | W.DS.TRANS ---
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
-
Discharge Instructions:
Discharge Diagnosis/Procedures Robotic sigmoid and distal descending colon
resection with takedown of splenic flexure,
intracorporeal anastmosis
Diet Low Residue
Activity No strenuous activity
Additional Activity No lifting over 10lbs (gallon of milk)
Driving Restrictions No driving for 1 week
Wound Care Allow glue to naturally fall off. Do not pick at
incisions.
Instructions: Low-fiber diet
Stand-Alone Forms:
Changes to Home Medications: Yes
Discharge Medications:
DC Medications w/original date entered in [employer]
ketotifen fumarate 0.025 % (0.035 %) eye drops (Zaditor) 1 drp BOTH EYES Q48H Eye Condition 03/04/23
ergocalciferol (vitamin D2) 200 mcg/mL (8,000 unit/mL) oral drops 40,000 unit PO FR Supplement 03/24/24
famotidine 20 mg tablet (Pepcid) 20 mg PO BID Gastrointestinal Issue 03/24/24
mometasone-formoterol HFA 100 mcg-5 mcg/actuation aerosol inhaler (Dulera) 1 - 2 puff inhalation BID Lung/Breathing Issues 03/24/24
fluticasone propionate 50 mcg/actuation nasal spray,suspension 1 spray intranasal BID Allergies 05/31/24
carboxymethylcellulose sodium 0.25 % eye drops (TheraTears) 1 drp BOTH EYES QIDPRN PRN irritated eyes 09/20/24
cetirizine 10 mg tablet (Zyrtec) 10 mg PO HS Allergies 09/20/24
estradiol 0.01% (0.1 mg/gram) vaginal cream (Estrace) 1 applic vaginal WESA Hormonal Agent 09/20/24
fluoride (sodium) 1.1 % dental paste (PreviDent 5000 Booster Plus) 1 applic dental BID DENTAL 09/20/24
levalbuterol tartrate 45 mcg/actuation aerosol inhaler (Xopenex HFA) 2 inh inhalation R Q6HPRN PRN sob 09/20/24
Systane Lid Wipes 1 dose topical PRN PRN eye wipe 11/01/24
levalbuterol HCl 1.25 mg/0.5 mL solution for nebulization 1.25 mg inhalation PRN PRN shortness of breath 11/01/24
sod picosulf 10 mg-magnes 3.5 gram-citric 12 gram/175 mL oral solution (Clenpiq) 175 ml PO DIRECTED 11/01/24
mupirocin 2 % topical ointment 1 applic topical BID 11/06/24
nystatin 100,000 unit/gram topical ointment 1 applic topical BID 11/06/24
oxycodone 5 mg tablet 5 mg PO Q6H PRN Pain #20 tabs 11/14/24
Home Medication Changes
Zofran 4mg q 8 hours PRN disp #60 no refills
remeron 7.5mg QHS disp #31 no refills
Pepcid 20mg liquid BID disp # 155ml doses no refills
oxycodone 5 mg tablet 5 mg PO Q6H PRN Pain #20 tabs 11/14/24
Pending Results: Yes
Additional Pending Results:
pathology
--- NOTE | 2024-11-14 13:16 | CM ---
Pt for discharge today
Ella to follow at d/c
Plan - anticipate home with Ella when medically ready
f - [phone]
[2024-11-14 15:09] VITALS: BP 108/69
== END 2024-11-14 17:30 | disposition home health service (06) | DRG 330 ==
LOC: 2 SOUTH 12:42
PROVIDERS: Physician Assistant; ADMITTING PHYSICIAN Surgery; CONSULT PHYSICIAN Internal Medicine Gastroenterology; FAMILY PHYSICIAN Student in an Organized Health Care Education/Training Program; OTHER PHYSICIAN Family Medicine
PROC: 0DTN0ZZ Resection of Sigmoid Colon, Open Approach (ICD-10-PCS; 2024-11-08)
PROC: 8E0W0CZ Robotic Assisted Procedure of Trunk Region, Open Approach (ICD-10-PCS; 2024-11-08)
DX: K57.32 Diverticulitis of large intestine without perforation or abscess without bleeding (principal); I82.611 Acute embolism and thrombosis of superficial veins of right upper extremity; K56.7 Ileus, unspecified; F43.22 Adjustment disorder with anxiety; K31.7 Polyp of stomach and duodenum; E78.00 Pure hypercholesterolemia, unspecified; K21.9 Gastro-esophageal reflux disease without esophagitis; K29.50 Unspecified chronic gastritis without bleeding; M35.00 Sjogren syndrome, unspecified; M79.7 Fibromyalgia; R13.10 Dysphagia, unspecified; Z80.0 Family history of malignant neoplasm of digestive organs; Z90.710 Acquired absence of both cervix and uterus; K60.0 Acute anal fissure; K31.84 Gastroparesis
CPT/HCPCS: 88307; 36415; 74019; 80048; 80053; 83036; 85025; 85027; 85610; 85730; 86850; 86900; 86901; 93005; 93971; 94640; 97116; 97162; 97530; J1335

== ENCOUNTER 2024-11-19 04:30 | Inpatient (IN) | payer MEDICARE, OTHER, SELFPAY ==
[2024-11-18 21:18] VITALS: BP 122/69
[2024-11-18 21:48] LABS: % Basophils 0.5 % (0-2); % Eosinophils 1.7 % (0-6); % Immature Granulocytes 0.3 % (0-0.5); % Neutrophils 74.5 % (42.2-75.2); Absolute Eosinophils 0.2 10^3/uL (0-0.7); Absolute Lymphocytes 1.3 10^3/uL (1.2-3.4); Absolute Monocytes 0.7 10^3/uL (0.1-0.6); Absolute Neutrophils 6.6 10^3/uL (1.4-6.5); Hematocrit 34.6 % (37.0-47.0); Hemoglobin 11.3 g/dL (12.0-16.0); Mean Corp Hgb Conc. 32.7 g/dL (33.0-37.0); Mean Corpuscular Hgb 29.9 pg (27.0-31.0); Mean Corpuscular Volume 91.5 fL (81.0-99.0); Mean Platelet Volume 9.8 fL (7.4-10.4); Nucleated Red Blood Cells % 0 %; Platelet Count 373 10^3/uL (130-400); Red Blood Cell Count 3.78 10^6/uL (4.20-5.40); Red Cell Dist. Width 12.8 % (11.5-14.5); White Blood Cell Count 8.9 10^3/uL (4.8-10.8)
[2024-11-18 21:59] LABS: Urine Albumin Negative (Neg - Trace); Urine Bilirubin Negative (Negative); Urine Character Clear (Clear); Urine Color Yellow; Urine Glucose Negative (Negative); Urine Ketone Negative (Negative); Urine Leukocyte 1+ (Negative); Urine Nitrite Negative (Negative); Urine Occult Blood Negative (Negative); Urine Specific Gravity 1.005 (<1.030); Urine Urobilinogen Negative (Neg - 1+)
[2024-11-18 22:05] LABS: Lactic Acid 1.4 mmol/L (0.7-2.0)
[2024-11-18 22:07] LABS: Urine Red Blood Cell 0-2 /HPF (0-2)
[2024-11-18 22:11] LABS: ALT (SGPT) 26 U/L (0-35); AST (SGOT) 25 U/L (14-36); Albumin 4.4 g/dl (3.5-5.0); Alkaline Phosphatase 111 U/L (38-126); Blood Urea Nitrogen 13 mg/dl (7-17); Calcium 9.5 mg/dl (8.4-10.2); Carbon Dioxide 29 mmol/L (22-30); Chloride 99 mmol/L (98-107); Glucose 102 mg/dl (70-99); Potassium 3.9 mmol/L (3.5-5.1); Sodium 133 mmol/L (135-145); Total Bilirubin 0.5 mg/dl (0.2-1.3); Total Protein 7.4 g/dl (6.3-8.2); eGFR > 60.00
[2024-11-19] VITALS (12 sets, daily range): BP systolic 94–147; BP diastolic 54–81; BMI 24.5
--- NOTE | 2024-11-19 00:17 | ED.GENMED ---
History of Present Illness
General
Chief Complaint: Post Operative Problem(s)
Source: patient and previous hospital records (Several previous hospitalizations for acute recurrent sigmoid diverticulitis. Most recent hospitalization-sigmoid colon resection November 08, 2024.)
Exam Limitations: none
Time Seen by Provider: 11/18/24 23:23
Nursing documentation reviewed up to this point in time: agreed with
History of Present Illness
History of Present Illness:
This is a 58-year-old woman who has history of recurrent sigmoid diverticulitis with recurrent hospitalizations over the past several months requiring PICC line with IV or ertapenem. She underwent elective sigmoid colon resection November 08,
discharged the following day. She presents with complaints of slowly progressive erythema at midline horizontal lower abdominal incision site with moderate firmness around this incision site that she states she initially noticed immediately
postoperatively and has persisted, perhaps gotten slowly progressively worse with worsening redness along with onset of low-grade fever today. She denies drainage from the wound. She does
Admit to some constipation passing small hard stool yesterday, no bowel movement today. Appetite has been good, she admits to occasional brief nausea but has had no vomiting.
She took a dose of ibuprofen this evening as well as oxycodone around 7:30 PM. She did call colorectal surgeon on-call, spoke with Dr. Singer and was recommended to come to the ED for further evaluation.
Past History
Past History
ED Past Medical History: Asthma, Hypercholesterolemia, Other (Seasonal allergies, PNA, Gastroparesis, Endometrious, IBS, Sjogrens, Palpitations, Sleep apnea, Buldging disc, Arthritis, Chronic fatigue, Migraines, Sleep apnea, Diverticulitis) and
Other (Interstitial cystitis, Rosacea, recurrent sigmoid diverticulitis)
ED Past Surgical History: Appendectomy, Bowel resection (Sigmoid colon resection November 08, 2024), Gynecological (Hysterectomy) and Other (Adhesions)
Social History
Tobacco: Non-smoker
Alcohol: None
Drug: None
Personal:
Living: with family
Employment: Disabled
Family History
Family History: Other (Noncontributory)
Phy Exam
Physical Exam
Physical Exam:
GENERAL: 58-year-old woman appears her stated age, awake and alert, mildly anxious, appears in mild distress related to pain. Cooperative.
EYE: anicteric
NECK: Supple, nontender, no meningismus, no significant adenopathy.
ENT: oral mucosa is moist. No rhinorrhea.
CARDIAC: Regular rate and rhythm. no murmur.
LUNGS: Clear breath sounds bilaterally, no acute respiratory distress, no wheezes/rales/rhonchi
ABDOMEN: Soft, nondistended, there is a horizontal lower abdominal incision with mild local crusting, moderate surrounding erythema with moderate surrounding subcutaneous firmness that is exquisitely tender to palpation. Erythema extends 15 cm
horizontally, 10 cm vertically. Mildly warm to touch. No drainage. 3 upper abdominal laparoscopy sites are dry and intact without erythema nor soft tissue swelling. no cvat. normoactive BS.
NEUROLOGICAL: Alert and oriented x3, no focal neuro deficits. Gait is steady.
SKIN: Warm and dry, minimally pale in color, good turgor.
MUSCULOSKELETAL: No C/C/E. peripheral pulses are full and equal b/l. No palpable tenderness.
PSYCH: Mildly anxious.
Course
Orders/Labs/Results
Orders:
Orders
11/18/24 21:37
Complete Blood Count/With Diff Urgent
Comprehensive Metabolic Panel Urgent
Lactic Acid Urgent
11/18/24 21:49
Urine Culture Reflexed from UA [Urinalysis Reflex To Culture] Urgent
Date Specimen was Collected: 11/18/24
Time Specimen was Collected: 21:48
Urine Microscopic Reflex Cult Urgent
Urine Culture Urgent
MADYSON Source: U
Specimen Description:
Date Specimen was Collected: 11/18/24
Time Specimen was Collected: 21:48
11/18/24 23:34
0.9% Sodium Chloride 1000 ml [Nss] 1,000 ml IV BOLUS
Acetaminophen 1000MG/100Ml [Ofirmev] 1,000 mg in 100 ml IV ONCE
Acetaminophen IV Indication:: ED Narcotic Naive Pt-ONCE
Diphenhydramine [Benadryl] 50 mg IV NOW STA
Hydrocortisone Sod Succinate [Solu-Cortef] 200 mg IV NOW STA
11/19/24 00:04
CT Abd/pelvis W Iv Cont Urgent
Reason For Exam: redness/pain/swelling lower abd surgical incision
11/19/24 00:33
Diphenhydramine [Benadryl] 50 mg .ROUTE .STK-MED ONE
11/19/24 00:36
Diphenhydramine [Benadryl] 25 mg IV NOW STA
11/19/24 03:20
Piperacillin/Tazo 4.5 Gram [Zosyn] 4.5 gram in 100 ml IV NOW
11/19/24 04:06
Admit/Transfer Patient As Directed
Co-Sign Provider:
Level of Care: Inpatient admission
Assign to:: Medical/Surgical
Physician / Group: Dwayne
Diagnosis: Incision Seroma / Abscess
Reason for Hospitalization: Incision Seroma / Abscess
Expected length of stay greater than two midnights?: Yes
ELOS- Estimated Length of Stay in days: 3
I certify the patient meets the requirements for IP care: Yes
PRN Pain Medication Management As Directed
May give lesser potent ordered pain med per pt: Yes
preference::
Protocol:: Medication orders for pain may be administered in a
manner that supports deferring to patient preference
when the pt is:
- Requesting an ordered lesser potent pain medication.
Least to most potent pain medications are defined
as: acetaminophen < NSAID < tramadol < opioids
(morphine, oxycodone, hydromorphone).
- Requesting a lesser dose of the same medication IF
ORDERED.
- Requesting a less intrusive route of administration
if both routes are prescribed by the provider (PO <
IV).
11/19/24 04:09
Code Status As Directed
Resuscitation Status: Full Code
11/19/24 04:34
Acetaminophen [Tylenol] 650 mg PO Q4HPRN PRN
Albuterol Nebs [Ventolin Nebules] 2.5 mg INH R Q4HPRN PRN
Ketorolac [Toradol] 15 mg IV Q6HPRN PRN
Ketotifen Fumarate [Zaditor] 1 drop BOTH EYES Q48H
Lorazepam [Ativan] 0.5 mg IV Q4HPRN PRN
Ondansetron Injectable [Zofran] 4 mg IV Q6HPRN PRN
Oxycodone [Roxicodone] 5 mg PO Q6H PRN
11/19/24 04:34
ColoRectal Surgery Consult Routine
Consulting Provider: Jorje Singer
Was physician already notified: Yes
Reason for consult: Incision Seroma / Abscess
Activity As Directed
Activity Level: Ambulate
With Assistance
I/O [Intake/ Output] As Directed
Frequency: Per unit guidelines
Pneumatic Compression Sleeves As Directed
Type: Knee high
Vital Signs As Directed
Frequency: Per unit guidelines
Oxygen Therapy [O2 Therapy] [RESP] Routine
Titrate/Wean O2 to maintain O2 sat greater than (%): 94
DX Deep Vein Thrombosis Video Routine
11/19/24 05:00
Lactated Ringers [Lr] 1,000 ml IV 100 mls/hr
11/19/24 Breakfast
NPO
Allow oral meds: Yes
Allow clear liquids: Sips of Clears
11/19/24 06:15
Carboxymethylcellulose [Refresh Celluvisc Gel] 1 drops BOTH EYES QIDPRN PRN
11/19/24 06:24
Basic Metabolic Panel IN AM
Complete Blood Count/No Diff IN AM
11/19/24 08:00
Famotidine [Pepcid] 20 mg PO BID
Saccharomyces Boulardii [Florastor] 250 mg PO BID
11/19/24 10:00
Piperacillin/Tazo 3.375 Gram [Zosyn] 3.375 gram in 50 ml IV Q6H
Abnormal Lab Results
11/18/24 11/18/24
21:37 21:49
RBC 3.78 L 10^6/uL
(4.20-5.40)
Hgb 11.3 L g/dL
(12.0-16.0)
Hct 34.6 L %
(37.0-47.0)
MCHC 32.7 L g/dL
(33.0-37.0)
Absolute Neuts (auto) 6.6 H 10^3/uL
(1.4-6.5)
Absolute Monos (auto) 0.7 H 10^3/uL
(0.1-0.6)
Lymphocytes % 15.0 L %
(20.5-51.1)
Sodium 133 L mmol/L
(135-145)
Glucose 102 H mg/dl
(70-99)
Leukocyte Esterase Rfl 1+ A
(Negative)
11/18/24 21:37
11/18/24 21:37
Vital Signs
Initial and Last Documented VS:
Initial Vital Signs
Temp Pulse Resp BP Pulse Ox
98.9 F 72 20 122/69 98
11/18/24 21:18 11/18/24 21:18 11/18/24 21:18 11/18/24 21:18 11/18/24 21:18
Last Documented Vital Signs
Temp Pulse Resp BP Pulse Ox
98.9 F 66 16 102/62 98
11/18/24 21:18 11/19/24 07:16 11/19/24 07:16 11/19/24 07:16 11/19/24 07:16
MDM/Problems Addressed
Differential Diagnosis Includes:
Concern for postop wound infection/cellulitis, concern for subcutaneous abscess, other consideration is deeper infection/colonic anastomosis leak.
Low-grade fever noted, concern for potential sepsis. Currently hemodynamically stable.
Labs thus far reassuring with normal white blood cell count. Mild anemia that has improved from November 10.
Chemistries/LFTs within normal limits.
Urinalysis is unremarkable.
Will plan for CT abdomen pelvis with IV contrast. Patient has reported adverse reaction to IV contrast including flushing and palpitations. Will pretreat with hydrocortisone and Benadryl. Has done well with pretreatment in the past.
Will medicate for pain with an IV dose of Tylenol, initiate IV fluids.
Chronic conditions affecting care: Previous abdomnial surgery
*Radiology
Radiology exam reviewed: radiology read reviewed
*Pulse Oximetry
Patient hypoxic: no
*Critical Care Note
Total Time (30-74mins, 75-104mins- exclusive of procedures): Not Applicable
Update Note
Update Note:
03:13
CAT scan shows partial colectomy with anastomosis in the sigmoid colon. Lower abdominal wall incision site there is subcutaneous fluid and gas containing a pocket measuring 5.6 x 2.4 x 2.7 which could represent a seroma versus developing infection.
Case discussed with colorectal surgery, recommend admitted to hospital service and initiating IV Zosyn.
ED Attending Note
-
Portions of this chart may have been created with voice recognition software.� Occasional wrong word or��sound alike� substitutions may have occurred due to the inherent limitations of voice recognition software.
Discharge Plan
Departure
Patient Disposition: Admit
Date of Disposition: 11/19/24
Time of Disposition: 03:13
Admit to doctor: Dwayne
Presentation/result/management discussed w/ accepting MD/DO: Hospitalist
Discharge Problem:
Postoperative wound infection
Interventions
Interventions:
*Risk Screen - Suicide Last Done: 11/19/24 00:00
*General Assessment Last Done: 11/18/24 21:18
*Neglect/Abuse Screening Last Done: 11/19/24 00:00
*ED COVID-19 Vaccine History Last Done: 11/19/24 00:00
ED-Skin Assessment Last Done: 11/19/24 00:00
[2024-11-19] MEDS: SOLU-CORTEF 200 MG IV (00:27)
[2024-11-19] MEDS: NSS 1000 IV (00:27)
[2024-11-19] MEDS: BENADRYL 25 MG IV (00:37)
--- NOTE | 2024-11-19 04:12 | HPS.HSE ---
Family Physician
-
Family Physician: Gustavo Palacios MD
Chief Complaint
-
Abd pain
History of Present Illness
Patient is a 58y F with PMH significant for Sjogren's syndrome, chronic constipation and recent complicated diverticulitis now s/p sigmoid resection who presents to ED complaining of pain, swelling and redness at her incision site. Patient
underwent sigmoid / descending colon resection on 11/08/24. post-op course was complicated by ileus / constipation, anxiety and N/V. She was discharged to home on 11/14/24. Patient states that since that time she has noted gradually worsening pain,
swelling and redness at the umbilical incision site. She denies any bleeding or drainage. Today she had shaking chills as well and presented to the ED for further evaluation.
Medical History
Past Medical History
Past Medical History: Reports Other
Additional Past Medical History:
Asthma
Gastroparesis
Thyroid nodule
Hiatal hernia
Fibromyalgia
Fatty liver disease
Venous insufficiency
Obstructive sleep apnea
Hyperlipidemia
Sigmoid diverticulitis
Chronic pain syndrome
Chronic fatigue syndrome
IBS with constipation
Osteopenia
Past Surgical History: Reports Other
Additional Past Surgical History:
Robotic Sigmoid / Descending Colon Resection (11/08/24)
Total abdominal hysterectomy
Appendectomy
Social History
Tobacco: Non-smoker
Alcohol: None
Drug: None
Family History
Family History: Not pertinent
Allergies / Home Medications
Allergies reflects when Allergies were last updated in [facility].
Home Medications with original date entered in [facility]
Allergy/Medication List:
Allergies
Allergy/AdvReac Type Severity Reaction Status Date / Time
adhesive tape Allergy hives, Verified 11/18/24 21:18
itching
cefadroxil [From Duricef] Allergy Hives Verified 11/18/24 21:18
cefuroxime [From Ceftin] Allergy Hives Verified 11/18/24 21:18
epinephrine Allergy heart races Verified 11/18/24 21:18
hydromorphone [From Dilaudid] Allergy made the Verified 11/18/24 21:18
room spin
Iodinated Contrast Media Allergy FLUSHING, Verified 11/18/24 21:18
PALPITATIONS
latex Allergy Hives Verified 11/18/24 21:18
lidocaine Allergy Hives Verified 11/18/24 21:18
Sulfa (Sulfonamide Allergy Unknown Verified 11/18/24 21:18
Antibiotics)
Home Medications
ketotifen fumarate 0.025 % (0.035 %) eye drops (Zaditor) 1 drp BOTH EYES Q48H Eye Condition 03/04/23
ergocalciferol (vitamin D2) 200 mcg/mL (8,000 unit/mL) oral drops 40,000 unit PO FR Supplement 03/24/24
famotidine 20 mg tablet (Pepcid) 20 mg PO BID Gastrointestinal Issue 03/24/24
mometasone-formoterol HFA 100 mcg-5 mcg/actuation aerosol inhaler (Dulera) 1 - 2 puff inhalation BID Lung/Breathing Issues 03/24/24
fluticasone propionate 50 mcg/actuation nasal spray,suspension 1 spray intranasal BID Allergies 05/31/24
carboxymethylcellulose sodium 0.25 % eye drops (TheraTears) 1 drp BOTH EYES QIDPRN PRN irritated eyes 09/20/24
cetirizine 10 mg tablet (Zyrtec) 10 mg PO HS Allergies 09/20/24
estradiol 0.01% (0.1 mg/gram) vaginal cream (Estrace) 1 applic vaginal WESA Hormonal Agent 09/20/24
fluoride (sodium) 1.1 % dental paste (PreviDent 5000 Booster Plus) 1 applic dental BID DENTAL 09/20/24
levalbuterol tartrate 45 mcg/actuation aerosol inhaler (Xopenex HFA) 2 inh inhalation R Q6HPRN PRN sob 09/20/24
Systane Lid Wipes 1 dose topical PRN PRN eye wipe 11/01/24
levalbuterol HCl 1.25 mg/0.5 mL solution for nebulization 1.25 mg inhalation PRN PRN shortness of breath 11/01/24
sod picosulf 10 mg-magnes 3.5 gram-citric 12 gram/175 mL oral solution (Clenpiq) 175 ml PO DIRECTED 11/01/24
mupirocin 2 % topical ointment 1 applic topical BID 11/06/24
nystatin 100,000 unit/gram topical ointment 1 applic topical BID 11/06/24
oxycodone 5 mg tablet 5 mg PO Q6H PRN Pain #20 tabs 11/14/24
Review of Systems
-
History Source: Patient
A 12 point ROS was completed and negative except as noted: Yes
Constitutional: Reports Fever, Fatigue and Chills
Respiratory: Denies Cough or Trouble Breathing
Cardiac: Denies Chest Pain or Palpitations
Abdomen/GI: Reports Abdominal Pain and Constipated; Denies Nausea or Vomiting
: Denies Dysuria or Frequency
Musculoskeletal: Denies Joint Pain or Edema
Neurological: Denies Dizzy or Headache
Psych: Reports Anxiety
Physical Exam
Vital Signs
Vital Signs
Temp Pulse Resp BP Pulse Ox
98.9 F 72 16 115/63 100
11/18/24 21:18 11/19/24 02:24 11/19/24 02:24 11/19/24 02:24 11/19/24 02:24
Physical Exam
General: Other (58y F in no acute distress.)
HEENT: PERRLA and Other (Dry MM.)
Respiratory: Clear; No Wheezes, Rales or Rhonchi
Cardiac: S1/S2 and Regular Rhythm; No Murmur
GI: Soft, Normal Bowel Sounds and Other (Umbilical incision with surrounding erythema. Localized tenderness and firm collection evident. No bleeding / discharge. Other incisions well-appearing.)
Musculoskeletal: No Clubbing, No Cyanosis and No Edema
Neuro: AO x 3
Laboratory Results
-
11/18/24 21:37
11/18/24 21:37
Laboratory Results
Lactic Acid 1.4 mmol/L (0.7-2.0) 11/18/24 21:37
Total Bilirubin 0.5 mg/dl (0.2-1.3) 11/18/24 21:37
AST 25 U/L (14-36) 11/18/24 21:37
ALT 26 U/L (0-35) 11/18/24 21:37
Alkaline Phosphatase 111 U/L (38-126) 11/18/24 21:37
Impression/Plan
-
A/P: Patient is a 58y F with PMH significant for Sjogren's syndrome and recent complicated diverticulitis now s/p sigmoid / descending colon resection who presents to ED complaining of incisional pain, swelling and redness.
Incision Seroma / Abscess
s/p Robotic Sigmoid / Descending Colon Resection (11/08/24)
- Admit for further evaluation and treatment.
- Here patient is afebrile, non-toxic appearing and without leukocytosis.
- CT shows fluid collection subcutaneously 5.6 x 2.4 x 2.7 cm with some surrounding stranding / inflammation.
- Empiric Zosyn for now.
- Colorectal Surgery eval in AM. Will likely require drainage by CRS or IR.
- Follow-up fluid studies / cultures once sent.
- Supportive care including pain control.
Asthma / COPD without Acute Exacerbation
- Stable. Continue current inhaled medications.
- Follow for any changes.
Sjogren's Syndrome
Sicca Syndrome
- Stable. Continue supportive care, eye drops, etc.
Generalized Anxiety
- Has refused BZDs in the past for as-needed use.
- Will make Ativan available in the event that patient requires / agrees to use.
DVT Prophylaxis: SCDs
Code Status: Full
[2024-11-19] MEDS: ZOSYN 100 IV (04:23)
[2024-11-19] MEDS: ROXICODONE 5 MG PO (06:36)
[2024-11-19 06:45] LABS: Hematocrit 31.5 % (37.0-47.0); Hemoglobin 10.4 g/dL (12.0-16.0); Mean Corpuscular Volume 90.8 fL (81.0-99.0); Mean Platelet Volume 9.7 fL (7.4-10.4); Platelet Count 340 10^3/uL (130-400); Red Blood Cell Count 3.47 10^6/uL (4.20-5.40); Red Cell Dist. Width 12.7 % (11.5-14.5); White Blood Cell Count 8.3 10^3/uL (4.8-10.8)
[2024-11-19 07:10] LABS: Blood Urea Nitrogen 9 mg/dl (7-17); Carbon Dioxide 28 mmol/L (22-30); Chloride 105 mmol/L (98-107); Estimated Creatinine Clearance 87 ml/min; Glucose 141 mg/dl (70-99); Potassium 4.2 mmol/L (3.5-5.1); Sodium 140 mmol/L (135-145); eGFR > 60.00
[2024-11-19] MEDS: LR 1000 IV ×2 (07:56→15:02)
[2024-11-19] MEDS: FLORASTOR PO ×4 (08:40→20:15)
--- NOTE | 2024-11-19 09:24 | CON.CRS ---
Consultation
-
Date/Time Consultation Requested: 11/19/2024, 04:30
Date/Time Consultation Performed: 11/19/2024, 08:45
Requesting Provider: Arcadio Rice DO
Performing Provider: Jorje Singer MD
Reason for Consultation: wound infection
Medical History
-
Chief Complaint: wound infection
History of Present Illness:
58 yo female, recently discharged from a robotic sigmoidectomy due to diverticulitis on 11/08/24, presents to [facility] ER due to her pfannisteal incision. She states that it became red and tender at home, and feels more 'puffy'. She has not
noticed any blood or discharge. WBC is 8.3 in the ER and she remains afebrile. She has gotten IV Zosyn in the ER. CT A/P shows subcutaneous gas and fluid containing a seroma vs infection, measuring 5.6 x 2.4 x 2.7cm. Given the above findings, we
have been consulted for further surgical opinion.
Past Medical History
Past Medical History: Other (Asthma, Gastroparesis, Thyroid nodule, Hiatal hernia, Fibromyalgia, Fatty liver disease, Venous insufficiency, Obstructive sleep apnea, Hyperlipidemia, Sigmoid diverticulitis, Chronic pain syndrome, Chronic fatigue
syndrome, IBS with constipation, Osteopenia)
Past Surgical History: Other (Robotic Sigmoid / Descending Colon Resection (Dr. Wilson - 11/08/24), Total abdominal hysterectomy, Appendectomy)
Social History
Tobacco: Non-Smoker
Alcohol: None
Drug: None
Family History
Family History: Reviewed & Not Pertinent
Allergies / Home Medications
Allergy/AdvReac Type Severity Reaction Status Date / Time
adhesive tape Allergy hives, Verified 11/18/24 21:18
itching
cefadroxil [From Duricef] Allergy Hives Verified 11/18/24 21:18
cefuroxime [From Ceftin] Allergy Hives Verified 11/18/24 21:18
epinephrine Allergy heart races Verified 11/18/24 21:18
hydromorphone [From Dilaudid] Allergy made the Verified 11/18/24 21:18
room spin
Iodinated Contrast Media Allergy FLUSHING, Verified 11/18/24 21:18
PALPITATIONS
latex Allergy Hives Verified 11/18/24 21:18
lidocaine Allergy Hives Verified 11/18/24 21:18
Sulfa (Sulfonamide Allergy Unknown Verified 11/18/24 21:18
Antibiotics)
�Medication �Instructions �Recorded �Confirmed �Type
ketotifen fumarate 0.025 % (0.035 1 drp BOTH EYES Q48H Eye Condition 03/04/23 11/19/24 History
%) eye drops (Zaditor)
ergocalciferol (vitamin D2) 200 40,000 unit PO FR Supplement 03/24/24 11/19/24 History
mcg/mL (8,000 unit/mL) oral drops
famotidine 20 mg tablet (Pepcid) 20 mg PO BID Gastrointestinal Issue 03/24/24 11/19/24 History
mometasone-formoterol HFA 100 1 - 2 puff inhalation BID 03/24/24 11/19/24 History
mcg-5 mcg/actuation aerosol Lung/Breathing Issues
inhaler (Dulera)
fluticasone propionate 50 1 spray intranasal BID Allergies 05/31/24 11/19/24 History
mcg/actuation nasal
spray,suspension
carboxymethylcellulose sodium 0.25 1 drp BOTH EYES QIDPRN PRN 09/20/24 11/19/24 History
% eye drops (TheraTears) irritated eyes
cetirizine 10 mg tablet (Zyrtec) 10 mg PO HS Allergies 09/20/24 11/19/24 History
estradiol 0.01% (0.1 mg/gram) 1 applic vaginal WESA Hormonal 09/20/24 11/19/24 History
vaginal cream (Estrace) Agent
fluoride (sodium) 1.1 % dental 1 applic dental BID DENTAL 09/20/24 11/19/24 History
paste (PreviDent 5000 Booster Plus)
levalbuterol tartrate 45 2 inh inhalation R Q6HPRN PRN sob 09/20/24 11/19/24 History
mcg/actuation aerosol inhaler
(Xopenex HFA)
Systane Lid Wipes 1 dose topical PRN PRN eye wipe 11/01/24 11/19/24 History
levalbuterol HCl 1.25 mg/0.5 mL 1.25 mg inhalation PRN PRN 11/01/24 11/19/24 History
solution for nebulization shortness of breath
sod picosulf 10 mg-magnes 3.5 175 ml PO DIRECTED 11/01/24 11/19/24 History
gram-citric 12 gram/175 mL oral
solution (Clenpiq)
mupirocin 2 % topical ointment 1 applic topical BID 11/06/24 11/19/24 History
nystatin 100,000 unit/gram topical 1 applic topical BID 11/06/24 11/19/24 History
ointment
oxycodone 5 mg tablet 5 mg PO Q6H PRN Pain #20 tabs 11/14/24 11/19/24 Rx
Review of Systems
-
History Source: Patient
Abdomen/GI: Abdominal Pain (over incision)
Skin: Other (erythema and pain over lower pfannisteal incision)
A 10 point review of systems was completed, and was negative except as per HPI.
Physical Exam
Vital Signs
Temp 98.9 F 11/18/24 21:18
Pulse 66 11/19/24 07:16
Resp Rate 16 11/19/24 07:16
Blood pressure 102/62 11/19/24 07:16
SaO2 98 11/19/24 07:16
11/18/24 11/19/24 11/20/24
06:59 06:59 06:59
Actual Weight 64.7 kg
Body Mass Index (BMI) 24.5
Lab Results / Allergies
11/19/24 06:24
11/19/24 06:24
WBC 8.3 10^3/uL (4.8-10.8) 11/19/24 06:24
Hgb 10.4 g/dL (12.0-16.0) L 11/19/24 06:24
Hct 31.5 % (37.0-47.0) L 11/19/24 06:24
Plt Count 340 10^3/uL (130-400) 11/19/24 06:24
Abs Immat Gran (auto) 0.0 10^3/uL (0-0.05) 11/18/24 21:37
Neutrophils % 74.5 % (42.2-75.2) 11/18/24 21:37
Allergy/AdvReac Type Severity Reaction Status Date / Time
adhesive tape Allergy hives, Verified 11/18/24 21:18
itching
cefadroxil [From Duricef] Allergy Hives Verified 11/18/24 21:18
cefuroxime [From Ceftin] Allergy Hives Verified 11/18/24 21:18
epinephrine Allergy heart races Verified 11/18/24 21:18
hydromorphone [From Dilaudid] Allergy made the Verified 11/18/24 21:18
room spin
Iodinated Contrast Media Allergy FLUSHING, Verified 11/18/24 21:18
PALPITATIONS
latex Allergy Hives Verified 11/18/24 21:18
lidocaine Allergy Hives Verified 11/18/24 21:18
Sulfa (Sulfonamide Allergy Unknown Verified 11/18/24 21:18
Antibiotics)
Physical Exam
General: Well Developed and Well Nourished
GI: Soft and Tender (over lower pfannisteal incision, some fluctuance noted, erythema about 4cm surrounding entire incision)
Neuro: AO x 3
Psych: Calm
Data Reviewed
-
CT Scan: Image Personally Visualized and interpreted, Report Reviewed by me and Discussed with Patient
Labs: Labs Reviewed by me, Discussed with Physician and Discussed with Patient
Old Records: Reviewed
Assessment / Plan
-
Assessment: 58 yo female with recent robotic sigmoidectomy for diverticulitis on 11/08/24, presents with redness and tenderness on her lower wound
Plan:
-Will bring to OR for a wound washout
-Will obtain cultures
-Continue IV antibiotics
-Remain NPO
-Discussed with patient and family at bedside who are in agreement to surgery
[2024-11-19] MEDS: ZOSYN 50 IV ×3 (10:22→21:45)
[2024-11-19] MEDS: DILAUDID 0.5 MG IV ×2 (10:25→19:37)
--- NOTE | 2024-11-19 13:57 | W.IMMPOSTOP ---
Addendum entered and electronically signed by Jorje Singer MD 11/19/24 14:20:
Patient's family updated via phone conversation.
Original Note:
Surgical Immed Post Op Note
-
Primary Surgeon: Vishnu Singer MD
Assisting Surgeon: none
Pre-op Diagnosis: lower abdominal wound infection
Post-op Diagnosis: same
Procedure Performed: abdominal wound exploration with drainage of subcutaneous abscess
Anesthesia Type: LMA
Specimen / Cultures: abdominal wound abscess cultures
Estimated Blood Loss: 10 cc
Complications: no immediate
Operative Findings: 1) abdominal wound infection with associated abscess and overlying cellulitis 2) small area of fascial separation
Packed with betadine moistened cling wrap and covered in 4 by 4s and paper tape.
Small abdominal binder placed for support.
[2024-11-19] MEDS: SUBLIMAZE 25 MCG IV (14:24)
--- NOTE | 2024-11-19 15:15 | PTCARENOTE ---
Received patient from PACU via bed. Pt AAOX3. Pox: 97% RA. IVFs infusing without difficulty. Call wang within reach. Plan of care ongoing.
--- NOTE | 2024-11-19 15:48 | CM ---
Reviewed the chart notes and spoke with the patient and family at the bedside. CM started to ask the initial assessment question of who the patient reside with. Her reply 'I refuse to answer that question'. Patient did answer other questions.
The patient resides in a one story home with two steps to enter. Reports no DME or SNF. Patient was recently discharged 11/14/2024 to home with [facility]. Unsure if they are current, as patient was not clear when asked. Patient did confirm her
pharmacy of choice is the [facility]. CM continues to be available to patient/family and is monitoring medical plan for needs at discharge.
Plan: Discharge to home when medically stable. Patient stated at discharge she did not want VN at discharge.
[2024-11-19] MEDS: NON-FORMULARY ITEM NASAL ×2 (20:03→20:15)
[2024-11-19] MEDS: NON-FORMULARY ITEM 1 UNIT PO (20:03)
[2024-11-19] MEDS: REMERON 7.5 MG PO (21:48)
[2024-11-19] MEDS: BACTROBAN 2% OINTMENT TOPICAL (21:57)
--- NOTE | 2024-11-19 23:57 | PTCARENOTE ---
at 1900 while getting report. pt was walking the halls with her children. pt returned to room to use the bathroom prior to getting back in bed. pt started screaming from her room and her daughter came out saying she bleed. this nurse went to
evaluate patient - she was crying and screaming 'im bleeding, i'm going to '. evaluated surgical incision. dressing saturated w/ small amount of drainage leaking. replaced top dressing with abd pads and secured with tape. pt asked if she is going
to because shes pale. informed pt her coloring was good and she was not pale. VSS.
pt reported a small hard bm.
pt then complained about abdominal binder and asked to have it removed. Informed pt it is to remain on, but adjusted binder to feel more comfortable.
pt reported abdominal pain but denied nausea. Administered prn Dilaudid w/ some effect.
instructed pt to drink slowly and and to avoid foods that would irritated the abdomen.
reposition pt in bed. with call wang in reach. instructed to call nursing when she needs to get oob.
at 1999 administered HS. pt resting comfortable in bed watching tv on her phone.
at 0 pt stated she feels fine.
at 2330 pt was alseep
[2024-11-20] MEDS: LR 1000 IV ×3 (01:13→21:21)
[2024-11-20] MEDS: ZOSYN 50 IV ×4 (03:25→22:35)
[2024-11-20] MEDS: ZOFRAN 4 MG IV (03:34)
[2024-11-20 03:38] VITALS: BP 133/77
[2024-11-20 07:15] VITALS: BP 145/78
[2024-11-20] MEDS: NON-FORMULARY ITEM 1 PUFF INH (08:39)
[2024-11-20] MEDS: FLORASTOR 250 MG PO (09:24)
[2024-11-20] MEDS: BACTROBAN 2% OINTMENT TOPICAL ×2 (09:25→21:49)
[2024-11-20] MEDS: NON-FORMULARY ITEM 1 SPRAY NASAL (09:25)
[2024-11-20] MEDS: NON-FORMULARY ITEM 1 UNIT PO (09:27)
[2024-11-20] MEDS: BACTROBAN 2% OINTMENT 1 APPLIC TOPICAL (09:37)
--- NOTE | 2024-11-20 09:51 | W.PN.CRS1 ---
Today's Communication / Plan
-
wound RN
ID c/s
colace BID
daily wound changes
IV antibiotics
Assessment/Plan
-
POD#1 abdominal wound exploration with drainage of subcutaneous abscess
No labs today
Vitals normal
-Continue low residue diet
-Okay to d/c ivfs if tolerating a diet
-OOB with PT
-Wound RN consult for wound care
-Daily dressing changes
-Continue IV antibiotics, will consult ID
-Add Colace BID (patient states she is constipated)
-Lovenox for DVT prophylaxis
-Pain control: Tylenol PRN, Toradol 15mg q 6, Dilaudid IV PRN, Roxicodone PRN
-OR cultures pending
-Abdominal binder can be worn to patient's comfort.
Subjective Data
Procedure
11/19/2024- abdominal wound exploration with drainage of subcutaneous abscess
Subjective Data
Date of Service: November 20, 2024
Patient states she is a little nauseous but no vomiting. She had a bowel movement yesterday 'the size of a golfball'. She is urinating without difficulty. She has flatus. She is tolerating a diet.
Objective Data
-
Vital Signs
Temp Pulse Resp BP Pulse Ox
98.3 F 81 16 145/78 98
11/20/24 07:15 11/20/24 08:39 11/20/24 08:39 11/20/24 07:15 11/20/24 08:39
Intake & Output
11/19/24 11/20/24 11/21/24
06:59 06:59 06:59
Intake Total 875 / 875
Balance 875 / 875
Intake:
Oral fluids 680 / 680
IV fluids (Total) 95 / 95
lactated ringers 50 / 50
IV piggybacks 100 / 100
Other:
Number of approximated MODERATE 1
amounts of urine
Number of approximated LARGE 1
amounts of urine
Lab Results
11/19/24 06:24
11/19/24 06:24
Physical Exam
-
General: No Acute Distress and AOx3
Abdomen: Soft, Non Distended and Tender (around lower pfannisteal incision, very mild erythema around incision (much improved since pre-op) and no purulence noted, wound c/d/i, packed dressing removed and replaced)
Skin: Warm and Dry
[2024-11-20 11:10] VITALS: BP 133/78
[2024-11-20] MEDS: COLACE LIQUID 100 MG PO (11:21)
[2024-11-20] MEDS: DILAUDID 0.5 MG IV ×3 (12:15→23:25)
[2024-11-20] MEDS: MYCAMINE 105 MG IV (12:15)
--- NOTE | 2024-11-20 12:34 | W.PN.HOSP.TC ---
Today's Communication/Plan
-
Assessment / Plan
Assessment / Plan
Scleral Anicteric
MMM
CTABL
RRR, S1/S2
Soft, NT, ND, BS+
Warm, Dry
Anxious
Abscess drainage s/p ex lap after robotic sigmoidectomy/from earlier on in the month of October 2024 (11/08/24)
-Continue Zosyn
-Start micafungin
-Follow-up on sensitivities and speciation of the abscess culture
-Check blood culture
-Obtain urine culture/urine analysis as she states she has some stinging with urination
-ID consult
Asthma COPD
Bronchodilators as needed
Sjogren's syndrome/Karthik syndrome
Continue supportive care eyedrops
Chronic gastritis
Continue Pepcid
Anticipated Discharge: > 48 hours
Subjective/Interval History
-
Date of Service: November 20, 2024
Seen and examined. No new complaints. No acute overnight events.
Informed her of abscess culture results being confused gram-negative bacteria and yeast
Asking specifically about yeast name type.
Informed her we will obtain blood cultures and urine cultures as she is requesting this.
Objective Data
-
Vital Signs:
Vital Signs
Temp Pulse Resp BP Pulse Ox
97.5 F 83 18 133/78 100
11/20/24 11:10 11/20/24 11:10 11/20/24 11:10 11/20/24 11:10 11/20/24 11:10
I&O
11/19/24 11/20/24 11/21/24
06:59 06:59 06:59
Intake Total 875 / 875
Balance 875 / 875
--- NOTE | 2024-11-20 13:34 | CON.ID ---
Chief Complaint / Past History
History of Present Illness
Saida Cannon is a 58-year-old female being evaluated at the request of [facility] regarding an abdominal infection. History is obtained from chart review, along with patient interview.
The patient recently underwent a robotic sigmoidectomy on 11/09/2024 here at [facility]. She did well, and ultimately was discharged on 11/14 to home. She presented back to [facility] ER on 11/19 with complaints of progressive
erythema at her midline horizontal lower abdominal incision, with discomfort. At that time she denied any drainage from the wound. She admitted to some nausea, but no vomiting. She reports fevers and chills at home. She notes that the anterior
lower abdominal area had become puffy and red. The area delete that she underwent I&D of the area yesterday afternoon, with reported recovery of 30 cc. Cultures are currently pending, but Gram stain has shown WBCs, gram-negative rods and few
budding yeast. Infectious Diseases asked to comment upon further antimicrobial management.
Past History
Additional Past Medical History:
Diverticulitis
Sjogren syndrome
Chronic constipation
Chronic nausea
Endometriosis
Gastroparesis
IBS
Chronic fatigue
Interstitial cystitis
Rosacea
Additional Past Surgical History:
Hysterectomy
Allergy History:
adhesive tape Allergy (Verified 11/18/24 21:18)
hives, itching
cefadroxil [From Duricef] Allergy (Verified 11/18/24 21:18)
Hives
cefuroxime [From Ceftin] Allergy (Verified 11/18/24 21:18)
Hives
epinephrine Allergy (Verified 11/18/24 21:18)
heart races
hydromorphone [From Dilaudid] Allergy (Verified 11/18/24 21:18)
made the room spin
Iodinated Contrast Media Allergy (Verified 11/18/24 21:18)
FLUSHING, PALPITATIONS
latex Allergy (Verified 11/18/24 21:18)
Hives
lidocaine Allergy (Verified 11/18/24 21:18)
Hives
Sulfa (Sulfonamide Antibiotics) Allergy (Verified 11/18/24 21:18)
Unknown
Medications Reviewed: Yes
Current Antibiotics:
Zosyn 3.375 g IV every 6 hours
Micafungin 100 mg IV every 24 hours
Social History
Tobacco: Non-Smoker
Alcohol: None
Drug: None
Personal:
Living: With Family
Employment: Employed
Family History
Family History: Not Pertinent
Review of Systems
Vital Signs
Temp Pulse Resp BP Pulse Ox
97.5 F 83 18 133/78 100
11/20/24 11:10 11/20/24 11:10 11/20/24 11:10 11/20/24 11:10 11/20/24 11:10
Physical Exam
Physical Exam
Constitutional: No Acute Distress, Comfortable and Non-toxic
Eyes: No Conjunctival Hemorrhage and Sclera Anicteric
Oral: No Thrush and No Ulcers
Cardiovascular: S1/S2; Negative S3/S4 or Murmur
Pulmonary: Clear; Negative Wheezes, Rales or Rhonchi
Gastrointestinal: Soft, Non Tender, Non Distended and Normal Bowel Sounds
Genito-Urinary: Negative Hernandez
Wound: Other (Anterior abdominal wound packed. No significant drainage.)
Neurological: Awake and Alert
Psychological: Agitated and Other (Extremely anxious.)
Lab / Diagnostic Study Results
11/19/24 06:24
11/19/24 06:24
Abs Immat Gran (auto) 0.0 10^3/uL (0-0.05) 11/18/24 21:37
Absolute Neuts (auto) 6.6 10^3/uL (1.4-6.5) H 11/18/24 21:37
Absolute Lymphs (auto) 1.3 10^3/uL (1.2-3.4) 11/18/24 21:37
Absolute Monos (auto) 0.7 10^3/uL (0.1-0.6) H 11/18/24 21:37
Absolute Basos (auto) 0.0 10^3/uL (0-0.2) 11/18/24 21:37
Immature Gran % 0.3 % (0-0.5) 11/18/24 21:37
Neutrophils % 74.5 % (42.2-75.2) 11/18/24 21:37
Lymphocytes % 15.0 % (20.5-51.1) L 11/18/24 21:37
Monocytes % 8.0 % (1.7-9.3) 11/18/24 21:37
Eosinophils % 1.7 % (0-6) 11/18/24 21:37
Basophils % 0.5 % (0-2) 11/18/24 21:37
Lactic Acid 1.4 mmol/L (0.7-2.0) 11/18/24 21:37
Ur Squamous Epith Cells 6-10 /LPF (Few) 11/18/24 21:49
Microbiology Results
Micro:
11/20/24 12:28 Blood Culture - Pending
Blood/Venous
11/19/24 13:48 Anaerobic Culture - Preliminary
Abdomen Culture pending. Anaerobic cultures are examined after 3
days incubation. Additional information to follow.
11/19/24 13:48 Wound Culture - Preliminary
Abdomen Enterococcus species
Gram Stain - Preliminary
11/18/24 21:49 Urine Culture - Final
Urine NO GROWTH
11/20/24 11:17 Blood Culture - Pending
Blood/Venous
Imaging:
11/19/2024 CT abdomen/pelvis with contrast: There is a fluid collection in the anterior pelvic wall approximately 5.4 x 2.4 x 2.0 cm, which abuts the musculature of the abdominal wall, but does not appear to extend into it or the intraperitoneal
cavity. No rim enhancement noted.
Assessment / Plan
Postop wound infection
-Recent history of robotic sigmoidectomy
-Cultures with Enterococcus species and yeast (most likely Anne spp.)
Reported fevers and chills
-No fevers recorded since admission
Diverticulitis
Sjogren syndrome
Chronic constipation
Chronic nausea
Endometriosis
Gastroparesis
IBS
Chronic fatigue
Interstitial cystitis
Recommendations:
Continue with Zosyn and micafungin for the present.
Await further culture data to guide antimicrobial selection and de-escalation.
Local care to the wound.
Care Review
Plan reviewed with: Physician (Hospitalist; [facility])
[2024-11-20 13:49] LABS: Urine Albumin Negative (Neg - Trace); Urine Bilirubin Negative (Negative); Urine Character Clear (Clear); Urine Color Yellow; Urine Glucose Negative (Negative); Urine Ketone Negative (Negative); Urine Leukocyte Negative (Negative); Urine Nitrite Negative (Negative); Urine Occult Blood Negative (Negative); Urine Specific Gravity 1.005 (<1.030); Urine Urobilinogen Negative (Neg - 1+)
--- NOTE | 2024-11-20 15:39 | WOUNDNOTE ---
[facility] RN note: Patient s/p lower abdominal abscess/incision I+D yesterday by Dr. Downs. Wound clean with mild local erythema. Moderate ss drainage. Skin on heels and sacrum intact. Patient anxious during her wound care. Family present who observed
wound care done. Patient tolerated dressing change. Patient's abdominal binder changed with help from RN Mary Jo d/t drainage soilage. Patient sitting on side of bed eating her meal at end of visit. Confirmed packing wound care for nursing with
ray Bosch. Care plan and discharge instructions to be updated. Will follow peripherally as needed. Patient's wound to be managed by colorectal service.
[2024-11-20 15:40] VITALS: BP 143/64
--- NOTE | 2024-11-20 16:30 | CM ---
Chart reviewed. Met with pt
Wound care consult today - recs HH
Remains on IV antibiotics; ID following
PT recs - HH
Pt current with [facility] - requesting to use a alternate provider when discharged. Requesting VN qd at discharge
Reviewed with pt - typically VN would be 2-3 visits/week - pt insisting on daily VN visits
Will discuss with pt again
CECILIA Camargo updated
Plan - anticipate home with VN - TBD
[2024-11-20] MEDS: LOVENOX 40 MG SC (19:23)
[2024-11-20] MEDS: REMERON 7.5 MG PO (21:21)
[2024-11-20] MEDS: FLORASTOR PO (21:49)
[2024-11-20] MEDS: COLACE LIQUID PO (21:49)
[2024-11-20] MEDS: NON-FORMULARY ITEM PO (21:50)
[2024-11-20] MEDS: NON-FORMULARY ITEM NASAL (21:50)
[2024-11-20 22:35] VITALS: BP 114/64
[2024-11-21] MEDS: ZOSYN 50 IV ×2 (05:14→10:12)
--- NOTE | 2024-11-21 05:49 | PTCARENOTE ---
1900 pt walking the halls with her family. returns to room and starts screaming for pain. AM RN -Mary Jo - administered w/ some effect.
2100 pt refused all HS meds except Remeron because she want them retimed to with dinner, and had already washed her face. Offered to give meds w applesauce refused. pt stated she was constipated but refused colace.
~2230 offered pain medication and zofran pt refused.
pt reposition in bed. continue to refused pain meds and zofran. abdominal binder adjusted.
2323 - administered Dilaudid. pt screaming about how much pain she is in, how she hates this place, this is horrible,, and how she got an infection from this place. offered to get additional. offered Zofran, Ativan, and to get additional pain
medication- pt originally accepted then refused.
pt c/o INT site ( was evaluated in the evening ~1800, by VAT). Called vat at 2340 - they came down and evaluated site. pt refused to have a new site place. Instructed to only use site for abx, and hold off on IVF until further evaluation for a
midline can be done. (pt has had midline in past).
0100 pt screaming and yelling about how she hates this place and the pain she is in. offered Zofran, Ativan, and to get additional pain medication. pt refused stating she didn't want Zofran or Dilaudid bc it doesn't do anything for her. also offered
her Ativan because it might help her relax and sleep which could then help her pain. pt stated that she doesn't believe in any wacko pills. s/w [employer] Beka re med times, pain, and constipation. obtain 1x leon 5mg and miralax. Went to administer and pt
was sound alseep.
checked on pt throughout the night and she appeared sleeping and did not wake to nurse in room or light.
0500 pt woke up requesting abx. ran ABX extremely slow. offered pain medication and miralax. pt stated she only wanted the abx. refused pain med and stated she can only have brand mirlalax and wants to s/w the GI doctor.
[2024-11-21] MEDS: ROXICODONE 5 MG PO (06:28)
[2024-11-21] MEDS: NON-FORMULARY ITEM 1 PUFF INH (07:43)
[2024-11-21] MEDS: FLORASTOR 250 MG PO ×2 (08:01→16:52)
[2024-11-21 08:02] LABS: % Basophils 0.9 % (0-2); % Eosinophils 1.9 % (0-6); % Immature Granulocytes 0.4 % (0-0.5); % Lymphocytes 34.1 % (20.5-51.1); % Monocytes 7.9 % (1.7-9.3); % Neutrophils 54.8 % (42.2-75.2); Absolute Basophils 0.1 10^3/uL (0-0.2); Absolute Eosinophils 0.1 10^3/uL (0-0.7); Absolute Lymphocytes 2.3 10^3/uL (1.2-3.4); Absolute Monocytes 0.5 10^3/uL (0.1-0.6); Absolute Neutrophils 3.7 10^3/uL (1.4-6.5); Hematocrit 31.8 % (37.0-47.0); Hemoglobin 10.8 g/dL (12.0-16.0); Mean Corpuscular Hgb 29.8 pg (27.0-31.0); Mean Corpuscular Volume 87.6 fL (81.0-99.0); Mean Platelet Volume 9.8 fL (7.4-10.4); Nucleated Red Blood Cells % 0 %; Platelet Count 353 10^3/uL (130-400); Red Blood Cell Count 3.63 10^6/uL (4.20-5.40); Red Cell Dist. Width 13.1 % (11.5-14.5); White Blood Cell Count 6.7 10^3/uL (4.8-10.8)
[2024-11-21] MEDS: BACTROBAN 2% OINTMENT 1 APPLIC TOPICAL (08:02)
[2024-11-21] MEDS: LR 1000 IV (08:06)
[2024-11-21] MEDS: COLACE LIQUID PO ×2 (08:07→21:29)
[2024-11-21] MEDS: NON-FORMULARY ITEM 1 SPRAY NASAL (08:08)
[2024-11-21] MEDS: NON-FORMULARY ITEM 1 UNIT PO (08:10)
[2024-11-21] MEDS: DULCOLAX 10 MG RECTAL (10:12)
--- NOTE | 2024-11-21 10:26 | W.PN.CRS1 ---
Today's Communication / Plan
-
wound care
suppository
abx per ID
miralax
Assessment/Plan
-
POD#2 abdominal wound exploration with drainage of subcutaneous abscess
WBC 6.7 (8.3), Hgb 10.8 (10.4)
Vitals normal
-Continue low residue diet
-OOB with PT
-Wound RN consult for wound care
-Daily dressing changes
-Continue IV antibiotics, appreciate ID
-Colace BID, will add Doculax rectal suppository x 1, okay to start home Miralax
-Lovenox for DVT prophylaxis
-Pain control: Tylenol PRN, Toradol 15mg q 6, Dilaudid IV PRN, Roxicodone PRN
-OR cultures pending
-Abdominal binder can be worn to patient's comfort.
-OKay for discharge from our perspective once patient is comfortable with wound care/home services set up/abx plan from ID. No further surgery at this time.
Subjective Data
Procedure
11/19/2024- abdominal wound exploration with drainage of subcutaneous abscess
Subjective Data
Date of Service: November 21, 2024
Patient states she is in some pain. She is upset regarding her recent surgery. She has been out of bed. She feels constipated like something is 'stuck in her rectum'. She is urinating without difficulty. She is tolerating a diet.
Objective Data
-
Vital Signs
Temp Pulse Resp BP Pulse Ox
98.1 F 65 16 114/64 93
11/21/24 07:20 11/20/24 22:35 11/21/24 07:20 11/20/24 22:35 11/21/24 07:20
Intake & Output
11/20/24 11/21/24 11/22/24
06:59 06:59 06:59
Intake Total 875 / 875 720 / 720
Balance 875 / 875 720 / 720
Intake:
Oral fluids 680 / 680 720 / 720
IV fluids (Total) 95 / 95
lactated ringers 50 / 50
IV piggybacks 100 / 100
Other:
Number of approximated SMALL 2
amounts of urine
Number of approximated MODERATE 1 2
amounts of urine
Number of approximated LARGE 1
amounts of urine
Lab Results
11/21/24 07:42
11/19/24 06:24
Physical Exam
-
General: No Acute Distress and AOx3
Abdomen: Soft, Non Distended, Tender (mild around incisions. Wound is open, repacked, no pus noted, erythema has improved) and Other (some hard stool noted in rectum on JESUS, broken up)
Skin: Warm and Dry
[2024-11-21] MEDS: MYCAMINE 105 MG IV (14:04)
[2024-11-21] MEDS: TRIMOX/AMOXIL 500 MG PO (14:04)
--- NOTE | 2024-11-21 14:04 | W.PN.ID1 ---
Date of Service
Date of Service: November 21, 2024
Today's Communication
Continue antibiotics. See below�
Assessment / Plan
Postop wound infection
- Recent history of robotic sigmoidectomy
- Cultures with Enterococcus faecalis.
- yeast seen on microscopy, but not on culture
Reported fevers and chills
-No fevers recorded since admission
Diverticulitis
Sjogren syndrome
Chronic constipation
Chronic nausea
Endometriosis
Gastroparesis
IBS
Chronic fatigue
Interstitial cystitis
Recommendations:
Continue micafungin for an additional day or so.
Narrow antibiotics to amoxicillin. Patient reports some potential difficulty with swallowing and in the past (not an allergy), but will retry while inpatient to see how she does.
If she tolerates amoxicillin, would continue for another 5 to 7 days. If she does not tolerate amoxicillin, will need to revert to IV ampicillin
Local care to the wound.
����������������������������������������������������������
Chief Complaint
-: Other (Abdominal wall wound infection)
Subjective / Review of Systems
Review of Systems: No Fever and No Chills
Vital Signs / Physical Exam
Vital Signs
Vital Signs
Temp Pulse Resp BP Pulse Ox
98.1 F 65 16 114/64 93
11/21/24 07:20 11/20/24 22:35 11/21/24 07:20 11/20/24 22:35 11/21/24 07:20
Physical Exam
Constitutional: No Acute Distress, Comfortable and Non-toxic
Head: Normocephalic
Eyes: Sclera Anicteric
Pulmonary: Clear and Non Labored
Gastrointestinal: Non Distended
Wound: Other (Abdominal wound dressed.)
Neurological: Awake and Alert
Psychological: Other (Very anxious)
Objective Data
Lab Data
Lab Results
11/21/24 07:42
11/19/24 06:24
Estimated Creat Clear 87 ml/min 11/19/24 06:24
Lactic Acid 1.4 mmol/L (0.7-2.0) 11/18/24 21:37
Total Bilirubin 0.5 mg/dl (0.2-1.3) 11/18/24 21:37
AST 25 U/L (14-36) 11/18/24 21:37
ALT 26 U/L (0-35) 11/18/24 21:37
Alkaline Phosphatase 111 U/L (38-126) 11/18/24 21:37
Most recent labs reviewed.
Micro Results:
11/19/24 13:48 Wound Culture - Preliminary
Abdomen Enterococcus faecalis
Gram Stain - Preliminary
11/20/24 12:28 Blood Culture - Preliminary
Blood/Venous No Growth in 24 hours- Final report to follow
11/20/24 11:17 Blood Culture - Preliminary
Blood/Venous No Growth in 24 hours- Final report to follow
11/19/24 13:48 Anaerobic Culture - Preliminary
Abdomen Culture pending. Anaerobic cultures are examined after 3
days incubation. Additional information to follow.
11/18/24 21:49 Urine Culture - Final
Urine NO GROWTH
Imaging:
11/19/2024 CT abdomen/pelvis with contrast: There is a fluid collection in the anterior pelvic wall approximately 5.4 x 2.4 x 2.0 cm, which abuts the musculature of the abdominal wall, but does not appear to extend into it or the intraperitoneal
cavity. No rim enhancement noted.
[2024-11-21 15:00] VITALS: BP 124/64
--- NOTE | 2024-11-21 15:05 | W.PN.HOSP.TC ---
Today's Communication/Plan
-
Assessment / Plan
Assessment / Plan
Scleral Anicteric
MMM
CTABL
RRR, S1/S2
Soft, NT, ND, BS+
Warm, Dry
Anxious
Abscess drainage s/p ex lap after robotic sigmoidectomy/from earlier on in the month of October 2024 (11/08/24)
-Culture growing Enterococcus, narrow Zosyn to amoxicillin, if unable to tolerate amoxicillin will revert back to IV ampicillin per ID
-Yeast seen on microscopy but not on culture, started micafungin per ID 1-2days
-Follow-up on sensitivities and speciation of the abscess culture
-Check blood culture, NGTD, no systemic evidence
-UA w/o evidence of UTI
-ID following
Asthma COPD
Bronchodilators as needed
Sjogren's syndrome/Karthik syndrome
Continue supportive care eyedrops
Chronic gastritis
Continue Pepcid
Anticipated Discharge: Within 24 hours
Subjective/Interval History
-
Date of Service: November 21, 2024
Seen and examined. No new complaints. No acute overnight.
States that she is awaiting to have a bowel movement. Some abdominal pain because of the incision but mainly because of constipation.
Providing bowel regimen
Objective Data
-
Labs:
Laboratory Results
11/21/24
07:42
WBC 6.7
Hgb 10.8 L
Hct 31.8 L
Plt Count 353
Vital Signs:
Vital Signs
Temp Pulse Resp BP Pulse Ox
98.1 F 65 16 114/64 93
11/21/24 07:20 11/20/24 22:35 11/21/24 07:20 11/20/24 22:35 11/21/24 07:20
I&O
11/20/24 11/21/24 11/22/24
06:59 06:59 06:59
Intake Total 875 / 875 720 / 720
Balance 875 / 875 720 / 720
[2024-11-21] MEDS: DILAUDID 0.5 MG IV ×2 (15:15→21:12)
[2024-11-21] MEDS: LOVENOX 40 MG SC (16:39)
[2024-11-21] MEDS: UNASYN IV (21:11)
[2024-11-21] MEDS: REMERON 7.5 MG PO (21:11)
[2024-11-21] MEDS: BACTROBAN 2% OINTMENT TOPICAL (21:29)
[2024-11-21] MEDS: NON-FORMULARY ITEM NASAL (21:29)
[2024-11-21] MEDS: NON-FORMULARY ITEM PO (21:30)
[2024-11-21 23:18] VITALS: BP 113/54
[2024-11-22] MEDS: UNASYN IV ×2 (02:35→09:21)
[2024-11-22 07:15] VITALS: BP 135/76
[2024-11-22] MEDS: NON-FORMULARY ITEM 1 PUFF INH (07:51)
[2024-11-22] MEDS: ZOFRAN 4 MG IV (08:03)
--- NOTE | 2024-11-22 08:47 | W.PN.CRS1 ---
Today's Communication / Plan
-
wound care
abx per ID
discharge from our perspective when home care/abx plan in place
Assessment/Plan
-
POD#3 abdominal wound exploration with drainage of subcutaneous abscess
WBC 6.7, Hgb 10.8 - 11/21. No labs today.
Vitals normal
-Continue low residue diet
-OOB with PT
-Wound RN consult for wound care
-Daily dressing changes
-Continue IV antibiotics, appreciate ID
-Colace BID, Miralax daily
-Lovenox for DVT prophylaxis
-Pain control: Tylenol PRN, Toradol 15mg q 6, Dilaudid IV PRN, Roxicodone PRN
-OR cultures pending
-Abdominal binder can be worn to patient's comfort.
-OKay for discharge from our perspective once patient is comfortable with wound care/home services set up/abx plan from ID. No further surgery at this time.
Subjective Data
Procedure
11/19/2024- abdominal wound exploration with drainage of subcutaneous abscess
Subjective Data
Date of Service: November 22, 2024
Patient states she feels nausous. She has some abdominal pain. She had a bowel movement yesterday. She is not eating much because she 'does not like the food here'.
Objective Data
-
Vital Signs
Temp Pulse Resp BP Pulse Ox
99.2 F 80 16 135/76 96
11/22/24 07:15 11/22/24 07:52 11/22/24 07:52 11/22/24 07:15 11/22/24 07:15
Intake & Output
11/21/24 11/22/24 11/23/24
06:59 06:59 06:59
Intake Total 720 / 720 2775 / 2775
Balance 720 / 720 2775 / 2775
Intake:
Oral fluids 720 / 720 880 / 880
IV fluids (Total) 1500 / 1500
IV piggybacks 395 / 395
Other:
Number of approximated SMALL 2
amounts of urine
Number of approximated MODERATE 2 3
amounts of urine
Lab Results
11/21/24 07:42
11/19/24 06:24
Physical Exam
-
General: No Acute Distress and AOx3
Abdomen: Soft, Non Distended, Non Tender and Other
Skin: Warm and Dry
Wound: Dressing Changed (wound c/d/i, no pus, no erythema, packed with gauze )
[2024-11-22] MEDS: BACTROBAN 2% OINTMENT 1 APPLIC TOPICAL (09:20)
[2024-11-22] MEDS: FLORASTOR 250 MG PO ×2 (09:20→21:39)
[2024-11-22] MEDS: COLACE LIQUID PO ×2 (09:20→21:41)
[2024-11-22] MEDS: FLUSH (NSS) 2 FLUSH IV (09:21)
[2024-11-22] MEDS: NON-FORMULARY ITEM NASAL ×2 (09:22→21:42)
[2024-11-22] MEDS: NON-FORMULARY ITEM PO ×2 (09:23→21:42)
--- NOTE | 2024-11-22 10:26 | PTCARENOTE ---
assumed care of pt from previous shift at 0715. pt c/o persistent nausea-medicated w/Zofran IV per NOV. pt refusing liquid Colace, home medication famotidine and stated she already used her home Flonase. pt eating low residue breakfast-tolerating
bites of toast and rice krispy cereal - states only able to tolerate <10% of meal due to nausea. c/o burning at IV site when flushed -VAT team notified -pt upset w/this RN-'it's a new site-they are not changing it again'. Abdominal dressing
changed this am by . abdominal binder in place. care ongoing.
--- NOTE | 2024-11-22 10:50 | W.PN.HOSP.TC ---
Today's Communication/Plan
-
Will begin DC planning, likely in the next 24hours
Assessment / Plan
Assessment / Plan
Scleral Anicteric
MMM
CTABL
RRR, S1/S2
Soft, NT, ND, BS+
Warm, Dry
Anxious
Abscess drainage s/p ex lap after robotic sigmoidectomy/from earlier on in the month of October 2024 (11/08/24)
-Culture growing Enterococcus, narrow Zosyn to amoxicillin, if unable to tolerate amoxicillin will revert back to IV ampicillin per ID
-Yeast seen on microscopy but not on culture, started micafungin per ID 1-2days
-Follow-up on sensitivities and speciation of the abscess culture
-Check blood culture, NGTD, no systemic evidence
-UA w/o evidence of UTI
-ID following
Asthma COPD
Bronchodilators as needed
Sjogren's syndrome/Karthik syndrome
Continue supportive care eyedrops
Chronic gastritis
Continue Pepcid
Anticipated Discharge: 24 - 48 hours
Subjective/Interval History
-
Date of Service: November 22, 2024
seen and examined.
no new complaints
keeps asking if she is going to make it
states she had a fever of 99.2, informed her a fever is considered if >100.[address] that Dr. Downs just changed the dressing
-did not want it touched
Objective Data
-
Vital Signs:
Vital Signs
Temp Pulse Resp BP Pulse Ox
99.2 F 80 16 135/76 96
11/22/24 07:15 11/22/24 07:52 11/22/24 07:52 11/22/24 07:15 11/22/24 07:15
I&O
11/21/24 11/22/24 11/23/24
06:59 06:59 06:59
Intake Total 720 / 720 2775 / 2775
Balance 720 / 720 2775 / 2775
[2024-11-22] MEDS: ROXICODONE 5 MG PO (12:43)
[2024-11-22] MEDS: ZOFRAN ODT (ORALLY DISINTEGRATING) 4 MG PO ×2 (14:15→21:38)
--- NOTE | 2024-11-22 14:35 | CM ---
Chart reviewed and met with pt
Discussed VN with pt - ok with [facility] - only wound nurse per pt. Discussed VN would visit 2-3 times/week - pt/family could be taught wound care
Spoke with [place] at [facility] - reporting pt was refusing RN visits in past
Pt insisting she will need VN daily - insisting family/self unable to do wound care
Discussed SNF - given options to review
Pt reporting she is not interested in snf
Pt aware options would be snf or VN with family assist or she could private pay for additional VN care
Pt to review options
Plan - TBD based on pt decision - snf or home with VN
[2024-11-22 15:10] VITALS: BP 121/63
--- NOTE | 2024-11-22 15:27 | W.PN.ID1 ---
Date of Service
Date of Service: November 22, 2024
Today's Communication
Continue amoxcillin
Assessment / Plan
Postop wound infection
- Recent history of robotic sigmoidectomy
- Cultures with Enterococcus faecalis.
- yeast seen on microscopy, but not on culture
Reported fevers and chills
-No fevers recorded since admission
Diverticulitis
Sjogren syndrome
Chronic constipation
Chronic nausea
Endometriosis
Gastroparesis
IBS
Chronic fatigue
Interstitial cystitis
Recommendations:
Discontinue further micafungin.
Continue amoxicillin another 5 to 7 days.
Local care to the wound.
����������������������������������������������������������
Chief Complaint
-: Other (Abdominal wall wound infection)
Subjective / Review of Systems
Patient seen and examined. Reports feeling well. Mild abdominal discomfort. Tolerated last evening's dose of amoxicillin without issue. Does report some nausea today, though.
Vital Signs / Physical Exam
Vital Signs
Vital Signs
Temp Pulse Resp BP Pulse Ox
99.2 F 80 16 135/76 96
11/22/24 07:15 11/22/24 07:52 11/22/24 07:52 11/22/24 07:15 11/22/24 07:15
Physical Exam
Constitutional: No Acute Distress, Comfortable and Non-toxic
Eyes: Sclera Anicteric
Cardiovascular: S1/S2; Negative S3/S4
Pulmonary: Clear and Non Labored
Gastrointestinal: Non Distended
Wound: Other (Abdominal wound dressed.)
Neurological: Awake and Alert
Psychological: Other (Less anxious today.)
Objective Data
Lab Data
Lab Results
11/21/24 07:42
11/19/24 06:24
Estimated Creat Clear 87 ml/min 11/19/24 06:24
Lactic Acid 1.4 mmol/L (0.7-2.0) 11/18/24 21:37
Total Bilirubin 0.5 mg/dl (0.2-1.3) 11/18/24 21:37
AST 25 U/L (14-36) 11/18/24 21:37
ALT 26 U/L (0-35) 11/18/24 21:37
Alkaline Phosphatase 111 U/L (38-126) 11/18/24 21:37
Most recent labs reviewed.
Micro Results:
11/19/24 13:48 Anaerobic Culture - Preliminary
Abdomen Culture pending. Anaerobic cultures are examined after 3
days incubation. Additional information to follow.
11/20/24 12:28 Blood Culture - Preliminary
Blood/Venous No Growth in 48 hours- Final report to follow
11/20/24 11:17 Blood Culture - Preliminary
Blood/Venous No Growth in 48 hours- Final report to follow
11/19/24 13:48 Wound Culture - Preliminary
Abdomen Enterococcus faecalis
Gram Stain - Preliminary
11/18/24 21:49 Urine Culture - Final
Urine NO GROWTH
Imaging:
11/19/2024 CT abdomen/pelvis with contrast: There is a fluid collection in the anterior pelvic wall approximately 5.4 x 2.4 x 2.0 cm, which abuts the musculature of the abdominal wall, but does not appear to extend into it or the intraperitoneal
cavity. No rim enhancement noted.
Care Review
Plan reviewed with: Other Provider (CRS)
[2024-11-22] MEDS: MYCAMINE IV (15:47)
[2024-11-22] MEDS: LOVENOX 40 MG SC (17:42)
[2024-11-22] MEDS: TRIMOX/AMOXIL 500 MG PO ×2 (17:43→21:39)
[2024-11-22] MEDS: REMERON 7.5 MG PO (21:39)
[2024-11-22] MEDS: BACTROBAN 2% OINTMENT TOPICAL (21:41)
[2024-11-22 23:10] VITALS: BP 130/92
--- NOTE | 2024-11-23 05:51 | PTCARENOTE ---
Pt has a small intact area with very mild redness on left inner forearm that she reports has been there for days and is concerned about an infection. RN outlined area for pt with skin marker and educated pt to notify staff it she feels it is
worsening. Pt slept through shift w/o complications.
[2024-11-23] MEDS: COLACE LIQUID PO (06:59)
[2024-11-23] MEDS: NON-FORMULARY ITEM 1 PUFF INH (08:21)
[2024-11-23 08:43] VITALS: BP 141/94
[2024-11-23] MEDS: FLORASTOR 250 MG PO (08:57)
[2024-11-23] MEDS: TRIMOX/AMOXIL 500 MG PO ×2 (08:58→15:56)
[2024-11-23] MEDS: BACTROBAN 2% OINTMENT 1 APPLIC TOPICAL (08:58)
[2024-11-23] MEDS: NON-FORMULARY ITEM 1 SPRAY NASAL (09:00)
[2024-11-23] MEDS: NON-FORMULARY ITEM 1 UNIT PO (09:00)
[2024-11-23] MEDS: ROXICODONE 10 MG PO (11:39)
--- NOTE | 2024-11-23 11:51 | W.PN.CRS1 ---
Today's Communication / Plan
-
okay for discharge from our perspective
wound care
Assessment/Plan
-
POD#4 abdominal wound exploration with drainage of subcutaneous abscess
No labs today.
Vitals normal
-Continue low residue diet
-OOB with PT
-Wound RN consult for wound care
-Daily dressing changes
-Continue IV antibiotics, appreciate ID
-Colace BID, Miralax daily. Enema PRN.
-Lovenox for DVT prophylaxis
-Pain control: Tylenol PRN, Toradol 15mg q 6, Dilaudid IV PRN, Roxicodone PRN
-OR cultures pending
-Abdominal binder can be worn to patient's comfort.
-OKay for discharge from our perspective once patient is comfortable with wound care/home services set up/abx plan from ID. No further surgery at this time.
Subjective Data
Procedure
11/19/2024- abdominal wound exploration with drainage of subcutaneous abscess
Subjective Data
Date of Service: November 23, 2024
Patient states she has pain and nausea. She has nausea at baseline. She has not had a bowel movement since the enema.
Objective Data
-
Vital Signs
Temp Pulse Resp BP Pulse Ox
98.7 F 70 16 141/94 98
11/23/24 08:43 11/23/24 08:43 11/23/24 08:43 11/23/24 08:43 11/23/24 08:43
Intake & Output
11/22/24 11/23/24 11/24/24
06:59 06:59 06:59
Intake Total 2775 / 2775 1200 / 1200
Balance 2775 / 2775 1200 / 1200
Intake:
Oral fluids 880 / 880 1200 / 1200
IV fluids (Total) 1500 / 1500
IV piggybacks 395 / 395
Other:
Number of approximated MODERATE 3 2
amounts of urine
Lab Results
11/21/24 07:42
11/19/24 06:24
--- NOTE | 2024-11-23 12:51 | CM ---
Addendum entered by Nataliia Delgado 11/23/24 17:13:
Patient requested list of private duty agencies
List faxed to [address] [place] [address] # [phone]; Attention: Shelley Mares RN; requested that she give list to patient
Jesusita from [facility] reported that she connected with patient's PCP, and spoke with patient and her son.
Wound Care instructions faxed to [facility] # [phone] per Jesusita's request
Plan: Discharge to home today with [facility] and private duty agency of patient's choice
Family will provide transport home
Addendum entered by Nataliia Delgado 11/23/24 15:33:
[facility] is unable to visit patient in the home until Wednesday; and can only visit every other day
CM spoke with patient and asked if she would prefer to go to a SNF; patient refused
Patient said that she and her family will manage the dressing changes. Patient's nurse was instructed to provide wound care/dressing changes education to patient and her family members prior to discharge today. VN will reinforce education when they
see the patient.
Patient stated that family will be there within the hour. Patient's RN and Attending notified.
[facility] will call the patient and confirm when they will visit her in her home.
Addendum entered by Nataliia Delgado 11/23/24 13:47:
referral home health (VN, PT) sent to [facility] via [facility]
Original Note:
Met with patient at bedside to discuss discharge plan
Patient insists that her secondary health insurance will cover daily home visits
Explained that [facility] does not service her home location; Per [facility] liaison, patient's insurance does not pay for daily visits and did not accept referral
IMM benefit explained; patient signed form @ 1248
--- NOTE | 2024-11-23 14:08 | W.PN.HOSP.TC ---
Today's Communication/Plan
-
More than 30 minutes spent in discharge including
Final examination of the patient
Summarizing hospital stay
Instructions for continuing care to all relevant caregivers
Preparation of discharge records, prescriptions, and referral forms
Total time spent (in minutes): 33mins
Assessment / Plan
Assessment / Plan
Scleral Anicteric
MMM
CTABL
RRR, S1/S2
Soft, NT, ND, BS+
Warm, Dry
Anxious
Abscess drainage s/p ex lap after robotic sigmoidectomy/from earlier on in the month of October 2024 (11/08/24)
-Culture growing Enterococcus, narrow Zosyn to amoxicillin
-Yeast seen on microscopy but not on culture, started micafungin per ID 1-2days
-Follow-up on sensitivities and speciation of the abscess culture
-Check blood culture, NGTD, no systemic evidence
-UA w/o evidence of UTI
-ID following, on oral antibiotics, will order to outpatient pharmacy
-Continue wound care
-Per Surgery cleared for DC
-Wound care instruction provided in DC
Asthma COPD
Bronchodilators as needed
Sjogren's syndrome/Karthik syndrome
Continue supportive care eyedrops
Chronic gastritis
Continue Pepcid
Anticipated Discharge: Today
Subjective/Interval History
-
Date of Service: November 23, 2024
seen an dexmained
no new complaints
intermittent nausea but no vomiting
intermittent abd pain, but improvign
Objective Data
-
Vital Signs:
Vital Signs
Temp Pulse Resp BP Pulse Ox
98.7 F 70 16 141/94 98
11/23/24 08:43 11/23/24 08:43 11/23/24 08:43 11/23/24 08:43 11/23/24 08:43
I&O
11/22/24 11/23/24 11/24/24
06:59 06:59 06:59
Intake Total 2775 / 2775 1200 / 1200
Balance 2775 / 2775 1200 / 1200
--- NOTE | 2024-11-23 14:16 | W.DCSUMMARY ---
Discharge Summary
Discharge Data
Date of Admission: 11/19/24
Date of Discharge: 11/23/24
-
Pending Results: No
Hospital Course
58y F with PMH significant for Sjogren's syndrome, chronic constipation and recent complicated diverticulitis now s/p sigmoid resection
Presented for postop complication of the incision site with complaints of pain swelling and redness. CT of the abdomen demonstrated a fluid collection subcutaneously with surrounding fat stranding/inflammation. Started on IV antibiotics. Surgery
was consulted mended drainage with ex lap. Abscess was cultured demonstrating few gram-negative enteric coccus along with rare budding yeast seen on microscopy but not on culture. Started on antibiotics along with antifungals. Infectious diseases
consulted. Transition to amoxicillin complete 6 more days along with micafungin that was discontinued after 2 days per infectious diseases. Blood cultures no growth to date. Evaluated by wound care continued recommending regular wound care
recommendations. Outpatient surgery follow up
Wound Care Instructions
Lower abdominal wound care-pack with dry gauze (may moisten proximal tip with saline as needed for pain), cover with gauze pads and ABD pad. Change packing daily. Change outer dressings daily and as needed for drainage. Abdominal binder for support.
Elevate heels off bed with pillow/s.
Follow up with colorectal surgeon.
Allow incision glue to naturally fall off, do not pick at incisions.
Discharge Plan
-
Patient Disposition: Home (Routine Discharge)
Discharge Diagnosis/Procedures: Wound abscess
Condition: Fair
Diet: Low Residue
Activity: No strenuous activity
Additional Activity: No lifting over 10lbs (gallon of milk)
Other Services: VN
Activity Restrictions/Additional Instructions:
Presented for postop complication of the incision site with complaints of pain swelling and redness. CT of the abdomen demonstrated a fluid collection subcutaneously with surrounding fat stranding/inflammation. Started on IV antibiotics. Surgery
was consulted mended drainage with ex lap. Abscess was cultured demonstrating few gram-negative enteric coccus along with rare budding yeast seen on microscopy but not on culture. Started on antibiotics along with antifungals. Infectious diseases
consulted. Transition to amoxicillin complete 6 more days along with micafungin that was discontinued after 2 days per infectious diseases. Blood cultures no growth to date. Evaluated by wound care continued recommending regular wound care
recommendations. Outpatient surgery follow up
Wound Care Instructions
Lower abdominal wound care-pack with dry gauze (may moisten proximal tip with saline as needed for pain), cover with gauze pads and ABD pad. Change packing daily. Change outer dressings daily and as needed for drainage. Abdominal binder for support.
Elevate heels off bed with pillow/s.
Follow up with colorectal surgeon.
Allow incision glue to naturally fall off, do not pick at incisions.
Referrals:
Geoff Wilson MD [Active] - in two weeks
Gustavo Palacios MD [Family Provider] -
Prescriptions:
New
Saccharomyces boulardii 250 mg Capsule
250 mg PO BID Qty: 30 0RF
polyethylene glycol 3350 17 gram Powder In Packet
17 g PO DAILYPRN PRN (Reason: constipation) Qty: 30 0RF
amoxicillin 250 mg/5 mL Suspension For Reconstitution
500 mg PO TID 6 Days Qty: 180 0RF
ondansetron 4 mg Tablet,Disintegrating
4 mg PO Q6H PRN (Reason: NAUSEA) Qty: 14 0RF
Continued
ketotifen fumarate [Zaditor] 0.025 % (0.035 %) Drops
1 drp BOTH EYES Q48H
famotidine [Pepcid] 20 mg Tablet
20 mg PO BID
ergocalciferol (vitamin D2) 200 mcg/mL (8,000 unit/mL) Drops
40,000 unit PO FR
Dulera 100-5 mcg/actuation Hfa Aerosol Inhaler
1 - 2 puff INHALATION R BID
fluticasone propionate 50 mcg/actuation spray,suspension
1 spray intranasal BID
cetirizine [Zyrtec] 10 mg Tablet
10 mg PO HS
TheraTears 0.25 % Drops
1 drp BOTH EYES QIDPRN PRN (Reason: irritated eyes)
estradiol [Estrace] 0.01 % (0.1 mg/gram) Cream
1 applic VAGINAL WESA
levalbuterol tartrate [Xopenex HFA] 45 mcg/actuation Hfa Aerosol Inhaler
2 inh INHALATION R Q6HPRN PRN (Reason: sob)
Patient Comments:
9 months ago
fluoride (sodium) [PreviDent 5000 Booster Plus] 1.1 % Paste
1 applic DENTAL BID
levalbuterol HCl 1.25 mg/0.5 mL Solution For Nebulization
1.25 mg INHALATION R DAILYPRN PRN (Reason: shortness of breath)
Patient Comments:
pt states approx 6 months ago
eyelid cleanser combination 9 Towelette
1 towel TOPICAL DAILYPRN PRN (Reason: both eyes) Qty: 0
mupirocin 2 % Ointment
1 applic TOPICAL BID
montelukast [Singulair] 10 mg Tablet
10 mg PO DAILYPRN PRN (Reason: allergies)
mirtazapine 7.5 mg Tablet
7.5 mg PO HS
oxycodone 5 mg tablet
5 mg PO Q6H PRN (Reason: Pain) 3 Days Qty: 12 0RF
Discharge Orders:
Discharge Patient (As Directed); Ordered 11/23/24
Ordered By: Dusty Flowers
Discharge Date and Time
Print Language: MALAGASY
[2024-11-23 15:23] VITALS: BP 107/71
== END 2024-11-23 18:00 | disposition home health service (06) | DRG 857 ==
LOC: 2 SOUTH 04:30
PROVIDERS: Emergency Medicine; Physician Assistant; ADMITTING PHYSICIAN Hospitalist; ATTENDING PHYSICIAN Hospitalist; CONSULT PHYSICIAN Internal Medicine Infectious Disease; CONSULT PHYSICIAN Surgery; EMERGENCY PHYSICIAN Emergency Medicine; FAMILY PHYSICIAN Student in an Organized Health Care Education/Training Program
PROC: 0W9F0ZZ Drainage of Abdominal Wall, Open Approach (ICD-10-PCS; 2024-11-21)
DX: T81.41XA Infection following a procedure, superficial incisional surgical site, initial encounter (principal); L02.211 Cutaneous abscess of abdominal wall; T81.328A Disruption or dehiscence of closure of other specified internal operation (surgical) wound, initial encounter; L76.34 Postprocedural seroma of skin and subcutaneous tissue following other procedure; L03.311 Cellulitis of abdominal wall; M35.00 Sjogren syndrome, unspecified; F41.1 Generalized anxiety disorder; K29.50 Unspecified chronic gastritis without bleeding; J44.89 Other specified chronic obstructive pulmonary disease; Y83.8 Other surgical procedures as the cause of abnormal reaction of the patient, or of later complication, without mention of misadventure at the time of the procedure
CPT/HCPCS: 74177; 80048; 80053; 81003; 81015; 83605; 85025; 85027; 86850; 86900; 86901; 87040; 87070; 87075; 87077; 87086; 87186; 87205; 94640; 96361; 96365; 96375; 96376; 97116; 97162; 99284; Q9967

== ENCOUNTER → 2024-12-05 15:08 | Outpatient (REF) | payer MEDICARE, OTHER, SELFPAY ==
[2024-12-05 15:53] LABS: Urine Albumin Negative (Neg - Trace); Urine Bilirubin Negative (Negative); Urine Character Clear (Clear); Urine Color Yellow; Urine Glucose Negative (Negative); Urine Ketone Negative (Negative); Urine Leukocyte Negative (Negative); Urine Nitrite Negative (Negative); Urine Occult Blood Negative (Negative); Urine Specific Gravity 1.015 (<1.030); Urine Urobilinogen Negative (Neg - 1+)
== END ==
LOC: REG 15:08
PROVIDERS: ATTENDING PHYSICIAN Student in an Organized Health Care Education/Training Program
DX: R30.0 Dysuria (principal)
CPT/HCPCS: 81003; 87086

== ENCOUNTER → 2024-12-21 15:15 | Outpatient (REF) | payer MEDICARE, OTHER, SELFPAY ==
[2024-12-21 16:17] LABS: % Basophils 0.6 % (0-2); % Eosinophils 2.6 % (0-6); % Immature Granulocytes 0.3 % (0-0.5); % Lymphocytes 20.1 % (20.5-51.1); % Neutrophils 68.4 % (42.2-75.2); Absolute Eosinophils 0.2 10^3/uL (0-0.7); Absolute Lymphocytes 1.5 10^3/uL (1.2-3.4); Absolute Monocytes 0.6 10^3/uL (0.1-0.6); Absolute Neutrophils 4.9 10^3/uL (1.4-6.5); Hematocrit 36.1 % (37.0-47.0); Hemoglobin 12.2 g/dL (12.0-16.0); Mean Corp Hgb Conc. 33.8 g/dL (33.0-37.0); Mean Corpuscular Hgb 30.3 pg (27.0-31.0); Mean Corpuscular Volume 89.6 fL (81.0-99.0); Mean Platelet Volume 10.1 fL (7.4-10.4); Nucleated Red Blood Cells % 0 %; Platelet Count 349 10^3/uL (130-400); Red Blood Cell Count 4.03 10^6/uL (4.20-5.40); Red Cell Dist. Width 13.1 % (11.5-14.5); White Blood Cell Count 7.2 10^3/uL (4.8-10.8)
[2024-12-21 16:34] LABS: ALT (SGPT) 16 U/L (0-35); AST (SGOT) 24 U/L (14-36); Albumin 4.2 g/dl (3.5-5.0); Alkaline Phosphatase 93 U/L (38-126); Blood Urea Nitrogen 19 mg/dl (7-17); Calcium 9.4 mg/dl (8.4-10.2); Carbon Dioxide 29 mmol/L (22-30); Chloride 104 mmol/L (98-107); Glucose 108 mg/dl (70-99); Potassium 4.3 mmol/L (3.5-5.1); Sodium 141 mmol/L (135-145); Total Bilirubin 0.4 mg/dl (0.2-1.3); Total Protein 6.8 g/dl (6.3-8.2); eGFR > 60.00
== END ==
LOC: REG 15:15
PROVIDERS: ATTENDING PHYSICIAN Physician Assistant Medical
DX: R10.11 Right upper quadrant pain (principal); R10.31 Right lower quadrant pain; Z98.890 Other specified postprocedural states; Z90.49 Acquired absence of other specified parts of digestive tract
CPT/HCPCS: 36415; 80053; 85025

== ENCOUNTER → 2024-12-26 17:06 | Outpatient (REF) | payer MEDICARE, OTHER, SELFPAY | LOC: RAD 17:06 | PROVIDERS: ATTENDING PHYSICIAN Physician Assistant Medical | DX: R10.9 Unspecified abdominal pain (principal); G89.29 Other chronic pain | CPT/HCPCS: 74177; Q9967 ==

== ENCOUNTER → 2025-02-14 17:54 | Outpatient (REF) | payer MEDICARE, OTHER, SELFPAY | LOC: RAD 17:54 | PROVIDERS: ATTENDING PHYSICIAN Internal Medicine Rheumatology; FAMILY PHYSICIAN Student in an Organized Health Care Education/Training Program | DX: M35.00 Sjogren syndrome, unspecified (principal) | CPT/HCPCS: 76536 ==

== ENCOUNTER → 2025-02-24 11:38 | Outpatient (REF) | payer MEDICARE, OTHER, SELFPAY ==
[2025-02-26 14:47] LABS: FIT-Fecal Occult Blood Interp Positive
== END ==
LOC: REG 11:38
PROVIDERS: ATTENDING PHYSICIAN Student in an Organized Health Care Education/Training Program
DX: R19.5 Other fecal abnormalities (principal)
CPT/HCPCS: 36415; 83520

== ENCOUNTER → 2025-03-22 15:26 | Outpatient (REF) | payer MEDICARE, OTHER, SELFPAY | LOC: WDC 15:26 | PROVIDERS: ATTENDING PHYSICIAN Advanced Practice Midwife | DX: Z12.31 Encounter for screening mammogram for malignant neoplasm of breast (principal) | CPT/HCPCS: 77063; 77067 ==

== ENCOUNTER → 2025-03-24 11:32 | Outpatient (REF) | payer MEDICARE, OTHER, SELFPAY | LOC: REG 11:32 | PROVIDERS: ATTENDING PHYSICIAN Internal Medicine Gastroenterology | DX: R19.4 Change in bowel habit (principal) | CPT/HCPCS: 83520 ==

== ENCOUNTER 2025-04-12 07:44 | Outpatient (RCR) | payer MEDICARE, OTHER, SELFPAY | END 2025-04-12 23:59 | disposition home or self-care (01) | LOC: RPT 07:44 | PROVIDERS: ATTENDING PHYSICIAN Surgery | DX: N81.6 Rectocele (principal); Z73.6 Limitation of activities due to disability | CPT/HCPCS: 97161; 97530 ==

== ENCOUNTER → 2025-04-27 13:53 | Outpatient (REF) | payer MEDICARE, OTHER, SELFPAY | LOC: REG 13:53 | PROVIDERS: ATTENDING PHYSICIAN Student in an Organized Health Care Education/Training Program | DX: R19.5 Other fecal abnormalities (principal) | CPT/HCPCS: 83520 ==

== ENCOUNTER 2025-05-25 13:32 | Outpatient (RCR) | payer MEDICARE, OTHER, SELFPAY | END 2025-05-25 23:59 | disposition home or self-care (01) | LOC: RPT 13:32 | PROVIDERS: ATTENDING PHYSICIAN Surgery | DX: N81.6 Rectocele (principal); Z73.6 Limitation of activities due to disability; R10.2 Pelvic and perineal pain; R35.0 Frequency of micturition | CPT/HCPCS: 97110; 97530 ==

== ENCOUNTER 2025-06-21 15:01 | Outpatient (RCR) | payer MEDICARE, OTHER, SELFPAY | END 2025-06-21 23:59 | disposition home or self-care (01) | LOC: RPT 15:01 | PROVIDERS: ATTENDING PHYSICIAN Advanced Practice Midwife | DX: N81.6 Rectocele (principal); Z73.6 Limitation of activities due to disability; R10.2 Pelvic and perineal pain; R35.0 Frequency of micturition; Z98.0 Intestinal bypass and anastomosis status; M54.16 Radiculopathy, lumbar region; R26.89 Other abnormalities of gait and mobility | CPT/HCPCS: 97010; 97110; 97164; 97530 ==

== ENCOUNTER → 2025-06-29 16:23 | Outpatient (REF) | payer MEDICARE, OTHER, SELFPAY | LOC: RAD 16:23 | PROVIDERS: ATTENDING PHYSICIAN Internal Medicine Gastroenterology | DX: R10.84 Generalized abdominal pain (principal); N81.6 Rectocele | CPT/HCPCS: 74176 ==

== ENCOUNTER 2025-07-01 10:48 | Emergency (ER) | payer MEDICARE, OTHER, SELFPAY ==
[2025-07-01 11:08] VITALS: BP 114/80
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
[2025-07-01] MEDS: TYLENOL ORAL SOLUTION 650 MG PO (14:38)
== END 2025-07-01 16:43 | disposition home or self-care (01) ==
LOC: EMR 10:48
PROVIDERS: EMERGENCY PHYSICIAN Emergency Medicine
DX: S09.90XA Unspecified injury of head, initial encounter (principal); S16.1XXA Strain of muscle, fascia and tendon at neck level, initial encounter; W22.09XA Striking against other stationary object, initial encounter; E78.00 Pure hypercholesterolemia, unspecified; J45.909 Unspecified asthma, uncomplicated; G47.30 Sleep apnea, unspecified
CPT/HCPCS: 99284; 70450; 72125

== ENCOUNTER → 2025-07-26 13:18 | Outpatient (REF) | payer MEDICARE, OTHER, SELFPAY | LOC: RAD 13:18 | PROVIDERS: ATTENDING PHYSICIAN Student in an Organized Health Care Education/Training Program | DX: M25.552 Pain in left hip (principal); Z13.820 Encounter for screening for osteoporosis; M85.89 Other specified disorders of bone density and structure, multiple sites | CPT/HCPCS: 73502; 77080 ==

== ENCOUNTER 2025-07-27 09:21 | Outpatient (RCR) | payer MEDICARE, OTHER, SELFPAY | END 2025-07-27 23:59 | disposition home or self-care (01) | LOC: RPT 09:21 | PROVIDERS: ATTENDING PHYSICIAN Advanced Practice Midwife | DX: N81.6 Rectocele (principal); Z73.6 Limitation of activities due to disability; R10.2 Pelvic and perineal pain; R35.0 Frequency of micturition; M54.16 Radiculopathy, lumbar region; R10.20 Pelvic and perineal pain unspecified side; R26.89 Other abnormalities of gait and mobility; Z98.0 Intestinal bypass and anastomosis status | CPT/HCPCS: 97010; 97110; 97112; 97530 ==

== ENCOUNTER → 2025-08-16 08:07 | Outpatient (REF) | payer MEDICARE, OTHER, SELFPAY | LOC: RAD 08:07 | PROVIDERS: ATTENDING PHYSICIAN Advanced Practice Midwife; FAMILY PHYSICIAN Student in an Organized Health Care Education/Training Program | DX: N81.6 Rectocele (principal) | CPT/HCPCS: 74270 ==

== ENCOUNTER 2025-08-17 09:10 | Outpatient (RCR) | payer MEDICARE, OTHER, SELFPAY | END 2025-08-17 23:59 | disposition home or self-care (01) | LOC: RPT 09:10 | PROVIDERS: ATTENDING PHYSICIAN Advanced Practice Midwife | DX: N81.6 Rectocele (principal); Z73.6 Limitation of activities due to disability; R35.0 Frequency of micturition; M54.16 Radiculopathy, lumbar region; R26.89 Other abnormalities of gait and mobility; R10.20 Pelvic and perineal pain unspecified side; Z98.0 Intestinal bypass and anastomosis status; R10.2 Pelvic and perineal pain | CPT/HCPCS: 97010; 97110; 97112 ==

== ENCOUNTER 2025-08-25 09:12 | Emergency (ER) | payer MEDICARE, OTHER, SELFPAY ==
[2025-08-25] VITALS (9 sets, daily range): BP systolic 112–135; BP diastolic 63–103; BMI 24.4
--- NOTE | 2025-08-25 10:00 | EDRN ---
Received patient on stretcher with c/o 9 days of urinary symptoms and pelvic pain. Patient stated 'You can never get a hold of anyone' when asked if she's been seen by her family doctor. Patient stated 'It hasn't gotten any better' when asked why
she waited 9 days to come to the ED. Patient stated 'My bladder constantly feels full. My pelvis is inflamed. There's something wrong.' Instructed patient on obtaining urine sample. Patient stated 'I will only do a urine sample. I am not having any
blood work done.'
[2025-08-25 10:07] LABS: Urine Character Clear (Clear)
--- NOTE | 2025-08-25 10:11 | ED.GENMED ---
History of Present Illness
General
Chief Complaint: Urinary Symptoms
Source: patient and family (Son who is at the bedside)
Exam Limitations: none
Time Seen by Provider: 08/25/25 09:26
Nursing documentation reviewed up to this point in time: agreed with
History of Present Illness
History of Present Illness:
The patient is a 59-year-old female with a past medical history of Sjogren syndrome and sigmoid resection that was complicated by a post-surgical infection and rectocele, who comes in with complaints of burning of her pelvic area. Patient describes
11 days of increased frequency of urination and burning with urination. Patient reports chills but no fever. She reports nausea but no vomiting. Patient reports back pain but states that she always has chronic back pain. Patient also feels as
though her pelvic area looks slightly distended. Patient is very hesitant to have a CAT scan, as she has had multiple CAT scans this year. Additionally, patient reports she is very hesitant to have an ultrasound done because she does not want any
pressure applied to her lower abdominal incision, nor does she want any gel put on that area.
Patient reports that she saw her data capture specialist on 08/21/2025 for these symptoms. She underwent a pelvic exam and gave a urine specimen at that time. She showed me results on the phone that her urine showed no white blood cells, no red blood cells,
was nitrate negative but was leuk esterase positive. Her urine culture was not yet resulted. She showed me that her vaginitis cultures were negative
Past History
Past History
ED Past Medical History: Asthma, Hypercholesterolemia, Other (Seasonal allergies, PNA, Gastroparesis, Endometrious, IBS, Sjogrens, Palpitations, Sleep apnea, Buldging disc, Arthritis, Chronic fatigue, Migraines, Sleep apnea, Diverticulitis) and
Other (Interstitial cystitis, Rosacea, recurrent sigmoid diverticulitis)
ED Past Surgical History: Appendectomy, Bowel resection (Sigmoid colon resection November 08, 2024), Gynecological (Hysterectomy) and Other (Adhesions)
Social History
Tobacco: Non-smoker
Alcohol: None
Drug: None
Personal:
Living: with family
Employment: Disabled
Family History
Family History: Other (Noncontributory)
Review of Systems
Review of Systems
Allergies reviewed?: Yes
Other source history: family
All Other Systems: ROS reviewed and negative except as documented in HPI and ROS
Constitutional: Reports chills (Patient reports 'she always has chills' but no fever)
EENT: Reports no symptoms
Respiratory: Reports no symptoms
Cardiac: Reports no symptoms
ABD/GI: Reports abdominal pain and nausea (Patient reports chronic nausea); Denies vomiting
: Reports frequency and urgency
Musculoskeletal: Reports back pain (Chronic back pain)
Skin: Reports no symptoms
Neurological: Reports no symptoms
Endocrine: Reports no symptoms
Hematologic/Lymphatic: Reports no symptoms
Psychiatric: Reports no symptoms
Phy Exam
Physical Exam
Physical Exam:
Physical Exam
General: no apparent distress, not acutely ill
Neck: supple.
Heart: s1/s2 regular rate and rhythm, no murmur. equal radial pulses.
Lungs: no acute respiratory distress. clear bilaterally
Abdomen: Soft throughout. Well-healed surgical scar of lower abdomen without any areas of fluctuance or erythema. Mild lower abdominal/suprapubic tenderness without rebound or guarding. No pulsatile mass
Neuro: alert and oriented. no focal neurological deficits
Skin: no rash
Psychiatric: well kept. interactive and cooperative
Extremities: no edema. no calf tenderness. negative homans. good distal pulses
Course
Orders/Labs/Results
Orders:
Orders
08/25/25 09:52
Urinalysis Reflex To Culture Urgent
Date Specimen was Collected: 08/25/25
Time Specimen was Collected: 09:36
Urine Microscopic Reflex Cult Urgent
Urine Culture Urgent
MADYSON Source: U
Specimen Description:
Date Specimen was Collected: 08/25/25
Time Specimen was Collected: 09:36
08/25/25 10:50
US Kidneys and US Bladder [US Renal With Bladder] Urgent
Comment:
Reason For Exam: suprapubic pain, dysuria, hematuria
08/25/25 13:11
CT Abd/pel (oral only)-[facility] Only Urgent
Comment:
Reason For Exam: low abdominal pain,burning & frequency w/urination
Iohexol [Omnipaque] See Protocol PO NOW STA
08/25/25 17:23
Ciprofloxacin HCl [Cipro] 250 mg PO NOW STA
Abnormal Lab Results
08/25/25
09:52
Leukocyte Esterase Rfl 1+ A
(Negative)
Urine Bacteria (Reflex) Few A
(Negative)
Vital Signs
Initial and Last Documented VS:
Initial Vital Signs
Temp Pulse Resp BP Pulse Ox
97.5 F 71 20 132/83 99
08/25/25 09:13 08/25/25 09:13 08/25/25 09:13 08/25/25 09:13 08/25/25 09:13
Last Documented Vital Signs
Temp Pulse Resp BP Pulse Ox
97.5 F 69 16 129/79 97
08/25/25 09:13 08/25/25 15:55 08/25/25 15:55 08/25/25 15:55 08/25/25 15:55
MDM/Problems Addressed
Differential Diagnosis Includes:
Acute UTI, UTI with retained urethral stone, partial bowel obstruction, acute on chronic constipation
MDM/Problems Addressed:
Patient presents with acute on chronic lower abdominal pain as well as acute dysuria and urgency to urinate
Chronic conditions affecting care:
Patient does have chronic pain associated with recent bowel surgery
Chronic conditions affecting care: Previous abdomnial surgery
Acute Exacerbation and/or Progression of Chronic Illness:
Patient may have acute partial bowel obstruction due to scar tissue from bowel surgery
Acute Exacerbation and/or Progression of Chronic Illness: Previous abdomnial surgery
*Radiology
Radiology exam reviewed: radiology read reviewed
*Pulse Oximetry
SaO2: 99
Oxygen Mode of Delivery: Room air
Patient hypoxic: no
*Critical Care Note
Total Time (30-74mins, 75-104mins- exclusive of procedures): Not Applicable
Data Reviewed
Review of Other/Old Records Reveals: Discharge Summary (Discharge summary reviewed from October 2024 when patient was admitted for postoperative wound infection)
Patient Management
Social determinants of health affecting care: Living situation and Strong social support
Update Note
Update Note:
10:55 AM I reviewed patient's urinalysis result with her and explained that it is possible she has a urinary tract infection but the results are not extremely convincing of one. I told the patient that due to her complicated surgical history, I
recommend we do blood work and a CT, especially given that she is talking about ' something being very wrong' in her lower abdomen. Patient adamantly does not want blood work or CAT scan at this time. Patient feels very strongly something is wrong
with her bladder and would like a bladder ultrasound done.
1:00 PM patient reports burning pain in pelvic/bladder area. Ultrasound does show some sediment in bladder which could be related to small kidney stones. Patient is now agreeable to having CAT scan done. She adamantly is refusing IV contrast
given that she is allergic. Additionally, she is adamantly and repeatedly refusing blood work. She reports that she believes that all these frequent blood draws have made her anemic. She is not agreeable to blood work at this time
5:29 patient's CAT scan showed no acute abnormalities. Patient reports she still having pain, although, she appears very comfortable. She still adamantly does not want blood work done. I offered her admission to the hospital to monitor her pain
and she adamantly does not want this. Patient does not seem to be happy with anything offered to her. Given that patient has increased frequency of urination and urgency, I made the decision to treat patient as a urinary tract infection with
Cipro. Patient given copies of her CAT scan report and ultrasound report, as well as her blood work.
ED Attending Note
-
Portions of this chart may have been created with voice recognition software.� Occasional wrong word or��sound alike� substitutions may have occurred due to the inherent limitations of voice recognition software.
Discharge Plan
Departure
Patient Disposition: Home (Routine Discharge)
Date of Disposition: 08/25/25
Time of Disposition: 17:20
Patient with high blood pressure during this ER visit?: Yes
Condition: Good
Covid-19: Not Applicable
Discharge Problem:
Lower abdominal pain, UTI (urinary tract infection)
Instructions: Abdominal pain in adults - ED (DC), Urinary tract infection in adults - ED (DC), BLOOD PRESSURE
Prescriptions:
New
ciprofloxacin HCl [Cipro] 250 mg tablet
250 mg PO BID Qty: 13 0RF
No Action
ketotifen fumarate [Zaditor] 0.025 % (0.035 %) Drops
1 drp BOTH EYES Q48H
famotidine [Pepcid] 20 mg Tablet
20 mg PO BID
ergocalciferol (vitamin D2) 200 mcg/mL (8,000 unit/mL) Drops
40,000 unit PO FR
Dulera 100-5 mcg/actuation Hfa Aerosol Inhaler
1 - 2 puff INHALATION R BID
fluticasone propionate 50 mcg/actuation spray,suspension
1 spray intranasal BID
cetirizine [Zyrtec] 10 mg Tablet
10 mg PO HS
TheraTears 0.25 % Drops
1 drp BOTH EYES QIDPRN PRN (Reason: irritated eyes)
estradiol [Estrace] 0.01 % (0.1 mg/gram) Cream
1 applic VAGINAL WESA
levalbuterol tartrate [Xopenex HFA] 45 mcg/actuation Hfa Aerosol Inhaler
2 inh INHALATION R Q6HPRN PRN (Reason: sob)
Patient Comments:
9 months ago
fluoride (sodium) [PreviDent 5000 Booster Plus] 1.1 % Paste
1 applic DENTAL BID
levalbuterol HCl 1.25 mg/0.5 mL Solution For Nebulization
1.25 mg INHALATION R DAILYPRN PRN (Reason: shortness of breath)
Patient Comments:
pt states approx 6 months ago
eyelid cleanser combination 9 Towelette
1 towel TOPICAL DAILYPRN PRN (Reason: both eyes) Qty: 0
mupirocin 2 % Ointment
1 applic TOPICAL BID
montelukast [Singulair] 10 mg Tablet
10 mg PO DAILYPRN PRN (Reason: allergies)
mirtazapine 7.5 mg Tablet
7.5 mg PO HS
Saccharomyces boulardii 250 mg Capsule
250 mg PO BID Qty: 30 0RF
polyethylene glycol 3350 17 gram Powder In Packet
17 g PO DAILYPRN PRN (Reason: constipation) Qty: 30 0RF
amoxicillin 250 mg/5 mL Suspension For Reconstitution
500 mg PO TID 6 Days Qty: 180 0RF
ondansetron 4 mg Tablet,Disintegrating
4 mg PO Q6H PRN (Reason: NAUSEA) Qty: 14 0RF
oxycodone 5 mg tablet
5 mg PO Q6H PRN (Reason: Pain) 3 Days Qty: 12 0RF
Referrals:
Gustavo Palacios MD [Family Provider, Family Practice]
Activity Restrictions/Additional Instructions:
Return for worsening pain, vomiting or fever.
Interventions
Interventions:
*Risk Screen - Suicide Last Done: 08/25/25 09:13
*General Assessment Last Done: 08/25/25 09:17
*Neglect/Abuse Screening Last Done: 08/25/25 09:49
*ED- Fall Risk Assessment Last Done: 08/25/25 09:35
*ED COVID-19 Vaccine History Last Done: 08/25/25 09:17
*ED Influenza Vaccine History Last Done: 08/25/25 09:16
ED-Female Genitourinary Assessment Last Done: 08/25/25 09:35
Discharge Date and Time
Print Language: INDIAN
[2025-08-25 10:29] LABS: Urine Red Blood Cell 0-2 /HPF (0-2); Urine White Cell 0-2 /HPF (0-5)
--- NOTE | 2025-08-25 11:28 | ED TECH ---
Upon arrival into the pt's room to transport to US she immediately asked if I was doing the scan to say 'I don't want them pushing that thing down on my stitches'. Once I began taking the vitals equipment off she pulled off her BP cuff stating 'this
needs to be cleaned off, my skin is getting irritated and I don't want a skin issue because a thousand people have used this', I told her it is cleaned after each pt when the rooms are cleaned. Once we were in the hallway there was a child waiting
outside of Xray on the right side and quickly stated 'get me away that to that side', the left side of the hallway away from the child.
[2025-08-25] MEDS: OMNIPAQUE 50 ML PO (13:19)
--- NOTE | 2025-08-25 17:05 | EDRN ---
Dr. Jovel in room w /pt at this time.
[2025-08-25] MEDS: CIPRO 250 MG PO (17:43)
--- NOTE | 2025-08-25 17:46 | EDRN ---
Cipro cut in half as pt requested. Pt said she could not swallow half a pill and requested it be cut in quarters. Pill cut in quarters at this time. Pt also insisted pill be taken w/ room temp water and got out a large cup to pour her water in it
that she brought from home.
== END 2025-08-25 17:55 | disposition home or self-care (01) ==
LOC: EMR 09:12
PROVIDERS: EMERGENCY PHYSICIAN Emergency Medicine; FAMILY PHYSICIAN Student in an Organized Health Care Education/Training Program
DX: N39.0 Urinary tract infection, site not specified (principal); G47.30 Sleep apnea, unspecified; M35.00 Sjogren syndrome, unspecified; E78.00 Pure hypercholesterolemia, unspecified; J45.909 Unspecified asthma, uncomplicated; Z90.49 Acquired absence of other specified parts of digestive tract; Z90.710 Acquired absence of both cervix and uterus
CPT/HCPCS: 99284; 74176; 76770; 81003; 81015; 87086

== ENCOUNTER 2025-09-25 08:39 | Outpatient (RCR) | payer MEDICARE, OTHER, SELFPAY | END 2025-09-25 23:59 | disposition home or self-care (01) | LOC: RPT 08:39 | PROVIDERS: ATTENDING PHYSICIAN Advanced Practice Midwife | DX: N81.6 Rectocele (principal); Z73.6 Limitation of activities due to disability; R35.0 Frequency of micturition; M54.16 Radiculopathy, lumbar region; R26.89 Other abnormalities of gait and mobility; R10.20 Pelvic and perineal pain unspecified side; R15.9 Full incontinence of feces; Z98.0 Intestinal bypass and anastomosis status; R10.2 Pelvic and perineal pain | CPT/HCPCS: 97110; 97112; 97140; 97530 ==

== ENCOUNTER → 2025-09-26 11:04 | Outpatient (REF) | payer MEDICARE, OTHER, SELFPAY ==
[2025-09-26 12:28] LABS: Urine Character Clear (Clear)
== END ==
LOC: RAD 11:04
PROVIDERS: ATTENDING PHYSICIAN Student in an Organized Health Care Education/Training Program
DX: R60.0 Localized edema (principal); Z00.00 Encounter for general adult medical examination without abnormal findings; R39.9 Unspecified symptoms and signs involving the genitourinary system
CPT/HCPCS: 81003; 93970